=== PATIENT | female | born 1965 | race Caucasian/White ===

== ENCOUNTER 2018-06-16 17:54 | Emergency (ER) | payer OTHER, MEDICARE, SELFPAY ==
--- NOTE | 2018-06-16 18:04 | ED.FALL ---
HPI - Fall <Kenyetta Small PA-C - Last Filed: 06/16/18 22:02> General Chief Complaint: Shortness of Breath/Dyspnea Stated Complaint: Fall, SOB Time Seen by Provider: 06/16/18 18:03 Source: patient Mode of arrival: ambulatory History of Present Illness HPI Narrative: This 53-year-old female comes to ED due to chest/rib pain that started 2 days ago and has been worsening. She states that she tripped trying to avoid falling over her dog and hit her left anterior rib area on the wooden corner of the sofa. She states it has been sore but pain has been worsening, very painful with deep breath, cough, or any movement. She states that her shoulder is not injured but she can't move it due to the pain. She also feels like her chest is getting more congested. She states that she had a cold recently with congestion and cough, however that had been getting better. She had not had any fevers. She denies any head contusion, LOC, back or spine pain or other injury. She states that she is supposed to be on blood pressure medicine but has not been. Related Data Home Medications Medication Instructions Recorded Confirmed chlorthalidone 25 mg PO DAILY 06/16/18 06/16/18 Previous Rx's Medication Instructions Recorded albuterol sulfate [ProAir HFA] 2 puff INHALATION Q4-6H PRN #8.5 06/16/18 gram chlorthalidone 25 mg PO DAILY #10 tab 06/16/18 lidocaine [Lidoderm] 1 patch TOP DAILY #30 each 06/16/18 oxycodone-acetaminophen 1 tab PO Q4H PRN #14 tab 06/16/18 Allergies Allergy/AdvReac Type Severity Reaction Status Date / Time morphine [MORPHINE] Allergy Unknown Verified 06/16/18 18:39 Review of Systems <Kenyetta Small PA-C - Last Filed: 06/16/18 22:02> Review of Systems ROS Unobtainable: All systems reviewed & are unremarkable except as noted in HPI and below Exam <Kenyetta Small PA-C - Last Filed: 06/16/18 22:02> Narrative Exam Narrative: GENERAL APPEARANCE: Patient lying uncomfortably, in NAD NECK/THYROID: Neck supple, no JVD. LUNGS: coarse BS with expiratory rhonchi, no crackles, no cough on exam HEART: Regular rate and rhythm without murmur, normal S1, S2, no S3 or S4. ABDOMEN: Soft, NT, ND, + BS x 4 quadrants EXTREMITIES: No cyanosis. No calf tenderness NEUROLOGIC: Alert and oriented, normal speech, and coordination. Initial Vital Signs Initial Vital Signs: Vital Signs Temperature 98.0 F 06/16/18 18:08 Pulse Rate 93 H 06/16/18 18:08 Respiratory Rate 26 H 06/16/18 18:08 Blood Pressure 200/116 H 06/16/18 18:08 Pulse Oximetry 97 06/16/18 18:08 <Johny Shankar MD - Last Filed: 06/17/18 02:28> Initial Vital Signs Initial Vital Signs: Vital Signs Temperature 98.0 F 06/16/18 18:08 Pulse Rate 93 H 06/16/18 18:08 Respiratory Rate 26 H 06/16/18 18:08 Blood Pressure 200/116 H 06/16/18 18:08 Pulse Oximetry 97 06/16/18 18:08 PFSH <Kenyetta Small PA-C - Last Filed: 06/16/18 22:02> Medical History HTN (hypertension) (Chronic) Surgical History Status post cervical spinal fusion (Resolved) Status post gastric bypass for obesity (Resolved) Status post lumbar surgery (Resolved) Family History Other No pertinent family history Social History Smoking Status: Current every day smoker Family History Other No pertinent family history Social History Smoking Status: Current every day smoker Comment: uses THC. Previous cocaine use Course <Kenyetta Small PA-C - Last Filed: 06/16/18 22:02> Additional Information: Patient is feeling much more comfortable and significantly improved after medications. She is not able to take NSAIDs due to history of gastric bypass. She is able to take deep breaths and worked with respiratory therapist on pulmonary toilet. She thinks albuterol may have helped a little bit. She was given pain medication for this evening and will cone picker a prescription tomorrow. She agreed to return if any acutely worsening symptoms, otherwise will follow up with her PCP 1st of next week. She has also been off of her usual blood pressure medication likely accounting for her elevated blood pressure. She was given a prescription for that as well until she can follow up with her PCP. Orders Ordered: ED Orders 06/16/18 18:12 XR ribs RT min 3V w CXR1V Stat Discontinued Medications Albuterol (Ventolin) 2.5 mg INH NOW ONE Stop: 06/16/18 18:46 Last Admin: 06/16/18 18:49 Dose: 2.5 mg Lidocaine (Lidoderm) 1 each TOP NOW ONE Stop: 06/16/18 18:24 Last Admin: 06/16/18 18:41 Dose: 1 each Oxycodone/Acetaminophen (Percocet 5/325) 2 tab PO NOW ONE Stop: 06/16/18 18:13 Last Admin: 06/16/18 18:43 Dose: 2 tab Vital Signs - 8 hr 06/16/18 18:49 06/16/18 20:01 Pulse Rate 88 88 Respiratory Rate 16 Blood Pressure 148/91 H Pulse Oximetry 98 93 <Johny Shankar MD - Last Filed: 06/17/18 02:28> Orders Ordered: ED Orders 06/16/18 18:12 XR ribs RT min 3V w CXR1V Stat Discontinued Medications Albuterol (Ventolin) 2.5 mg INH NOW ONE Stop: 06/16/18 18:46 Last Admin: 06/16/18 18:49 Dose: 2.5 mg Lidocaine (Lidoderm) 1 each TOP NOW ONE Stop: 06/16/18 18:24 Last Admin: 06/16/18 18:41 Dose: 1 each Oxycodone/Acetaminophen (Percocet 5/325) 2 tab PO NOW ONE Stop: 06/16/18 18:13 Last Admin: 06/16/18 18:43 Dose: 2 tab Vital Signs - 8 hr 06/16/18 18:49 06/16/18 20:01 Pulse Rate 88 88 Respiratory Rate 16 Blood Pressure 148/91 H Pulse Oximetry 98 93 MDM - Fall <Kenyetta Small PA-C - Last Filed: 06/16/18 22:02> Imaging Data Chest x-ray: Radiologist's impression: 24 Kenyetta Small PA-C Find Patient Imaging Stephanie Duran 53 F 1965 ACTIVITY DATE EXAM STATUS AUTHOR 06/16/18 18:[address] [address] XRay Report Signed Patient: Stephanie Duran CMR#: [id number] : 1965Acct:[id number] Age/Sex: 53 / FDate of Service: 06/16/18 Loc: ED Accession Number: [id number] Procedure: XR ribs RT min 3V w CXR1V Ordering Provider: Kenyetta Small P.A-C PROCEDURE: XR RIBS RT MIN 3V W CXR 1V INDICATIONS: contusion, L. anterior upper rib pain TECHNIQUE: 2 views of the left ribs were acquired, along with a single view chest. COMPARISON: [facility], , CHEST 1 VIEW, 03/10/2008, 16:41. FINDINGS: Surgical changes and devices: None. Bones and chest wall: No displaced rib fracture identified. No suspicious bony lesions. Overlying soft tissues appear unremarkable. Lungs and pleura: No pleural effusions or pneumothorax. There are low lung volumes. Linear opacities in the right lung base likely represent atelectasis. Mediastinum: Mediastinal contours appear normal. Heart size is normal. IMPRESSION: 1. No displaced rib fractures identified. Dictated by: Tung Prado M.D. on 06/16/2018 at 19:21 Approved by: Tung Prado M.D. on 06/16/2018 at 19:22 ECG Data Attestation: I personally reviewed and interpreted this ECG as follows: (Normal sinus rhythm with rate 91, left axis deviation, no acute changes) Discharge Plan Departure Patient Disposition: Home Clinical Impression: Acute costochondritis Discharge Date/Time: 06/16/18 20:01 Interventions: ED Discharge Assessment Last Done: 06/16/18 20:01 Instructions: DI for Costochondritis Activity Restrictions/Additional Instructions: Since you are feeling better, you can monitor at home. Your x-ray did not show any broken ribs. I think that you pulled the cartilage between the ribs and breast bone, and the muscles in between your ribs, which is quite painful. Please continue the lidocaine patch during the day and continue the pain pills as needed (do not drive as they could make you sleepy). Use the device that the respiratory therapist gave you regularly. Hug a pillow to your chest and take deep breaths every few hours to help keep your lungs expanded. Please call your PCP on Tuesday and follow up preferably on Tuesday least by Tuesday for recheck. You may need more pain medicine by then. Return as we talked about if you have any acutely worsening symptoms in the interim. I have sent in a little bit of your blood pressure medicine as well for you to restart until you are seen next week. Prescriptions: New chlorthalidone 25 mg tablet 25 mg PO DAILY Qty: 10 RF: 0 oxycodone-acetaminophen 5-325 mg tablet 1 tab PO Q4H PRN (Reason: acute rib pain) Qty: 14 RF: 0 lidocaine [Lidoderm] 5 % adhesive patch,medicated 1 patch TOP DAILY Qty: 30 RF: 0 ProAir HFA 90 mcg/actuation HFA aerosol inhaler 2 puff INHALATION Q4-6H PRN (Reason: chest tightness/shortness of breath) Qty: 8.5 RF: 0 No Action chlorthalidone 25 mg Tablet 25 mg PO DAILY RF: 0 Referrals: Cedrick Adorno DO [Non-Staff] - <Johny Shankar MD - Last Filed: 06/17/18 02:28> Cosign ED Attending Coshéctorature Attestation: I was in the ER at the time this patient's care. I was available for consultation or to see the patient directly if needed. I agree with the assessment and treatment plan.
[2018-06-16 18:08] VITALS: BP 200/116; PULSE 93; RESP 26; TEMP 36.7; O2SAT 97; BMI 33.3
--- NOTE | 2018-06-16 18:12 | DI.RAD.S_ITS ---
PROCEDURE: XR RIBS RT MIN 3V W CXR 1V INDICATIONS: contusion, L. anterior upper rib pain TECHNIQUE: 2 views of the left ribs were acquired, along with a single view chest. COMPARISON: [facility], , CHEST 1 VIEW, 03/10/2008, 16:41. FINDINGS: Surgical changes and devices: None. Bones and chest wall: No displaced rib fracture identified. No suspicious bony lesions. Overlying soft tissues appear unremarkable. Lungs and pleura: No pleural effusions or pneumothorax. There are low lung volumes. Linear opacities in the right lung base likely represent atelectasis. Mediastinum: Mediastinal contours appear normal. Heart size is normal. IMPRESSION: 1. No displaced rib fractures identified. Dictated by: Tung Prado M.D. on 06/16/2018 at 19:21 Approved by: Tung Prado M.D. on 06/16/2018 at 19:22
--- NOTE | 2018-06-16 18:21 | ED_ITS ---
HPI - Fall <Kenyetta Small PA-C - Last Filed: 06/16/18 22:02> General Chief Complaint: Shortness of Breath/Dyspnea Stated Complaint: Fall, SOB Time Seen by Provider: 06/16/18 18:03 Source: patient Mode of arrival: ambulatory History of Present Illness HPI Narrative: This 53-year-old female comes to ED due to chest/rib pain that started 2 days ago and has been worsening. She states that she tripped trying to avoid falling over her dog and hit her left anterior rib area on the wooden corner of the sofa. She states it has been sore but pain has been worsening, very painful with deep breath, cough, or any movement. She states that her shoulder is not injured but she can't move it due to the pain. She also feels like her chest is getting more congested. She states that she had a cold recently with congestion and cough, however that had been getting better. She had not had any fevers. She denies any head contusion, LOC, back or spine pain or other injury. She states that she is supposed to be on blood pressure medicine but has not been. Related Data Home Medications Medication Instructions Recorded Confirmed chlorthalidone 25 mg PO DAILY 06/16/18 06/16/18 Previous Rx's Medication Instructions Recorded albuterol sulfate [ProAir HFA] 2 puff INHALATION Q4-6H PRN #8.5 06/16/18 gram chlorthalidone 25 mg PO DAILY #10 tab 06/16/18 lidocaine [Lidoderm] 1 patch TOP DAILY #30 each 06/16/18 oxycodone-acetaminophen 1 tab PO Q4H PRN #14 tab 06/16/18 Allergies Allergy/AdvReac Type Severity Reaction Status Date / Time morphine [MORPHINE] Allergy Unknown Verified 06/16/18 18:39 Review of Systems <Kenyetta Small PA-C - Last Filed: 06/16/18 22:02> Review of Systems ROS Unobtainable: All systems reviewed & are unremarkable except as noted in HPI and below Exam <Kenyetta Small PA-C - Last Filed: 06/16/18 22:02> Narrative Exam Narrative: GENERAL APPEARANCE: Patient lying uncomfortably, in NAD NECK/THYROID: Neck supple, no JVD. LUNGS: coarse BS with expiratory rhonchi, no crackles, no cough on exam HEART: Regular rate and rhythm without murmur, normal S1, S2, no S3 or S4. ABDOMEN: Soft, NT, ND, + BS x 4 quadrants EXTREMITIES: No cyanosis. No calf tenderness NEUROLOGIC: Alert and oriented, normal speech, and coordination. Initial Vital Signs Initial Vital Signs: Vital Signs Temperature 98.0 F 06/16/18 18:08 Pulse Rate 93 H 06/16/18 18:08 Respiratory Rate 26 H 06/16/18 18:08 Blood Pressure 200/116 H 06/16/18 18:08 Pulse Oximetry 97 06/16/18 18:08 <Johny Shankar MD - Last Filed: 06/17/18 02:28> Initial Vital Signs Initial Vital Signs: Vital Signs Temperature 98.0 F 06/16/18 18:08 Pulse Rate 93 H 06/16/18 18:08 Respiratory Rate 26 H 06/16/18 18:08 Blood Pressure 200/116 H 06/16/18 18:08 Pulse Oximetry 97 06/16/18 18:08 PFSH <Kenyetta Small PA-C - Last Filed: 06/16/18 22:02> Medical History HTN (hypertension) (Chronic) Surgical History Status post cervical spinal fusion (Resolved) Status post gastric bypass for obesity (Resolved) Status post lumbar surgery (Resolved) Family History Other No pertinent family history Social History Smoking Status: Current every day smoker Family History Other No pertinent family history Social History Smoking Status: Current every day smoker Comment: uses THC. Previous cocaine use Course <Kenyetta Small PA-C - Last Filed: 06/16/18 22:02> Additional Information: Patient is feeling much more comfortable and significantly improved after medications. She is not able to take NSAIDs due to history of gastric bypass. She is able to take deep breaths and worked with respiratory therapist on pulmonary toilet. She thinks albuterol may have helped a little bit. She was given pain medication for this evening and will mushroom picker a prescription tomorrow. She agreed to return if any acutely worsening symptoms, otherwise will follow up with her PCP 1st of next week. She has also been off of her usual blood pressure medication likely accounting for her elevated blood pressure. She was given a prescription for that as well until she can follow up with her PCP. Orders Ordered: ED Orders 06/16/18 18:12 XR ribs RT min 3V w CXR1V Stat Discontinued Medications Albuterol (Ventolin) 2.5 mg INH NOW ONE Stop: 06/16/18 18:46 Last Admin: 06/16/18 18:49 Dose: 2.5 mg Lidocaine (Lidoderm) 1 each TOP NOW ONE Stop: 06/16/18 18:24 Last Admin: 06/16/18 18:41 Dose: 1 each Oxycodone/Acetaminophen (Percocet 5/325) 2 tab PO NOW ONE Stop: 06/16/18 18:13 Last Admin: 06/16/18 18:43 Dose: 2 tab Vital Signs - 8 hr 06/16/18 18:49 06/16/18 20:01 Pulse Rate 88 88 Respiratory Rate 16 Blood Pressure 148/91 H Pulse Oximetry 98 93 <Johny Shankar MD - Last Filed: 06/17/18 02:28> Orders Ordered: ED Orders 06/16/18 18:12 XR ribs RT min 3V w CXR1V Stat Discontinued Medications Albuterol (Ventolin) 2.5 mg INH NOW ONE Stop: 06/16/18 18:46 Last Admin: 06/16/18 18:49 Dose: 2.5 mg Lidocaine (Lidoderm) 1 each TOP NOW ONE Stop: 06/16/18 18:24 Last Admin: 06/16/18 18:41 Dose: 1 each Oxycodone/Acetaminophen (Percocet 5/325) 2 tab PO NOW ONE Stop: 06/16/18 18:13 Last Admin: 06/16/18 18:43 Dose: 2 tab Vital Signs - 8 hr 06/16/18 18:49 06/16/18 20:01 Pulse Rate 88 88 Respiratory Rate 16 Blood Pressure 148/91 H Pulse Oximetry 98 93 MDM - Fall <Kenyetta Small PA-C - Last Filed: 06/16/18 22:02> Imaging Data Chest x-ray: Radiologist's impression: 24 Kenyetta Small PA-C Find Patient Imaging Stephanie Duran 53 F 1965 ACTIVITY DATE EXAM STATUS AUTHOR 06/16/18 18:[address] [address] XRay Report Signed Patient: Stephanie Duran CMR#: [id number] : 1965Acct:[id number] Age/Sex: 53 / FDate of Service: 06/16/18 Loc: ED Accession Number: [id number] Procedure: XR ribs RT min 3V w CXR1V Ordering Provider: Kenyetta Small P.A-C PROCEDURE: XR RIBS RT MIN 3V W CXR 1V INDICATIONS: contusion, L. anterior upper rib pain TECHNIQUE: 2 views of the left ribs were acquired, along with a single view chest. COMPARISON: [facility], CHEST 1 VIEW, 03/10/2008, 16:41. FINDINGS: Surgical changes and devices: None. Bones and chest wall: No displaced rib fracture identified. No suspicious bony lesions. Overlying soft tissues appear unremarkable. Lungs and pleura: No pleural effusions or pneumothorax. There are low lung volumes. Linear opacities in the right lung base likely represent atelectasis. Mediastinum: Mediastinal contours appear normal. Heart size is normal. IMPRESSION: 1. No displaced rib fractures identified. Dictated by: Tung Prado M.D. on 06/16/2018 at 19:21 Approved by: Tung Prado M.D. on 06/16/2018 at 19:22 ECG Data Attestation: I personally reviewed and interpreted this ECG as follows: (Normal sinus rhythm with rate 91, left axis deviation, no acute changes) Discharge Plan Departure Patient Disposition: Home Clinical Impression: Acute costochondritis Discharge Date/Time: 06/16/18 20:01 Interventions: ED Discharge Assessment Last Done: 06/16/18 20:01 Instructions: DI for Costochondritis Activity Restrictions/Additional Instructions: Since you are feeling better, you can monitor at home. Your x-ray did not show any broken ribs. I think that you pulled the cartilage between the ribs and breast bone, and the muscles in between your ribs, which is quite painful. Pl ease continue the lidocaine patch during the day and continue the pain pills as needed (do not drive as they could make you sleepy). Use the device that the respiratory therapist gave you regularly. Hug a pillow to your chest and take deep breaths every few hours to help keep your lungs expanded. Please call your PCP on Tuesday and follow up preferably on Tuesday least by [place] for recheck. You may need more pain medicine by then. Return as we talked about if you have any acutely worsening symptoms in the interim. I have sent in a little bit of your blood pressure medicine as well for you to restart until you are seen next week. Prescriptions: New chlorthalidone 25 mg tablet 25 mg PO DAILY Qty: 10 RF: 0 oxycodone-acetaminophen 5-325 mg tablet 1 tab PO Q4H PRN (Reason: acute rib pain) Qty: 14 RF: 0 lidocaine [Lidoderm] 5 % adhesive patch,medicated 1 patch TOP DAILY Qty: 30 RF: 0 ProAir HFA 90 mcg/actuation HFA aerosol inhaler 2 puff INHALATION Q4-6H PRN (Reason: chest tightness/shortness of breath) Qty: 8.5 RF: 0 No Action chlorthalidone 25 mg Tablet 25 mg PO DAILY RF: 0 Referrals: Cedrick Adorno DO [Non-Staff] - <Johny Shankar MD - Last Filed: 06/17/18 02:28> Cosign ED Attending Coshéctorature Attestation: I was in the ER at the time this patient's care. I was available for consultation or to see the patient directly if needed. I agree with the assessment and treatment plan.
[2018-06-16] MEDS: LIDOCAINE PATCH 1 EACH ADH..PATCH TOP (18:41)
[2018-06-16] MEDS: OXYCODONE/ACETAMINOPHEN 5/325 TABLET 2 TAB PO (18:43)
[2018-06-16 18:49] VITALS: PULSE 88; O2SAT 98
[2018-06-16] MEDS: ALBUTEROL 2.5 MG/3 ML NEB (ADULT) INH (18:49)
--- NOTE | 2018-06-16 18:50 | PC.NURSE ---
rtNorris instructed on incentive spironmetry use. pt demonstrated well.
[2018-06-16 20:01] VITALS: BP 148/91; PULSE 88; RESP 16; O2SAT 93
== END 2018-06-16 20:01 | disposition home or self-care (01) ==
PROVIDERS: Emergency Provider Internal Medicine; Family Provider Preventive Medicine Occupational Medicine; PCP Preventive Medicine Occupational Medicine
DX: M94.0 Chondrocostal junction syndrome [Tietze] (principal)
CPT/HCPCS: 71101; 93005; 94640; 99282; 99284; J7613

== ENCOUNTER 2019-01-01 01:38 | Emergency (ER) | payer OTHER, MEDICARE, SELFPAY ==
[2019-01-01 01:45] VITALS: BP 167/90; PULSE 88; RESP 15; TEMP 36.4; O2SAT 94; BMI 37.8
--- NOTE | 2019-01-01 01:51 | ED_ITS ---
HPI - Abdominal Pain General Chief Complaint: Abdominal Pain Stated Complaint: ABD pain LLQ Time Seen by Provider: 01/01/19 01:38 Source: patient and EMS Mode of arrival: EMS Limitations: no limitations History of Present Illness HPI narrative: Patient comes emergency department complaining of left upper quadrant abdominal pain that started tonight. Patient states that she has a history of gastric bypass 2 years ago, and about a year ago, began having episodes of pain like she has had tonight. Patient states she has seen her primary doctor for this previously, but they could not figure out what was wrong, so they sent her to a GI specialist. They did a colonoscopy and an endoscopy, but patient states they had to abort the endoscopy, secondary to the patient being in too much pain. Patient states she does not actually remember the procedure, because she was sedated. She states the GI specialist never found a reason for her pain. Patient denies anything different or new about this episode, other than that it lasted a bit longer than usual. She states she did have nausea and vomiting, but that she vomits every single day. Patient denies fevers. She states the pain and vomiting always start after eating. Patient states her pain is a little better now than it was earlier. She also reports that her nausea has resolved. Related Data Home Medications Medication Instructions Recorded Confirmed chlorthalidone 25 mg PO DAILY 06/16/18 06/16/18 Previous Rx's Medication Instructions Recorded albuterol sulfate [ProAir HFA] 2 puff INHALATION Q4-6H PRN #8.5 06/16/18 gram chlorthalidone 25 mg PO DAILY #10 tab 06/16/18 lidocaine [Lidoderm] 1 patch TOP DAILY #30 each 06/16/18 oxycodone-acetaminophen 1 tab PO Q4H PRN #14 tab 06/16/18 ondansetron 4 mg PO Q6H PRN #20 tab 01/01/19 Allergies Allergy/AdvReac Type Severity Reaction Status Date / Time morphine [MORPHINE] Allergy Unknown Verified 06/16/18 18:39 acetaminophen [From Percocet] Allergy Verified 01/01/19 01:51 oxycodone [From Percocet] Allergy Verified 01/01/19 01:51 Review of Systems Constitutional Constitutional: Denies chills, Denies fatigue, Denies fever(s), Denies frequent falls, Denies lethargy and Denies weakness Eyes Eyes: Denies change in vision, Denies eye discharge, Denies irritation and Denies loss of vision ENT Ears, Nose, Mouth, and Throat: Denies change in voice, Denies dizziness, Denies neck pain, Denies sore throat and Denies throat swelling Cardiovascular Cardiovascular: Denies chest pain, Denies irregular heart rhythm, Denies lightheadedness, Denies palpitations, Denies dyspnea, Denies dyspnea on exertion and Denies orthopnea Respiratory Respiratory: Denies cough, Denies dyspnea, Denies dyspnea on exertion and Denies wheezing Gastrointestinal Gastrointestinal: Reports abdominal pain, Denies change in bowel habits, Denies diarrhea, Reports nausea and Reports vomiting Genitourinary Genitourinary: Denies hematuria, Denies flank pain, Denies urinary incontinence and Denies urinary urgency Musculoskeletal Musculoskeletal: Denies back pain, Denies muscle weakness, Denies neck pain, Denies numbness and Denies tingling Integumentary/Breasts Skin/Breast: Denies pruritus, Denies erythema, Denies rash and Denies wounds Neurologic Neurologic: Denies behavioral changes, Denies confusion, Denies dizziness, Denies frequent falls, Denies loss of vision, Denies numbness, Denies tingling and Denies weakness Psychiatric Psychiatric: Denies anxiety, Denies behavioral changes, Denies confusion, Denies depression, Denies homicidal ideation and Denies suicidal ideation Endocrine Endocrine: Denies fatigue, Denies flushing and Denies palpitations Hematologic/Lymphatic Hematologic/Lymphatic: Denies easy bruising Allergic/Immunologic Allergic/Immunologic: Denies urticaria, Denies throat swelling and Denies wheezing [facility] Medical History HTN (hypertension) (Chronic) Surgical History Status post cervical spinal fusion (Resolved) Status post gastric bypass for obesity (Resolved) Status post lumbar surgery (Resolved) Family History (Updated 06/16/18 @ 18:19 by Kenyetta Small PA-C) Other No pertinent family history Social History Smoking Status: Current every day smoker Family History Other No pertinent family history Social History Smoking Status: Current every day smoker Exam Initial Vital Signs Initial Vital Signs: Vital Signs Temperature 97.5 F L 01/01/19 01:45 Pulse Rate 88 01/01/19 01:45 Respiratory Rate 15 01/01/19 01:45 Blood Pressure 167/90 H 01/01/19 01:45 Pulse Oximetry 94 01/01/19 01:45 Const General: cooperative and well developed Nutritional Appearance: well nourished Orientation: alert, awake, oriented x3 and not confused [facility] Head: normocephalic and atraumatic Ears: external ears normal and TM's normal bilaterally Nose: external nose normal and No nasal discharge Face and sinus: sinuses nontender, face symmetric, no sinus tenderness and No dry mucous membranes Mouth: oral mucosae normal and moist mucous membranes Teeth and gingiva: dentition normal Throat: tonsils normal and uvula midline Eyes General: appearance normal, both eyes and all related structures Eyelids: eyelids normal Conjunctivae: conjunctivae normal Sclera: sclerae normal Pupils: PERRL EOM: EOM intact bilaterally Neck Neck: normal visual inspection, trachea midline, No lymphadenopathy, No midline deformity and No JVD Lymphatic: No lymphedema Chest Chest: normal inspection of the chest Resp Effort & Inspection: normal respiratory effort, able to speak in complete sentences, no respiratory distress and no use of accessory muscles Auscultation: clear to auscultation bilaterally, no rales, no rhonchi and no wheezes Cardio Rate: regular rate Rhythm: regular rhythm Heart Sounds: no click, no gallops, no murmurs and no rubs Pulses: normal peripheral pulses GI Inspection: non-distended and obesity Palpation: soft, no hepatosplenomegaly, No guarding, No pulsatile mass and tender (Moderate, epigastric and left upper quadrant) Back/Spine/Pelvis Back: No CVA tenderness Cervical Spine: cervical ROM normal and No pain with cervical ROM Thoracic/Lumbar Spine: thoracic and lumbar spine normal to inspection Skin General: no rashes or lesions noted, No jaundice and No petechiae Neuro General: alert, oriented x3, gait normal and no focal motor deficits Speech: speech normal Extrem General: full ROM, no clubbing, cyanosis or edema, no pedal edema and no calf tenderness Psych Appearance: well kempt Mental Status: mental status grossly normal Attitude: cooperative Thought Content: normal and suicidality Judgment: judgment good Course Course Course Narrative: Patient was treated symptomatically in the emergency department with Dilaudid and worked up with laboratory studies, which were unremarkable the emergency department. I did not find evidence of an emergent condition, and given the patient's fairly benign abdominal exam, I did not feel that imaging was indicated at this time. We have discussed home management of symptoms, as well as the usual indications for return. Orders Ordered: Discontinued Medications Hydromorphone HCl (Dilaudid) 0.5 mg IV NOW ONE Stop: 01/01/19 01:51 Last Admin: 01/01/19 01:55 Dose: 0.5 mg Documented by: ELHAM Vital Signs Vital signs: Vital Signs - 8 hr 01/01/19 01:45 Temperature 97.5 F L Pulse Rate 88 Respiratory Rate 15 Blood Pressure 167/90 H Pulse Oximetry 94 MDM - Abdominal Pain Medical Records Attestation: I reviewed the patient's medical records. Lab Data Attestation: I reviewed the patient's lab results. Result diagrams: 01/01/19 01:35 01/01/19 01:35 Labs: Lab Results 01/01/19 01/01/19 Range/Units 01:35 01:35 WBC 8.5 (4.5-11.0) X10^3/uL RBC 4.35 (4.0-5.2) X10^6/uL Hgb 13.2 (12.0-16.0) g/dL Hct 39.3 (36-46) % MCV 90.4 (80-100) fL MCH 30.4 (26-34) PG MCHC 33.7 (30-36) % RDW 17.3 H (11.6-14.8) % Plt Count 316 (150-400) X10^3/uL Neut % (Auto) 72.7 (50-75) % Lymph % (Auto) 19.3 L (25-40) % Leon % (Auto) 6.2 (3-14) % Eos % (Auto) 1.1 L (2-4) % Baso % (Auto) 0.7 (0-2) % Neut # (Auto) 6100 (3965-0213) /uL Lymph # (Auto) 1600 (3581-6977) /uL Leon # (Auto) 500 (0-900) /uL Eos # (Auto) 100 (0-450) /uL Baso # (Auto) 100 (0-100) /uL Sodium 140 (137-145) mmol/L Potassium 3.1 L (3.4-5.1) mmol/L Chloride 107 (98-107) mmol/L Carbon Dioxide 23 (22-32) mmol/L BUN 9 (7-17) mg/dL Creatinine 0.80 (0.52-1.04) mg/dL Estimated GFR > 60.0 (>60) mL/min BUN/Creatinine Ratio 11.3 (6-22) Glucose 118 H (70-100) mg/dL Calcium 8.8 (8.4-10.2) mg/dL Total Bilirubin 0.3 (0.2-1.3) mg/dL AST 67 H (14-36) IU/L ALT 65 H (9-52) IU/L Alkaline Phosphatase 105 (38-126) U/L Total Protein 6.9 (6.3-8.2) g/dL Albumin 4.0 (3.5-5.0) g/dL Globulin 2.9 (1.7-4.1) g/dL Albumin/Globulin Ratio 1.4 (1.0-2.8) Lipase 116 (23-300) U/L Discharge Plan Departure Patient Disposition: Home Clinical Impression: Abdominal pain Qualifiers: Abdominal location: left upper quadrant Qualified Code(s): R10.12 - Left upper quadrant pain Nausea & vomiting Qualifiers: Vomiting type: unspecified Vomiting Intractability: non-intractable Qualified Code(s): R11.2 - Nausea with vomiting, unspecified Discharge Date/Time: 01/01/19 03:37 Instructions: DI for Abdominal Pain-Adult, DI for Vomiting -- Adult Activity Restrictions/Additional Instructions: Your labs overall look good, other than slight elevations in your liver enzymes. You're due for another visit with the GI doctor, and this would be a good follow-up, given that you have not seen them since the symptoms first began. Please make an appointment to follow up with the transport aircrewman, but also, please make an appointment to see primary care, as well. Some options for primary care physicians are listed below. Your prescription has been electronically transmitted to [facility]. Prescriptions: New ondansetron 4 mg tablet,disintegrating 4 mg PO Q6H PRN (Reason: nausea and vomiting) Qty: 20 RF: 0 No Action chlorthalidone 25 mg Tablet 25 mg PO DAILY RF: 0 chlorthalidone 25 mg tablet 25 mg PO DAILY Qty: 10 RF: 0 oxycodone-acetaminophen 5-325 mg tablet 1 tab PO Q4H PRN (Reason: acute rib pain) Qty: 14 RF: 0 lidocaine [Lidoderm] 5 % adhesive patch,medicated 1 patch TOP DAILY Qty: 30 RF: 0 ProAir HFA 90 mcg/actuation HFA aerosol inhaler 2 puff INHALATION Q4-6H PRN (Reason: chest tightness/shortness of breath) Qty: 8.5 RF: 0 Referrals: Romaine Castellanos MD [Physician] - Romaine Lazar MD [Physician] - Sowmya Hunter MD [Primary Care Provider] - Lesia Olson DO [Physician] -
[2019-01-01] MEDS: HYDROMORPHONE 0.5 MG INJ IV (01:55)
[2019-01-01 02:05] LABS: Add Manual Diff / Slide Review NO; Basophils Absolute Auto 100 /uL (0-100); Basophils Percent Auto 0.7 % (0-2); Eosinophils Absolute Auto 100 /uL (0-450); Eosinophils Percent Auto 1.1 % (2-4); Hematocrit 39.3 % (36-46); Hemoglobin 13.2 g/dL (12.0-16.0); Lymphocytes Absolute Auto 1600 /uL (1100-4500); Lymphocytes Percent Auto 19.3 % (25-40); Mean Corpuscular HGB Conc 33.7 % (30-36); Mean Corpuscular Hemoglobin 30.4 PG (26-34); Mean Corpuscular Volume 90.4 fL (80-100); Monocytes Absolute Auto 500 /uL (0-900); Monocytes Percent Auto 6.2 % (3-14); Neutrophils Absolute Auto 6100 /uL (1500-7000); Neutrophils Percent Auto 72.7 % (50-75); Platelet Count 316 X10^3/uL (150-400); Red Blood Cell Count 4.35 X10^6/uL (4.0-5.2); Red Cell Distribution Width 17.3 % (11.6-14.8); White Blood Cell Count 8.5 X10^3/uL (4.5-11.0)
[2019-01-01 02:16] LABS: Alanine Aminotransferase 65 IU/L (9-52); Albumin Globulin Ratio 1.4 (1.0-2.8); Alkaline Phosphatase 105 U/L (38-126); Aspartate Aminotransferase 67 IU/L (14-36); BUN Creatinine Ratio 11.3 (6-22); Bilirubin Total 0.3 mg/dL (0.2-1.3); Blood Urea Nitrogen 9 mg/dL (7-17); Calcium 8.8 mg/dL (8.4-10.2); Carbon Dioxide 23 mmol/L (22-32); Chloride 107 mmol/L (98-107); Estimated Glomerular Filt Rate > 60.0 mL/min (>60); Globulin 2.9 g/dL (1.7-4.1); Glucose 118 mg/dL (70-100); HEMOLYSIS < 15 (0-50); Lipase 116 U/L (23-300); Potassium 3.1 mmol/L (3.4-5.1); Sodium 140 mmol/L (137-145); Total Protein 6.9 g/dL (6.3-8.2)
[2019-01-01 02:30] VITALS: BP 161/92; PULSE 86; RESP 16; O2SAT 91
[2019-01-01 03:00] VITALS: BP 144/91; PULSE 90; RESP 17; O2SAT 95
== END 2019-01-01 03:37 | disposition home or self-care (01) ==
PROVIDERS: Emergency Provider Emergency Medicine; Family Provider Preventive Medicine Occupational Medicine; PCP Preventive Medicine Occupational Medicine
DX: R10.12 Left upper quadrant pain (principal); R11.2 Nausea with vomiting, unspecified
CPT/HCPCS: 36591; 80053; 83690; 85025; 96374; 99282; 99284; J1170

== ENCOUNTER 2020-11-08 15:52 | Emergency (ER) | payer OTHER, MEDICARE, SELFPAY ==
[2020-11-08] VITALS (21 sets, daily range): BP systolic 122–204; BP diastolic 72–125; PULSE 23–103; RESP 16–25; TEMP 36.6; O2SAT 91–98
--- NOTE | 2020-11-08 16:03 | DI.CT.S_ITS ---
PROCEDURE: CT ANGIO HEAD AND NECK INDICATIONS: left leg weakness TECHNIQUE: Noncontrast images were performed earlier in the day and not repeated. After the administration of intravenous contrast, 1 mm thick sections acquired from the aortic arch through the Anderson of Damian. Post-contrast 4.5 mm thick sections then re-acquired from the foramen magnum to the vertex. 3-dimensional dybguhi-hrdtinixv-hgzvzhxlse (MIP) and/or volume rendering reformats were acquired of the central intracranial vasculature and neck separately. COMPARISON: [facility], CT, CT STROKE, 11/08/2020, 16:08. FINDINGS: Image quality: Excellent. BRAIN: CSF spaces: Ventricles are normal in size and shape. Basal cisterns are patent. No extra-axial fluid collections. Brain: No midline shift. No intracranial bleeds or masses. Barrera-white matter interface appears intact. Skull and face: Calvarium and facial bones appear intact, without suspicious lesions. Orbits appear normal. Sinuses: Sinuses and mastoids are clear. HEAD CT ANGIOGRAPHY: Anterior circulation: Intracranial internal carotid arteries are normal in size and flow. The flow within the paired anterior cerebral arteries is normal and symmetric. The flow within the middle cerebral arteries is normal and symmetric. The anterior communicating artery is seen. No aneurysms are seen. Posterior circulation: Visualized portions of the vertebral arteries demonstrate normal caliber, and join to form a normal appearing basilar artery. The distal right vertebral artery largely terminates in the right posterior inferior cerebellar artery. There is a prominent right posterior communicating artery seen, with an accompanying diminutive right P1 segment. This is attributed to a type origin of the right posterior cerebral artery, which is considered to be a normal developmental variant of typically no clinical consequence. Flow within the posterior cerebral arteries is normal and symmetric. No aneurysms are seen. NECK CT ANGIOGRAPHY: Carotid system: The great vessels demonstrate a conventional anatomy as they arise from the aortic arch. The origins of the common carotid arteries appear patent. The common carotid arteries demonstrate normal caliber and courses. The bifurcation regions are both widely patent. The internal carotid arteries demonstrate normal calibers and courses. Posterior circulation: The origins of the vertebral arteries both appear widely patent. The more superior extracranial portions of both vertebral arteries also demonstrate normal courses and calibers. The left vertebral artery is dominant to the right Soft tissues: Visualized neck soft tissues demonstrate no suspicious abnormalities. Bones: No suspicious bony lesions. Visualized cervical spine appears normally aligned. Cervical spine fixation hardware can be seen. IMPRESSION: No hemodynamically significant stenosis can be seen. [id number] developmental anomalies are incidentally noted. No abnormal enhancement is seen. Any quantitative measurements of stenosis were performed using NASCET criteria. Dictated by: Mingo Nelson M.D. on 11/08/2020 at 15:38 Approved by: Mingo Nelson M.D. on 11/08/2020 at 15:40
--- NOTE | 2020-11-08 16:03 | DI.CT.S_ITS ---
PROCEDURE: CT STROKE INDICATIONS: left leg weakness TECHNIQUE: Noncontrast 4.5 mm thick angled axial sections acquired from the foramen magnum to the vertex, with coronal reformats. For radiation dose reduction, the following was used: automated exposure control, adjustment of mA and/or kV according to patient size. COMPARISON: None. FINDINGS: Image quality: Excellent. CSF spaces: Basal cisterns are patent. No extra-axial fluid collections. Ventricles are normal in size and shape. Brain: No midline shift. No intracranial masses or hemorrhage. Barrera-white matter interface is normal. Skull and face: Calvarium and visualized facial bones are intact, without suspicious lesions. Sinuses: Visualized sinuses and mastoids are clear. IMPRESSION: No acute intracranial abnormality. Findings discussed with Dr. Darshana Richardson MD on 11/08/20 16:11 hours. This study fulfills neurological imaging criteria for inclusion or exclusion of acute stroke therapies based on available published neurological imaging guidelines. Dictated by: Yelitza Hernandez M.D. on 11/08/2020 at 16:10 Approved by: Yelitza Hernandez M.D. on 11/08/2020 at 16:11
--- NOTE | 2020-11-08 16:06 | ED.NEUROSD ---
HPI - Neuro Symptoms/Deficit General Chief Complaint: Neuro Symptoms/Deficit Stated Complaint: stroke sx Time Seen by Provider: 11/08/20 16:03 History of Present Illness HPI Narrative: Patient is a 55-year-old female who presents as a code stroke. Her last known well was at 315 when she told her her head was not right. She remembers looking at the clock was right around 3:00 a.m. they [place] and the [place] at 4 she was worried they would make it as she was not feeling right. 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 She feels like her legs are weak she felt like she was not able to speak clearly and was brought here immediately. She does drink alcohol daily but has not had anything to drink today. Has a history of an adrenal mass which seems to be growing but stable. She does not use any medications daily. Related Data Allergies Allergy/AdvReac Type Severity Reaction Status Date / Time morphine [MORPHINE] Allergy Unknown Verified 06/16/18 18:39 acetaminophen [From Percocet] Allergy Verified 01/01/19 01:51 oxycodone [From Percocet] Allergy Verified 01/01/19 01:51 Review of Systems Review of Systems Narrative: GENERAL: Denies chills, fatigue, malaise, fever, sweats, travel HEENT: Denies sinus pain, ear pain, sore throat, difficulty swallowing, neck pain RESPIRATORY: Denies dyspnea, cough, wheezing, hemoptysis, sputum. CARDIOVASCULAR: Denies chest pain, palpitations, orthopnea, edema GASTROINTESTINAL: Denies nausea, vomiting, abdominal pain, diarrhea, constipation, melena. : Denies dysuria, frequency, incontinence, hematuria, urinary retention, flank pain. MUSCULOSKELETAL: Denies weakness, joint pain, or bony pain SKIN: No rash, no erythema, no pruritus NEUROLOGIC: See HPI PSYCHIATRIC: No concerning psychosocial issues. 12 point review of systems is negative except for those stated above and HPI Patient History Medical History (Updated 01/16/19 @ 00:00 by ) HTN (hypertension) Surgical History Status post cervical spinal fusion Status post gastric bypass for obesity Status post lumbar surgery Family History Other No pertinent family history Social History Smoking Status: Current every day smoker Smoking Status: Current every day smoker alcohol intake frequency: 3 or more drinks per day Substance Use Type: marijuana Exam Initial Vital Signs Initial Vital Signs: Vital Signs Pulse Rate 103 H 11/08/20 16:07 Respiratory Rate 16 11/08/20 16:07 Blood Pressure 204/125 H 11/08/20 16:07 Pulse Oximetry 95 11/08/20 16:07 GENERAL: Alert 55-year-old female and in [no acute] distress. HEENT: Head atraumatic,EOMI, pupils reactive, mild facial droop CARDIOVASCULAR: Regular rate and rhythm without murmurs, rubs or gallops. RESPIRATORY: Breath sounds equal bilaterally, no wheezes rales or rhonchi. ABDOMEN: Soft, nontender. Normoactive bowel sounds all 4 quadrants. No guarding or rebound. EXTREMITIES: Normal range of motion, no clubbing or edema. NEUROLOGICAL: Alert and oriented x4. Mild left-sided facial droop, unable to lift left leg, left arm drifts SKIN: Warm, dry, no laceration, no petechiae, no rashes or lesions. Scores NIH Stroke Scale Level of Conciousness: Alert, keenly responsive Ask month/age: Answers both questions correctly. Open/close eyes, close hand: Performs both tasks correctly Best gaze horizontal: Normal Visual werner: No visual loss Facial palsy: Minor paralysis, flattened nasolabial fold, asymmetry on smiling Left arm drift: Drifts down, not to bed Right arm drift: No drift for full 10 sec Left leg drift: Some effort against gravity, cannot maintain, drifts down to bed Right leg drift: No drift for full 5 sec Limb ataxia: Absent Sensory on face/arms/legs: Normal, no sensory loss Best language: No aphasia, normal Dysarthria: Normal Extinction or inattention: No abnormality Total NIH Stroke scale score: 4 Course Orders Ordered: ED Orders 11/08/20 16:[address] angio head and neck Stat 11/08/20 16:05 Urine Drug Screen, Rapid Stat EKG-12 Lead Stat 11/08/20 16:07 Complete Blood Count AUTO DIFF Stat Comprehensive Metabolic Panel Stat Ethanol (ETOH) Stat Magnesium Stat Partial Thromboplastin Time Stat Phosphorous Stat Prothrombin Time INR Stat Troponin & CK Cardiac Panel Stat 11/08/20 16:41 COVID19 -Nasal swab/Pre-Proc Stat Sodium Chloride (Normal Saline 0.9%) 1,000 mls @ 150 mls/hr IV CONT MARIA ELENA Last Admin: 11/08/20 17:29 Dose: 150 mls/hr Documented by: HERNANDEZ Nicardipine HCl 25 mg/ Sodium (Chloride) 250 mls @ 50 mls/hr IV TITRATE MARIA ELENA; Protocol Last Admin: 11/08/20 17:51 Dose: 5 mg/hr, 50 mls/hr Documented by: HERNANDEZ Discontinued Medications Alteplase, Recombinant (Alteplase 100 Mg Vial) 88.1 mg IV NOW ONE Stop: 11/08/20 16:46 Last Admin: 11/08/20 16:52 Dose: 88.1 mg Documented by: HERNANDEZ Labetalol HCl (Labetalol 20 Mg/4 Ml Syringe) 10 mg IV NOW ONE Stop: 11/08/20 16:22 Last Admin: 11/08/20 16:27 Dose: 10 mg Documented by: JOSÉ ANTONIO Ondansetron HCl (Ondansetron 4 Mg/2 Ml Inj) 4 mg IV NOW ONE Stop: 11/08/20 17:38 Last Admin: 11/08/20 17:38 Dose: 4 mg Documented by: HERNANDEZ Potassium Chloride (Potassium Chloride 20 Meq Tab) 40 meq PO NOW ONE Stop: 11/08/20 17:14 Last Admin: 11/08/20 17:28 Dose: 40 meq Documented by: HERNANDEZ Vital Signs Vital signs: Vital Signs - 8 hr 11/08/20 16:07 11/08/20 16:15 11/08/20 16:27 Temperature Pulse Rate 103 H 97 H Respiratory Rate 16 18 Blood Pressure 204/125 H 201/107 H 201/107 H Pulse Oximetry 95 98 11/08/20 16:30 11/08/20 16:45 11/08/20 17:00 Temperature 98 F 98 F Pulse Rate 23 L 80 74 Respiratory Rate 18 22 18 Blood Pressure 145/84 H 160/99 H 160/87 H Pulse Oximetry 98 98 95 11/08/20 17:07 11/08/20 17:16 11/08/20 17:30 Temperature Pulse Rate 80 80 80 Respiratory Rate 22 22 18 Blood Pressure 127/72 122/73 Pulse Oximetry 95 94 95 11/08/20 17:45 11/08/20 17:46 11/08/20 17:49 Temperature Pulse Rate 81 81 81 Respiratory Rate 21 21 25 H Blood Pressure 181/102 H 184/101 H Pulse Oximetry 94 94 93 11/08/20 18:00 11/08/20 18:04 11/08/20 18:05 Temperature Pulse Rate 81 81 81 Respiratory Rate 18 19 18 Blood Pressure 165/86 H 165/86 H Pulse Oximetry 92 93 98 11/08/20 18:15 11/08/20 18:30 11/08/20 18:45 Temperature Pulse Rate 79 79 78 Respiratory Rate 23 22 22 Blood Pressure 163/93 H 149/90 H 164/94 H Pulse Oximetry 93 93 93 11/08/20 19:00 11/08/20 19:29 Temperature Pulse Rate 77 82 Respiratory Rate 21 25 H Blood Pressure 154/90 H 171/93 H Pulse Oximetry 91 91 MDM - Neuro Symptoms/Deficit Lab Data Result diagrams: 11/08/20 16:07 11/08/20 16:07 Labs: Lab Results 11/08/20 11/08/20 11/08/20 Range/Units 16:07 16:07 16:07 WBC 9.4 (4.5-11.0) X10^3/uL RBC 4.38 (4.0-5.2) X10^6/uL Hgb 13.9 (12.0-16.0) g/dL Hct 41.8 (36-46) % MCV 95.5 (80-100) fL MCH 31.7 (26-34) PG MCHC 33.2 (30-36) % RDW 19.0 H (11.6-14.8) % Plt Count 376 (150-400) X10^3/uL Neut % (Auto) 68.6 (50-75) % Lymph % (Auto) 19.9 L (25-40) % Maverick % (Auto) 10.0 (3-14) % Eos % (Auto) 0.8 L (2-4) % Baso % (Auto) 0.7 (0-2) % Neut # (Auto) 6400 (1433-5025) /uL Lymph # (Auto) 1900 (6018-3309) /uL Maverick # (Auto) 900 (0-900) /uL Eos # (Auto) 100 (0-450) /uL Baso # (Auto) 100 (0-100) /uL PT 10.8 (10.1-12.7) SECONDS INR 1.0 (0.9-1.3) APTT 29 (26.4-36.2) SECONDS Sodium (137-145) mmol/L Potassium (3.4-5.1) mmol/L Chloride (98-107) mmol/L Carbon Dioxide (22-32) mmol/L BUN (7-17) mg/dL Creatinine (0.52-1.04) mg/dL Estimated GFR (>60) mL/min BUN/Creatinine Ratio (6-22) Glucose (70-100) mg/dL Calcium (8.4-10.2) mg/dL Phosphorus (2.5-4.5) mg/dL Magnesium (1.6-2.3) mg/dL Total Bilirubin (0.2-1.3) mg/dL AST (14-36) IU/L ALT (<35) IU/L Alkaline Phosphatase (38-126) U/L Total Creatine Kinase (30-135) U/L CK-MB (CK-2) CK-MB (CK-2) Rel Index Troponin I (0.01-0.034) ng/mL Total Protein (6.3-8.2) g/dL Albumin (3.5-5.0) g/dL Globulin (1.7-4.1) g/dL Albumin/Globulin Ratio (1.0-2.8) Ethyl Alcohol < 10 ( - 10) mg/dL SARS-CoV-2 (PCR) (Negative) 11/08/20 11/08/20 11/08/20 Range/Units 16:07 16:07 16:41 WBC (4.5-11.0) X10^3/uL RBC (4.0-5.2) X10^6/uL Hgb (12.0-16.0) g/dL Hct (36-46) % MCV (80-100) fL MCH (26-34) PG MCHC (30-36) % RDW (11.6-14.8) % Plt Count (150-400) X10^3/uL Neut % (Auto) (50-75) % Lymph % (Auto) (25-40) % Maverick % (Auto) (3-14) % Eos % (Auto) (2-4) % Baso % (Auto) (0-2) % Neut # (Auto) (4226-7090) /uL Lymph # (Auto) (4190-7735) /uL Maverick # (Auto) (0-900) /uL Eos # (Auto) (0-450) /uL Baso # (Auto) (0-100) /uL PT (10.1-12.7) SECONDS INR (0.9-1.3) APTT (26.4-36.2) SECONDS Sodium 139 (137-145) mmol/L Potassium 2.7 L* (3.4-5.1) mmol/L Chloride 101 (98-107) mmol/L Carbon Dioxide 29 (22-32) mmol/L BUN 12 (7-17) mg/dL Creatinine 1.00 (0.52-1.04) mg/dL Estimated GFR 57.6 L (>60) mL/min BUN/Creatinine Ratio 12.0 (6-22) Glucose 109 H (70-100) mg/dL Calcium 9.2 (8.4-10.2) mg/dL Phosphorus 3.0 (2.5-4.5) mg/dL Magnesium 1.6 (1.6-2.3) mg/dL Total Bilirubin 1.1 (0.2-1.3) mg/dL AST 175 H (14-36) IU/L ALT 104 H (<35) IU/L Alkaline Phosphatase 150 H (38-126) U/L Total Creatine Kinase 60 (30-135) U/L CK-MB (CK-2) TNP CK-MB (CK-2) Rel Index TNP Troponin I < 0.012 (0.01-0.034) ng/mL Total Protein 7.2 (6.3-8.2) g/dL Albumin 4.2 (3.5-5.0) g/dL Globulin 3.0 (1.7-4.1) g/dL Albumin/Globulin Ratio 1.4 (1.0-2.8) Ethyl Alcohol ( - 10) mg/dL SARS-CoV-2 (PCR) Negative (Negative) Point of Care Testing Glucose POC [address] scan - head: Radiologist's Impression: PROCEDURE: CT STROKE INDICATIONS: left leg weakness TECHNIQUE: Noncontrast 4.5 mm thick angled axial sections acquired from the foramen magnum to the vertex, with coronal reformats. For radiation dose reduction, the following was used: automated exposure control, adjustment of mA and/or kV according to patient size. COMPARISON: None. FINDINGS: Image quality: Excellent. CSF spaces: Basal cisterns are patent. No extra-axial fluid collections. Ventricles are normal in size and shape. Brain: No midline shift. No intracranial masses or hemorrhage. Barrera-white matter interface is normal. Skull and face: Calvarium and visualized facial bones are intact, without suspicious lesions. Sinuses: Visualized sinuses and mastoids are clear. IMPRESSION: No acute intracranial abnormality. Findings discussed with Dr. Darshana Richardson MD on 11/08/20 16:11 hours. This study fulfills neurological imaging criteria for inclusion or exclusion of acute stroke therapies based on available published neurological imaging guidelines. Dictated by: Yelitza Hernandez M.D. on 11/08/2020 at 16:10 Approved by: Yelitza Hernandez M.D. on 11/08/2020 at 16:11 CTA - brain/neck: Radiologist's Impression: PROCEDURE: CT ANGIO HEAD AND NECK INDICATIONS: left leg weakness TECHNIQUE: Noncontrast images were performed earlier in the day and not repeated. After the administration of intravenous contrast, 1 mm thick sections acquired from the aortic arch through the [place] of Damian. Post-contrast 4.5 mm thick sections then re-acquired from the foramen magnum to the vertex. 3-dimensional azxyfdu-bbhdwyrvf-phggmzglyd (MIP) and/or volume rendering reformats were acquired of the central intracranial vasculature and neck separately. COMPARISON: [facility], CT, CT STROKE, 11/08/2020, 16:08. FINDINGS: Image quality: Excellent. BRAIN: CSF spaces: Ventricles are normal in size and shape. Basal cisterns are patent. No extra-axial fluid collections. Brain: No midline shift. No intracranial bleeds or masses. Barrera-white matter interface appears intact. Skull and face: Calvarium and facial bones appear intact, without suspicious lesions. Orbits appear normal. Sinuses: Sinuses and mastoids are clear. HEAD CT ANGIOGRAPHY: Anterior circulation: Intracranial internal carotid arteries are normal in size and flow. The flow within the paired anterior cerebral arteries is normal and symmetric. The flow within the middle cerebral arteries is normal and symmetric. The anterior communicating artery is seen. No aneurysms are seen. Posterior circulation: Visualized portions of the vertebral arteries demonstrate normal caliber, and join to form a normal appearing basilar artery. The distal right vertebral artery largely terminates in the right posterior inferior cerebellar artery. There is a prominent right posterior communicating artery seen, with an accompanying diminutive right P1 segment. This is attributed to a type origin of the right posterior cerebral artery, which is considered to be a normal developmental variant of typically no clinical consequence. Flow within the posterior cerebral arteries is normal and symmetric. No aneurysms are seen. NECK CT ANGIOGRAPHY: Carotid system: The great vessels demonstrate a conventional anatomy as they arise from the aortic arch. The origins of the common carotid arteries appear patent. The common carotid arteries demonstrate normal caliber and courses. The bifurcation regions are both widely patent. The internal carotid arteries demonstrate normal calibers and courses. Posterior circulation: The origins of the vertebral arteries both appear widely patent. The more superior extracranial portions of both vertebral arteries also demonstrate normal courses and calibers. The left vertebral artery is dominant to the right Soft tissues: Visualized neck soft tissues demonstrate no suspicious abnormalities. Bones: No suspicious bony lesions. Visualized cervical spine appears normally aligned. Cervical spine fixation hardware can be seen. IMPRESSION: No hemodynamically significant stenosis can be seen. [id number] developmental anomalies are incidentally noted. No abnormal enhancement is seen. Any quantitative measurements of stenosis were performed using NASCET criteria. Dictated by: Mingo Nelson M.D. on 11/08/2020 at 15:38 ECG Data Interpretation: Normal sinus rhythm rate 96 CA interval 146 QRS [address] changes or T-wave inversions MDM Narrative Medical decision making narrative: The patient is a candidate for tPA. Last known well at 3:00 p.m. with no contraindications to tPA. I personally discussed complications with them. 1625 Dr. Weeks-stroke and updated patient's symptoms test results he has examined patient over tele stroke and agrees with tPA. CT angio does not show any large vessel occlusion. Patient initially was quite hypertensive she is given 1 dose of labetalol which improved her blood pressure. After tPA her symptoms started to improve she is now able to move her left leg. Facial droop is better as well. Blood pressure started increasing again and nicardipine drip was started in order to maintain and more stable blood pressure. Patient is an alcoholic she admits to drinking. Elevated liver enzymes but no abdominal pain. dr. Gerardo-[employer] [facility] AT [facility] UPDATED PATIENT'S SYMPTOMS TEST RESULTS AND HAPPILY ACCEPTED PATIENT FOR TRANSFER Critical Care Time Critical Care Time Critical Care Time: Yes Total Critical Care Time: 45 Attestation: The high probability of a clinically significant, sudden or life threatening deterioration of the neurovascular system(s) required my full and direct attention, intervention and personal management. The aggregate critical care time was [45] minutes. This time is in addition to time spent performing reported procedures but includes the following: [x] Data Review and interpretation [x] Patient assessment and monitoring of vital signs [x] Documentation [x] Medication orders and management Discharge Plan Departure Patient Disposition: Xfer Acute [facility] Referrals: Sowmya Hunter MD [Primary Care Provider] -
[2020-11-08 16:20] LABS: Add Manual Diff / Slide Review NO; Basophils Absolute Auto 100 /uL (0-100); Basophils Percent Auto 0.7 % (0-2); Eosinophils Absolute Auto 100 /uL (0-450); Eosinophils Percent Auto 0.8 % (2-4); Hematocrit 41.8 % (36-46); Hemoglobin 13.9 g/dL (12.0-16.0); Lymphocytes Absolute Auto 1900 /uL (1100-4500); Lymphocytes Percent Auto 19.9 % (25-40); Mean Corpuscular HGB Conc 33.2 % (30-36); Mean Corpuscular Hemoglobin 31.7 PG (26-34); Mean Corpuscular Volume 95.5 fL (80-100); Monocytes Absolute Auto 900 /uL (0-900); Neutrophils Absolute Auto 6400 /uL (1500-7000); Neutrophils Percent Auto 68.6 % (50-75); Platelet Count 376 X10^3/uL (150-400); Red Blood Cell Count 4.38 X10^6/uL (4.0-5.2); White Blood Cell Count 9.4 X10^3/uL (4.5-11.0)
[2020-11-08] MEDS: LABETALOL 20 MG/4 ML SYRINGE 10 MG IV (16:27)
[2020-11-08 16:30] LABS: Prothrombin Time 10.8 SECONDS (10.1-12.7)
[2020-11-08 16:33] LABS: PTT Partial Thromboplastin Tim 29 SECONDS (26.4-36.2)
--- NOTE | 2020-11-08 16:38 | RT ---
Responded to Code Stroke, pt alert and no distress noted. Pt on room air and ekg done, airway patent and MD at bedside. Bag mask unit with suction at [facility] functional.
[2020-11-08] MEDS: ALTEPLASE 100 MG VIAL 88.1 MG IV (16:52)
[2020-11-08 17:01] LABS: Ethanol (ETOH) < 10 mg/dL
[2020-11-08 17:03] LABS: Alanine Aminotransferase 104 IU/L (<35); Albumin 4.2 g/dL (3.5-5.0); Albumin Globulin Ratio 1.4 (1.0-2.8); Alkaline Phosphatase 150 U/L (38-126); Aspartate Aminotransferase 175 IU/L (14-36); Bilirubin Total 1.1 mg/dL (0.2-1.3); Blood Urea Nitrogen 12 mg/dL (7-17); Calcium 9.2 mg/dL (8.4-10.2); Carbon Dioxide 29 mmol/L (22-32); Chloride 101 mmol/L (98-107); Creatine Kinase 60 U/L (30-135); Estimated Glomerular Filt Rate 57.6 mL/min (>60); Glucose 109 mg/dL (70-100); HEMOLYSIS < 15 (0-50); Sodium 139 mmol/L (137-145); Total Protein 7.2 g/dL (6.3-8.2)
[2020-11-08 17:07] LABS: Potassium 2.7 mmol/L (3.4-5.1)
[2020-11-08 17:11] LABS: COVID19 -Nasal RAPID Negative (Negative)
[2020-11-08 17:14] LABS: Troponin I < 0.012 ng/mL (0.01-0.034)
--- NOTE | 2020-11-08 17:22 | PC.NURSE ---
Gael (primary emergency contact) ph# [phone] (cell phone)
[2020-11-08] MEDS: POTASSIUM CHLORIDE 20 MEQ TAB 40 MEQ PO (17:28)
[2020-11-08] MEDS: SODIUM CHLORIDE 0.9% 1,000 ML 150 ML IV (17:29)
[2020-11-08] MEDS: ONDANSETRON 4 MG/2 ML INJ IV (17:38)
[2020-11-08 17:46] LABS: Magnesium 1.6 mg/dL (1.6-2.3)
--- NOTE | 2020-11-08 17:46 | PC.NURSE ---
Addendum entered by Dee Vivas R.N. 11/08/20 18:11: TPA infusion completed at 1753 Original Note: pt weight 97.9 kg. TPA total dose 88.1 mg. bolus dose 8.8 mg given IV LAC over 1 min @ 1652 TPA infusion dose 79.3 mg given over 60 mion IV LAC @ 1653
[2020-11-08] MEDS: NICARDIPINE 25 MG in SODIUM CHLORIDE 0.9% 240 ML 50 ML IV (17:51)
--- NOTE | 2020-11-08 19:17 | PC.NURSE ---
report phoned to [facility] agricultural adviser rom [phone]
== END 2020-11-08 20:31 | disposition short-term general hospital (02) ==
PROVIDERS: Emergency Provider Emergency Medicine; Family Provider Preventive Medicine Occupational Medicine; PCP Preventive Medicine Occupational Medicine
DX: I63.9 Cerebral infarction, unspecified (principal); I10 Essential (primary) hypertension; Z20.822 Contact with and (suspected) exposure to COVID-19
CPT/HCPCS: 36415; 70450; 70496; 70498; 80053; 80320; 82550; 82962; 83735; 84100; 84484; 85025; 85610; 85730; 87635; 93005; 93010; 96365; 96366; 96375; 99285; 99291; C9803; J2405; J2997

== ENCOUNTER 2020-11-11 00:04 | Emergency (ER) | payer OTHER, MEDICARE, SELFPAY ==
--- NOTE | 2020-11-11 00:09 | ED.AMS ---
HPI - Altered Mental Status <Clifford Romo DO - Last Filed: 11/12/20 02:50> General Chief Complaint: Neuro Symptoms/Deficit Stated Complaint: Stroke Tuesday Time Seen by Provider: 11/11/20 00:08 History of Present Illness HPI narrative: 55-year-old female daily smoker with history of right-sided stroke status post TPA (last Tuesday), hypertension, hypokalemia presents by EMS. She had been seen and evaluated here a few days ago and was transferred to [facility] in [place] after receiving tPA for significant facial droop and left-sided weakness. She signed out of the outside facility Against Medical Advice and was encouraged to do so by her of many years. She states that soon after arriving home she started drinking alcohol and was unclear why this was happening. She then called EMS to inform them of what happened and was brought here for re-evaluation. She has no neurologic symptoms such as blurred vision or trouble with speech. She denies any unilateral findings such as numbness, tingling, weakness. MRI performed at telling him showed no evidence of acute intracranial abnormality. Echocardiogram shows an EF of 55% with no intracardiac shunts. Recommended aggressive stroke risk factor modification including tobacco sensation, aspirin 81 mg daily, Plavix 75 mg daily for 3 weeks followed by aspirin alone. Additional recommendations include Lipitor 40 mg daily and possible addition of a PPI for possible GI sx of anti-platelet therapy Related Data Previous Rx's Medication Instructions Recorded atorvastatin 40 mg tablet (Lipitor) 40 mg PO QPM #30 tab 11/11/20 clopidogrel 75 mg tablet (Plavix) 75 mg PO DAILY #21 tab 11/11/20 metoprolol succinate 25 mg 12.5 mg PO DAILY #30 tab 11/11/20 tablet,extended release 24 hr Allergies Allergy/AdvReac Type Severity Reaction Status Date / Time morphine [MORPHINE] Allergy Unknown Verified 11/11/20 00:22 acetaminophen [From Percocet] Allergy Verified 11/11/20 00:22 oxycodone [From Percocet] Allergy Verified 11/11/20 00:22 Review of Systems <Clifford Romo DO - Last Filed: 11/12/20 02:50> Review of Systems Narrative: GENERAL: Denies chills, fatigue, malaise, fever, sweats. HEENT: Denies sinus pain, ear pain, sore throat, difficulty swallowing, dizziness. RESPIRATORY: Denies dyspnea, cough, wheezing, hemoptysis, sputum. CARDIOVASCULAR: Denies chest pain, palpitations, orthopnea, edema, GASTROINTESTINAL: Denies nausea, vomiting, abdominal pain, diarrhea, constipation, melena. : Denies dysuria, frequency, incontinence, hematuria, urinary retention. MUSCULOSKELETAL: denies weakness, joint pain, or bony pain SKIN: Denies rash, skin lesions, or other NEUROLOGIC: Denies weakness, headache, numbness, change in speech, confusion, seizures, incoordination. PSYCHIATRIC: No concerning psychosocial issues. 12 point review of systems is negative except for those stated above Patient History <Clifford Romo DO - Last Filed: 11/12/20 02:50> Medical History (Updated 11/11/20 @ 10:39 by Paty Valles DO) HTN (hypertension) Surgical History Status post cervical spinal fusion Status post gastric bypass for obesity Status post lumbar surgery Family History Other No pertinent family history Social History Smoking Status: Current every day smoker Smoking Status: Current every day smoker alcohol intake frequency: 3 or more drinks per day Substance Use Type: marijuana Exam <Clifford Romo DO - Last Filed: 11/12/20 02:50> Narrative Exam Narrative: GENERAL: [55] year old patient appears stated age. Well-developed patient, in mild distress. Anxious, tearful, GCS 15 HEAD: Atraumatic. Normocephalic. EYES: Pupils equal round and reactive. Extraocular motions intact. No scleral icterus. No injection or drainage. ENT: Nose without bleeding, purulent drainage. Throat without erythema, tonsillar hypertrophy or exudate. Airway patent. NECK: Trachea midline. Non tender CARDIOVASCULAR: Regular rate and rhythm without murmurs, gallops, or rubs. RESPIRATORY: Clear to auscultation. Breath sounds equal bilaterally. No wheezes, rales, or rhonchi. GASTROINTESTINAL: Abdomen soft, non-tender, nondistended. EXTREMITIES: No edema or joint tenderness. BACK: Nontender without deformity or crepitance. No flank tenderness. NEURO: AOx3. SKIN: No rash or erythema of visible areas Initial Vital Signs Initial Vital Signs: Vital Signs Pulse Rate 98 H 11/11/20 00:14 Blood Pressure 149/90 H 11/11/20 00:14 Pulse Oximetry 94 11/11/20 00:14 <Paty Valles DO - Last Filed: 11/11/20 20:28> Initial Vital Signs Initial Vital Signs: Vital Signs Pulse Rate 98 H 11/11/20 00:14 Blood Pressure 149/90 H 11/11/20 00:14 Pulse Oximetry 94 11/11/20 00:14 Scores <Clifford Romo DO - Last Filed: 11/12/20 02:50> NIH Stroke Scale Level of Conciousness: Alert, keenly responsive Ask month/age: Answers both questions correctly. Open/close eyes, close hand: Performs both tasks correctly Best gaze horizontal: Normal Visual werner: No visual loss Facial palsy: Normal symetrical movement Left arm drift: No drift for full 10 sec Right arm drift: No drift for full 10 sec Left leg drift: No drift for full 5 sec Right leg drift: No drift for full 5 sec Limb ataxia: Absent Sensory on face/arms/legs: Normal, no sensory loss Best language: No aphasia, normal Dysarthria: Normal Extinction or inattention: No abnormality Total NIH Stroke scale score: 0 <Paty Valles DO - Last Filed: 11/11/20 20:28> NIH Stroke Scale Total NIH Stroke scale score: 0 Course <Clifford Romo DO - Last Filed: 11/12/20 02:50> Orders Ordered: Discontinued Medications Sodium Chloride (Normal Saline 0.9%) 1,000 mls @ 125 mls/hr IV CONT MARIA ELENA Last Infusion: 11/11/20 07:00 Dose: 0 mls/hr Documented by: Admin: 11/11/20 01:00 Dose: 125 mls/hr Documented by: FEROZ Vital Signs Vital signs: Vital Signs - 8 hr 11/11/20 00:14 11/11/20 00:22 11/11/20 00:56 Temperature 97.9 F Pulse Rate 98 H 98 H 92 H Respiratory Rate 22 Blood Pressure 149/90 H 149/90 H 137/83 Pulse Oximetry 94 94 94 11/11/20 01:00 Temperature Pulse Rate 90 Respiratory Rate Blood Pressure 167/100 H Pulse Oximetry 93 <Paty Valles, - Last Filed: 11/11/20 20:28> Orders Ordered: Discontinued Medications Sodium Chloride (Normal Saline 0.9%) 1,000 mls @ 125 mls/hr IV CONT MARIA ELENA Last Infusion: 11/11/20 07:00 Dose: 0 mls/hr Documented by: Admin: 11/11/20 01:00 Dose: 125 mls/hr Documented by: FEROZ Reevaluation(s) Reevaluation #1: Patient was signed out to myself by Dr. Romo. Patient was seen for stroke on Tuesday, she was given tPA after discussion with Neurology and transferred to [facility] in [place]. Patient was seen there, MRI was negative, she had 2D echo with an EF of 55% no shins. Um aggressive wrist fracture modification including tobacco cessation was recommended, aspirin 81 mg Plavix 75 mg x 3 weeks followed by aspirin 81 mg daily alone was recommended. As well as Lipitor 40 mg daily. Patient had left Against Medical Advice prior to discharge. She was hypertensive there. Patient was seen was awaiting social Work evaluation for alcohol use and patient states she feels safe but had wanted to speak with them. At this time she feels safe to return home she does not wish to stay here any longer. Our social work specialist is not available until afternoon today. Patient is alert, oriented and competent to make this decision. She is agreeable to have me [facility] [place]. We discussed that she did not fully complete her evaluation she does need to be set up with a primary care physician and is willing to have our social work specialist reach out to her by phone to try to facilitate resource management and any psychosocial assistance that may be beneficial. Vital Signs Vital signs: Vital Signs - 8 hr 11/11/20 00:14 11/11/20 00:22 11/11/20 00:56 Temperature 97.9 F Pulse Rate 98 H 98 H 92 H Respiratory Rate 22 Blood Pressure 149/90 H 149/90 H 137/83 Pulse Oximetry 94 94 94 11/11/20 01:00 Temperature Pulse Rate 90 Respiratory Rate Blood Pressure 167/100 H Pulse Oximetry 93 MDM - Altered Mental Status <Clifford Romo, - Last Filed: 11/12/20 02:50> Lab Data Result diagrams: 11/11/20 00:32 11/11/20 00:32 Labs: Lab Results 11/11/20 11/11/20 11/11/20 Range/Units 00:15 00:15 00:15 WBC (4.5-11.0) X10^3/uL RBC (4.0-5.2) X10^6/uL Hgb (12.0-16.0) g/dL Hct (36-46) % MCV (80-100) fL MCH (26-34) PG MCHC (30-36) % RDW (11.6-14.8) % Plt Count (150-400) X10^3/uL Neut % (Auto) (50-75) % Lymph % (Auto) (25-40) % Gilliam % (Auto) (3-14) % Eos % (Auto) (2-4) % Baso % (Auto) (0-2) % Neut # (Auto) (0055-8305) /uL Lymph # (Auto) (7177-4549) /uL Gilliam # (Auto) (0-900) /uL Eos # (Auto) (0-450) /uL Baso # (Auto) (0-100) /uL Sodium (137-145) mmol/L Potassium (3.4-5.1) mmol/L Chloride (98-107) mmol/L Carbon Dioxide (22-32) mmol/L BUN (7-17) mg/dL Creatinine (0.52-1.04) mg/dL Estimated GFR (>60) mL/min BUN/Creatinine Ratio (6-22) Glucose (70-100) mg/dL Calcium (8.4-10.2) mg/dL Magnesium (1.6-2.3) mg/dL Total Bilirubin (0.2-1.3) mg/dL AST (14-36) IU/L ALT (<35) IU/L Alkaline Phosphatase (38-126) U/L Total Creatine Kinase (30-135) U/L CK-MB (CK-2) CK-MB (CK-2) Rel Index Troponin I (0.01-0.034) ng/mL NT-Pro-B Natriuret Pep (<125) pg/mL Total Protein (6.3-8.2) g/dL Albumin (3.5-5.0) g/dL Globulin (1.7-4.1) g/dL Albumin/Globulin Ratio (1.0-2.8) Urine Color Yellow Urine Appearance Clear Urine pH 6.5 (4.5-8.0) Ur Specific [place] <=1.005 (1.000-1.035) Urine Protein Negative (Negative) Urine Glucose (UA) Negative (Negative) g/dL Urine Ketones Negative (NEGATIVE) Urine Occult Blood Negative (Negative) Urine Nitrate Negative (Negative) Urine Bilirubin Negative (NEGATIVE) Urine Urobilinogen 0.2 (0.2) E.U./dL Ur Leukocyte Esterase Trace H (NEGATIVE) Urine RBC None seen (0-5/HPF) Urine WBC 0-1/hpf (0-5/HPF) Ur Squamous Epith Cells 1-5 /hpf (0-5/HPF) Urine Bacteria Few (2-10) H (None) Ur Culture Indicated? Specimen cultured U Opiates 300ng/mL cut Negative (Negative) Ur Oxycodone Screen Negative (Negative) Urine Methadone Screen Negative (Negative) Ur Barbiturates Screen Negative (Negative) U Tricyclic Antidepress Negative (Negative) Ur Phencyclidine Scrn Negative (Negative) Ur Amphetamines Screen Positive H (Negative) U Methamphetamines Scrn Positive H (Negative) Ur MDMA Scrn (Ecstasy) Negative (Negative) U Benzodiazepines Scrn Positive H (Negative) Urine Cocaine Screen Negative (Negative) U Marijuana (THC) Screen Negative (Negative) Ethyl Alcohol ( - 10) mg/dL SARS-CoV-2 (PCR) Negative (Negative) 11/11/20 11/11/20 11/11/20 Range/Units 00:32 00:32 00:32 WBC 8.1 (4.5-11.0) X10^3/uL RBC 3.86 L (4.0-5.2) X10^6/uL Hgb 12.1 (12.0-16.0) g/dL Hct 37.3 (36-46) % MCV 96.6 (80-100) fL MCH 31.3 (26-34) PG MCHC 32.4 (30-36) % RDW 18.7 H (11.6-14.8) % Plt Count 337 (150-400) X10^3/uL Neut % (Auto) 64.7 (50-75) % Lymph % (Auto) 24.0 L (25-40) % Gilliam % (Auto) 8.7 (3-14) % Eos % (Auto) 1.6 L (2-4) % Baso % (Auto) 1.0 (0-2) % Neut # (Auto) 5200 (1672-3074) /uL Lymph # (Auto) 1900 (7700-9775) /uL Gilliam # (Auto) 700 (0-900) /uL Eos # (Auto) 100 (0-450) /uL Baso # (Auto) 100 (0-100) /uL Sodium 143 (137-145) mmol/L Potassium 3.8 (3.4-5.1) mmol/L Chloride 111 H (98-107) mmol/L Carbon Dioxide 26 (22-32) mmol/L BUN 15 (7-17) mg/dL Creatinine 0.77 (0.52-1.04) mg/dL Estimated GFR > 60.0 (>60) mL/min BUN/Creatinine Ratio 19.5 (6-22) Glucose 93 (70-100) mg/dL Calcium 8.6 (8.4-10.2) mg/dL Magnesium 2.0 (1.6-2.3) mg/dL Total Bilirubin 0.4 (0.2-1.3) mg/dL AST 60 H (14-36) IU/L ALT 58 H (<35) IU/L Alkaline Phosphatase 103 (38-126) U/L Total Creatine Kinase 65 (30-135) U/L CK-MB (CK-2) TNP CK-MB (CK-2) Rel Index TNP Troponin I < 0.012 (0.01-0.034) ng/mL NT-Pro-B Natriuret Pep 390 H (<125) pg/mL Total Protein 6.1 L (6.3-8.2) g/dL Albumin 3.5 (3.5-5.0) g/dL Globulin 2.6 (1.7-4.1) g/dL Albumin/Globulin Ratio 1.3 (1.0-2.8) Urine Color Urine Appearance Urine pH (4.5-8.0) Ur Specific [place] (1.000-1.035) Urine Protein (Negative) Urine Glucose (UA) (Negative) g/dL Urine Ketones (NEGATIVE) Urine Occult Blood (Negative) Urine Nitrate (Negative) Urine Bilirubin (NEGATIVE) Urine Urobilinogen (0.2) E.U./dL Ur Leukocyte Esterase (NEGATIVE) Urine RBC (0-5/HPF) Urine WBC (0-5/HPF) Ur Squamous Epith Cells (0-5/HPF) Urine Bacteria (None) Ur Culture Indicated? U Opiates 300ng/mL cut (Negative) Ur Oxycodone Screen (Negative) Urine Methadone Screen (Negative) Ur Barbiturates Screen (Negative) U Tricyclic Antidepress (Negative) Ur Phencyclidine Scrn (Negative) Ur Amphetamines Screen (Negative) U Methamphetamines Scrn (Negative) Ur MDMA Scrn (Ecstasy) (Negative) U Benzodiazepines Scrn (Negative) Urine Cocaine Screen (Negative) U Marijuana (THC) Screen (Negative) Ethyl Alcohol 121 H ( - 10) mg/dL SARS-CoV-2 (PCR) (Negative) <Paty Valles, DO - Last Filed: 11/11/20 20:28> Lab Data Labs: Lab Results 11/11/20 11/11/20 11/11/20 Range/Units 00:15 00:15 00:15 WBC (4.5-11.0) X10^3/uL RBC (4.0-5.2) X10^6/uL Hgb (12.0-16.0) g/dL Hct (36-46) % MCV (80-100) fL MCH (26-34) PG MCHC (30-36) % RDW (11.6-14.8) % Plt Count (150-400) X10^3/uL Neut % (Auto) (50-75) % Lymph % (Auto) (25-40) % Gilliam % (Auto) (3-14) % Eos % (Auto) (2-4) % Baso % (Auto) (0-2) % Neut # (Auto) (8301-1418) /uL Lymph # (Auto) (8975-8171) /uL Gilliam # (Auto) (0-900) /uL Eos # (Auto) (0-450) /uL Baso # (Auto) (0-100) /uL Sodium (137-145) mmol/L Potassium (3.4-5.1) mmol/L Chloride (98-107) mmol/L Carbon Dioxide (22-32) mmol/L BUN (7-17) mg/dL Creatinine (0.52-1.04) mg/dL Estimated GFR (>60) mL/min BUN/Creatinine Ratio (6-22) Glucose (70-100) mg/dL Calcium (8.4-10.2) mg/dL Magnesium (1.6-2.3) mg/dL Total Bilirubin (0.2-1.3) mg/dL AST (14-36) IU/L ALT (<35) IU/L Alkaline Phosphatase (38-126) U/L Total Creatine Kinase (30-135) U/L CK-MB (CK-2) CK-MB (CK-2) Rel Index Troponin I (0.01-0.034) ng/mL NT-Pro-B Natriuret Pep (<125) pg/mL Total Protein (6.3-8.2) g/dL Albumin (3.5-5.0) g/dL Globulin (1.7-4.1) g/dL Albumin/Globulin Ratio (1.0-2.8) Urine Color Yellow Urine Appearance Clear Urine pH 6.5 (4.5-8.0) Ur Specific [place] <=1.005 (1.000-1.035) Urine Protein Negative (Negative) Urine Glucose (UA) Negative (Negative) g/dL Urine Ketones Negative (NEGATIVE) Urine Occult Blood Negative (Negative) Urine Nitrate Negative (Negative) Urine Bilirubin Negative (NEGATIVE) Urine Urobilinogen 0.2 (0.2) E.U./dL Ur Leukocyte Esterase Trace H (NEGATIVE) Urine RBC None seen (0-5/HPF) Urine WBC 0-1/hpf (0-5/HPF) Ur Squamous Epith Cells 1-5 /hpf (0-5/HPF) Urine Bacteria Few (2-10) H (None) Ur Culture Indicated? Specimen cultured U Opiates 300ng/mL cut Negative (Negative) Ur Oxycodone Screen Negative (Negative) Urine Methadone Screen Negative (Negative) Ur Barbiturates Screen Negative (Negative) U Tricyclic Antidepress Negative (Negative) Ur Phencyclidine Scrn Negative (Negative) Ur Amphetamines Screen Positive H (Negative) U Methamphetamines Scrn Positive H (Negative) Ur MDMA Scrn (Ecstasy) Negative (Negative) U Benzodiazepines Scrn Positive H (Negative) Urine Cocaine Screen Negative (Negative) U Marijuana (THC) Screen Negative (Negative) Ethyl Alcohol ( - 10) mg/dL SARS-CoV-2 (PCR) Negative (Negative) 11/11/20 11/11/20 11/11/20 Range/Units 00:32 00:32 00:32 WBC 8.1 (4.5-11.0) X10^3/uL RBC 3.86 L (4.0-5.2) X10^6/uL Hgb 12.1 (12.0-16.0) g/dL Hct 37.3 (36-46) % MCV 96.6 (80-100) fL MCH 31.3 (26-34) PG MCHC 32.4 (30-36) % RDW 18.7 H (11.6-14.8) % Plt Count 337 (150-400) X10^3/uL Neut % (Auto) 64.7 (50-75) % Lymph % (Auto) 24.0 L (25-40) % Gilliam % (Auto) 8.7 (3-14) % Eos % (Auto) 1.6 L (2-4) % Baso % (Auto) 1.0 (0-2) % Neut # (Auto) 5200 (2774-0847) /uL Lymph # (Auto) 1900 (1487-3274) /uL Gilliam # (Auto) 700 (0-900) /uL Eos # (Auto) 100 (0-450) /uL Baso # (Auto) 100 (0-100) /uL Sodium 143 (137-145) mmol/L Potassium 3.8 (3.4-5.1) mmol/L Chloride 111 H (98-107) mmol/L Carbon Dioxide 26 (22-32) mmol/L BUN 15 (7-17) mg/dL Creatinine 0.77 (0.52-1.04) mg/dL Estimated GFR > 60.0 (>60) mL/min BUN/Creatinine Ratio 19.5 (6-22) Glucose 93 (70-100) mg/dL Calcium 8.6 (8.4-10.2) mg/dL Magnesium 2.0 (1.6-2.3) mg/dL Total Bilirubin 0.4 (0.2-1.3) mg/dL AST 60 H (14-36) IU/L ALT 58 H (<35) IU/L Alkaline Phosphatase 103 (38-126) U/L Total Creatine Kinase 65 (30-135) U/L CK-MB (CK-2) TNP CK-MB (CK-2) Rel Index TNP Troponin I < 0.012 (0.01-0.034) ng/mL NT-Pro-B Natriuret Pep 390 H (<125) pg/mL Total Protein 6.1 L (6.3-8.2) g/dL Albumin 3.5 (3.5-5.0) g/dL Globulin 2.6 (1.7-4.1) g/dL Albumin/Globulin Ratio 1.3 (1.0-2.8) Urine Color Urine Appearance Urine pH (4.5-8.0) Ur Specific [place] (1.000-1.035) Urine Protein (Negative) Urine Glucose (UA) (Negative) g/dL Urine Ketones (NEGATIVE) Urine Occult Blood (Negative) Urine Nitrate (Negative) Urine Bilirubin (NEGATIVE) Urine Urobilinogen (0.2) E.U./dL Ur Leukocyte Esterase (NEGATIVE) Urine RBC (0-5/HPF) Urine WBC (0-5/HPF) Ur Squamous Epith Cells (0-5/HPF) Urine Bacteria (None) Ur Culture Indicated? U Opiates 300ng/mL cut (Negative) Ur Oxycodone Screen (Negative) Urine Methadone Screen (Negative) Ur Barbiturates Screen (Negative) U Tricyclic Antidepress (Negative) Ur Phencyclidine Scrn (Negative) Ur Amphetamines Screen (Negative) U Methamphetamines Scrn (Negative) Ur MDMA Scrn (Ecstasy) (Negative) U Benzodiazepines Scrn (Negative) Urine Cocaine Screen (Negative) U Marijuana (THC) Screen (Negative) Ethyl Alcohol 121 H ( - 10) mg/dL SARS-CoV-2 (PCR) (Negative) [facility] Narrative Medical decision making narrative: This is a 55-year-old female who was seen last Jan for stroke, tPA aid and suspected right hemispheric small vessel TIA verses completely resolved small vessel ischemic stroke aborted with tPA. She was transferred to outside facility. She came in this evening without any neurologic symptoms and is continued to be asymptomatic. Imaging was reperformed here in the department. Patient was kept overnight in order to have social Work consultation. Patient ultimately decided not to stay. She was amenable to phone consultation with our social work specialist. Discussed patient does need follow-up with a primary care physician she does not have 1 social work and help with this but I also gave her contact for follow-up as well. Also gave prescriptions for medications as recommended by Neurology at [facility]. She continues to be hypertensive so metoprolol was also included. Patient is aware of the importance of follow-up and need to prevent further episodes. All questions were answered. Discharge Plan Departure Patient Disposition: Home Clinical Impression: TIA (transient ischemic attack) Instructions: DI for Transient Ischemic Attack Activity Restrictions/Additional Instructions: It is recommended that you establish with a primary care physician to help manage your hypertension and stroke risk factors. The social work specialist can reach out to assist with this but ultimately you do need to try to contact and set up follow-up. An option is included below. You can so contact your insurance company and they can give recommendations for available providers. It is also recommended that you take an aspirin 81 mg daily as well as Plavix 75 mg daily x3 weeks. After this to continue aspirin 81 mg daily permanently. The Aspirin is available over the counter. It also recommended that you take a cholesterol medication called Lipitor 40 mg daily for stroke prevention. This is recommended to be taken in the evening as it is more effective at that time. Your blood pressure is elevated here today. It would be appropriate to take a regular daily blood pressure medication and one was included. Prescription sent to [facility]. Please return for new or worsening symptoms, severe headaches, new numbness, tingling or weakness or loss of sensation, facial droop, difficulty with speech, persistent vomiting or other new or concerning symptoms. Prescriptions: New clopidogrel [Plavix] 75 mg tablet 75 mg PO DAILY Qty: 21 RF: 0 metoprolol succinate 25 mg tablet extended release 24 hr 12.5 mg PO DAILY Qty: 30 RF: 0 atorvastatin [Lipitor] 40 mg tablet 40 mg PO QPM Qty: 30 RF: 0 Referrals: Sowmya Hunter MD [Primary Care Provider] - Jerry Mclain DO [Physician] -
--- NOTE | 2020-11-11 00:11 | DI.CT.S_ITS ---
PROCEDURE: CT HEAD/BRAIN WO CON INDICATIONS: recent stroke, received alteplase TECHNIQUE: Noncontrast 4.5 mm thick angled axial sections acquired from the foramen magnum to the vertex, with coronal and sagittal reformats. For radiation dose reduction, the following was used: automated exposure control, adjustment of mA and/or kV according to patient size. COMPARISON: [facility], CT, CT ANGIO HEAD AND NECK, 11/08/2020, 16:11. [facility], CT, CT STROKE, 11/08/2020, 16:08. FINDINGS: Image quality: Excellent. CSF spaces: Basal cisterns are patent. No extra-axial fluid collections. Ventricles are normal in size and shape. Brain: No midline shift. No intracranial masses or hemorrhage. Barrera-white matter interface is normal. Skull and face: Calvarium and visualized facial bones are intact, without suspicious lesions. Sinuses: Visualized sinuses and mastoids are clear. IMPRESSION: No acute intracranial disease process. Dictated by: Simin Carlos MD, PhD on 11/11/2020 at 7:07 Approved by: Simin Carlos MD, PhD on 11/11/2020 at 7:09
[2020-11-11 00:14] VITALS: BP 149/90; PULSE 98; O2SAT 94
[2020-11-11 00:21] LABS: RBC Urine None Seen (0-5/HPF)
[2020-11-11 00:22] VITALS: BP 149/90; PULSE 98; RESP 22; TEMP 36.6; O2SAT 94; BMI 38.2
[2020-11-11 00:28] LABS: UR Morphine/Opiate cutoff 300 Negative (Negative); Ur Creatinine Normal (Normal); Ur Specific Gravity Normal (Normal); Urine Amphetamines Positive (Negative); Urine Barbiturates Negative (Negative); Urine Benzodiazepines Positive (Negative); Urine Cocaine Negative (Negative); Urine MDMA Negative (Negative); Urine Methamphetamines Positive (Negative); Urine Phencyclidine Negative (Negative); Urine Tetrahydrocannabinol Negative (Negative); Urine pH Normal (Normal)
[2020-11-11 00:29] LABS: Urine Methadone Negative (Negative); Urine Oxycodone Negative (Negative); Urine Tricyclic Antidepressant Negative (Negative)
[2020-11-11 00:31] LABS: Appearance Urine UA CLEAR; Bilirubin Urine UA NEGATIVE (NEGATIVE); Color Urine UA YELLOW; Glucose Urine UA NEGATIVE (Negative); Ketones Urine UA NEGATIVE (NEGATIVE); Leukocyte Esterase Urine UA TRACE (NEGATIVE); Nitrite Urine UA NEGATIVE (Negative); Occult Blood Urine UA NEGATIVE (Negative); Protein Urine UA NEGATIVE (Negative); Specific Gravity Urine UA <=1.005 (1.000-1.035); Urobilinogen Urine UA 0.2 E.U./dL (0.2); pH Urine UA 6.5 (4.5-8.0)
[2020-11-11 00:32] LABS: Bacteria Urine Few (2-10); Squamous Epithelial Cell Urine 1-5 /HPF (0-5/HPF); WBC Urine 0-1/HPF (0-5/HPF)
[2020-11-11 00:33] LABS: Culture Indicated Urine Specimen Cultured
[2020-11-11 00:52] LABS: Add Manual Diff / Slide Review NO; Basophils Absolute Auto 100 /uL (0-100); Eosinophils Absolute Auto 100 /uL (0-450); Eosinophils Percent Auto 1.6 % (2-4); Hematocrit 37.3 % (36-46); Hemoglobin 12.1 g/dL (12.0-16.0); Lymphocytes Absolute Auto 1900 /uL (1100-4500); Mean Corpuscular HGB Conc 32.4 % (30-36); Mean Corpuscular Hemoglobin 31.3 PG (26-34); Mean Corpuscular Volume 96.6 fL (80-100); Monocytes Absolute Auto 700 /uL (0-900); Monocytes Percent Auto 8.7 % (3-14); Neutrophils Absolute Auto 5200 /uL (1500-7000); Neutrophils Percent Auto 64.7 % (50-75); Platelet Count 337 X10^3/uL (150-400); Red Blood Cell Count 3.86 X10^6/uL (4.0-5.2); Red Cell Distribution Width 18.7 % (11.6-14.8); White Blood Cell Count 8.1 X10^3/uL (4.5-11.0)
[2020-11-11 00:56] VITALS: BP 137/83; PULSE 92; O2SAT 94
[2020-11-11 01:00] VITALS: BP 167/100; PULSE 90; O2SAT 93
[2020-11-11] MEDS: SODIUM CHLORIDE 0.9% 1,000 ML 125 ML IV (01:00)
[2020-11-11 01:05] LABS: Alanine Aminotransferase 58 IU/L (<35); Albumin 3.5 g/dL (3.5-5.0); Albumin Globulin Ratio 1.3 (1.0-2.8); Alkaline Phosphatase 103 U/L (38-126); Aspartate Aminotransferase 60 IU/L (14-36); BUN Creatinine Ratio 19.5 (6-22); Bilirubin Total 0.4 mg/dL (0.2-1.3); Blood Urea Nitrogen 15 mg/dL (7-17); Calcium 8.6 mg/dL (8.4-10.2); Carbon Dioxide 26 mmol/L (22-32); Chloride 111 mmol/L (98-107); Creatine Kinase 65 U/L (30-135); Estimated Glomerular Filt Rate > 60.0 mL/min (>60); Ethanol (ETOH) 121 mg/dL; Globulin 2.6 g/dL (1.7-4.1); Glucose 93 mg/dL (70-100); HEMOLYSIS < 15 (0-50); Potassium 3.8 mmol/L (3.4-5.1); Sodium 143 mmol/L (137-145); Total Protein 6.1 g/dL (6.3-8.2)
[2020-11-11 01:18] LABS: COVID19 - ADMIT (NP swab/PCR) Negative (Negative)
[2020-11-11 01:18] LABS: NT-proBNP (BNP-Adult 18+) 390 pg/mL (<125); Troponin I < 0.012 ng/mL (0.01-0.034)
--- NOTE | 2020-11-11 10:21 | PC.NURSE ---
300ml NS infused.
[2020-11-11 11:10] VITALS: BP 178/95; PULSE 89; RESP 16; O2SAT 97
--- NOTE | 2020-11-11 14:20 | PC.NURSE ---
Late entry- pt was supposed to meet with MUSCULOSKELETAL PHYSIOTHERAPIST before leaving today (around noon). pt wasn't wanting spouse to come in and visit. when he called around 0900 i said she wasn't here and let her know that i had told him that. about an 1.5 hrs later called back and said I know she's there and i said she was not on my board (pt was under confidential). pt reports she called her mom and her mom called him and told him she was here. pt left with her dad. and chose not to wait and speak with MUSCULOSKELETAL PHYSIOTHERAPIST.
== END 2020-11-11 11:15 | disposition home or self-care (01) ==
PROVIDERS: Emergency Medicine; Emergency Provider Emergency Medicine; Family Provider Preventive Medicine Occupational Medicine; PCP Preventive Medicine Occupational Medicine
DX: G45.9 Transient cerebral ischemic attack, unspecified (principal); Z20.822 Contact with and (suspected) exposure to COVID-19
CPT/HCPCS: 70450; 80053; 80305; 80320; 81001; 82550; 83735; 83880; 84484; 85025; 87086; 87635; 96360; 96361; 99284; C9803

== ENCOUNTER → 2020-12-16 13:36 | Outpatient (CLI) | payer OTHER, MEDICARE, SELFPAY ==
[2020-12-16 14:07] LABS: Ur Creatinine Normal (Normal); Ur Specific Gravity Normal (Normal); Urine pH Normal (Normal)
[2020-12-16 14:08] LABS: UR Morphine/Opiate cutoff 300 Negative (Negative); Urine Amphetamines Positive (Negative); Urine Barbiturates Negative (Negative); Urine Benzodiazepines Negative (Negative); Urine Cocaine Negative (Negative); Urine MDMA Negative (Negative); Urine Methadone Negative (Negative); Urine Methamphetamines Positive (Negative); Urine Oxycodone Negative (Negative); Urine Phencyclidine Negative (Negative); Urine Tetrahydrocannabinol Negative (Negative); Urine Tricyclic Antidepressant Negative (Negative)
[2020-12-16 14:27] LABS: Alanine Aminotransferase 77 IU/L (<35); Albumin Globulin Ratio 1.3 (1.0-2.8); Alkaline Phosphatase 162 U/L (38-126); Aspartate Aminotransferase 107 IU/L (14-36); BUN Creatinine Ratio 13.3 (6-22); Bilirubin Total 0.6 mg/dL (0.2-1.3); Blood Urea Nitrogen 10 mg/dL (7-17); Calcium 9.1 mg/dL (8.4-10.2); Carbon Dioxide 29 mmol/L (22-32); Chloride 105 mmol/L (98-107); Estimated Glomerular Filt Rate > 60.0 mL/min (>60); Glucose 117 mg/dL (70-100); HEMOLYSIS < 15 (0-50); Potassium 3.6 mmol/L (3.4-5.1); Sodium 141 mmol/L (137-145)
[2020-12-16 14:57] LABS: TSH w/ Reflex to FT4 1.34 uIU/mL (0.47-4.68)
[2020-12-16 14:58] LABS: Creatinine Urine Random 332.6 mg/dL
[2020-12-16 15:04] LABS: Microalbumi Creatinin Ratio Ur 22.2 ug/mg CR (<30); Microalbumin Urine Random 7.4 mg/dL (0-1.6)
[2020-12-20 21:09] LABS: Metanephrine,Plasma 42.2 pg/mL (0.0-88.0)
[2020-12-24 08:49] LABS: Aldosterone/Renin Activity Rat 2.5 (0.0-30.0); Plama Renin, LC/MS/MS 4.321 ng/mL/hr (0.167-5.380)
== END ==
PROVIDERS: Family Provider Preventive Medicine Occupational Medicine; PCP Student in an Organized Health Care Education/Training Program; Referring Provider Student in an Organized Health Care Education/Training Program; Visit Provider Student in an Organized Health Care Education/Training Program
DX: I16.1 Hypertensive emergency (principal); R23.2 Flushing
CPT/HCPCS: 36415; 80053; 80305; 82043; 82088; 82570; 83835; 84244; 84443

== ENCOUNTER → 2021-02-17 15:33 | Outpatient (CLI) | payer OTHER, MEDICARE, SELFPAY ==
[2021-02-17 16:37] LABS: Influenza A - CEPHEID Flu A NEGATIVE (NEGATIVE); Influenza B - CEPHEID Flu B NEGATIVE (NEGATIVE)
[2021-02-17 16:47] LABS: COVID19 -Nasal RAPID Negative (Negative)
== END ==
PROVIDERS: Family Provider Preventive Medicine Occupational Medicine; PCP Student in an Organized Health Care Education/Training Program; Referring Provider Student in an Organized Health Care Education/Training Program; Visit Provider Student in an Organized Health Care Education/Training Program
DX: Z20.822 Contact with and (suspected) exposure to COVID-19 (principal); R05.9 Cough, unspecified; R68.89 Other general symptoms and signs
CPT/HCPCS: 87502; 87635

== ENCOUNTER 2021-03-02 20:28 | Inpatient (IN) | payer OTHER, MEDICARE, SELFPAY ==
[2021-03-02] VITALS (11 sets, daily range): BP systolic 91–108; BP diastolic 50–60; PULSE 8–72; RESP 21–30; TEMP 36.3–36.8; O2SAT 87–99; BMI 112.0
--- NOTE | 2021-03-02 20:41 | DI.RAD.S_ITS ---
PROCEDURE: XR CHEST 1V INDICATIONS: shortness of breath TECHNIQUE: One view of the chest was acquired. COMPARISON: [facility], , CHEST 1 VIEW, 03/10/2008, 16:41. FINDINGS: Surgical changes and devices: Postsurgical changes are again seen in visualized mid to lower cervical spine. Lungs and pleura: Lungs are clear. No pleural effusions or pneumothorax. Mediastinum: Mediastinal contours appear normal. Heart size is normal. Bones and chest wall: No suspicious bony lesions. Overlying soft tissues appear unremarkable. IMPRESSION: No acute cardiopulmonary pathology. Dictated by: Saw Joshi M.D. on 03/02/2021 at 21:16 Approved by: Saw Joshi M.D. on 03/02/2021 at 21:16
[2021-03-02 20:59] LABS: COVID19 -Nasal RAPID POSITIVE (Negative)
[2021-03-02 21:01] LABS: Add Manual Diff / Slide Review NO; Basophils Absolute Auto 0 /uL (0-100); Basophils Percent Auto 0.6 % (0-2); Eosinophils Absolute Auto 0 /uL (0-450); Hematocrit 39.5 % (36-46); Lymphocytes Absolute Auto 800 /uL (1100-4500); Lymphocytes Percent Auto 14.5 % (25-40); Mean Corpuscular HGB Conc 32.8 % (30-36); Mean Corpuscular Hemoglobin 30.3 PG (26-34); Mean Corpuscular Volume 92.2 fL (80-100); Monocytes Absolute Auto 400 /uL (0-900); Monocytes Percent Auto 7.7 % (3-14); Neutrophils Absolute Auto 4100 /uL (1500-7000); Neutrophils Percent Auto 77.2 % (50-75); Platelet Count 220 X10^3/uL (150-400); Red Blood Cell Count 4.29 X10^6/uL (4.0-5.2); Red Cell Distribution Width 17.8 % (11.6-14.8); White Blood Cell Count 5.4 X10^3/uL (4.5-11.0)
[2021-03-02 21:16] LABS: Alanine Aminotransferase 123 IU/L (<35); Albumin 3.5 g/dL (3.5-5.0); Albumin Globulin Ratio 1.2 (1.0-2.8); Alkaline Phosphatase 113 U/L (38-126); Aspartate Aminotransferase 293 IU/L (14-36); BUN Creatinine Ratio 17.1 (6-22); Bilirubin Total 0.5 mg/dL (0.2-1.3); Blood Urea Nitrogen 20 mg/dL (7-17); Calcium 8.3 mg/dL (8.4-10.2); Carbon Dioxide 29 mmol/L (22-32); Chloride 95 mmol/L (98-107); Glucose 105 mg/dL (70-100); HEMOLYSIS < 15 (0-50); Potassium 3.4 mmol/L (3.4-5.1); Sodium 131 mmol/L (137-145); Total Protein 6.5 g/dL (6.3-8.2)
--- NOTE | 2021-03-02 21:57 | ED.GENADULT ---
HPI - General Adult General Chief complaint: Shortness of Breath/Dyspnea Stated complaint: SOB Time Seen by Provider: 03/02/21 21:57 Source: patient Mode of arrival: Ambulatory History of Present Illness HPI narrative: 55-year-old woman with a history of methamphetamine use disorder, hypertension hyperlipidemia who has been feeling generally unwell over the last month with increasing cough, fatigue malaise and recently body aches and decreased appetite. She notes that she has been trying to stop methamphetamine over the last month which may explain part of the fatigue. She was seen in her primary care physician's office on February 17 with similar complaints COVID test at that time was negative. Since then cough has gotten significantly worse and over the last couple days she has become increasingly dyspneic. She does not complain of palpitations no lower extremity edema she is a bit nauseated but not actually vomiting no diarrhea. She has not been vaccinated for COVID Related Data Home Medications Medication Instructions Recorded Confirmed aspirin 81 mg tablet,delayed 81 mg PO DAILY 12/16/20 02/17/21 release Previous Rx's Medication Instructions Recorded atorvastatin 40 mg tablet (Lipitor) 40 mg PO QPM #90 tab 12/16/20 carvedilol 25 mg tablet 25 mg PO BID #180 tab 02/17/21 Allergies Allergy/AdvReac Type Severity Reaction Status Date / Time morphine [MORPHINE] Allergy Unknown Verified 02/17/21 16:19 acetaminophen [From Percocet] Allergy Verified 02/17/21 16:19 oxycodone [From Percocet] Allergy Verified 02/17/21 16:19 Review of Systems Review of Systems Narrative: Remainder of complete review of systems is otherwise unremarkable except for that included in the HPI. Patient History Medical History (Updated 03/02/21 @ 22:16 by Raegan Bustamante MD) Alcoholism COVID-19 Methamphetamine abuse Tobacco abuse Surgical History Status post cervical spinal fusion Status post gastric bypass for obesity Status post lumbar surgery Family History Other No pertinent family history Social History Smoking Status: Former smoker Smoking Status: Former smoker alcohol intake frequency: 3 or more drinks per day Substance Use Type: marijuana Exam Narrative Exam Narrative: General: Chronically ill-appearing woman who appears very fatigued. Able to give a complete and coherent history. HEENT: Moist mucous membranes, normal sclera with reactive pupils, deep circles under her eyes Neck: No JVD, supple Respiratory: Lungs scattered wheeze in all lung werner but no rhonchi or consolidated findings. Full and symmetrical air movement Cardiac: Regular rate and rhythm no murmurs no bruits Abdomen: Soft, nontender, good bowel tones, no flank pain Skin: Warm and dry, no rashes Neurologic: Globally weak but Grossly neurologically intact with no obvious asymmetries or abnormalities Extremities: No trauma, well perfused Psych: Cooperative, appropriate insight and affect Initial Vital Signs Initial Vital Signs: Vital Signs Pulse Rate 72 03/02/21 20:35 Course Orders Ordered: ED Orders 03/02/21 20:35 COVID19 -Nasal swab/Pre-Proc Stat 03/02/21 20:41 XR chest 1V Stat EKG-12 Lead Stat Measure peak expiratory flow ONCE RT Consult Eval and Treat Now 03/02/21 20:50 Complete Blood Count AUTO DIFF Stat Comprehensive Metabolic Panel Stat Lactate (Lactic Acid) Stat 03/02/21 22:27 Ethanol (ETOH) Stat Urine Drug Screen, Rapid Stat Sodium Chloride (Normal Saline 0.9%) 1,000 mls @ 1,000 mls/hr IV BOLUS ONE Stop: 03/02/21 23:04 Discontinued Medications Albuterol (Albuterol Hfa Mdi 60 Puff/8 Gm Inhaler) 4 puff INH NOW ONE Stop: 03/02/21 22:06 Dexamethasone (Dexamethasone 10 Mg/Ml Vial) 6 mg IV NOW ONE Stop: 03/02/21 22:08 Vital Signs Vital signs: Vital Signs - 8 hr 03/02/21 20:35 03/02/21 20:36 03/02/21 20:40 Temperature 97.4 F L Pulse Rate 72 71 Respiratory Rate 28 H Blood Pressure 108/60 Pulse Oximetry 87 L 96 03/02/21 21:00 Temperature Pulse Rate 66 Respiratory Rate 30 H Blood Pressure Pulse Oximetry 98 Medical Decision Making Lab Data Result diagrams: 03/02/21 20:50 03/02/21 20:50 Labs: Lab Results 03/02/21 03/02/21 03/02/21 Range/Units 20:35 20:50 20:50 WBC 5.4 (4.5-11.0) X10^3/uL RBC 4.29 (4.0-5.2) X10^6/uL Hgb 13.0 (12.0-16.0) g/dL Hct 39.5 (36-46) % MCV 92.2 (80-100) fL MCH 30.3 (26-34) PG MCHC 32.8 (30-36) % RDW 17.8 H (11.6-14.8) % Plt Count 220 (150-400) X10^3/uL Neut % (Auto) 77.2 H (50-75) % Lymph % (Auto) 14.5 L (25-40) % [place] % (Auto) 7.7 (3-14) % Eos % (Auto) 0.0 L (2-4) % Baso % (Auto) 0.6 (0-2) % Neut # (Auto) 4100 (9868-2242) /uL Lymph # (Auto) 800 L (6705-1794) /uL [place]on # (Auto) 400 (0-900) /uL Eos # (Auto) 0 (0-450) /uL Baso # (Auto) 0 (0-100) /uL Sodium 131 L (137-145) mmol/L Potassium 3.4 (3.4-5.1) mmol/L Chloride 95 L (98-107) mmol/L Carbon Dioxide 29 (22-32) mmol/L BUN 20 H (7-17) mg/dL Creatinine 1.17 H (0.52-1.04) mg/dL Estimated GFR 48.0 L (>60) mL/min BUN/Creatinine Ratio 17.1 (6-22) Glucose 105 H (70-100) mg/dL Lactate (0.7-2.1) mmol/L Calcium 8.3 L (8.4-10.2) mg/dL Total Bilirubin 0.5 (0.2-1.3) mg/dL AST 293 H (14-36) IU/L ALT 123 H (<35) IU/L Alkaline Phosphatase 113 (38-126) U/L Total Protein 6.5 (6.3-8.2) g/dL Albumin 3.5 (3.5-5.0) g/dL Globulin 3.0 (1.7-4.1) g/dL Albumin/Globulin Ratio 1.2 (1.0-2.8) SARS-CoV-2 (PCR) Positive H (Negative) 03/02/21 Range/Units 20:50 WBC (4.5-11.0) X10^3/uL RBC (4.0-5.2) X10^6/uL Hgb (12.0-16.0) g/dL Hct (36-46) % MCV (80-100) fL MCH (26-34) PG MCHC (30-36) % RDW (11.6-14.8) % Plt Count (150-400) X10^3/uL Neut % (Auto) (50-75) % Lymph % (Auto) (25-40) % [place] % (Auto) (3-14) % Eos % (Auto) (2-4) % Baso % (Auto) (0-2) % Neut # (Auto) (9305-7731) /uL Lymph # (Auto) (7626-3970) /uL [place] # (Auto) (0-900) /uL Eos # (Auto) (0-450) /uL Baso # (Auto) (0-100) /uL Sodium (137-145) mmol/L Potassium (3.4-5.1) mmol/L Chloride (98-107) mmol/L Carbon Dioxide (22-32) mmol/L BUN (7-17) mg/dL Creatinine (0.52-1.04) mg/dL Estimated GFR (>60) mL/min BUN/Creatinine Ratio (6-22) Glucose (70-100) mg/dL Lactate 1.0 (0.7-2.1) mmol/L Calcium (8.4-10.2) mg/dL Total Bilirubin (0.2-1.3) mg/dL AST (14-36) IU/L ALT (<35) IU/L Alkaline Phosphatase (38-126) U/L Total Protein (6.3-8.2) g/dL Albumin (3.5-5.0) g/dL Globulin (1.7-4.1) g/dL Albumin/Globulin Ratio (1.0-2.8) SARS-CoV-2 (PCR) (Negative) Imaging Data Chest x-ray: Radiologist's Impression: FINDINGS:? ? Surgical changes and devices:? Postsurgical changes are again seen in visualized mid to lower cervical spine. ? Lungs and pleura:? Lungs are clear.? No pleural effusions or pneumothorax.? ? Mediastinum:? Mediastinal contours appear normal.? Heart size is normal.? ? Bones and chest wall:? No suspicious bony lesions.? Overlying soft tissues appear unremarkable.? ? IMPRESSION:? No acute cardiopulmonary pathology. ? ? Dictated by: Saw Joshi M.D. on 03/02/2021 at 21:16? ECG Data Interpretation: EKG shows sinus rhythm at a rate of 66 Normal intervals, normal axis No acute ischemic changes MDM Narrative Medical decision making narrative: 55-year-old woman with methamphetamine use disorder now with COVID-19 and increasing dyspnea. On presentation her oxygen saturations were at 87%. She does have quite a bit of wheezing and had been complaining of exertional dyspnea prior to her COVID diagnosis but does not carry a specific diagnosis of COPD. Labs are all consistent with COVID. She is slightly dehydrated both clinically as well as showing a mild acute kidney injury with bump in creatinine to 1.17. She also has a slight bump in AST and ALT. She also has a history of alcohol use disorder. She states she has not been drinking or use and methamphetamine for the last month mainly because she has felt too unwell. There is no evidence of bacterial pneumonia on her chest x-ray independent review does look like she is developing bilateral infiltrates consistent with COVID pneumonia. No evidence for acute coronary syndrome. She will be admitted to the hospital for further care. On 4 L by nasal cannula and saturations are in the 94% range she is feeling much more comfortable. Will give her a L of fluid as well as albuterol MDI given the degree of wheezing that she does have. Will start Decadron will hold on remdesivir given the slight acute kidney injury and bump in AST and ALT Care is reveiwed with the hospitalist and she will be admitted Discharge Plan Departure Patient Disposition: Admitted As Inpatient Clinical Impression: Pneumonia due to 2019 novel coronavirus, Acute kidney injury, Alcohol use disorder, Methamphetamine use disorder, severe Respiratory failure with hypoxia Qualifiers: Chronicity: acute Qualified Code(s): J96.01 - Acute respiratory failure with hypoxia
[2021-03-02] MEDS: SODIUM CHLORIDE 0.9% 1,000 ML 1000 ML IV (22:41)
[2021-03-02] MEDS: DEXAMETHASONE 10 MG/ML VIAL 6 MG IV (22:41)
[2021-03-02 22:44] LABS: Ethanol (ETOH) < 10 mg/dL
[2021-03-02 23:01] LABS: Appearance Urine UA CLEAR; Bilirubin Urine UA NEGATIVE (NEGATIVE); Color Urine UA YELLOW; Glucose Urine UA NEGATIVE (Negative); Ketones Urine UA TRACE (NEGATIVE); Leukocyte Esterase Urine UA TRACE (NEGATIVE); Nitrite Urine UA NEGATIVE (Negative); Occult Blood Urine UA NEGATIVE (Negative); Protein Urine UA 1+ (Negative); Specific Gravity Urine UA 1.015 (1.000-1.035)
[2021-03-02 23:04] LABS: UR Morphine/Opiate cutoff 300 Negative (Negative); Ur Creatinine Normal (Normal); Ur Specific Gravity Normal (Normal); Urine Amphetamines Positive (Negative); Urine Barbiturates Negative (Negative); Urine Benzodiazepines Negative (Negative); Urine Cocaine Negative (Negative); Urine MDMA Negative (Negative); Urine Methadone Negative (Negative); Urine Methamphetamines Positive (Negative); Urine Oxycodone Negative (Negative); Urine Phencyclidine Negative (Negative); Urine Tetrahydrocannabinol Negative (Negative); Urine Tricyclic Antidepressant Negative (Negative); Urine pH Normal (Normal)
[2021-03-02 23:12] LABS: pH Urine UA 6.5 (4.5-8.0)
[2021-03-02 23:13] LABS: Bacteria Urine Moderate (10-30); Culture Indicated Urine Specimen Cultured; RBC Urine None Seen (0-5/HPF); Squamous Epithelial Cell Urine 1-5 /HPF (0-5/HPF); WBC Urine 1-5/HPF (0-5/HPF)
[2021-03-03] VITALS (8 sets, daily range): BP systolic 97–132; BP diastolic 51–77; PULSE 49–65; RESP 16–20; TEMP 36.3–37.6; O2SAT 90–97
--- NOTE | 2021-03-03 00:24 | PM.HP.1 ---
History of Present Illness History of Present Illness Date Patient Seen: 03/03/21 Time Patient Seen: 00:05 Chief complaint: SOB Narrative: Stephanie Duran presents today to the emergency department with what appears to be at least a 2 week history of fatigue, and shortness of breath. She was seen by her PCP on February 17 with similar complaints, was tested for COVID-19 and at that time was negative. She reports having a temperature of a 102.2? days ago, she had diarrhea 4 days ago, she endorses having increased shortness of breath, endorse having nausea but no vomiting and has not been eating for the past 2 days and is now hungry. Patient has a history of alcohol, methamphetamine and marijuana use. Tonight she tested positive for methamphetamine use. She states her last cigarette was today and her last methamphetamine use was yesterday. Per review of her past records at [facility], she uses marijuana for chronic pain with a history of cervical and lumbar disc surgery. She states she is interested in now having the vaccine and is interested in inpatient rehab. In the emergency department they indicated that her chest x-ray was unremarkable, was informed that she had an acute kidney injury and that remdesivir was not started on her. Patient is afebrile, blood pressure 91/50, heart rate 66, respiratory rate 21, oxygen saturation of 94% on 4 L, she weighs 90.7 kg. CBC is unremarkable except for lymphopenia of 800, sodium was 131, potassium 3.4, chloride 95, bicarb 29, BUN 20, creatinine 1.17 which is elevated for her, she has a estimated GFR of 48, glucose 145, lactate is within normal limits, calcium 8.3, magnesium is 2.1, AST 293, ALT 123, procalcitonin is borderline normal, urine appears to be positive for a UTI and she is positive for methamphetamine and amphetamines in her urine, COVID-19 PCR is positive. In October of this past year she was transferred to [facility] in [place] for a CVA after having undergone tPA treatment in the emergency department. Echocardiogram g done at that time indicated ejection fraction of 55% with mild concentric left ventricular hypertrophy with grade 1 diastolic dysfunction. She was there from November 08 through November 10 and apparently left Against Medical Advice. She was administered multivitamins, thiamine and folic acid. Patient History Medical History (Updated 03/02/21 @ 22:16 by Raegan Bustamante MD) Alcoholism COVID-19 Methamphetamine abuse Tobacco abuse Surgical History Status post cervical spinal fusion Status post gastric bypass for obesity Status post lumbar surgery Family & Social History Family History (Updated 03/03/21 @ 00:25 by MAINE Davis) Mother Hypertension Father Family estrangement Tobacco & Substance use: Smoking Status Current smoker alcohol intake frequency 3 or more drinks per day Substance Use Type marijuana, methamphetamine Meds Home Medications and Allergies Home Medications Medication Instructions Recorded Confirmed Type aspirin 81 mg tablet,delayed 81 mg PO DAILY 12/16/20 02/17/21 History release atorvastatin 40 mg tablet (Lipitor) 40 mg PO QPM #90 tab 12/16/20 02/17/21 Rx carvedilol 25 mg tablet 25 mg PO BID #180 tab 02/17/21 Rx Allergies Allergy/AdvReac Type Severity Reaction Status Date / Time morphine [MORPHINE] Allergy Unknown Verified 02/17/21 16:19 acetaminophen [From Percocet] Allergy Verified 02/17/21 16:19 oxycodone [From Percocet] Allergy Verified 02/17/21 16:19 Review of Systems Review of Systems ROS: Yes All systems reviewed with the patient and are negative except as otherwise documented Exam Vital Signs (past 8 hours): - 03/02/21 20:35 03/02/21 20:36 03/02/21 20:40 Temperature 97.4 F L Pulse Rate 72 71 Respiratory Rate 28 H Blood Pressure 108/60 Pulse Oximetry 87 L 96 03/02/21 21:00 03/02/21 21:30 03/02/21 22:00 Temperature Pulse Rate 66 63 67 Respiratory Rate 30 H Blood Pressure Pulse Oximetry 98 99 03/02/21 22:30 03/02/21 22:48 03/02/21 22:50 Temperature Pulse Rate 65 67 63 Respiratory Rate Blood Pressure 95/52 L Pulse Oximetry 91 96 95 03/02/21 23:20 03/02/21 23:42 Temperature 98.3 F Pulse Rate 66 8 L Respiratory Rate 28 H 21 Blood Pressure 91/50 L Pulse Oximetry 96 94 Oxygen Delivery Method Nasal Cannula Oxygen Flow Rate 4 Narrative Exam Narrative: Gen: Alert, oriented,oibese 55 y.o. female, ill appearing HEENT: normocephalic, atraumatic, conjunctiva clear, sclera non-icteric, oral mucosa pink and moist Neck: supple, full ROM, no JVD, trachea is midline Resp: Lungs w/bilateral rales and wheezes, non-labored breathing CV: RRR, no murmur or rubs Abd: soft, non-tender, normoactive BTs Skin: no lesions or rashes, dry and intact Neuro: Alert and oriented X 4 w/no focal deficits. Speech clear and coherent. Extremities: moves all 4 extremities, is ambulatory, negative Pao?s sign Psyche: depressed mood and affect. Objective Labs Result Diagrams: 03/02/21 20:50 03/02/21 20:50 Labs: Laboratory Results - last 24 hr 03/02/21 03/02/21 03/02/21 20:35 20:50 20:50 WBC 5.4 RBC 4.29 Hgb 13.0 Hct 39.5 MCV 92.2 MCH 30.3 MCHC 32.8 RDW 17.8 H Plt Count 220 Neut % (Auto) 77.2 H Lymph % (Auto) 14.5 L [place] % (Auto) 7.7 Eos % (Auto) 0.0 L Baso % (Auto) 0.6 Neut # (Auto) 4100 Lymph # (Auto) 800 L [place] # (Auto) 400 Eos # (Auto) 0 Baso # (Auto) 0 Sodium 131 L Potassium 3.4 Chloride 95 L Carbon Dioxide 29 BUN 20 H Creatinine 1.17 H Estimated GFR 48.0 L BUN/Creatinine Ratio 17.1 Glucose 105 H Lactate Calcium 8.3 L Total Bilirubin 0.5 AST 293 H ALT 123 H Alkaline Phosphatase 113 Total Protein 6.5 Albumin 3.5 Globulin 3.0 Albumin/Globulin Ratio 1.2 Urine Color Urine Appearance Urine pH Ur Specific [place] Urine Protein Urine Glucose (UA) Urine Ketones Urine Occult Blood Urine Nitrate Urine Bilirubin Urine Urobilinogen Ur Leukocyte Esterase Urine RBC Urine WBC Ur Squamous Epith Cells Urine Bacteria Ur Culture Indicated? U Opiates 300ng/mL cut Ur Oxycodone Screen Urine Methadone Screen Ur Barbiturates Screen U Tricyclic Antidepress Ur Phencyclidine Scrn Ur Amphetamines Screen U Methamphetamines Scrn Ur MDMA Scrn (Ecstasy) U Benzodiazepines Scrn Urine Cocaine Screen U Marijuana (THC) Screen Ethyl Alcohol SARS-CoV-2 (PCR) Positive H 03/02/21 03/02/21 03/02/21 20:50 20:50 22:50 WBC RBC Hgb Hct MCV MCH MCHC RDW Plt Count Neut % (Auto) Lymph % (Auto) [place] % (Auto) Eos % (Auto) Baso % (Auto) Neut # (Auto) Lymph # (Auto) [place] # (Auto) Eos # (Auto) Baso # (Auto) Sodium Potassium Chloride Carbon Dioxide BUN Creatinine Estimated GFR BUN/Creatinine Ratio Glucose Lactate 1.0 Calcium Total Bilirubin AST ALT Alkaline Phosphatase Total Protein Albumin Globulin Albumin/Globulin Ratio Urine Color Urine Appearance Urine pH Ur Specific [place] Urine Protein Urine Glucose (UA) Urine Ketones Urine Occult Blood Urine Nitrate Urine Bilirubin Urine Urobilinogen Ur Leukocyte Esterase Urine RBC Urine WBC Ur Squamous Epith Cells Urine Bacteria Ur Culture Indicated? U Opiates 300ng/mL cut Negative Ur Oxycodone Screen Negative Urine Methadone Screen Negative Ur Barbiturates Screen Negative U Tricyclic Antidepress Negative Ur Phencyclidine Scrn Negative Ur Amphetamines Screen Positive H U Methamphetamines Scrn Positive H Ur MDMA Scrn (Ecstasy) Negative U Benzodiazepines Scrn Negative Urine Cocaine Screen Negative U Marijuana (THC) Screen Negative Ethyl Alcohol < 10 SARS-CoV-2 (PCR) 03/02/21 22:50 WBC RBC Hgb Hct MCV MCH MCHC RDW Plt Count Neut % (Auto) Lymph % (Auto) [place] % (Auto) Eos % (Auto) Baso % (Auto) Neut # (Auto) Lymph # (Auto) [place] # (Auto) Eos # (Auto) Baso # (Auto) Sodium Potassium Chloride Carbon Dioxide BUN Creatinine Estimated GFR BUN/Creatinine Ratio Glucose Lactate Calcium Total Bilirubin AST ALT Alkaline Phosphatase Total Protein Albumin Globulin Albumin/Globulin Ratio Urine Color Yellow Urine Appearance Clear Urine pH 6.5 Ur Specific [place] 1.015 Urine Protein 1+ H Urine Glucose (UA) Negative Urine Ketones Trace H Urine Occult Blood Negative Urine Nitrate Negative Urine Bilirubin Negative Urine Urobilinogen 1.0 Ur Leukocyte Esterase Trace H Urine RBC None seen Urine WBC 1-5/hpf Ur Squamous Epith Cells 1-5 /hpf Urine Bacteria Moderate (10-30) H Ur Culture Indicated? Specimen cultured U Opiates 300ng/mL cut Ur Oxycodone Screen Urine Methadone Screen Ur Barbiturates Screen U Tricyclic Antidepress Ur Phencyclidine Scrn Ur Amphetamines Screen U Methamphetamines Scrn Ur MDMA Scrn (Ecstasy) U Benzodiazepines Scrn Urine Cocaine Screen U Marijuana (THC) Screen Ethyl Alcohol SARS-CoV-2 (PCR) Assessment & Plan Assessment & Plan narrative: Stephanie Duran is admitted for COVID-19 and a urinary tract infection. 1. Mild hypoxia secondary to COVID-19, acute, present on admission She is initiated on IV remdesivir, dexamethasone an oral Baricitinib RT to titrate O2 to a level between 87 and 93% as the patient is a smoker Patient is interested in a vaccine once she test negative for COVID 19 2. Urinary tract infection, acute, present on admission She will be initiated on IV ceftriaxone 1 g daily 3. Acute kidney injury, present on admission Creatinine is higher than her baseline Sodium is 131 so likely due to dehydration Renally dose remdesivir and heparin instead of enoxaparin for anticoagulation 4. Polysubstance abuse, present on her urine and patient admits to using recently Methamphetamine was found in her urine which is corroborated by the patient with recent use as of the last 48 hours and alcohol use within the last 24 hours Patient states that she is interested and drug and alcohol rehab CIWA protocol with IV Ativan q.4 hours as needed for agitation and withdrawal Consider Precedex if CIWA protocol interventions are not effective She is administered oral thiamine, folic acid and a multivitamin per CIWA protocol 5. Grade 1 diastolic failure diagnosed in October of this year Patient had a CVA on November 08 and was administered tPA and transferred to [facility] Her echocardiogram done at that time indicated a 55% ejection fraction with diastolic heart failure identified at that time. Continue home dose of carvedilol if her blood pressure supports that 6. Status post CVA 11/19 Continue home dose of atorvastatin 40 mg p.o. daily 7. 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 FEN: IV fluids: Saline lock, diet: General diet, labs: CBC, C/BMP, liver enzymes, Mag, PT/INR Consultants Social work possibly Psychiatry care and involvement in the patient?s care is appreciated. Dispo: Unknown at this time Code status: Full code as discussed with the patient who identifies her as her surrogate and POA. [X] I have utilized all available immediate resources to obtain, update, or review of the patient's current medications COVID-19 COVID-19 status: Positive Result date/Date tested (Pos, Neg/Pending): 03/02/21 Scores Wells' Criteria for PE Clinical signs and symptoms of DVT: Yes PE is #1 Dx or equally likely: No Heart rate > 100: No Immobilization at least 3 days or surg in previous 4 weeks: No History of PE or DVT: No Hemoptysis: No Malignancy w/Treatment within 6 months or palliative: No Wells' PE Score total: 3 Quality MIPS - Admit I confirm the patient?s Advance Care Plan is present, Code status is documented, Surrogate decision maker is in patient?s record [If Yes, STOP here]: Yes MIPS - DC The patient has current or prior documentation of left ventricular ejection fraction (LVEF) less than 40%, or moderate or severely depressed left ventricular systolic function.: No
[2021-03-03 00:30] LABS: Magnesium 2.1 mg/dL (1.6-2.3)
[2021-03-03 00:42] LABS: Procalcitonin 0.42 ng/mL (<0.5)
[2021-03-03] MEDS: HEPARIN 5,000 UNIT/ML VIAL 5000 UNIT SUBCUT ×3 (00:58→20:46)
[2021-03-03] MEDS: REMDESIVIR 200 MG in SODIUM CHLORIDE 0.9% 210 ML 250 ML IV (01:25)
[2021-03-03] MEDS: cefTRIAXone 1,000 MG in SODIUM CHLORIDE 0.9% 100 ML 200 ML IV (02:37)
[2021-03-03 06:37] LABS: Add Manual Diff / Slide Review NO; Basophils Absolute Auto 0 /uL (0-100); Basophils Percent Auto 0.5 % (0-2); Eosinophils Absolute Auto 0 /uL (0-450); Hematocrit 38.2 % (36-46); Hemoglobin 12.6 g/dL (12.0-16.0); Lymphocytes Absolute Auto 500 /uL (1100-4500); Mean Corpuscular HGB Conc 32.9 % (30-36); Mean Corpuscular Hemoglobin 30.5 PG (26-34); Mean Corpuscular Volume 92.6 fL (80-100); Monocytes Absolute Auto 300 /uL (0-900); Monocytes Percent Auto 6.6 % (3-14); Neutrophils Absolute Auto 3900 /uL (1500-7000); Neutrophils Percent Auto 82.9 % (50-75); Platelet Count 217 X10^3/uL (150-400); Red Blood Cell Count 4.13 X10^6/uL (4.0-5.2); Red Cell Distribution Width 17.7 % (11.6-14.8); White Blood Cell Count 4.7 X10^3/uL (4.5-11.0)
[2021-03-03 06:47] LABS: BUN Creatinine Ratio 21.3 (6-22); Blood Urea Nitrogen 20 mg/dL (7-17); Calcium 8.3 mg/dL (8.4-10.2); Carbon Dioxide 30 mmol/L (22-32); Chloride 99 mmol/L (98-107); Estimated Glomerular Filt Rate > 60.0 mL/min (>60); Glucose 136 mg/dL (70-100); HEMOLYSIS < 15 (0-50); Potassium 3.7 mmol/L (3.4-5.1); Sodium 135 mmol/L (137-145)
[2021-03-03 06:48] LABS: Alanine Aminotransferase 108 IU/L (<35); Albumin 3.3 g/dL (3.5-5.0); Albumin Globulin Ratio 1.2 (1.0-2.8); Alkaline Phosphatase 101 U/L (38-126); Aspartate Aminotransferase 215 IU/L (14-36); Bilirubin Total 0.4 mg/dL (0.2-1.3); Globulin 2.8 g/dL (1.7-4.1); HEMOLYSIS < 15 (0-50); Total Protein 6.1 g/dL (6.3-8.2)
[2021-03-03] MEDS: MULTIVITAMIN 1 TABLET 1 TAB PO (09:20)
[2021-03-03] MEDS: FOLIC ACID 1 MG TABLET PO (09:20)
[2021-03-03] MEDS: THIAMINE 100 MG TABLET PO (09:20)
[2021-03-03] MEDS: carvediloL 12.5 MG TABLET 25 MG PO ×2 (09:20→20:45)
[2021-03-03] MEDS: ASPIRIN EC 81 MG TABLET PO (09:21)
[2021-03-03] MEDS: NICOTINE 14 PATCH 14 MG TOP (09:23)
[2021-03-03] MEDS: ACETAMINOPHEN 325 MG TABLET 650 MG PO (09:27)
[2021-03-03] MEDS: ONDANSETRON 4 MG/2 ML INJ IV ×2 (09:27→22:49)
--- NOTE | 2021-03-03 17:27 | CM.DANOTE ---
DCP/Assessment: Reviewed chart. Patient is a 55yr old female admitted to [facility] with SOB related to COVID + PCP listed is Dr. Castellanos. [facility]Medicare. Per notes patient with h/o substance abuse. Patient tox screen positive for methamphetamines which patient admitted to using upon admit. Patient currently under COVID precautions with CIWA protocol in place for alcohol w/d. INSPECTOR AND CLIPPER to attempt phone call into room once patient medically appropriate. Notes indicate patient requesting help for substance abuse? Patient would be difficult to place with COVID diagnosis. Patient most likely will need to complete COVID treatment and state guidelines prior to returning to outpatient activities including treatment. P: Attempt telephone placement when patient medically appropriate prior to d/c. KJS Discharge Planning/Care Management CM Discharge Assessment Start: 03/03/21 17:00 Freq: Status: Active Protocol: Document 03/03/21 17:01 KJS (Rec: 03/03/21 17:27 KJ [id number]) Discharge Planning Assessment Assigned Manager Payer FAUZIA Gunter Contact Information None listed Advance Directives? No History Provided By Medical Record Prior Living Arrangements House Household Members spouse Independent with ADL's Yes: Per EMR Is patient alert and oriented? Yes: Per EMR Caregiver for Another No Comment Pending plan of care. Patient currently COVID + with active substance abuse history. Currently on CIWA protocol. Discharge Plan Home Referrals Initiated Other Additional Comment Will need assessment when medically appropriate to do so . Review Status In Process Next Review Type Continued Stay Review
[2021-03-03] MEDS: DEXAMETHASONE 10 MG/ML VIAL 6 MG IV (20:45)
[2021-03-03] MEDS: ATORVASTATIN 20 MG TABLET 40 MG PO (20:45)
[2021-03-03] MEDS: SODIUM CHLORIDE 0.9% FLUSH 10 ML IV ×2 (20:46→22:50)
--- NOTE | 2021-03-03 23:03 | PC.NURSE ---
Patient is alert and oriented and slightly anxious. Complains of having difficulty breathing and when checked was 89-90% on RA so placed on oxygen at 1L/min per NC with sat increasing to 97%. Did become more SOB when up to bathroom with sat dropping to 86% upon return to bed. Has expiratory rhonchi throughout and an intermittent loose, congested sounding, non-productive cough. Patient at this time is again complaining of not feeling well and having difficulty breathing and sat at 89-90% so increased oxygen to 4L/min to get sat improved to 91%. HRR. Did complain of intermittent nausea without emesis and now is stating she can't even drink water because of nausea so medicated with Zofran. BT present and abdomen is soft. Voided 250cc dark curly urine. Is able to turn herself in bed. Assisted to bathroom with 1 assist and patient holding onto wall. Seizure pads are in place. CIWA score was 5. Denied pain. Fall risk score is high and bed alarm is activated. Refused to have SCD's so reminded to ankle wave.
[2021-03-04] VITALS: BP 108/69; PULSE 44; RESP 19; TEMP 36; O2SAT 92
[2021-03-04] MEDS: cefTRIAXone 1,000 MG in SODIUM CHLORIDE 0.9% 100 ML 200 ML IV (00:03)
[2021-03-04] MEDS: SODIUM CHLORIDE 0.9% 250 ML 21 ML IV (00:03)
[2021-03-04] MEDS: SODIUM CHLORIDE 0.9% FLUSH 10 ML IV ×2 (00:06→09:45)
[2021-03-04] MEDS: REMDESIVIR 100 MG in SODIUM CHLORIDE 0.9% 230 ML 250 ML IV (00:57)
[2021-03-04 06:22] LABS: Add Manual Diff / Slide Review NO; Basophils Absolute Auto 0 /uL (0-100); Basophils Percent Auto 0.8 % (0-2); Eosinophils Absolute Auto 0 /uL (0-450); Hematocrit 37.6 % (36-46); Hemoglobin 12.3 g/dL (12.0-16.0); Lymphocytes Absolute Auto 500 /uL (1100-4500); Lymphocytes Percent Auto 11.2 % (25-40); Mean Corpuscular HGB Conc 32.9 % (30-36); Mean Corpuscular Hemoglobin 30.4 PG (26-34); Mean Corpuscular Volume 92.6 fL (80-100); Monocytes Absolute Auto 500 /uL (0-900); Monocytes Percent Auto 10.2 % (3-14); Neutrophils Absolute Auto 3700 /uL (1500-7000); Neutrophils Percent Auto 77.8 % (50-75); Platelet Count 259 X10^3/uL (150-400); Red Blood Cell Count 4.06 X10^6/uL (4.0-5.2); Red Cell Distribution Width 17.9 % (11.6-14.8); White Blood Cell Count 4.7 X10^3/uL (4.5-11.0)
[2021-03-04 06:25] VITALS: BP 107/62; PULSE 56; RESP 17; TEMP 36.3; O2SAT 96
[2021-03-04 06:35] LABS: BUN Creatinine Ratio 17.6 (6-22); Blood Urea Nitrogen 18 mg/dL (7-17); Calcium 8.4 mg/dL (8.4-10.2); Carbon Dioxide 32 mmol/L (22-32); Chloride 101 mmol/L (98-107); Estimated Glomerular Filt Rate 56.3 mL/min (>60); Glucose 143 mg/dL (70-100); HEMOLYSIS < 15 (0-50); Potassium 3.9 mmol/L (3.4-5.1); Sodium 137 mmol/L (137-145)
[2021-03-04 06:36] LABS: Alanine Aminotransferase 84 IU/L (<35); Albumin 3.2 g/dL (3.5-5.0); Albumin Globulin Ratio 1.2 (1.0-2.8); Alkaline Phosphatase 99 U/L (38-126); Aspartate Aminotransferase 107 IU/L (14-36); Bilirubin Total 0.4 mg/dL (0.2-1.3); Bilirubin Unconjugated 0.1 mg/dL (0.0-1.1); Globulin 2.6 g/dL (1.7-4.1); HEMOLYSIS < 15 (0-50); Total Protein 5.8 g/dL (6.3-8.2)
[2021-03-04 08:50] VITALS: O2SAT 95
[2021-03-04 09:00] VITALS: BP 107/75; PULSE 50; RESP 16; TEMP 36.4; O2SAT 95
[2021-03-04] MEDS: ASPIRIN EC 81 MG TABLET PO (09:43)
[2021-03-04] MEDS: MULTIVITAMIN 1 TABLET 1 TAB PO (09:43)
[2021-03-04] MEDS: HEPARIN 5,000 UNIT/ML VIAL 5000 UNIT SUBCUT (09:43)
[2021-03-04] MEDS: NICOTINE 14 PATCH 14 MG TOP (09:44)
[2021-03-04] MEDS: ACETAMINOPHEN 325 MG TABLET 650 MG PO (09:44)
[2021-03-04] MEDS: FOLIC ACID 1 MG TABLET PO (09:44)
[2021-03-04] MEDS: THIAMINE 100 MG TABLET PO (09:44)
[2021-03-04 12:15] VITALS: BP 122/77; PULSE 54; RESP 16; TEMP 35.8; O2SAT 96
[2021-03-04] MEDS: LORazepam 1 MG TABLET PO (13:44)
--- NOTE | 2021-03-04 14:07 | P.DS_ITS ---
History of Present Illness History of Present Illness Date Patient Seen: 03/04/21 Time Patient Seen: 14:07 Chief complaint: SOB COVID+ Narrative: Per MAINE Davis: Stephanie Duran presents today to the emergency department with what appears to be at least a 2 week history of fatigue, and shortness of breath.? She was seen by her PCP on February 17 with similar complaints, was tested for COVID-19 and at that time was negative.? She reports having a temperature of a 102.2? days ago, she had diarrhea 4 days ago, she endorses having increased shortness of breath, endorse having nausea but no vomiting and has not been eating for the past 2 days and is now hungry.? Patient has a history of alcohol, methamphetamine and marijuana use.? Tonight she tested positive for methamphetamine use.? She states her last cigarette was today and her last methamphetamine use was yesterday.? Per review of her past records at [facility], she uses marijuana for chronic pain with a history of cervical and lumbar disc surgery.? She states she is interested in now having the vaccine and is interested in inpatient rehab. In the emergency department they indicated that her chest x-ray was unremarkable, was informed that she had an acute kidney injury and that remdesivir was not started on her.? Patient is afebrile, blood pressure 91/50, heart rate 66, respiratory rate 21, oxygen saturation of 94% on 4 L, she weighs 90.7 kg.? CBC is unremarkable except for lymphopenia of 800, sodium was 131, potassium 3.4, chloride 95, bicarb 29, BUN 20, creatinine 1.17 which is elevated for her, she has a estimated GFR of 48, glucose 145, lactate is within normal limits, calcium 8.3, magnesium is 2.1, AST 293, ALT 123, procalcitonin is borderline normal, urine appears to be positive for a UTI and she is positive for methamphetamine and amphetamines in her urine, COVID-19 PCR is positive. In October of this past year she was transferred to [facility] in [place] for a CVA after having undergone tPA treatment in the emergency dep artment.? Echocardiogram g done at that time indicated ejection fraction of 55% with mild concentric left ventricular hypertrophy with grade 1 diastolic dysfunction.? She was there from November 08 through November 10 and apparently left Against Medical Advice.? She was administered multivitamins, thiamine and folic acid. Discharge Providers Provider Date of admission: 03/02/21 22:37 Discharge Date: 03/04/21 Primary care physician: Romaine Castellanos MD Consults: 03/03/21 00:22 Consult to [facility] - Education Coordinator Routine Comment: Polysubstance abuse, wants inpt. rehab Discharge provider: Edwin Green DO Summary Hospital Course Discharge Diagnosis: 1. Acute respiratory failure with hypoxia secondary to COVID-19 pneumonia resolved, present on admission 2. Acute cystitis, present on admission 3. Acute kidney injury, present on admission, resolved 4. Polysubstance abuse 5. Chronic diastolic heart failure 6. Status post CVA 11/19 7. Elevated transaminases, improved Hospital Course: This is a 55-year-old female with a past medical history chronic diastolic heart failure, recent CVA, recent elevated transaminase levels who was admitted with acute respiratory failure and mild hypoxia secondary to COVID-19 pneumonia. The patient was started remdesivir, Decadron, and baricitinib with improvement that was quicker than expected. The following day the patient was in the mid to upper 90s on room air both at rest and with ambulation in her room. She was also noted to have acute cystitis with a positive urinalysis. She was given IV ceftriaxone here but will finish the remainder of her course with Macrobid as an outpatient. She also had a mild JAYRO with a creatinine of 1.17 (baseline around 0.7) which improved with fluids. Her transaminase levels also improved the following day. I recommend the patient follow-up with her primary care provider. No medication changes other than the antibiotic as noted above are recommended at the time of discharge. She was mildly bradycardic likely secondary to COVID-19, as well as remdesivir therapy. Her home carvedilol was held, and I recommended that she continue to hold this at home. Should her blood pressure rise at home she should resume this in the near future. Time Spent with Patient Time spent: Greater than 30 minutes Exam Vital Signs (past 8 hours): - 03/04/21 06:25 03/04/21 08:50 03/04/21 09:00 Temperature 97.4 F L 97.5 F L Pulse Rate 56 L 50 L Respiratory Rate 17 16 Blood Pressure 107/62 107/75 Pulse Oximetry 96 95 95 03/04/21 12:15 Temperature 96.4 F L Pulse Rate 54 L Respiratory Rate 16 Blood Pressure 122/77 Pulse Oximetry 96 Oxygen Delivery Method Nasal Cannula Oxygen Flow Rate 1 Narrative Exam Narrative: Gen: Alert, oriented,oibese 55 y.o. ? female, ill appearing HEENT: normocephalic, atraumatic, conjunctiva clear, sclera non-icteric, oral mucosa pink and moist Neck: supple, full ROM, no JVD, trachea is midline Resp: Lungs w/bilateral rales and mild expiratory wheezes, non-labored breathing CV: RRR, no murmur or rubs Abd: soft, non-tender, normoactive BTs Skin: no lesions or rashes, dry and intact Neuro: Alert and oriented X 4 w/no focal deficits. Speech clear and coherent. Extremities: No edema or joint effusions Psyche: Pleasant mood, normal affect. Objective Labs Result Diagrams: 03/04/21 06:08 03/04/21 06:08 Labs: Laboratory Results - last 24 hr 03/04/21 03/04/21 03/04/21 06:08 06:08 06:08 WBC 4.7 RBC 4.06 Hgb 12.3 Hct 37.6 MCV 92.6 MCH 30.4 MCHC 32.9 RDW 17.9 H Plt Count 259 Neut % (Auto) 77.8 H Lymph % (Auto) 11.2 L [place] % (Auto) 10.2 Eos % (Auto) 0.0 L Baso % (Auto) 0.8 Neut # (Auto) 3700 Lymph # (Auto) 500 L [place] # (Auto) 500 Eos # (Auto) 0 Baso # (Auto) 0 Sodium 137 Potassium 3.9 Chloride 101 Carbon Dioxide 32 BUN 18 H Creatinine 1.02 Estimated GFR 56.3 L BUN/Creatinine Ratio 17.6 Glucose 143 H Calcium 8.4 Total Bilirubin 0.4 Conjugated Bilirubin 0.0 Unconjugated Bilirubin 0.1 AST 107 H ALT 84 H Alkaline Phosphatase 99 Total Protein 5.8 L Albumin 3.2 L Globulin 2.6 Albumin/Globulin Ratio 1.2 PFSH Medical History (Updated 03/02/21 @ 22:16 by Raegan Bustamante MD) Alcoholism COVID-19 Methamphetamine abuse Tobacco abuse Surgical History Status post cervical spinal fusion Status post gastric bypass for obesity Status post lumbar surgery Family History (Updated 03/03/21 @ 00:26 by MAINE Davis) Mother Hypertension Father Family estrangement Social History household members: spouse Smoking Status: Former smoker Discharge Plan Discharge Plan Patient Disposition: Home Provider Discharge Comment: You were admitted to the hospital with COVID pneumonia. You improved. Please check oxygen at home, return if O2 saturations at home are less than 89%. Currently you do not need any oxygen. Macrobid was prescribed for a urinary tract infection that was found. Hold your home coreg, if BP increases or HR increases you can resume this medication. Discharge orders & Medications Prescriptions: New nitrofurantoin monohyd/m-cryst [Macrobid] 100 mg capsule 100 mg PO BID 5 Days Qty: 10 RF: 0 Continued aspirin 81 mg tablet,delayed release (DR/EC) 81 mg PO DAILY RF: 0 atorvastatin [Lipitor] 40 mg tablet 40 mg PO QPM Qty: 90 RF: 3 Discontinued carvedilol 25 mg tablet 25 mg PO BID Qty: 180 RF: 3 Follow up/Referrals: Romaine Castellanos MD [Primary Care Provider] - Diet/Activity/Treatments Diet: Diet as Tolerated Activity: As tolerated Visit Report/Discharge Packet Instructions: Nitrofurantoin, DI for COVID-19 (Suspected or Confirmed ) Discharge Data Primary Care Provider: Romaine Castellanos Quality VTE Deep Vein Thrombosis/Pulmonary Embolism Present on Admission: Yes
[2021-03-04 14:45] VITALS: BP 118/69; PULSE 54; RESP 16; TEMP 36.1; O2SAT 91
--- NOTE | 2021-03-04 15:48 | PC.NURSE ---
Day shift: Pt off unit at approx 1530. Taken to car that her spouse is driving by RN student Sarai. Pt has all personal belongings. Pt encouraged to take all antibiotics until gone. Paperwork signed and all questions answered. Pt stated I'm happy to be going home now.
== END 2021-03-04 15:50 | disposition home or self-care (01) | DRG 177 ==
LOC: ED 22:16 → AC 22:37
PROVIDERS: Admitting Provider Nurse Practitioner Family; Emergency Provider Emergency Medicine; Family Provider Preventive Medicine Occupational Medicine; PCP Student in an Organized Health Care Education/Training Program; Referring Provider Emergency Medicine; Visit Provider Nurse Practitioner Family
DX: U07.1 COVID-19 (principal); J12.82 Pneumonia due to coronavirus disease 2019; J96.01 Acute respiratory failure with hypoxia; N17.9 Acute kidney failure, unspecified; I50.30 Unspecified diastolic (congestive) heart failure; N30.00 Acute cystitis without hematuria; F15.10 Other stimulant abuse, uncomplicated; F17.200 Nicotine dependence, unspecified, uncomplicated; R74.01 Elevation of levels of liver transaminase levels; Z86.73 Personal history of transient ischemic attack (TIA), and cerebral infarction without residual deficits
CPT/HCPCS: 36415; 71045; 80048; 80053; 80076; 80305; 80320; 81001; 83605; 83735; 84145; 85025; 87086; 87635; 93005; 94762; 96374; 99284; C9803; A9270; J0696; J1100; J1644; J2405

== ENCOUNTER 2022-10-24 01:27 | Emergency (ER) | payer OTHER, MEDICARE, SELFPAY ==
[2021-03-02 22:57] VITALS: BMI 112.0
[2022-10-24 01:35] VITALS: BP 187/109; PULSE 98; RESP 15; TEMP 36.4; O2SAT 95; BMI 34.4
--- NOTE | 2022-10-24 05:25 | ED.WOUNDLAC ---
HPI - Wound/Laceration General Chief Complaint: Wound/Laceration Stated Complaint: right hand cut/injury at home Time Seen by Provider: 10/24/22 05:10 Source: patient Mode of arrival: Ambulatory History of Present Illness HPI narrative: Patient is a 57-year-old female who presents with left thumb laceration. She reports that she was washing a glass when it spontaneously broke and cut her thumb. She is unable to flex the thumb. She has some numbness She reports that she has suicidal thoughts intermittently but not active now. This was not a suicide attempt or self-harm. This was an accident. Related Data Home Medications Medication Instructions Recorded Confirmed aspirin 81 mg tablet,delayed 81 mg PO DAILY 12/16/20 02/17/21 release Previous Rx's Medication Instructions Recorded atorvastatin 40 mg tablet (Lipitor) 40 mg PO QPM #90 tabs 12/16/20 Allergies Allergy/AdvReac Type Severity Reaction Status Date / Time morphine [MORPHINE] Allergy Unknown Verified 02/17/21 16:19 acetaminophen [From Percocet] Allergy Verified 02/17/21 16:19 oxycodone [From Percocet] Allergy Verified 02/17/21 16:19 Review of Systems Review of Systems ROS Unobtainable: All systems reviewed & are unremarkable except as noted in HPI and below Patient History Medical History Alcoholism COVID-19 Methamphetamine abuse Tobacco abuse Surgical History Status post cervical spinal fusion Status post gastric bypass for obesity Status post lumbar surgery Family History Mother Hypertension Father Family estrangement Social History household members: spouse Smoking Status: Current every day smoker Smoking Status: Current every day smoker alcohol intake frequency: 3 or more drinks per day Substance Use Type: marijuana and amphetamines Exam Initial Vital Signs Initial Vital Signs: Vital Signs Temperature 97.6 F 10/24/22 01:35 Pulse Rate 98 H 10/24/22 01:35 Respiratory Rate 15 10/24/22 01:35 Blood Pressure 187/109 H 10/24/22 01:35 Pulse Oximetry 95 10/24/22 01:35 Oxygen Delivery Method Room Air 10/24/22 01:35 GENERAL: Well-appearing, well-nourished and in no acute distress. CARDIOVASCULAR: peripheral pulses in tact, cap refill <2 sec RESPIRATORY: No respiratory distress, speaks in full sentences without difficulty EXTREMITIES: Normal range of motion, no clubbing or edema. Neurovascularly intact Left thumb tendon is seen able to flex at the metacarpal joint however not able to flex at distal IP joint. Able to partially flex the MCP joint NEUROLOGICAL: Cranial nerves II through XII grossly intact. Normal gait and speech. SKIN: 3 cm laceration over MCP joint tendon is seen. Procedures Laceration Repair Laceration 1: Side (If applicable): left Size (cm): 3 Description: linear Depth: involves tendon Local Anesthetic: lidocaine 1% Amount of anesthesia used (mL): 3 Pre-repair: wound explored and irrigated extensively Skin layer closed with: nylon Skin layer suture size: 4-0 Number of sutures: 3 Course Vital Signs Vital signs: Vital Signs - 8 hr 10/24/22 01:35 10/24/22 06:17 Temperature 97.6 F 97.5 F L Pulse Rate 98 H 72 Respiratory Rate 15 18 Blood Pressure 187/109 H 144/86 H Pulse Oximetry 95 97 Oxygen Delivery Method Room Air Room Air MDM - Wound/Laceration MDM Narrative Medical decision making narrative: 57-year-old female who presents with laceration over left thumb. She has flexor tendon involvement with inability to flex distal thumb. Skin is closed easily with 3 sutures. I have discussed case with on-call orthopedics who agrees with outpatient follow-up and to have her call on Tuesday. Discharge Plan Departure Patient Disposition: Home Clinical Impression: Laceration of left thumb with tendon involvement Qualifiers: Encounter type: initial encounter Qualified Code(s): S61.012A - Laceration without foreign body of left thumb without damage to nail, initial encounter Instructions: DI for Laceration Repair, DI for Tendon Repair Activity Restrictions/Additional Instructions: *You have been diagnosed with left thumb laceration with tendon laceration *What to do: This will need to be fixed by Orthopedic surgery. Please worse splint as needed. Keep hand clean and dry with soap and water. *Continue to take medications as directed Tylenol Motrin as needed for pain *Follow up with your primary care provider in 2-3 days or call [phone] Call Orthopedics, Dr. Joshi 1st thing Tuesday morning to schedule follow-up appointment *Return to ER if you should have increasing pain swelling redness feel or any new, worsening or concerning symptoms Prescriptions: No Action aspirin 81 mg tablet,delayed release (DR/EC) 81 mg PO DAILY atorvastatin [Lipitor] 40 mg tablet 40 mg PO QPM Qty: 90 3RF Referrals: [facility] [Provider Group] Romaine Castellanos MD [Primary Care Provider] - Aquiles Oswald MD [Physician] - Stand Alone Forms: Patient Portal/API
[2022-10-24 06:17] VITALS: BP 144/86; PULSE 72; RESP 18; TEMP 36.4; O2SAT 97
== END 2022-10-24 06:18 | disposition home or self-care (01) ==
PROVIDERS: Emergency Provider Emergency Medicine; Family Provider Preventive Medicine Occupational Medicine; PCP Student in an Organized Health Care Education/Training Program
DX: S56.022A Laceration of flexor muscle, fascia and tendon of left thumb at forearm level, initial encounter (principal); W25.XXXA Contact with sharp glass, initial encounter
CPT/HCPCS: 13132; 99283; 99284

== ENCOUNTER 2023-01-15 14:31 | Emergency (ER) | payer OTHER, MEDICARE, SELFPAY ==
[2021-03-02 22:57] VITALS: BMI 112.0
[2023-01-15] VITALS (11 sets, daily range): BP systolic 134–168; BP diastolic 78–96; PULSE 68–79; RESP 17; TEMP 36.6; O2SAT 91–98; BMI 34.9
[2023-01-15] MEDS: ONDANSETRON 4 MG/2 ML INJ IV (14:55)
[2023-01-15 15:00] LABS: Add Manual Diff / Slide Review NO; Basophils Absolute Auto 0 /uL (0-100); Basophils Percent Auto 0.5 % (0-2); Eosinophils Absolute Auto 100 /uL (0-450); Eosinophils Percent Auto 1.2 % (2-4); Hematocrit 33.7 % (36-46); Hemoglobin 10.6 g/dL (12.0-16.0); Lymphocytes Absolute Auto 1400 /uL (1100-4500); Lymphocytes Percent Auto 15.9 % (25-40); Mean Corpuscular HGB Conc 31.6 % (30-36); Mean Corpuscular Hemoglobin 25.5 PG (26-34); Mean Corpuscular Volume 80.6 fL (80-100); Monocytes Absolute Auto 600 /uL (0-900); Monocytes Percent Auto 6.6 % (3-14); Neutrophils Absolute Auto 6900 /uL (1500-7000); Neutrophils Percent Auto 75.8 % (50-75); Platelet Count 395 X10^3/uL (150-400); Red Blood Cell Count 4.18 X10^6/uL (4.0-5.2); Red Cell Distribution Width 19.5 % (11.6-14.8); White Blood Cell Count 9.1 X10^3/uL (4.5-11.0)
[2023-01-15 15:09] LABS: INR 1.1 (0.9-1.3); Prothrombin Time 12.7 SECONDS (10.1-12.7)
[2023-01-15 15:12] LABS: Alanine Aminotransferase 68 IU/L (<35); Albumin 3.6 g/dL (3.5-5.0); Alkaline Phosphatase 213 U/L (38-126); Aspartate Aminotransferase 152 IU/L (14-36); BUN Creatinine Ratio 9.9 (6-22); Bilirubin Total 1.2 mg/dL (0.2-1.3); Blood Urea Nitrogen 8 mg/dL (7-17); Calcium 9.3 mg/dL (8.4-10.2); Carbon Dioxide 33 mmol/L (22-32); Chloride 98 mmol/L (98-107); Estimated Glomerular Filt Rate > 60 mL/min (>60); Globulin 3.5 g/dL (1.7-4.1); Glucose 138 mg/dL (70-100); HEMOLYSIS < 15 (0-50); Lipase 82 U/L (23-300); Potassium 3.3 mmol/L (3.4-5.1); Sodium 137 mmol/L (137-145); Total Protein 7.1 g/dL (6.3-8.2)
--- NOTE | 2023-01-15 15:29 | DI.US.S_ITS ---
PROCEDURE: US ABDOMEN COMPLETE INDICATIONS: RIGHT UPPER QUADRANT PAIN. ELEVATED LFTS. GENERAL DISTENTION TECHNIQUE: Real-time scanning was performed of the abdominal and retroperitoneal organs, with image documentation. COMPARISON: None. FINDINGS: Liver: Liver is normal in size and demonstrates diffuse increased echotexture. Gallbladder: Not visualized. The patient has history of cholecystectomy. Biliary ducts: Intrahepatic bile ducts are non-dilated. Extrahepatic bile duct is not visualized. Pancreas: Not visualized. Spleen: Spleen is normal in size and homogeneous in echotexture. Kidneys: Right kidney measures 8.9 cm long; left kidney measures 11.2 cm long. Mild right renal atrophy. No hydronephrosis or nephrolithiasis. No solid masses. Aorta: Not visualized. Iliacs: Proximal common iliac arteries are not visualized. IVC: Visualized. Miscellaneous: No free abdominal fluid. IMPRESSION: 1. Limited examination due to patient's body habitus. 2. Diffusely increased hepatic echotexture. This finding is most likely secondary to hepatic fatty infiltration although other hepatocellular disease may have a similar appearance. Recommend clinical correlation. 3. Mild right renal atrophy. 4. Common bile duct, pancreas aorta, iliac arteries and IVC are not visualized. Dictated by: Jackelyn Emerson M.D. on 01/15/2023 at 17:34 Approved by: Jackelyn Emerson M.D. on 01/15/2023 at 17:37
--- NOTE | 2023-01-15 15:54 | ED.ABDPAIN ---
HPI - Abdominal Pain <Cecelia Gannon PA-C - Last Filed: 01/15/23 18:56> General Chief Complaint: Abdominal Pain Stated Complaint: nose bleed, abd pain Time Seen by Provider: 01/15/23 14:47 Source: patient and family Mode of arrival: Ambulatory History of Present Illness HPI narrative: Patient is a 57-year-old female with a history of methamphetamine use and a past history of gastric bypass surgery in 2006 who presents with multiple concerns today. She reports having multiple nosebleeds over the past 24 hours. This has happened to her in the past many years ago and she has already tried using Afrin and a clamp on her nose to stop the bleeding. She reports a history of some allergies and blows her nose often and thinks maybe this has contributed to the bleeding. She does not take any blood thinners except an occasional aspirin. She reports having a stroke several years ago for which she takes a statin, a blood pressure medication, and an occasional aspirin. She has many abdominal symptoms over the past several years. She does not have a primary care provider and states some frustration that no one is investigating her stomach problems. She reports having frequent nausea and vomiting, both with and without food. She has intermittent constipation and diarrhea, reporting she has IBS. She reports a history of being told she had a very small adrenal tumor that was too small to do anything about, which was 4 or 5 years ago. She is not had any follow-up of this. She reports her abdomen is distended and has been growing larger over the years. She has gained weight. Her abdomen is taut and uncomfortable. She denies any fever, chest pain, urinary symptoms. She has a history of heavy cigarette use and has a chronic cough. This is not bothering her today. Related Data Home Medications Medication Instructions Recorded Confirmed aspirin 81 mg tablet,delayed 81 mg PO DAILY 12/16/20 01/15/23 release carvedilol 12.5 mg tablet 12.5 mg PO BID 01/15/23 01/15/23 Previous Rx's Medication Instructions Recorded atorvastatin 40 mg tablet (Lipitor) 40 mg PO QPM #90 tabs 12/16/20 Allergies Allergy/AdvReac Type Severity Reaction Status Date / Time morphine [MORPHINE] Allergy Unknown Verified 01/15/23 14:43 acetaminophen [From Percocet] Allergy Verified 01/15/23 14:43 oxycodone [From Percocet] Allergy Verified 01/15/23 14:43 Review of Systems <Cecelia Gannon PA-C - Last Filed: 01/15/23 18:56> Review of Systems ROS Unobtainable: All systems reviewed & are unremarkable except as noted in HPI and below Patient History <Cecelia Gannon PA-C - Last Filed: 01/15/23 18:56> Medical History Alcoholism COVID-19 Methamphetamine abuse Tobacco abuse Surgical History Status post cervical spinal fusion Status post gastric bypass for obesity Status post lumbar surgery Family History Mother Hypertension Father Family estrangement Social History household members: spouse Smoking Status: Current every day smoker Smoking Status: Current every day smoker alcohol intake frequency: 3 or more drinks per day Alcohol type: hard liquor Substance Use Type: marijuana Exam <Cecelia Gannon PA-C - Last Filed: 01/15/23 18:56> Narrative Exam Narrative: GENERAL: 57 year old patient appears stated age. Well-developed patient, in no distress. NEURO: AOx3. HEAD: Atraumatic. Normocephalic. EYES: Pupils equal round and reactive. Extraocular motions intact. No scleral icterus. No injection or drainage. ENT: Nose without bleeding or purulent drainage. Airway patent. NECK: Trachea midline. Non tender CARDIOVASCULAR: Regular rate and rhythm without murmurs, gallops, or rubs. RESPIRATORY: Clear to auscultation with intermittent wheeze. Breath sounds equal bilaterally. GASTROINTESTINAL: Abdomen taut, tender to palpation over right upper quadrant and right lower quadrant. Active bowel tones. No peritoneal signs. EXTREMITIES: No edema or joint tenderness. SKIN: No rash or erythema of visible areas Initial Vital Signs Initial Vital Signs: Vital Signs Temperature 97.9 F 01/15/23 14:39 Pulse Rate 78 01/15/23 14:39 Respiratory Rate 17 01/15/23 14:39 Blood Pressure 146/89 H 01/15/23 14:39 Pulse Oximetry 94 01/15/23 14:39 Oxygen Delivery Method Room Air 01/15/23 14:39 <Steven Augustine DO - Last Filed: 01/16/23 07:00> Initial Vital Signs Initial Vital Signs: Vital Signs Temperature 97.9 F 01/15/23 14:39 Pulse Rate 78 01/15/23 14:39 Respiratory Rate 17 01/15/23 14:39 Blood Pressure 146/89 H 01/15/23 14:39 Pulse Oximetry 94 01/15/23 14:39 Oxygen Delivery Method Room Air 01/15/23 14:39 Course <Cecelia Gannon PA-C - Last Filed: 01/15/23 18:56> Orders Ordered: Discontinued Medications Hydromorphone HCl (Hydromorphone 0.5 Mg Inj) 0.5 mg IV NOW ONE Stop: 01/15/23 16:07 Last Admin: 01/15/23 16:11 Dose: 0.5 mg Documented By: LORI Ondansetron HCl (Ondansetron 4 Mg Odt) 4 mg PO NOW PRN PRN Reason: Nausea And Vomiting Ondansetron HCl (Ondansetron 4 Mg/2 Ml Inj) 4 mg IV NOW PRN PRN Reason: Nausea And Vomiting Last Admin: 01/15/23 14:55 Dose: 4 mg Documented By: LORI Vital Signs Vital signs: Vital Signs - 8 hr 01/15/23 14:39 01/15/23 15:54 01/15/23 15:55 Temperature 97.9 F Pulse Rate 78 75 74 Respiratory Rate 17 Blood Pressure 146/89 H Pulse Oximetry 94 94 94 Oxygen Delivery Method Room Air Oxygen Flow Rate 01/15/23 15:55 01/15/23 16:00 01/15/23 16:30 Temperature Pulse Rate 72 74 Respiratory Rate Blood Pressure 134/79 Pulse Oximetry 92 92 Oxygen Delivery Method Oxygen Flow Rate 01/15/23 17:00 01/15/23 17:30 Temperature Pulse Rate 69 68 Respiratory Rate Blood Pressure Pulse Oximetry 98 97 Oxygen Delivery Method Nasal Cannula Nasal Cannula Oxygen Flow Rate 2 2 <Steven Augustine DO - Last Filed: 01/16/23 07:00> Orders Ordered: Discontinued Medications Hydromorphone HCl (Hydromorphone 0.5 Mg Inj) 0.5 mg IV NOW ONE Stop: 01/15/23 16:07 Last Admin: 01/15/23 16:11 Dose: 0.5 mg Documented By: LORI Ondansetron HCl (Ondansetron 4 Mg Odt) 4 mg PO NOW PRN PRN Reason: Nausea And Vomiting Ondansetron HCl (Ondansetron 4 Mg/2 Ml Inj) 4 mg IV NOW PRN PRN Reason: Nausea And Vomiting Last Admin: 01/15/23 14:55 Dose: 4 mg Documented By: LORI Vital Signs Vital signs: Vital Signs - 8 hr 01/15/23 14:39 01/15/23 15:54 01/15/23 15:55 Temperature 97.9 F Pulse Rate 78 75 74 Respiratory Rate 17 Blood Pressure 146/89 H Pulse Oximetry 94 94 94 Oxygen Delivery Method Room Air Oxygen Flow Rate 01/15/23 15:55 01/15/23 16:00 01/15/23 16:30 Temperature Pulse Rate 72 74 Respiratory Rate Blood Pressure 134/79 Pulse Oximetry 92 92 Oxygen Delivery Method Oxygen Flow Rate 01/15/23 17:00 01/15/23 17:30 Temperature Pulse Rate 69 68 Respiratory Rate Blood Pressure Pulse Oximetry 98 97 Oxygen Delivery Method Nasal Cannula Nasal Cannula Oxygen Flow Rate 2 2 MDM - Abdominal Pain <Cecelia Gannon PA-C - Last Filed: 01/15/23 18:56> Lab Data 01/15/23 14:49 01/15/23 14:49 Labs: Lab Results 01/15/23 01/15/23 01/15/23 Range/Units 14:49 14:49 14:49 WBC 9.1 (4.5-11.0) X10^3/uL RBC 4.18 (4.0-5.2) X10^6/uL Hgb 10.6 L (12.0-16.0) g/dL Hct 33.7 L (36-46) % MCV 80.6 (80-100) fL MCH 25.5 L (26-34) PG MCHC 31.6 (30-36) % RDW 19.5 H (11.6-14.8) % Plt Count 395 (150-400) X10^3/uL Neut % (Auto) 75.8 H (50-75) % Lymph % (Auto) 15.9 L (25-40) % Ellis % (Auto) 6.6 (3-14) % Eos % (Auto) 1.2 L (2-4) % Baso % (Auto) 0.5 (0-2) % Neut # (Auto) 6900 (6014-2108) /uL Lymph # (Auto) 1400 (5434-8697) /uL Ellis # (Auto) 600 (0-900) /uL Eos # (Auto) 100 (0-450) /uL Baso # (Auto) 0 (0-100) /uL PT 12.7 (10.1-12.7) SECONDS INR 1.1 (0.9-1.3) Sodium 137 (137-145) mmol/L Potassium 3.3 L (3.4-5.1) mmol/L Chloride 98 (98-107) mmol/L Carbon Dioxide 33 H (22-32) mmol/L BUN 8 (7-17) mg/dL Creatinine 0.81 (0.52-1.04) mg/dL Estimated GFR > 60 (>60) mL/min BUN/Creatinine Ratio 9.9 (6-22) Glucose 138 H (70-100) mg/dL Calcium 9.3 (8.4-10.2) mg/dL Total Bilirubin 1.2 (0.2-1.3) mg/dL AST 152 H (14-36) IU/L ALT 68 H (<35) IU/L Alkaline Phosphatase 213 H (38-126) U/L Total Protein 7.1 (6.3-8.2) g/dL Albumin 3.6 (3.5-5.0) g/dL Globulin 3.5 (1.7-4.1) g/dL Albumin/Globulin Ratio 1.0 (1.0-2.8) Lipase 82 (23-300) U/L Imaging Data US - abdomen: Radiologist's Impression: PROCEDURE:? US ABDOMEN COMPLETE ? INDICATIONS:? RIGHT UPPER QUADRANT PAIN. ELEVATED LFTS. GENERAL DISTENTION ? TECHNIQUE:? Real-time scanning was performed of the abdominal and retroperitoneal organs, with image documentation.? ? COMPARISON:? None. ? FINDINGS:? ? Liver:? Liver is normal in size and demonstrates diffuse increased echotexture.? ? Gallbladder:? Not visualized.? The patient has history of cholecystectomy.? ? Biliary ducts:? Intrahepatic bile ducts are non-dilated.? Extrahepatic bile duct is not visualized.? ? Pancreas:? Not visualized.? ? Spleen:? Spleen is normal in size and homogeneous in echotexture.? ? Kidneys:? Right kidney measures 8.9 cm long; left kidney measures 11.2 cm long.? Mild right renal atrophy.? No hydronephrosis or nephrolithiasis.? No solid masses.? ? Aorta:? Not visualized.? ? Iliacs:? Proximal common iliac arteries are not visualized.? ? IVC:? Visualized.? ? Miscellaneous:? No free abdominal fluid.? ? ? IMPRESSION:? ? 1. Limited examination due to patient's body habitus. 2.? Diffusely increased hepatic echotexture. This finding is most likely secondary to hepatic fatty infiltration although other hepatocellular disease may have a similar appearance. Recommend clinical correlation. 3. Mild right renal atrophy. 4. Common bile duct, pancreas aorta, iliac arteries and IVC are not visualized.? Dictated by: Jackelyn Emerson M.D. on 01/15/2023 at 17:34 ? ? Approved by: Jackelyn Emerson M.D. on 01/15/2023 at 17:37 ? CT scan - abdomen/pelvis: Radiologist's Impression: PROCEDURE:? CT ABDOMEN PELVIS W CON ? INDICATIONS:? abdominal pain, elevated LFTs ? TECHNIQUE:? After the administration of IV contrast, axial sections were acquired from the lung bases to the pubic symphysis.? Coronal and sagittal reformats were performed.? For radiation dose reduction, the following was used:? automated exposure control, adjustment of mA and/or kV according to patient size. ? COMPARISON:? [facility], , ABDOMEN COMPLETE, 01/15/2023, 17:01. ? FINDINGS:? Image quality:? Excellent.? ? Lung bases:? Discoid atelectasis at lung bases.? ? Heart:? No significant findings. ? ? ABDOMEN: Liver:? Liver is mildly enlarged.? There is severe hepatic fatty infiltration with relative fatty sparing in the segment 4.? ? Gallbladder:? Gallbladder is surgically absent.? ? Biliary ducts:? Unremarkable.? ? Pancreas:? Unremarkable.? ? Spleen:? There is a calcified granuloma in spleen.? ? Adrenal Glands:? There is a 4.2 x 3.6 cm left adrenal mass. ? Right adrenal is normal.? Kidneys and Ureters:? Unremarkable.? ? ? Stomach and Bowel:? Stomach, small bowel loops, and colon are normal in caliber.? Diverticulosis.? There is mild colonic wall thickening in the sigmoid colon. Peritoneum:? No abnormal intraperitoneal fluid.? No free air.? ? Ventral Wall: ? No hernia.? Abdominal Nodes:? No retroperitoneal or mesenteric adenopathy by size criteria.? Vessels:? Aorta and inferior vena cava are normal in size.? ? PELVIS: Pelvic Organs:? Unremarkable.? ? Bladder:? Unremarkable.? ? Pelvic Nodes: No enlarged lymph nodes.? Miscellaneous: No inguinal hernias are seen. ? ? ? Bones:? Moderate degenerative changes in lumbar spine.? IMPRESSION:? ? 1. Colonic diverticulosis.? No acute diverticulitis.? There is mild colonic wall thickening which may be sequelae of chronic diverticular disease.? No CT findings to suggest acute diverticulitis. ? 2. There is mild colonic wall thickening with increased submucosal fat content and mild pericolonic stranding involving cecum, ascending colon and hepatic flexure, suspicious for mild colitis.? ? 3. Severe hepatic steatosis. ? 4. A 4.2 x 3.6 cm left adrenal mass.? Recommend nonurgent adrenal protocol CT or MRI for further evaluation.? ? 5. Cholecystectomy.? ? Dictated by: Jackelyn Emerson M.D. on 01/15/2023 at 18:20 ? ? Approved by: Jackelyn Emerson M.D. on 01/15/2023 at 18:26 ? MDM Narrative Medical decision making narrative: Multiple etiologies for patient's symptoms considered including, but not limited to: Liver dysfunction, gallbladder disease, malignancy. Concern for liver dysfunction in the setting of frequent nosebleeds. Labs show elevated LFTs, but this has been documented previously 2 and 3 years ago. Her PT/INR are normal. Her chemistry does not have any clinically significant abnormality. She has a mild anemia. Ultrasound exam limited by body habitus; fatty liver disease noted. CT scan notes a large liver with steatosis, adrenal mass of 4 x 3.5 cm, and signs of colitis. Discussed with Dr. Naranjo who agrees to see the patient in clinic next week to establish care and appropriate follow-up for these many conditions; she is been given contact information for this clinic. Long discussion with the patient regarding multiple current issues and comorbidities, strongly encouraged to stop smoking, stop drinking. Patient expresses gratitude for the care we have given today and would like to feel better. Patient's symptoms improved over duration of stay with above-stated therapies. Findings and discharge diagnosis discussed with patient/family followed by verbalization of understanding Return precautions discussed with patient/family whom verbalize understanding of diagnosis and plan <Steven Augustine, DO - Last Filed: 01/16/23 07:00> Lab Data Labs: Lab Results 01/15/23 01/15/23 01/15/23 Range/Units 14:49 14:49 14:49 WBC 9.1 (4.5-11.0) X10^3/uL RBC 4.18 (4.0-5.2) X10^6/uL Hgb 10.6 L (12.0-16.0) g/dL Hct 33.7 L (36-46) % MCV 80.6 (80-100) fL MCH 25.5 L (26-34) PG MCHC 31.6 (30-36) % RDW 19.5 H (11.6-14.8) % Plt Count 395 (150-400) X10^3/uL Neut % (Auto) 75.8 H (50-75) % Lymph % (Auto) 15.9 L (25-40) % Ellis % (Auto) 6.6 (3-14) % Eos % (Auto) 1.2 L (2-4) % Baso % (Auto) 0.5 (0-2) % Neut # (Auto) 6900 (2083-2652) /uL Lymph # (Auto) 1400 (9042-8022) /uL Ellis # (Auto) 600 (0-900) /uL Eos # (Auto) 100 (0-450) /uL Baso # (Auto) 0 (0-100) /uL PT 12.7 (10.1-12.7) SECONDS INR 1.1 (0.9-1.3) Sodium 137 (137-145) mmol/L Potassium 3.3 L (3.4-5.1) mmol/L Chloride 98 (98-107) mmol/L Carbon Dioxide 33 H (22-32) mmol/L BUN 8 (7-17) mg/dL Creatinine 0.81 (0.52-1.04) mg/dL Estimated GFR > 60 (>60) mL/min BUN/Creatinine Ratio 9.9 (6-22) Glucose 138 H (70-100) mg/dL Calcium 9.3 (8.4-10.2) mg/dL Total Bilirubin 1.2 (0.2-1.3) mg/dL AST 152 H (14-36) IU/L ALT 68 H (<35) IU/L Alkaline Phosphatase 213 H (38-126) U/L Total Protein 7.1 (6.3-8.2) g/dL Albumin 3.6 (3.5-5.0) g/dL Globulin 3.5 (1.7-4.1) g/dL Albumin/Globulin Ratio 1.0 (1.0-2.8) Lipase 82 (23-300) U/L Discharge Plan Departure Patient Disposition: Home Clinical Impression: Colitis, Adrenal mass, Hepatic steatosis, Epistaxis Instructions: DI for Nosebleed, DI for Colitis Activity Restrictions/Additional Instructions: *You have been diagnosed with fatty liver, colitis, adrenal mass, bloody nose. As we discussed, we did not find anything today that needs to be treated emergently but I strongly recommend that you follow up and establish primary care so that you can have the appropriate referrals to improve her overall health and feel better. I talked to Dr. Naranjo of [facility] who would be happy to see you in clinic. Please call his office at [phone]. You can not them know that the ER provider talked to him over the weekend and he agreed to get you on his schedule, pending insurance. If this does not work out, please follow up with another primary care provider. As you know, if you continue to have bloody noses, you can use your Afrin, hold pressure for 20 minutes without releasing pressure, or use the clamp. Return to the emergency department if still bleeding despite these actions. *What to do: *Please continue to take your regular medications as directed. [ ] New medication prescriptions sent to your pharmacy: [ ] [ ] New medication written as a paper prescription [x] No new medications given *Please follow up with your primary care provider in 2-3 days, call for an appointment. Let them know you were seen in the Emergency Department and that we ask that you be seen in follow up. We will electronically transmit a record of today's note if your PCP is in our system *If you do not have a primary care provider please contact the [facility] Resource line at [phone]. They will ask some questions about your medical history and help get you set up with a doctor in the community. *Return to Emergency Department if you should have any new, worsening or concerning symptoms, such as [fever greater than 101 F, shaking chills, worsening pain, persistent vomiting or other concerning symptoms]. Prescriptions: No Action aspirin 81 mg tablet,delayed release (DR/EC) 81 mg PO DAILY atorvastatin [Lipitor] 40 mg tablet 40 mg PO QPM Qty: 90 3RF carvedilol 12.5 mg Tablet 12.5 mg PO BID Rx Instructions: must administer with a meal/food Referrals: Romaine Castellanos MD [Primary Care Provider] - Stand Alone Forms: Patient Portal/API <Steven Augustine, DO - Last Filed: 01/16/23 07:00> Cosign ED Attending Cosignature Attestation: Dr Augustine Co-Sign Statement: I was available for consultation during this patient's emergency department visit. This chart is signed by myself for administrative purposes only. I did not have direct contact with this patient during this visit. They were seen independently by the APC.
[2023-01-15] MEDS: HYDROMORPHONE 0.5 MG INJ IV (16:11)
--- NOTE | 2023-01-15 17:43 | DI.CT.S_ITS ---
PROCEDURE: CT ABDOMEN PELVIS W CON INDICATIONS: abdominal pain, elevated LFTs TECHNIQUE: After the administration of IV contrast, axial sections were acquired from the lung bases to the pubic symphysis. Coronal and sagittal reformats were performed. For radiation dose reduction, the following was used: automated exposure control, adjustment of mA and/or kV according to patient size. COMPARISON: [facility], , US ABDOMEN COMPLETE, 01/15/2023, 17:01. FINDINGS: Image quality: Excellent. Lung bases: Discoid atelectasis at lung bases. Heart: No significant findings. ABDOMEN: Liver: Liver is mildly enlarged. There is severe hepatic fatty infiltration with relative fatty sparing in the segment 4. Gallbladder: Gallbladder is surgically absent. Biliary ducts: Unremarkable. Pancreas: Unremarkable. Spleen: There is a calcified granuloma in spleen. Adrenal Glands: There is a 4.2 x 3.6 cm left adrenal mass. Right adrenal is normal. Kidneys and Ureters: Unremarkable. Stomach and Bowel: Stomach, small bowel loops, and colon are normal in caliber. Diverticulosis. There is mild colonic wall thickening in the sigmoid colon. Peritoneum: No abnormal intraperitoneal fluid. No free air. Ventral Wall: No hernia. Abdominal Nodes: No retroperitoneal or mesenteric adenopathy by size criteria. Vessels: Aorta and inferior vena cava are normal in size. PELVIS: Pelvic Organs: Unremarkable. Bladder: Unremarkable. Pelvic Nodes: No enlarged lymph nodes. Miscellaneous: No inguinal hernias are seen. Bones: Moderate degenerative changes in lumbar spine. IMPRESSION: 1. Colonic diverticulosis. No acute diverticulitis. There is mild colonic wall thickening which may be sequelae of chronic diverticular disease. No CT findings to suggest acute diverticulitis. 2. There is mild colonic wall thickening with increased submucosal fat content and mild pericolonic stranding involving cecum, ascending colon and hepatic flexure, suspicious for mild colitis. 3. Severe hepatic steatosis. 4. A 4.2 x 3.6 cm left adrenal mass. Recommend nonurgent adrenal protocol CT or MRI for further evaluation. 5. Cholecystectomy. Dictated by: Jackelyn Emerson M.D. on 01/15/2023 at 18:20 Approved by: Jackelyn Emerson M.D. on 01/15/2023 at 18:26
== END 2023-01-15 19:14 | disposition home or self-care (01) ==
PROVIDERS: Emergency Medicine; Emergency Provider Physician Assistant; Family Provider Preventive Medicine Occupational Medicine; PCP Student in an Organized Health Care Education/Training Program
DX: K52.9 Noninfective gastroenteritis and colitis, unspecified (principal); E27.8 Other specified disorders of adrenal gland; K76.0 Fatty (change of) liver, not elsewhere classified; R04.0 Epistaxis
CPT/HCPCS: 36415; 74177; 76700; 80053; 83690; 85025; 85610; 93005; 93010; 96374; 96375; 99284; J1170; J2405; Q9967

== ENCOUNTER → 2023-02-09 15:46 | Outpatient (CLI) | payer OTHER, MEDICARE, SELFPAY ==
[2021-03-02 22:57] VITALS: BMI 112.0
--- NOTE | 2023-02-09 16:15 | DI.CT.S_ITS ---
PROCEDURE: CT ABDOMEN ADRENAL PROTOCOL INDICATIONS: ADRENAL MASS TECHNIQUE: Noncontrast 3 mm thick sections acquired from the diaphragms to the iliac crests. After the administration of intravenous contrast, 3 mm thick venous-phase and 15-minute delayed images acquired from the diaphragms to the iliac crests. For radiation dose reduction, the following was used: automated exposure control, adjustment of mA and/or kV according to patient size. COMPARISON: [facility], CT, CT ABDOMEN PELVIS W CON, 01/15/2023, 17:44. FINDINGS: Image quality: Good Lower chest: Basal scarring and atelectasis. Gastric bypass changes. Lipomatous hypertrophy of the interatrial septum. Solid organs: Severe hepatic steatosis, with heterogeneous hepatic attenuation. Severe left lobe atrophy.. No pathologic dilation of the biliary system or pancreatic duct. No splenomegaly. Left adrenal nodule measures up to 4.1 cm. Attenuation characteristics compatible with adenoma, however there are internal areas of heterogeneity and small calcification. No hydronephrosis. Vessels and lymph nodes: The main portal vein is patent. No abdominal aortic aneurysm. Retroaortic left renal vein. Similar nonspecific fat stranding around the celiac axis. No drainable fluid collection. Possible recanalization of the paraumbilical vein. Bowel and peritoneum: Gastric bypass changes. No bowel obstruction or pathologic ascites. There is diffuse mild mesenteric edema. Colonic diverticula are seen. Body wall: Unremarkable Bones: No acute or suspicious osseous finding. IMPRESSION: Heterogeneous left adrenal nodule over 4 cm. Size alone warrant surgical and endocrine evaluation. Some parts of the lesion are fat rich, suggesting mostly components of adenoma, but there are indeterminate heterogeneous portions as well. Severe hepatic steatosis and heterogeneity, favored to represent chronic liver disease and regional fatty sparing. Given history of elevated LFTs, consider GI evaluation and possible liver MRI to evaluate for HCC if considered cirrhotic. Dictated by: Smooth Mckinnon M.D. on 02/09/2023 at 16:57 Approved by: Smooth Mckinnon M.D. on 02/09/2023 at 17:05
== END ==
PROVIDERS: Family Provider Preventive Medicine Occupational Medicine; PCP Family Medicine; Referring Provider Family Medicine; Visit Provider Family Medicine
DX: E27.8 Other specified disorders of adrenal gland (principal); K76.0 Fatty (change of) liver, not elsewhere classified
CPT/HCPCS: 74170

== ENCOUNTER → 2023-05-04 11:19 | Outpatient (CLI) | payer OTHER, MEDICARE, SELFPAY ==
[2021-03-02 22:57] VITALS: BMI 112.0
--- NOTE | 2023-05-04 11:24 | DI.RAD.S_ITS ---
PROCEDURE: XR RIBS RT MIN 3V W CXR 1V INDICATIONS: RIB PAIN TECHNIQUE: 2 views of the ribs were acquired, along with a single view chest. COMPARISON: [facility], CR, XR RIBS RT MIN 3V W CXR 1V, 06/16/2018, 18:16. FINDINGS: Surgical changes and devices: Postsurgical changes are noted in visualized cervical spine.. Bones and chest wall: No fractures or dislocations. No suspicious bony lesions. Overlying soft tissues appear unremarkable. Lungs and pleura: No pleural effusions or pneumothorax. Lungs appear clear. Mediastinum: Mediastinal contours appear normal. Heart size is normal. IMPRESSION: No obvious displaced rib fractures or pneumothorax. Dictated by: Saw Joshi M.D. on 05/04/2023 at 12:53 Approved by: Saw Joshi M.D. on 05/04/2023 at 13:13
== END ==
LOC: RAD 11:22
PROVIDERS: Family Provider Preventive Medicine Occupational Medicine; PCP Family Medicine; Referring Provider Family Medicine; Visit Provider Family Medicine
DX: R07.81 Pleurodynia (principal)
CPT/HCPCS: 71101

== ENCOUNTER 2023-08-15 19:42 | Emergency (ER) | payer OTHER, MEDICARE, SELFPAY ==
[2021-03-02 22:57] VITALS: BMI 112.0
[2023-08-15] VITALS (60 sets, daily range): BP systolic 94–166; BP diastolic 56–86; PULSE 82–128; RESP 16–36; TEMP 36.5–36.9; O2SAT 75–100; BMI 34.9
--- NOTE | 2023-08-15 19:49 | ED_ITS ---
HPI - GI Bleed General Chief complaint: Abdominal Pain Stated complaint: vomiting, urinating and defecating blood Time Seen by Provider: 08/15/23 19:47 History of Present Illness HPI Narrative: 58-year-old female with history of alcohol use disorder, hypertension presents by private vehicle from home for 1 day of dark tarry stools and an episode of bright red vomit. Patient states that symptoms began while she was at work and scared her, so she presented to the ER for evaluation. Patient states that she drinks ?at least? half a 5th of vodka daily. She denies ever having an endoscopy or colonoscopy. Last drink last night. On arrival patient was pale, ill-appearing, bright red blood on santo pad beneath wheelchair Related Data Home Medications Medication Instructions Recorded Confirmed aspirin 81 mg capsule 81 mg PO DAILY 08/15/23 08/15/23 carvedilol phosphate 10 mg 20 mg PO BID 08/15/23 08/15/23 capsule,[id number] multiphase Allergies Allergy/AdvReac Type Severity Reaction Status Date / Time morphine [MORPHINE] Allergy Unknown Hives Verified 08/15/23 23:39 acetaminophen [From Percocet] Allergy Verified 02/24/23 11:13 oxycodone [From Percocet] Allergy Verified 02/24/23 11:13 Review of Systems Review of Systems Narrative: See HPI Patient History Medical History COVID-19 Tobacco abuse Alcoholism Methamphetamine abuse Surgical History Status post lumbar surgery Status post cervical spinal fusion Status post gastric bypass for obesity Family History Mother Hypertension Father Family estrangement Social History household members: spouse Smoking Status: Current every day smoker Smoking Status: Current every day smoker alcohol intake frequency: 3 or more drinks per day Alcohol type: hard liquor Substance Use Type: marijuana Exam Initial Vital Signs Initial Vital Signs: Vital Signs Temperature 97.7 F 08/15/23 19:46 Pulse Rate 112 H 08/15/23 19:46 Respiratory Rate 16 08/15/23 19:46 Blood Pressure 137/86 08/15/23 19:46 Pulse Oximetry 100 08/15/23 19:46 Oxygen Delivery Method Room Air 08/15/23 19:46 Const: Awake, alert, ill-appearing, pale Cardiac: Tachycardia, regular rhythm RESP: unlabored, clear bilaterally GI: Soft, generalized tenderness to deep palpation without rebound or guarding 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, bloody black stools present Skin: Cool, dry, pale Neuro: AO x3, CN II-XII grossly intact, moves all extremities Procedures Central Line Placement Right IJ: Time Out Performed: Yes Patient Placed on Monitor/Pulse Ox: Yes MD Prep: mask, gown and gloves Central Line Prep: Chlorhexidine scrub Local Anesthetic: lidocaine 1% Amount of anesthesia used (mL): 3 Ultrasound Used for Placement: Yes Central Line Lumen Inserted: triple Post Procedure: sutured in place, good blood return, all ports aspirated, flushed, capped, sterile dressing applied and line stabilization device Post Procedure X-Ray: tip of catheter in good position and no pneumothorax seen Patient Tolerated Procedure: Well and No complications Complications: none Course Orders Ordered: ED Orders 08/15/23 19:47 CT angio abdomen pelvis Stat 08/15/23 19:48 Chest [XR chest 1V] Stat EKG-12 Lead Stat 08/15/23 19:52 CBC Auto Diff [Complete Blood Count AUTO DIFF] Stat CMP [Comprehensive Metabolic Panel] Stat Ethanol (ETOH) Stat Lactate (Lactic Acid) Stat Lipase Stat MAG [Magnesium] Stat PT [Prothrombin Time INR] Stat Packed Cells Stat Troponin & CK Cardiac Panel Stat Type and Screen Stat 08/15/23 21:15 COVID19 -Nasal RAPID Stat 08/15/23 21:50 Ammonia (NH3) Stat Urinalysis and Microscopic Stat Urine Drug Screen, Rapid Stat 08/15/23 22:16 Hemoglobin and Hematocrit Stat 08/16/23 00:00 ABG [Arterial Blood Gas] Stat 08/16/23 01:55 HH [Hemoglobin and Hematocrit] Stat Discontinued Medications Fentanyl (Fentanyl 100 Mcg/2 Ml Inj) 75 mcg IV NOW ONE Stop: 08/15/23 20:12 Last Admin: 08/15/23 20:19 Dose: 75 mcg Documented By: DAMARI Folic Acid (Folic Acid 1 Mg Tablet) 1 mg PO NOW ONE Stop: 08/15/23 19:48 Last Admin: 08/15/23 22:57 Dose: Not Given Documented By: JEREMI Sodium Chloride (Normal Saline 0.9%) 1,000 mls @ 1,000 mls/hr IV BOLUS ONE Stop: 08/15/23 20:46 Last Infusion: 08/15/23 20:41 Dose: Infused Documented By: Admin: 08/15/23 20:00 Dose: 1,000 mls/hr Documented By: DAMARI Thiamine HCl 200 mg/ Sodium (Chloride) 102 mls @ 408 mls/hr IV NOW ONE Stop: 08/15/23 19:48 Last Infusion: 08/15/23 22:02 Dose: Infused Documented By: Admin: 08/15/23 20:09 Dose: 408 mls/hr Documented By: DAMARI Ceftriaxone Sodium 2,000 mg/ (Sodium Chloride) 100 mls @ 200 mls/hr IV NOW ONE Stop: 08/15/23 19:48 Last Infusion: 08/15/23 20:35 Dose: Infused Documented By: Admin: 08/15/23 20:04 Dose: 200 mls/hr Documented By: DAMARI Octreotide Acetate 500 mcg/ (Sodium Chloride) 101 mls @ 10.1 mls/hr IV CONT MARIA ELENA; Protocol Last Infusion: 08/16/23 03:26 Dose: 50 mcg/hr, 10.1 mls/hr Documented By: Admin: 08/15/23 22:26 Dose: 50 mcg/hr, 10.1 mls/hr Documented By: JEREMI NOREPINEPHRINE BITARTRATE/D5W (Levophed) 4 mg in 250 mls @ 178.601 mls/hr IV TITRATE MARIA ELENA; Protocol Last Titration: 08/16/23 03:25 Dose: 0.05 mcg/kg/min, 17.86 mls/hr Documented By: Admin: 08/16/23 02:56 Dose: 0.05 mcg/kg/min, 17.86 mls/hr Documented By: BRETT Lorazepam (Lorazepam 2 Mg/Ml Inj) 2 mg IV NOW ONE Stop: 08/15/23 20:12 Last Admin: 08/15/23 20:16 Dose: 2 mg Documented By: DAMARI Metoclopramide HCl (Metoclopramide 10 Mg/2 Ml Inj) 10 mg IV NOW ONE Stop: 08/15/23 19:48 Last Admin: 08/15/23 20:01 Dose: 10 mg Documented By: DAMARI Octreotide Acetate (Octreotide 100 Mcg/Ml Vial) 50 mcg IV NOW ONE Stop: 08/15/23 19:48 Last Admin: 08/15/23 20:44 Dose: 50 mcg Documented By: PEGGY Pantoprazole Sodium (Pantoprazole 40 Mg Vial) 80 mg IV NOW ONE Stop: 08/15/23 19:48 Last Admin: 08/15/23 20:38 Dose: 80 mg Documented By: PEGGY Vital Signs Vital signs: Vital Signs - 8 hr 08/15/23 19:46 08/15/23 19:46 08/15/23 19:50 Temperature 97.7 F Pulse Rate 112 H 87 Respiratory Rate 16 30 H Blood Pressure 137/86 114/65 Pulse Oximetry 100 99 Oxygen Delivery Method Room Air 08/15/23 19:50 08/15/23 19:55 08/15/23 19:55 Temperature Pulse Rate 88 86 Respiratory Rate 28 H 28 H Blood Pressure 101/59 L Pulse Oximetry 99 98 Oxygen Delivery Method Room Air 08/15/23 20:00 08/15/23 20:00 08/15/23 20:02 Temperature Pulse Rate 84 83 Respiratory Rate 28 H 16 Blood Pressure 94/57 L 94/57 L Pulse Oximetry 99 98 Oxygen Delivery Method Room Air 08/15/23 20:05 08/15/23 20:05 08/15/23 20:10 Temperature Pulse Rate 82 84 Respiratory Rate 27 H 28 H Blood Pressure 94/56 L Pulse Oximetry 98 100 Oxygen Delivery Method 08/15/23 20:10 08/15/23 20:15 08/15/23 20:15 Temperature Pulse Rate 91 H Respiratory Rate 21 Blood Pressure 115/57 L 107/56 L Pulse Oximetry 98 Oxygen Delivery Method 08/15/23 20:20 08/15/23 20:20 08/15/23 20:25 Temperature Pulse Rate 96 H Respiratory Rate 31 H Blood Pressure 156/82 H 145/64 H Pulse Oximetry 99 Oxygen Delivery Method 08/15/23 20:25 08/15/23 20:30 08/15/23 20:30 Temperature Pulse Rate 92 H 91 H Respiratory Rate 30 H 30 H Blood Pressure 140/65 Pulse Oximetry 97 97 Oxygen Delivery Method 08/15/23 20:32 08/15/23 20:34 08/15/23 20:35 Temperature 97.8 F 97.7 F Pulse Rate 91 H 94 H 95 H Respiratory Rate 16 22 21 Blood Pressure 140/60 140/65 Pulse Oximetry 99 Oxygen Delivery Method 08/15/23 20:35 08/15/23 20:40 08/15/23 20:40 Temperature Pulse Rate 97 H Respiratory Rate 23 Blood Pressure 139/73 149/79 H Pulse Oximetry 98 Oxygen Delivery Method 08/15/23 20:45 08/15/23 20:45 08/15/23 20:48 Temperature 98.4 F Pulse Rate 98 H 99 H Respiratory Rate 23 20 Blood Pressure 162/82 H 153/70 H Pulse Oximetry 99 Oxygen Delivery Method 08/15/23 20:50 08/15/23 20:50 08/15/23 20:55 Temperature Pulse Rate 96 H Respiratory Rate 16 Blood Pressure 113/75 109/70 Pulse Oximetry 75 L Oxygen Delivery Method 08/15/23 20:55 08/15/23 21:00 08/15/23 21:01 Temperature Pulse Rate 93 H 96 H Respiratory Rate 21 21 Blood Pressure 126/70 Pulse Oximetry 100 98 Oxygen Delivery Method 08/15/23 21:01 08/15/23 21:05 08/15/23 21:05 Temperature Pulse Rate 97 H 97 H Respiratory Rate 23 20 Blood Pressure 126/66 Pulse Oximetry 98 99 Oxygen Delivery Method 08/15/23 21:10 08/15/23 21:11 08/15/23 21:11 Temperature Pulse Rate 97 H 97 H Respiratory Rate 24 22 Blood Pressure 153/70 H Pulse Oximetry 98 98 Oxygen Delivery Method 08/15/23 21:15 08/15/23 21:20 08/15/23 21:25 Temperature Pulse Rate 97 H 97 H 100 H Respiratory Rate 21 22 31 H Blood Pressure Pulse Oximetry 98 98 98 Oxygen Delivery Method 08/15/23 21:30 08/15/23 21:35 08/15/23 21:40 Temperature Pulse Rate 100 H 100 H 97 H Respiratory Rate 28 H 28 H 30 H Blood Pressure Pulse Oximetry 97 97 97 Oxygen Delivery Method 08/15/23 21:45 08/15/23 21:50 08/15/23 21:55 Temperature Pulse Rate 99 H 99 H 101 H Respiratory Rate 31 H 36 H 35 H Blood Pressure Pulse Oximetry 99 98 99 Oxygen Delivery Method 08/15/23 22:00 08/15/23 22:00 08/15/23 22:05 Temperature Pulse Rate 99 H Respiratory Rate 29 H Blood Pressure 157/62 H 166/73 H Pulse Oximetry 99 Oxygen Delivery Method 08/15/23 22:05 08/15/23 22:10 08/15/23 22:10 Temperature Pulse Rate 98 H 99 H Respiratory Rate 25 H 24 Blood Pressure 150/80 H Pulse Oximetry 98 99 Oxygen Delivery Method Room Air 08/15/23 22:15 08/15/23 22:15 08/15/23 22:20 Temperature Pulse Rate 101 H 100 H Respiratory Rate 28 H 27 H Blood Pressure 133/64 Pulse Oximetry 98 99 Oxygen Delivery Method 08/15/23 22:25 08/15/23 22:26 08/15/23 22:30 Temperature Pulse Rate 101 H 100 H Respiratory Rate 24 26 H Blood Pressure 156/71 H Pulse Oximetry 98 100 Oxygen Delivery Method Room Air 08/15/23 22:30 08/15/23 22:35 08/15/23 22:40 Temperature Pulse Rate 101 H 101 H 101 H Respiratory Rate 24 27 H 27 H Blood Pressure Pulse Oximetry 99 99 98 Oxygen Delivery Method Room Air 08/15/23 22:45 08/15/23 22:45 08/15/23 22:50 Temperature Pulse Rate 100 H 100 H Respiratory Rate 25 H 29 H Blood Pressure 125/61 Pulse Oximetry 98 99 Oxygen Delivery Method 08/15/23 22:55 08/15/23 23:00 08/15/23 23:01 Temperature Pulse Rate 99 H 98 H 99 H Respiratory Rate 28 H 36 H 29 H Blood Pressure Pulse Oximetry 98 99 100 Oxygen Delivery Method 08/15/23 23:01 08/15/23 23:05 08/15/23 23:06 Temperature Pulse Rate 100 H Respiratory Rate 27 H Blood Pressure 108/59 L 117/57 L Pulse Oximetry 99 Oxygen Delivery Method 08/15/23 23:06 08/15/23 23:10 08/15/23 23:15 Temperature Pulse Rate 101 H 101 H 100 H Respiratory Rate 26 H 26 H 25 H Blood Pressure Pulse Oximetry 99 97 99 Oxygen Delivery Method 08/15/23 23:20 08/15/23 23:25 08/15/23 23:30 Temperature Pulse Rate 99 H 100 H Respiratory Rate 27 H 21 Blood Pressure 113/62 Pulse Oximetry 99 98 Oxygen Delivery Method Room Air 08/15/23 23:30 08/15/23 23:35 08/15/23 23:40 Temperature Pulse Rate 99 H 98 H 97 H Respiratory Rate 26 H 26 H 27 H Blood Pressure Pulse Oximetry 99 98 98 Oxygen Delivery Method Room Air 08/15/23 23:45 08/15/23 23:45 08/15/23 23:50 Temperature Pulse Rate 96 H 128 H Respiratory Rate 27 H 25 H Blood Pressure 109/58 L Pulse Oximetry 100 100 Oxygen Delivery Method 08/15/23 23:55 08/16/23 00:00 08/16/23 00:00 Temperature Pulse Rate 95 H 95 H Respiratory Rate 31 H 28 H Blood Pressure 102/57 L Pulse Oximetry 99 98 Oxygen Delivery Method Room Air Room Air 08/16/23 00:05 08/16/23 00:10 08/16/23 00:15 Temperature Pulse Rate Respiratory Rate 29 H 27 H 28 H Blood Pressure Pulse Oximetry 98 98 99 Oxygen Delivery Method 08/16/23 00:15 08/16/23 00:20 08/16/23 00:25 Temperature Pulse Rate 93 H Respiratory Rate 29 H Blood Pressure 109/55 L Pulse Oximetry 98 98 Oxygen Delivery Method Room Air 08/16/23 00:27 08/16/23 00:27 08/16/23 00:30 Temperature Pulse Rate 93 H Respiratory Rate 29 H 27 H Blood Pressure 125/56 L Pulse Oximetry 99 99 Oxygen Delivery Method 08/16/23 00:30 08/16/23 00:35 08/16/23 00:40 Temperature Pulse Rate 92 H 92 H Respiratory Rate 30 H 28 H Blood Pressure 125/66 Pulse Oximetry 99 97 Oxygen Delivery Method 08/16/23 00:45 08/16/23 00:45 08/16/23 00:50 Temperature Pulse Rate 92 H Respiratory Rate 27 H 31 H Blood Pressure 128/68 Pulse Oximetry 97 97 Oxygen Delivery Method 08/16/23 00:55 08/16/23 01:00 08/16/23 01:00 Temperature Pulse Rate 95 H Respiratory Rate 30 H 25 H Blood Pressure 119/60 Pulse Oximetry 97 97 Oxygen Delivery Method Room Air Room Air 08/16/23 01:05 08/16/23 01:10 08/16/23 01:15 Temperature Pulse Rate 93 H 91 H Respiratory Rate 34 H 34 H Blood Pressure 142/66 H Pulse Oximetry 99 98 Oxygen Delivery Method Room Air 08/16/23 01:15 08/16/23 01:20 08/16/23 01:25 Temperature Pulse Rate 89 90 89 Respiratory Rate 30 H 24 30 H Blood Pressure Pulse Oximetry 98 99 98 Oxygen Delivery Method Room Air Room Air 08/16/23 01:30 08/16/23 01:30 08/16/23 01:35 Temperature Pulse Rate 90 92 H Respiratory Rate 32 H 31 H Blood Pressure 141/63 H Pulse Oximetry 98 97 Oxygen Delivery Method Room Air Room Air 08/16/23 01:40 08/16/23 01:45 08/16/23 01:45 Temperature Pulse Rate 92 H 186 H Respiratory Rate 27 H 31 H Blood Pressure 132/64 Pulse Oximetry 98 97 Oxygen Delivery Method Room Air 08/16/23 01:50 08/16/23 01:55 08/16/23 02:00 Temperature Pulse Rate 92 H 91 H 138 H Respiratory Rate 31 H 30 H 32 H Blood Pressure Pulse Oximetry 97 97 97 Oxygen Delivery Method 08/16/23 02:00 08/16/23 02:05 08/16/23 02:10 Temperature Pulse Rate 89 90 Respiratory Rate 24 31 H Blood Pressure 140/65 Pulse Oximetry 98 98 Oxygen Delivery Method Room Air Room Air 08/16/23 02:15 08/16/23 02:15 08/16/23 02:20 Temperature Pulse Rate 92 H 91 H Respiratory Rate 29 H 27 H Blood Pressure 130/64 Pulse Oximetry 98 99 Oxygen Delivery Method 08/16/23 02:25 08/16/23 02:30 08/16/23 02:31 Temperature Pulse Rate 89 92 H Respiratory Rate 29 H 28 H Blood Pressure 117/65 Pulse Oximetry 98 99 Oxygen Delivery Method Room Air 08/16/23 02:31 08/16/23 02:35 08/16/23 02:40 Temperature Pulse Rate 91 H 89 91 H Respiratory Rate 27 H 32 H 29 H Blood Pressure Pulse Oximetry 98 98 96 Oxygen Delivery Method Room Air Room Air 08/16/23 02:45 08/16/23 02:46 08/16/23 02:46 Temperature Pulse Rate 90 92 H Respiratory Rate 28 H 25 H Blood Pressure 89/51 L Pulse Oximetry 97 97 Oxygen Delivery Method 08/16/23 02:47 08/16/23 02:47 08/16/23 02:48 Temperature Pulse Rate 91 H Respiratory Rate 25 H Blood Pressure 87/49 L 86/54 L Pulse Oximetry 98 Oxygen Delivery Method Room Air 08/16/23 02:48 08/16/23 02:50 08/16/23 02:55 Temperature Pulse Rate 90 91 H 94 H Respiratory Rate 27 H 23 20 Blood Pressure Pulse Oximetry 98 98 98 Oxygen Delivery Method Room Air 08/16/23 02:56 08/16/23 02:56 08/16/23 02:58 Temperature Pulse Rate 93 H Respiratory Rate 23 Blood Pressure 97/53 L 100/52 L Pulse Oximetry 98 Oxygen Delivery Method 08/16/23 02:58 08/16/23 03:00 08/16/23 03:00 Temperature Pulse Rate 93 H 93 H Respiratory Rate 17 24 Blood Pressure 101/55 L Pulse Oximetry 98 98 Oxygen Delivery Method Room Air Room Air 08/16/23 03:02 08/16/23 03:02 08/16/23 03:04 Temperature Pulse Rate 93 H Respiratory Rate 29 H Blood Pressure 102/55 L 101/60 Pulse Oximetry 98 Oxygen Delivery Method Room Air 08/16/23 03:04 08/16/23 03:05 08/16/23 03:07 Temperature Pulse Rate 94 H 91 H 93 H Respiratory Rate 28 H 26 H 29 H Blood Pressure Pulse Oximetry 98 99 98 Oxygen Delivery Method Room Air Room Air 08/16/23 03:07 08/16/23 03:08 08/16/23 03:08 Temperature Pulse Rate 92 H Respiratory Rate 23 Blood Pressure 128/60 115/59 L Pulse Oximetry 98 Oxygen Delivery Method 08/16/23 03:10 08/16/23 03:10 08/16/23 03:11 Temperature Pulse Rate 90 95 H Respiratory Rate 30 H 33 H Blood Pressure 116/59 L Pulse Oximetry 98 99 Oxygen Delivery Method Room Air Room Air 08/16/23 03:12 Temperature Pulse Rate Respiratory Rate Blood Pressure 122/59 L Pulse Oximetry Oxygen Delivery Method MDM - GI Bleed Differential Diagnosis Differential diagnosis: Likely hemorrhoids, infectious diarrhea and esophageal varices Lab Data 08/16/23 01:55 08/15/23 19:52 Labs: Lab Results 08/15/23 08/15/23 08/15/23 Range/Units 19:52 21:15 21:50 WBC 10.5 (4.5-11.0) X10^3/uL RBC 2.66 L (4.0-5.2) X10^6/uL Hgb 6.3 L* (12.0-16.0) g/dL Hct 20.6 L* (36-46) % MCV 77.5 L (80-100) fL MCH 23.8 L (26-34) PG MCHC 30.8 (30-36) % RDW 19.6 H (11.6-14.8) % Plt Count 374 (150-400) X10^3/uL Neut % (Auto) 63.0 (50-75) % Lymph % (Auto) 26.2 (25-40) % [place] % (Auto) 8.7 (3-14) % Eos % (Auto) 1.3 L (2-4) % Baso % (Auto) 0.8 (0-2) % Neut # (Auto) 6600 (5943-7351) /uL Lymph # (Auto) 2800 (1476-7683) /uL [place] # (Auto) 900 (0-900) /uL Eos # (Auto) 100 (0-450) /uL Baso # (Auto) 100 (0-100) /uL PT 15.7 H (9.4-12.5) SECONDS INR 1.4 H (0.9-1.3) ABG Sample Site ABG pH (7.35-7.45) ABG pCO2 (35-45) mmHg ABG pO2 (80-100) mmHg ABG HCO3 (23-27) mmol/L ABG Total CO2 (23-27) mmol/L ABG O2 Saturation (95-100) % ABG Base Excess (-2-3) mmol/L FiO2 Sodium 138 (137-145) mmol/L Potassium 4.6 (3.4-5.1) mmol/L Chloride 109 H (98-107) mmol/L Carbon Dioxide 21 L (22-32) mmol/L BUN 19 H (7-17) mg/dL Creatinine 0.62 (0.52-1.04) mg/dL Estimated GFR > 60 (>60) mL/min BUN/Creatinine Ratio 30.6 H (6-22) Glucose 111 H (70-100) mg/dL Lactate 6.8 H* (0.7-2.1) mmol/L Calcium 8.2 L (8.4-10.2) mg/dL Magnesium 1.9 (1.6-2.3) mg/dL Total Bilirubin 1.3 (0.2-1.3) mg/dL AST 131 H (14-36) IU/L ALT 39 H (<35) IU/L Alkaline Phosphatase 148 H (38-126) U/L Ammonia 18 (9-30) umol/L Total Creatine Kinase 46 (30-135) U/L Troponin I < 0.012 (0.01-0.034) ng/mL Total Protein 5.5 L (6.3-8.2) g/dL Albumin 2.8 L (3.5-5.0) g/dL Globulin 2.7 (1.7-4.1) g/dL Albumin/Globulin Ratio 1.0 (1.0-2.8) Lipase 146 (23-300) U/L Urine Color Yellow Urine Appearance Clear Urine pH 5.5 (4.5-8.0) Ur Specific [place] 1.020 (1.000-1.035) Urine Protein Negative (Negative) Urine Glucose (UA) Negative (Negative) g/dL Urine Ketones Negative (NEGATIVE) Urine Occult Blood 1+ H (Negative) Urine Nitrate Negative (Negative) Urine Bilirubin Negative (NEGATIVE) Urine Urobilinogen 0.2 (0.2) E.U./dL Ur Leukocyte Esterase Negative (NEGATIVE) Urine RBC 1-5/hpf (0-5/HPF) Urine WBC None seen (0-5/HPF) Ur Squamous Epith Cells 1-5 /hpf (0-5/HPF) Ur Transition Epith Cell 0-1/hpf (0-5/HPF) Urine Bacteria None seen (None) Hyaline Casts 1-5/lpf (None) Ur Culture Indicated? Cult not indicated Vol Urine Centrifuged 10ml (spun) U Opiates 300ng/mL cut Negative (Negative) Ur Oxycodone Screen Negative (Negative) Urine Methadone Screen Negative (Negative) Ur Barbiturates Screen Negative (Negative) U Tricyclic Antidepress Negative (Negative) Ur Phencyclidine Scrn Negative (Negative) Ur Amphetamines Screen Positive H (Negative) U Methamphetamines Scrn Positive H (Negative) Ur MDMA Scrn (Ecstasy) Negative (Negative) U Benzodiazepines Scrn Positive H (Negative) Urine Cocaine Screen Negative (Negative) U Marijuana (THC) Screen Negative (Negative) Urine Specific [place] (Normal) Ethyl Alcohol < 10 ( - 10) mg/dL Ur Creatinine (Normal) SARS-CoV-2 (PCR) Negative (Negative) Blood Type O Negative Antibody Screen Negative Crossmatch See Detail 08/15/23 08/15/23 08/16/23 Range/Units 21:50 22:16 00:00 WBC (4.5-11.0) X10^3/uL RBC (4.0-5.2) X10^6/uL Hgb 8.2 L (12.0-16.0) g/dL Hct 25.8 L (36-46) % MCV (80-100) fL MCH (26-34) PG MCHC (30-36) % RDW (11.6-14.8) % Plt Count (150-400) X10^3/uL Neut % (Auto) (50-75) % Lymph % (Auto) (25-40) % [place] % (Auto) (3-14) % Eos % (Auto) (2-4) % Baso % (Auto) (0-2) % Neut # (Auto) (3345-5501) /uL Lymph # (Auto) (0470-3627) /uL [place] # (Auto) (0-900) /uL Eos # (Auto) (0-450) /uL Baso # (Auto) (0-100) /uL PT (9.4-12.5) SECONDS INR (0.9-1.3) ABG Sample Site Right radial ABG pH 7.40 (7.35-7.45) ABG pCO2 25.9 L (35-45) mmHg ABG pO2 75 L (80-100) mmHg ABG HCO3 16 L (23-27) mmol/L ABG Total CO2 17 L (23-27) mmol/L ABG O2 Saturation 95 (95-100) % ABG Base Excess -9.0 L (-2-3) mmol/L FiO2 21 Sodium (137-145) mmol/L Potassium (3.4-5.1) mmol/L Chloride (98-107) mmol/L Carbon Dioxide (22-32) mmol/L BUN (7-17) mg/dL Creatinine (0.52-1.04) mg/dL Estimated GFR (>60) mL/min BUN/Creatinine Ratio (6-22) Glucose (70-100) mg/dL Lactate 4.7 H* (0.7-2.1) mmol/L Calcium (8.4-10.2) mg/dL Magnesium (1.6-2.3) mg/dL Total Bilirubin (0.2-1.3) mg/dL AST (14-36) IU/L ALT (<35) IU/L Alkaline Phosphatase (38-126) U/L Ammonia (9-30) umol/L Total Creatine Kinase (30-135) U/L Troponin I (0.01-0.034) ng/mL Total Protein (6.3-8.2) g/dL Albumin (3.5-5.0) g/dL Globulin (1.7-4.1) g/dL Albumin/Globulin Ratio (1.0-2.8) Lipase (23-300) U/L Urine Color Urine Appearance Urine pH Normal (4.5-8.0) Ur Specific [place] (1.000-1.035) Urine Protein (Negative) Urine Glucose (UA) (Negative) g/dL Urine Ketones (NEGATIVE) Urine Occult Blood (Negative) Urine Nitrate (Negative) Urine Bilirubin (NEGATIVE) Urine Urobilinogen (0.2) E.U./dL Ur Leukocyte Esterase (NEGATIVE) Urine RBC (0-5/HPF) Urine WBC (0-5/HPF) Ur Squamous Epith Cells (0-5/HPF) Ur Transition Epith Cell (0-5/HPF) Urine Bacteria (None) Hyaline Casts (None) Ur Culture Indicated? Vol Urine Centrifuged U Opiates 300ng/mL cut (Negative) Ur Oxycodone Screen (Negative) Urine Methadone Screen (Negative) Ur Barbiturates Screen (Negative) U Tricyclic Antidepress (Negative) Ur Phencyclidine Scrn (Negative) Ur Amphetamines Screen (Negative) U Methamphetamines Scrn (Negative) Ur MDMA Scrn (Ecstasy) (Negative) U Benzodiazepines Scrn (Negative) Urine Cocaine Screen (Negative) U Marijuana (THC) Screen (Negative) Urine Specific [place] Normal (Normal) Ethyl Alcohol ( - 10) mg/dL Ur Creatinine Normal (Normal) SARS-CoV-2 (PCR) (Negative) Blood Type Antibody Screen Crossmatch 08/16/23 Range/Units 01:55 WBC (4.5-11.0) X10^3/uL RBC (4.0-5.2) X10^6/uL Hgb 7.9 L (12.0-16.0) g/dL Hct 25.1 L (36-46) % MCV (80-100) fL MCH (26-34) PG MCHC (30-36) % RDW (11.6-14.8) % Plt Count (150-400) X10^3/uL Neut % (Auto) (50-75) % Lymph % (Auto) (25-40) % [place] % (Auto) (3-14) % Eos % (Auto) (2-4) % Baso % (Auto) (0-2) % Neut # (Auto) (3999-2084) /uL Lymph # (Auto) (1098-8721) /uL [place] # (Auto) (0-900) /uL Eos # (Auto) (0-450) /uL Baso # (Auto) (0-100) /uL PT (9.4-12.5) SECONDS INR (0.9-1.3) ABG Sample Site ABG pH (7.35-7.45) ABG pCO2 (35-45) mmHg ABG pO2 (80-100) mmHg ABG HCO3 (23-27) mmol/L ABG Total CO2 (23-27) mmol/L ABG O2 Saturation (95-100) % ABG Base Excess (-2-3) mmol/L FiO2 Sodium (137-145) mmol/L Potassium (3.4-5.1) mmol/L Chloride (98-107) mmol/L Carbon Dioxide (22-32) mmol/L BUN (7-17) mg/dL Creatinine (0.52-1.04) mg/dL Estimated GFR (>60) mL/min BUN/Creatinine Ratio (6-22) Glucose (70-100) mg/dL Lactate (0.7-2.1) mmol/L Calcium (8.4-10.2) mg/dL Magnesium (1.6-2.3) mg/dL Total Bilirubin (0.2-1.3) mg/dL AST (14-36) IU/L ALT (<35) IU/L Alkaline Phosphatase (38-126) U/L Ammonia (9-30) umol/L Total Creatine Kinase (30-135) U/L Troponin I (0.01-0.034) ng/mL Total Protein (6.3-8.2) g/dL Albumin (3.5-5.0) g/dL Globulin (1.7-4.1) g/dL Albumin/Globulin Ratio (1.0-2.8) Lipase (23-300) U/L Urine Color Urine Appearance Urine pH (4.5-8.0) Ur Specific [place] (1.000-1.035) Urine Protein (Negative) Urine Glucose (UA) (Negative) g/dL Urine Ketones (NEGATIVE) Urine Occult Blood (Negative) Urine Nitrate (Negative) Urine Bilirubin (NEGATIVE) Urine Urobilinogen (0.2) E.U./dL Ur Leukocyte Esterase (NEGATIVE) Urine RBC (0-5/HPF) Urine WBC (0-5/HPF) Ur Squamous Epith Cells (0-5/HPF) Ur Transition Epith Cell (0-5/HPF) Urine Bacteria (None) Hyaline Casts (None) Ur Culture Indicated? Vol Urine Centrifuged U Opiates 300ng/mL cut (Negative) Ur Oxycodone Screen (Negative) Urine Methadone Screen (Negative) Ur Barbiturates Screen (Negative) U Tricyclic Antidepress (Negative) Ur Phencyclidine Scrn (Negative) Ur Amphetamines Screen (Negative) U Methamphetamines Scrn (Negative) Ur MDMA Scrn (Ecstasy) (Negative) U Benzodiazepines Scrn (Negative) Urine Cocaine Screen (Negative) U Marijuana (THC) Screen (Negative) Urine Specific [place] (Normal) Ethyl Alcohol ( - 10) mg/dL Ur Creatinine (Normal) SARS-CoV-2 (PCR) (Negative) Blood Type Antibody Screen Crossmatch Imaging Data CT scan - abdomen/pelvis: Radiologist's Impression: PROCEDURE: CT ANGIO ABDOMEN PELVIS INDICATIONS: hematemesis, bloody stools TECHNIQUE: After the administration of intravenous contrast, 2.5 mm sections acquired from the diaphragm to the iliac crests. 10 mm maximum intensity projection (MIP) coronal and sagittal reformats were then performed. For radiation dose reduction, the following was used: automated exposure control. COMPARISON: [facility], CT, CT ABDOMEN PELVIS W CON, 01/15/2023, 17:44. FINDINGS: Image quality: Diagnostic. Abdominal aorta: No aortic aneurysm or evidence of acute aortic syndrome. Mesenteric arteries: Patent without hemodynamically significant stenosis. Renal arteries: Patent without hemodynamically significant stenosis. Lower chest: Unremarkable. ABDOMEN: Liver: No solid mass. Nodular contour to the liver, most consistent with cirrhosis. Gallbladder: Surgically absent. Biliary ducts: No biliary dilation. Pancreas: No ductal dilation. Spleen: Size is within normal limits. Splenic calcifications are noted Adrenal Glands: Stable left adrenal nodule measuring up to 4 cm. . Kidneys and Ureters: No hydronephrosis. No solid mass. No complex renal cystic lesion which requires follow up. Stomach and Bowel: Para soft ill varices are noted. Normal colonic caliber, without significant wall thickening. Diverticulosis without evidence of acute diverticulitis. Normal appendix. Peritoneum: Small volume ascites. No free air. Ventral Wall: No hernia. Abdominal Nodes: No retroperitoneal or mesenteric adenopathy by size criteria. Vessels: Aorta, as above. Normal IVC. PELVIS: Pelvic Organs: Unremarkable. Bladder: Unremarkable. Pelvic Nodes: No enlarged lymph nodes. Miscellaneous: No inguinal hernias are seen. Bones: No aggressive osseous abnormality. Decreased osseous mineralization. Mild retrolisthesis of L3 on L4. Mild degenerative changes of the spine. IMPRESSION: 1. No active contrast extravasation is seen within the bowel. 2. Nodular contour to the liver, concerning for cirrhosis. Small ascites, may be secondary to portal hypertension. 3. Paraesophageal varices are noted. 4. Stable left adrenal nodule. 5. Diverticulosis without evidence of acute diverticulitis. Dictated by: Jerome Gonzales M.D. on 08/15/2023 at 21:57 Approved by: Jerome Gonzales M.D. on 08/15/2023 at 22:03 Chest x-ray: Radiologist's Impression: PROCEDURE: XR CHEST 1V INDICATIONS: hematesis TECHNIQUE: One view of the chest was acquired. COMPARISON: [facility], [place], XR CHEST 1V, 03/02/2021, 21:02. [facility], [place], CHEST 1 VIEW, 03/10/2008, 16:41. FINDINGS: Surgical changes and devices: Partially visualized ACDF. Right central venous catheter with tip projecting over the superior vena cava. Lungs and pleura: Lungs are clear. Low lung volumes. No pleural effusions or pneumothorax. Mediastinum: Mediastinal contours appear normal. Heart size is enlarged, stable. Bones and chest wall: No suspicious bony lesions. Overlying soft tissues appear unremarkable. IMPRESSION: No acute cardiopulmonary abnormality is seen. Dictated by: Jerome Gonzales M.D. on 08/15/2023 at 21:11 Approved by: Jerome Gonzales M.D. on 08/15/2023 at 21:12 [facility] Narrative Medical decision making narrative: Hematemesis and black stools in patient with alcohol use disorder. Gross blood on rectal exam. Suspect upper GI bleed based on patient's presentation and history. She was taken stat to resuscitation [facility] where large-bore IVs were placed bilaterally, thiamine folic acid ordered, Rocephin, Protonix, octreotide. Patient does not have a history of endoscopy but I suspect varices may be contributing to her presentation. Patient's blood pressure dropped to 90s over 50s shortly after arrival to ER bed. Due to anticipation of need for pressors as well as secure IV access a central line was placed in the right IJ with the patient's verbal consent. Lab significant for WBC count 10.5, hemoglobin 6.3, hematocrit 20.6, platelets 374. 2 units of uncross matched blood ordered for transfusion stat. Patient did consent for transfusion. Other laboratory work significant for sodium 138, potassium 4.6, CO2 21, creatinine 0.62, lactic acid 6.8, calcium 8.2, T bili 1.3, AST 131, ALT 39, alk phos 148, troponin undetectable. Chest x-ray confirms placement of central line. CT angio of the abdomen and pelvis shows no active extravasation of contrast, esophageal varices noted with cirrhosis and minimal ascites. She has remained hemodynamically stable with no further episodes of melena or hematemesis. Just prior to transport arriving to the emergency department to transfer patient her blood pressure dropped to 80s over 50s with map hovering around 64-66. This was consistent over several blood pressure readings. Patient states that her abdomen hurts but does not feel like she will have another bowel movement any time soon. Repeat H&H 7.9. Small dose of Levophed ordered for blood pressure support during transport. Critical Care Time Critical Care Time Critical Care Time: Yes Total Critical Care Time: 53 Attestation: Upper GI bleed requiring stat transfusion, hypotension requiring central line placement and pressors support, frequent hemodynamic reassessments Discharge Plan Departure Patient Disposition: [facility] Clinical Impression: Acute upper GI bleed, Alcohol abuse, Cirrhosis, Anemia requiring transfusions Prescriptions: No Action carvedilol phosphate 10 mg capsule, ER multiphase 24 hr 20 mg PO BID aspirin 81 mg Capsule 81 mg PO DAILY Referrals: Pastor Naranjo MD [Primary Care Provider] - Stand Alone Forms: Patient Portal/API
[2023-08-15] MEDS: SODIUM CHLORIDE 0.9% 1,000 ML 1000 ML IV (20:00)
[2023-08-15] MEDS: METOCLOPRAMIDE 10 MG/2 ML INJ IV (20:01)
[2023-08-15 20:03] LABS: Add Manual Diff / Slide Review NO; Basophils Absolute Auto 100 /uL (0-100); Basophils Percent Auto 0.8 % (0-2); Eosinophils Absolute Auto 100 /uL (0-450); Eosinophils Percent Auto 1.3 % (2-4); Lymphocytes Absolute Auto 2800 /uL (1100-4500); Lymphocytes Percent Auto 26.2 % (25-40); Mean Corpuscular HGB Conc 30.8 % (30-36); Mean Corpuscular Hemoglobin 23.8 PG (26-34); Mean Corpuscular Volume 77.5 fL (80-100); Monocytes Absolute Auto 900 /uL (0-900); Monocytes Percent Auto 8.7 % (3-14); Neutrophils Absolute Auto 6600 /uL (1500-7000); Platelet Count 374 X10^3/uL (150-400); Red Blood Cell Count 2.66 X10^6/uL (4.0-5.2); Red Cell Distribution Width 19.6 % (11.6-14.8); White Blood Cell Count 10.5 X10^3/uL (4.5-11.0)
[2023-08-15] MEDS: cefTRIAXone 2,000 MG in SODIUM CHLORIDE 0.9% 100 ML 200 MG IV (20:04)
[2023-08-15 20:06] LABS: Hematocrit 20.6 % (36-46); Hemoglobin 6.3 g/dL (12.0-16.0)
[2023-08-15] MEDS: THIAMINE 200 MG in SODIUM CHLORIDE 0.9% 100 ML 408 MG IV (20:09)
[2023-08-15 20:12] LABS: INR 1.4 (0.9-1.3); Prothrombin Time 15.7 SECONDS (9.4-12.5)
[2023-08-15] MEDS: LORazepam 2 MG/ML INJ IV (20:16)
[2023-08-15] MEDS: fentaNYL 100 MCG/2 ML INJ 75 MCG IV (20:19)
[2023-08-15 20:22] LABS: Alanine Aminotransferase 39 IU/L (<35); Albumin 2.8 g/dL (3.5-5.0); Alkaline Phosphatase 148 U/L (38-126); Aspartate Aminotransferase 131 IU/L (14-36); BUN Creatinine Ratio 30.6 (6-22); Bilirubin Total 1.3 mg/dL (0.2-1.3); Blood Urea Nitrogen 19 mg/dL (7-17); Calcium 8.2 mg/dL (8.4-10.2); Carbon Dioxide 21 mmol/L (22-32); Chloride 109 mmol/L (98-107); Creatine Kinase 46 U/L (30-135); Estimated Glomerular Filt Rate > 60 mL/min (>60); Ethanol (ETOH) < 10 mg/dL; Globulin 2.7 g/dL (1.7-4.1); Glucose 111 mg/dL (70-100); HEMOLYSIS < 15 (0-50); Lipase 146 U/L (23-300); Magnesium 1.9 mg/dL (1.6-2.3); Potassium 4.6 mmol/L (3.4-5.1); Sodium 138 mmol/L (137-145); Total Protein 5.5 g/dL (6.3-8.2)
[2023-08-15 20:23] LABS: Lactate (Lactic Acid) 6.8 mmol/L (0.7-2.1)
[2023-08-15 20:33] LABS: Troponin I < 0.012 ng/mL (0.01-0.034)
[2023-08-15] MEDS: PANTOPRAZOLE 40 MG VIAL 80 MG IV (20:38)
[2023-08-15] MEDS: OCTREOTIDE 100 MCG/ML VIAL 50 MCG IV (20:44)
--- NOTE | 2023-08-15 21:00 | PC.NURSE ---
Blood infusion rate increased to 150mL/hr after 15 min monitoring period w/o reaction on bag last 4: 1046
--- NOTE | 2023-08-15 21:15 | PC.NURSE ---
Pts to bedside. updated on pts status. Questions answered.
--- NOTE | 2023-08-15 21:15 | PC.NURSE ---
Pt noted to desat on the monitor to high 60s, low 70s. Pt observed with snoring respirations but is arousable, though she would quickly return to sleep. Rt called to bedside urgently. NPA placed by this RN in L nostril size 7. Pt tolerated placement and opened her eyes briefly during insertion. Pt placed on 15 L non rebreather, stats return to high 90s. RT at bedside to evaluate the pt. LESLI toscano notifed. Pts BP also appeared to drop from 160 systolic to 113 systolic per the monitor at this time.
--- NOTE | 2023-08-15 21:30 | PC.NURSE ---
Both bags of RBCs increased to 600ml/hr by EMD order. Bag 2045 finishing.
[2023-08-15 21:31] LABS: Reflexed Lactate in 2 Hours Y
[2023-08-15 21:43] LABS: COVID19 -Nasal RAPID Negative (Negative)
[2023-08-15 22:10] LABS: Appearance Urine UA CLEAR; Bilirubin Urine UA NEGATIVE (NEGATIVE); Color Urine UA YELLOW; Glucose Urine UA NEGATIVE (Negative); Ketones Urine UA NEGATIVE (NEGATIVE); Leukocyte Esterase Urine UA NEGATIVE (NEGATIVE); Nitrite Urine UA NEGATIVE (Negative); Occult Blood Urine UA 1+ (Negative); Protein Urine UA NEGATIVE (Negative); Urobilinogen Urine UA 0.2 E.U./dL (0.2)
--- NOTE | 2023-08-15 22:10 | PC.NURSE ---
Report given to Destiny QUINTANA. All Questions answered.
[2023-08-15 22:13] LABS: UR Morphine/Opiate cutoff 300 Negative (Negative); Ur Creatinine Normal (Normal); Ur Specific Gravity Normal (Normal); Urine Amphetamines Positive (Negative); Urine Barbiturates Negative (Negative); Urine Benzodiazepines Positive (Negative); Urine Cocaine Negative (Negative); Urine MDMA Negative (Negative); Urine Methadone Negative (Negative); Urine Methamphetamines Positive (Negative); Urine Oxycodone Negative (Negative); Urine Phencyclidine Negative (Negative); Urine Tetrahydrocannabinol Negative (Negative); Urine Tricyclic Antidepressant Negative (Negative); Urine pH Normal (Normal)
[2023-08-15 22:18] LABS: Bacteria Urine None Seen; Hyaline Casts Urine 1-5/LPF; RBC Urine 1-5/HPF (0-5/HPF); Squamous Epithelial Cell Urine 1-5 /HPF (0-5/HPF); Transitional Epi Cells Urine 0-1/HPF (0-5/HPF); Urine Volume 10mL (spun); WBC Urine None Seen (0-5/HPF); pH Urine UA 5.5 (4.5-8.0)
[2023-08-15 22:19] LABS: Culture Indicated Urine Cult Not Indicated
[2023-08-15] MEDS: OCTREOTIDE 500 MCG in SODIUM CHLORIDE 0.9% 100 ML 10.1 MCG IV (22:26)
[2023-08-15 22:30] LABS: Hematocrit 25.8 % (36-46); Hemoglobin 8.2 g/dL (12.0-16.0)
[2023-08-15 22:30] LABS: Ammonia (NH3) 18 umol/L (9-30)
[2023-08-15 22:43] LABS: Lactate 2HR (Lactic Acid Rflx) 4.7 mmol/L (0.7-2.1)
--- NOTE | 2023-08-15 23:34 | PC.NURSE ---
NPA removed at provider Delbert direction. Clear liquids OK per provider as well.
--- NOTE | 2023-08-15 23:53 | PC.NURSE ---
Pt has expiratory rhonchi throughout bilateral upper airway and upper lobes anteriorly. Changes noticed in patient potline monitor. Repeat EKG in progress. Provider is aware and RT at bedside.
[2023-08-16] VITALS (52 sets, daily range): BP systolic 86–142; BP diastolic 49–68; PULSE 89–186; RESP 17–34; O2SAT 96–99
[2023-08-16 00:40] LABS: Allen Test for ABG Passed? Yes, Passed; Blood Gas Collection Site Right Radial; Fractionated Inspired Oxygen 21; HCO3 ABG 16 mmol/L (23-27); Oxygen Saturation ABG 95 % (95-100); PCO2 ABG 25.9 mmHg (35-45); PO2 ABG 75 mmHg (80-100); TCO2 ABG 17 mmol/L (23-27)
[2023-08-16 02:04] LABS: Hematocrit 25.1 % (36-46); Hemoglobin 7.9 g/dL (12.0-16.0)
--- NOTE | 2023-08-16 02:47 | PC.NURSE ---
Patient's BP 87/49. Patient asleep, easily woken up. Dr. Mandujano called to bedside immediately, awaiting orders for levophed.
[2023-08-16] MEDS: NOREPINEPHRINE BITARTRATE/D5W 4 MG/250 ML PLAST..BAG 17.86 MG IV (02:56)
--- NOTE | 2023-08-16 03:11 | PC.NURSE ---
This rn gave report given to Renae QUINTANA [facility] transport. Noah Blum Rn gave report to Anna Dickey at [phone] to LILIAN Ventura @[facility]
--- NOTE | 2023-08-16 03:25 | PC.NURSE ---
Patient being transferred to [facility] with [facility]. Octreotide running at 10.1mls/hr. Levophed running at 17.86mls/hr, 0.05mcg/kg/min
== END 2023-08-16 03:30 | disposition short-term general hospital (02) ==
PROVIDERS: Emergency Provider Emergency Medicine; Family Provider Preventive Medicine Occupational Medicine; PCP Family Medicine
DX: K92.2 Gastrointestinal hemorrhage, unspecified (principal); K70.30 Alcoholic cirrhosis of liver without ascites; D64.9 Anemia, unspecified; F10.10 Alcohol abuse, uncomplicated; Z20.822 Contact with and (suspected) exposure to COVID-19
CPT/HCPCS: 36415; 36430; 36569; 36600; 71045; 74174; 80053; 80305; 80320; 81001; 82140; 82550; 82805; 83605; 83690; 83735; 84484; 85014; 85018; 85025; 85610; 86850; 86900; 86901; 87635; 93005; 96365; 96366; 96367; 96368; 96375; 99285; 99291; P9016; C9113; J0696; J2060; J2354; J2765; J3010; Q9967

== ENCOUNTER → 2023-09-01 16:21 | Outpatient (CLI) | payer OTHER, MEDICARE, SELFPAY ==
[2021-03-02 22:57] VITALS: BMI 112.0
--- NOTE | 2023-09-01 | DI.US.S_ITS ---
PROCEDURE: US ABDOMEN LIMITED INDICATIONS: ASCITES TECHNIQUE: Real-time focused scanning was performed of the abdomen, with image documentation. COMPARISON: [facility], US, US ABDOMEN COMPLETE, 01/15/2023, 17:01. FINDINGS: Limited ultrasound examination of abdomen shows moderate amount of ascites fluid in all 4 quadrants of abdomen. IMPRESSION: Moderate amount of ascites fluid in all 4 quadrants of abdomen. Dictated by: Saw Joshi M.D. on 09/01/2023 at 17:39 Approved by: Saw Joshi M.D. on 09/01/2023 at 17:40
--- NOTE | 2023-09-01 | DI.US.S_ITS ---
PROCEDURE: US PERIPH VENOUS UP EXTREM RT INDICATIONS: RIGHT LOWER EXTREMITY SWELLING AND PAIN TECHNIQUE: Real-time imaging, as well as color and pulse Doppler interrogation, was performed of the upper extremity deep veins from the inferior neck to the antecubital fossa. COMPARISON: None. FINDINGS: The internal jugular vein, visualized portions of the subclavian vein, axillary, and brachial veins are free of intraluminal thrombus. Where physically possible, the veins are normally compressible. Color and pulse Doppler demonstrate normal intraluminal flow, with expected phasicity and pulsatility. Additional scanning of the cephalic and basilic veins of the superficial system demonstrates normal compressibility, without thrombus. IMPRESSION: No evidence of DVT in visualized right lower extremity veins. Dictated by: Saw Joshi M.D. on 09/01/2023 at 17:34 Approved by: Saw Joshi M.D. on 09/01/2023 at 17:34
== END ==
PROVIDERS: Family Provider Preventive Medicine Occupational Medicine; PCP Family Medicine; Referring Provider Family Medicine; Visit Provider Family Medicine
DX: M79.661 Pain in right lower leg (principal); M79.89 Other specified soft tissue disorders; M79.606 Pain in leg, unspecified; R20.9 Unspecified disturbances of skin sensation
CPT/HCPCS: 76705; 93971

== ENCOUNTER → 2023-09-06 11:54 | Outpatient (ROUT) | payer OTHER, MEDICARE, SELFPAY ==
[2021-03-02 22:57] VITALS: BMI 112.0
[2023-09-06 12:23] LABS: INR 1.3 (0.9-1.3); Prothrombin Time 14.5 SECONDS (9.4-12.5)
== END ==
PROVIDERS: Family Provider Preventive Medicine Occupational Medicine; PCP Family Medicine; Visit Provider Family Medicine
DX: R18.8 Other ascites (principal)
CPT/HCPCS: 85610

== ENCOUNTER → 2023-09-15 08:27 | Outpatient (CLI) | payer OTHER, MEDICARE, SELFPAY ==
[2021-03-02 22:57] VITALS: BMI 112.0
--- NOTE | 2023-09-15 | PATH_ITS ---
Note [facility] Accession Number: [id number] TESTS RESULT FLAG UNITS REF RANGE LAB Clinician Provided Cytology Information No. of containers..01 Other (Miscellaneous) Source: ASCITES DIAGNOSIS: ASCITES FLUID, PARACENTESIS. NEGATIVE FOR MALIGNANT CELLS. MESOTHELIAL CELLS WITH REACTIVE CHANGES ARE PRESENT. THIS INTERPRETATION INCLUDES EVALUATION OF A CELL BLOCK. Pathologist ICD10: R18.8 Signed out by: Mac Ontiveros MD, Pathologist NPI- [id number] Performed by: Ignacio Ibanez, Oil Spraying Machine Operator ([facility]) Gross description: 50 CC, YELLOW, CLOUDY RECEIVED: FRESH IN BLUE CAP CONTAINER.VO /VDU 09/19/2023 0723 Local FLAG LEGEND: L-Low Normal,H-High Normal,LL-Alert Low,HH-Alert High <-Panic Low,>-Panic High,A-Abnormal,AA-Critical Abnormal Performed at: 01 =Z [facility] [address], [place] [address] Tung Geronimo MD, Performed at: 01 [facility] [address], [place], [place] [id number] MD Tung Geronimo MD Phone: [phone]
--- NOTE | 2023-09-15 08:29 | DI.US.S_ITS ---
PROCEDURE: US PARACENTESIS INDICATIONS: Acites TECHNIQUE: The indications, alternatives, benefits, risks, and complications of the procedure were explained to the patient. Written informed consent was obtained and placed in the chart. The abdomen and pelvis were examined sonographically, and an appropriate site was chosen for paracentesis. The skin was prepared and draped in the usual sterile fashion, and 1% lidocaine was infiltrated from the skin down through the peritoneal surface. A 19-gauge catheter-covered needle was then introduced into the peritoneal space, the catheter was advanced and the needle was withdrawn, and thereafter peritoneal fluid was withdrawn. The catheter was then removed and a dressing was applied. The fluid was discarded if the clinician did not order diagnostic testing of the fluid. COMPARISON: [facility], , US ABDOMEN COMPLETE, 01/15/2023, 17:01. [facility], , US ABDOMEN LIMITED, 09/01/2023, 17:05. FINDINGS: Access site: Right lower quadrant Needle: One-Step centesis catheter with introducer needle. Fluid volume and description: 5200 mL; clear. Fluid sent for diagnostic testing: Yes; per ordering physician Medications: 1% lidocaine for local anaesthesia. Complications: None. IMPRESSION: Successful ultrasound-guided paracentesis. Dictated by: Jackelyn Emerson M.D. on 09/15/2023 at 11:23 Approved by: Jackelyn Emerson M.D. on 09/15/2023 at 11:38
== END ==
LOC: US 08:29
PROVIDERS: Family Provider Preventive Medicine Occupational Medicine; PCP Family Medicine; Referring Provider Family Medicine; Visit Provider Family Medicine
DX: R18.8 Other ascites (principal); K74.60 Unspecified cirrhosis of liver
CPT/HCPCS: 49083

== ENCOUNTER → 2023-09-29 08:45 | Outpatient (CLI) | payer OTHER, MEDICARE, SELFPAY ==
[2021-03-02 22:57] VITALS: BMI 112.0
--- NOTE | 2023-09-29 08:48 | DI.US.S_ITS ---
PROCEDURE: US PARACENTESIS INDICATIONS: ALCOHOLIC CIRRHOSIS OF THE LIVER WITH ASCITES TECHNIQUE: The indications, alternatives, benefits, risks, and complications of the procedure were explained to the patient. Written informed consent was obtained and placed in the chart. The abdomen and pelvis were examined sonographically, and an appropriate site was chosen for paracentesis. The skin was prepared and draped in the usual sterile fashion, and 1% lidocaine was infiltrated from the skin down through the peritoneal surface. A 19-gauge catheter-covered needle was then introduced into the peritoneal space, the catheter was advanced and the needle was withdrawn, and thereafter peritoneal fluid was withdrawn. The catheter was then removed and a dressing was applied. The fluid was discarded if the clinician did not order diagnostic testing of the fluid. COMPARISON: [facility], , PARACENTESIS, 09/15/2023, 8:52. FINDINGS: Access site: Right lower quadrant Needle: One-Step centesis catheter with introducer needle. Fluid volume and description: 4560 mL of clear, straw-colored ascites Fluid sent for diagnostic testing: A specimen was sent for cell count Medications: 1% lidocaine for local anaesthesia. Complications: None. IMPRESSION: Successful ultrasound-guided paracentesis. Dictated by: Brannon Johnston M.D. on 09/29/2023 at 10:55 Approved by: Brannon Johnston M.D. on 09/29/2023 at 10:56
--- NOTE | 2023-10-04 | PATH_ITS ---
Note [facility] Accession Number: [id number] TESTS RESULT FLAG UNITS REF RANGE LAB Clinician Provided Cytology Information No. of containers..01 Other (Miscellaneous) Source: ASCITES DIAGNOSIS: ASCITIC FLUID, PARACENTESIS. NEGATIVE FOR MALIGNANT CELLS. REACTIVE MESOTHELIAL CELLS ARE PRESENT. THIS INTERPRETATION INCLUDES EVALUATION OF A CELL BLOCK. Pathologist ICD10: R18.8 Signed out by: Mac Ontiveros MD, Pathologist NPI- [id number] Performed by: Ignacio Ibanez, Color Mixer ([facility]) Gross description: 60 CC, YELLOW, CLOUDY RECEIVED: FRESH IN 60 ML SYRINGE.VO /VDU 10/06/2023 0910 Local FLAG LEGEND: L-Low Normal,H-High Normal,LL-Alert Low,HH-Alert High <-Panic Low,>-Panic High,A-Abnormal,AA-Critical Abnormal Performed at: 01 =Z [employer] [address] [facility], [place] [address] Tung Geronimo MD, Performed at: 01 [employer] [address] [address], [place], [place] [id number] MD Tung Greonimo MD Phone: [phone]
== END ==
LOC: US 08:47
PROVIDERS: Family Provider Preventive Medicine Occupational Medicine; PCP Family Medicine; Referring Provider Family Medicine; Visit Provider Family Medicine
DX: R18.8 Other ascites (principal)
CPT/HCPCS: 49083

== ENCOUNTER → 2023-10-13 14:54 | Outpatient (CLI) | payer OTHER, MEDICARE, SELFPAY ==
[2021-03-02 22:57] VITALS: BMI 112.0
--- NOTE | 2023-10-13 14:57 | DI.US.S_ITS ---
PROCEDURE: US PARACENTESIS INDICATIONS: Other ascites TECHNIQUE: The indications, alternatives, benefits, risks, and complications of the procedure were explained to the patient. Written informed consent was obtained and placed in the chart. The abdomen and pelvis were examined sonographically, and an appropriate site was chosen for paracentesis. The skin was prepared and draped in the usual sterile fashion, and 1% lidocaine was infiltrated from the skin down through the peritoneal surface. A 19-gauge catheter-covered needle was then introduced into the peritoneal space, the catheter was advanced and the needle was withdrawn, and thereafter peritoneal fluid was withdrawn. The catheter was then removed and a dressing was applied. The fluid was discarded if the clinician did not order diagnostic testing of the fluid. COMPARISON: [facility], PARACENTESIS, 09/29/2023, 9:00. FINDINGS: Access site: Right lower quadrant Needle: One-Step centesis catheter with introducer needle. Fluid volume and description: 4700mL of clear straw-colored ascites. Fluid sent for diagnostic testing: not requested Medications: 1% lidocaine for local anaesthesia. Complications: None. IMPRESSION: Successful ultrasound-guided paracentesis. Dictated by: Brannon Johnston M.D. on 10/13/2023 at 16:12 Approved by: Brannon Johnston M.D. on 10/13/2023 at 16:13
== END ==
LOC: US 14:56
PROVIDERS: Family Provider Preventive Medicine Occupational Medicine; PCP Family Medicine; Referring Provider Family Medicine; Visit Provider Family Medicine
DX: R18.8 Other ascites (principal)
CPT/HCPCS: 49083

== ENCOUNTER → 2023-10-31 13:34 | Outpatient (CLI) | payer OTHER, MEDICARE, SELFPAY ==
[2021-03-02 22:57] VITALS: BMI 112.0
--- NOTE | 2023-10-31 13:37 | DI.US.S_ITS ---
PROCEDURE: US PARACENTESIS INDICATIONS: ALCOHOLIC CIRRHOSIS OF LIVER WITH ASCITES TECHNIQUE: The indications, alternatives, benefits, risks, and complications of the procedure were explained to the patient. Written informed consent was obtained and placed in the chart. The abdomen and pelvis were examined sonographically, and an appropriate site was chosen for paracentesis. The skin was prepared and draped in the usual sterile fashion, and 1% lidocaine was infiltrated from the skin down through the peritoneal surface. A 19-gauge catheter-covered needle was then introduced into the peritoneal space, the catheter was advanced and the needle was withdrawn, and thereafter peritoneal fluid was withdrawn. The catheter was then removed and a dressing was applied. The fluid was discarded if the clinician did not order diagnostic testing of the fluid. COMPARISON: [facility], , PARACENTESIS, 10/13/2023, 15:27. FINDINGS: Access site: Right lower quadrant Needle: One-Step centesis catheter with introducer needle. Fluid volume and description: 5000 cc clear curly Fluid sent for diagnostic testing: Yes. Culture. Medications: 1% lidocaine for local anaesthesia. Complications: None. IMPRESSION: Successful ultrasound-guided paracentesis. 5 L removed. Dictated by: Canelo Anglin M.D. on 10/31/2023 at 17:36 Approved by: Canelo Anglin M.D. on 10/31/2023 at 17:37
[2023-10-31 14:04] LABS: INR 1.2 (0.9-1.3); Prothrombin Time 14.1 SECONDS (9.4-12.5)
== END ==
PROVIDERS: Radiology Diagnostic Radiology; Family Provider Preventive Medicine Occupational Medicine; PCP Family Medicine; Referring Provider Family Medicine; Visit Provider Family Medicine
DX: K70.31 Alcoholic cirrhosis of liver with ascites (principal)
CPT/HCPCS: 36415; 49083; 85610; 87070; 87075; 87205

== ENCOUNTER 2023-11-10 15:24 | Emergency (ER) | payer OTHER, MEDICARE, SELFPAY ==
[2021-03-02 22:57] VITALS: BMI 112.0
[2023-11-10] VITALS (24 sets, daily range): BP systolic 147–200; BP diastolic 93–114; PULSE 91–100; RESP 18–29; TEMP 36.6; O2SAT 95–98; BMI 34.9
--- NOTE | 2023-11-10 16:55 | PC.NURSE ---
This EDRn called Dr. Naranjo who reports that patient has an order through Dr. Briones at [facility] for weekly paracentesis. I then called [facility] who report that this is an external ordeR and that I need to speak with Dr. Briones's office to determine what is delaying it. After this I spoke with Dr. Briones's office and they informed me that the order is in for the patient to have weekly paracentesis at [facility] but that they need to know if the patient wants it done weekly or biweekly. I spoke with the patient and then informed Dr. Briones's office that she would like it done weekly. I then spoke with our DI department who reports the patient will not be able to have it done outpatient until next week. I informed Dr. Richardson of all of this and that patient will need to have paracentesis done in ER today and can schedule the next one for next week.
--- NOTE | 2023-11-10 17:03 | DI.RAD.S_ITS ---
PROCEDURE: XR CHEST 1V INDICATIONS: Shortness of breath TECHNIQUE: One view of the chest was acquired. COMPARISON: [facility], [place], XR CHEST 1V, 08/15/2023, 20:38. [facility], CR, XR CHEST 1V, 03/02/2021, 21:02. FINDINGS: Surgical changes and devices: Partially visualized cervical spine hardware Lungs and pleura: Small left pleural effusion with adjacent atelectasis versus consolidation. The right lung is clear. Mediastinum: Mediastinal contours appear normal. Heart size is normal. Bones and chest wall: No suspicious bony lesions. Overlying soft tissues appear unremarkable. IMPRESSION: Small left pleural effusion with adjacent atelectasis versus consolidation. Dictated by: Jerome Gonzales M.D. on 11/10/2023 at 18:32 Approved by: Jerome Gonzales M.D. on 11/10/2023 at 18:33
--- NOTE | 2023-11-10 17:08 | PC.NURSE ---
iv placed by another nurse
[2023-11-10 17:17] LABS: Add Manual Diff / Slide Review NO; Basophils Absolute Auto 100 /uL (0-100); Basophils Percent Auto 0.8 % (0-2); Eosinophils Absolute Auto 300 /uL (0-450); Eosinophils Percent Auto 2.9 % (2-4); Hematocrit 31.8 % (36-46); Hemoglobin 10.3 g/dL (12.0-16.0); INR 1.2 (0.9-1.3); Lymphocytes Absolute Auto 1400 /uL (1100-4500); Lymphocytes Percent Auto 16.3 % (25-40); Mean Corpuscular HGB Conc 32.5 % (30-36); Mean Corpuscular Hemoglobin 24.8 PG (26-34); Mean Corpuscular Volume 76.4 fL (80-100); Monocytes Absolute Auto 1000 /uL (0-900); Monocytes Percent Auto 11.5 % (3-14); Neutrophils Absolute Auto 6000 /uL (1500-7000); Neutrophils Percent Auto 68.5 % (50-75); Platelet Count 360 X10^3/uL (150-400); Prothrombin Time 13.8 SECONDS (9.4-12.5); Red Blood Cell Count 4.17 X10^6/uL (4.0-5.2); Red Cell Distribution Width 20.4 % (11.6-14.8); White Blood Cell Count 8.8 X10^3/uL (4.5-11.0)
[2023-11-10 17:20] LABS: Alanine Aminotransferase 26 IU/L (<35); Albumin 3.1 g/dL (3.5-5.0); Albumin Globulin Ratio 0.8 (1.0-2.8); Alkaline Phosphatase 229 U/L (38-126); Aspartate Aminotransferase 60 IU/L (14-36); BUN Creatinine Ratio 9.9 (6-22); Bilirubin Total 1.8 mg/dL (0.2-1.3); Blood Urea Nitrogen 8 mg/dL (7-17); Calcium 8.5 mg/dL (8.4-10.2); Carbon Dioxide 26 mmol/L (22-32); Chloride 108 mmol/L (98-107); Estimated Glomerular Filt Rate > 60 mL/min (>60); Glucose 99 mg/dL (70-100); HEMOLYSIS < 15 (0-50); Potassium 3.5 mmol/L (3.4-5.1); Sodium 137 mmol/L (137-145); Total Protein 7.1 g/dL (6.3-8.2)
--- NOTE | 2023-11-10 17:20 | EKG_ITS ---
[facility] [address] [place] [address] Test Date: 2023-11-10 Pat Name: Stephanie Duran Department: Room: Gender: Female Recreational Director: : 1965 Requested By: Order Number: [id number] Reading MD: Daniel Salamanca MD Measurements Intervals [place] Rate: 95 P: 44 MA: 146 QRS: -8 QRSD: 82 T: 46 QT: 408 QTc: 512 Interpretive Statements Normal sinus rhythm Low voltage QRS Possible Anterolateral infarct , age undetermined Prolonged QT Electronically Signed On 11-11-2023 12:28:51 PDT by Daniel Salamanca MD
[2023-11-10 17:21] LABS: Lactate (Lactic Acid) 1.5 mmol/L (0.7-2.1)
[2023-11-10 17:33] LABS: NT-proBNP (BNP-Adult 18+) 292 pg/mL (<125); Troponin I < 0.012 ng/mL (0.01-0.034)
[2023-11-10 17:36] LABS: Anisocytosis 2+
[2023-11-10 17:37] LABS: Hypochromasia 1+
--- NOTE | 2023-11-10 18:14 | DI.US.S_ITS ---
PROCEDURE: US ABDOMEN LIMITED INDICATIONS: vianey for paracentesis TECHNIQUE: Real-time focused scanning was performed of the abdomen, with image documentation. COMPARISON: [facility], , US ABDOMEN LIMITED, 09/01/2023, 17:05. FINDINGS: Moderate ascites is seen. A spot for paracentesis is marked by the technologist for the performing physician. IMPRESSION: Abdominal wall marking performed for paracentesis. Dictated by: Mingo Nelson M.D. on 11/11/2023 at 10:22 Approved by: Mingo Nelson M.D. on 11/11/2023 at 10:23
--- NOTE | 2023-11-10 18:16 | ED.GENADULT ---
HPI - General Adult General Chief complaint: Abdominal Pain Stated complaint: states needs a procedure Time Seen by Provider: 11/10/23 18:06 Source: patient Mode of arrival: Ambulatory Limitations: no limitations History of Present Illness HPI narrative: 58-year-old female with history of alcohol use disorder, hypertension, cirrhosis, who presents with request for paracentesis. 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 She used her last 1 a couple weeks ago that was pre ordered. She states she was getting quite distended she feels short of breath, no fevers, she has occasionally had some nausea vomiting but denies any coffee-ground emesis or blood. She states normal bowel movements normal urination, no significant swelling of lower extremities. Patient's goal is for comfort. She states it is very tight in her abdomen but not painful otherwise. Patient has allergies to morphine, Percocet. Dr. Rivera is her primary care physician. She is following with Gastroenterology. Related Data Home Medications Medication Instructions Recorded Confirmed aspirin 81 mg capsule 81 mg PO DAILY 08/15/23 08/15/23 carvedilol phosphate 10 mg 20 mg PO BID 08/15/23 08/15/23 capsule,[id number] multiphase Allergies Allergy/AdvReac Type Severity Reaction Status Date / Time morphine [MORPHINE] Allergy Unknown Hives Verified 11/10/23 15:57 acetaminophen [From Percocet] Allergy Verified 11/10/23 15:57 oxycodone [From Percocet] Allergy Verified 11/10/23 15:57 Review of Systems Review of Systems ROS Unobtainable: All systems reviewed & are unremarkable except as noted in HPI and below Patient History Medical History COVID-19 Tobacco abuse Alcoholism Methamphetamine abuse Surgical History Status post lumbar surgery Status post cervical spinal fusion Status post gastric bypass for obesity Family History Mother Hypertension Father Family estrangement Social History household members: spouse Smoking Status: Current every day smoker Smoking Status: Current every day smoker alcohol intake frequency: 3 or more drinks per day Alcohol type: hard liquor Substance Use Type: marijuana Exam Narrative Exam Narrative: GENERAL: Alert and oriented x three, female in mild distress. HEENT: Head normocephalic, atraumatic, EOMI, pupils reactive, face symmetric, moist mucous membranes NECK: Supple, full range of motion CARDIOVASCULAR: Regular rate and rhythm without murmurs, rubs or gallops. RESPIRATORY: Breath sounds equal bilaterally, no wheezes rales or rhonchi. ABDOMEN: Soft, nontender. Distended with fluid wave. Normoactive bowel sounds all 4 quadrants. No guarding or rebound, rigidity, no mass : No CVA tenderness EXTREMITIES: Normal range of motion, no clubbing, trace bilateral lower extremity edema. Neurovascularly intact NEUROLOGICAL: Cranial nerves II through XII grossly intact. Moving all extremities SKIN: Warm, dry, no petechiae, no rashes or lesions. Initial Vital Signs Initial Vital Signs: Vital Signs Temperature 98 F 11/10/23 15:53 Pulse Rate 91 H 11/10/23 15:53 Respiratory Rate 18 11/10/23 15:53 Blood Pressure 170/105 H 11/10/23 15:53 Pulse Oximetry 95 11/10/23 15:53 Oxygen Delivery Method Room Air 11/10/23 15:53 Procedures Paracentesis Time Out Performed: Yes Indication: Ascites Procedure: therapeutic paracentesis Local Anesthetic: lidocaine 2% Amount of anesthesia used (mL): 5 Preparation: sterile prep and drape and Blade used to make rg in skin Fluid: clear Post Procedure Exam: awake, alert, normal BP, normal HR and normal SpO2 Patient Tolerated Procedure: Well and No complications Complications: none Course Orders Ordered: ED Orders 11/10/23 17:00 Complete Blood Count AUTO DIFF Stat Comprehensive Metabolic Panel Stat Lactate (Lactic Acid) Stat NT-proBNP (BNP-Adult 18+) Stat Prothrombin Time INR Stat Troponin I Stat 11/10/23 17:03 XR chest 1V Stat EKG-12 Lead Stat Measure peak expiratory flow ONCE RT Consult Eval and Treat NOW 11/10/23 18:14 US paracentesis Stat Vital Signs Vital signs: Vital Signs - 8 hr 11/10/23 20:10 11/10/23 20:10 11/10/23 20:15 Pulse Rate 92 H Respiratory Rate 25 H Blood Pressure 187/101 H 167/93 H Pulse Oximetry 96 Oxygen Delivery Method 11/10/23 20:15 11/10/23 20:20 11/10/23 20:20 Pulse Rate 96 H 94 H Respiratory Rate 24 21 Blood Pressure 180/93 H Pulse Oximetry 96 96 Oxygen Delivery Method 11/10/23 20:25 11/10/23 20:25 11/10/23 20:40 Pulse Rate 97 H 94 H Respiratory Rate 25 H 20 Blood Pressure 177/98 H 162/99 H Pulse Oximetry 97 97 Oxygen Delivery Method Room Air Medical Decision Making Lab Data 11/10/23 17:00 11/10/23 17:00 Labs: Lab Results 11/10/23 Range/Units 17:00 WBC 8.8 (4.5-11.0) X10^3/uL RBC 4.17 (4.0-5.2) X10^6/uL Hgb 10.3 L (12.0-16.0) g/dL Hct 31.8 L (36-46) % MCV 76.4 L (80-100) fL MCH 24.8 L (26-34) PG MCHC 32.5 (30-36) % RDW 20.4 H (11.6-14.8) % Plt Count 360 (150-400) X10^3/uL Neut % (Auto) 68.5 (50-75) % Lymph % (Auto) 16.3 L (25-40) % [place] % (Auto) 11.5 (3-14) % Eos % (Auto) 2.9 (2-4) % Baso % (Auto) 0.8 (0-2) % Neut # (Auto) 6000 (6621-1234) /uL Lymph # (Auto) 1400 (9779-5472) /uL [place] # (Auto) 1000 H (0-900) /uL Eos # (Auto) 300 (0-450) /uL Baso # (Auto) 100 (0-100) /uL RBC Morphology See below Hypochromasia 1+ H Anisocytosis 2+ H PT 13.8 H (9.4-12.5) SECONDS INR 1.2 (0.9-1.3) Sodium 137 (137-145) mmol/L Potassium 3.5 (3.4-5.1) mmol/L Chloride 108 H (98-107) mmol/L Carbon Dioxide 26 (22-32) mmol/L BUN 8 (7-17) mg/dL Creatinine 0.81 (0.52-1.04) mg/dL Estimated GFR > 60 (>60) mL/min BUN/Creatinine Ratio 9.9 (6-22) Glucose 99 (70-100) mg/dL Lactate 1.5 (0.7-2.1) mmol/L Calcium 8.5 (8.4-10.2) mg/dL Total Bilirubin 1.8 H (0.2-1.3) mg/dL AST 60 H (14-36) IU/L ALT 26 (<35) IU/L Alkaline Phosphatase 229 H (38-126) U/L Troponin I < 0.012 (0.01-0.034) ng/mL NT-Pro-B Natriuret Pep 292 H (<125) pg/mL Total Protein 7.1 (6.3-8.2) g/dL Albumin 3.1 L (3.5-5.0) g/dL Globulin 4.0 (1.7-4.1) g/dL Albumin/Globulin Ratio 0.8 L (1.0-2.8) ECG Data Attestation: I personally reviewed and interpreted this ECG as follows: Interpretation: Sinus rhythm rate of 95 AR 146 QRS 82 QTC of 512. No acute ST elevation. T-waves inverted in V1 2 and 3. MDM Narrative Medical decision making narrative: White count 8.8 hemoglobin is 10.3 improved from July, patient has platelets of 360. INR is 1.2 today. Sodium is 137 potassium 3.5 chloride 108 CO2 is 26 with a BUN 8 and creatinine 0.81, lactate 1.5, bilirubin is 1.8 with a AST is 60, AST of 26 and alk-phos of 229. Troponins less than 0.012 and BNP is 292. Chest x-ray shows small left pleural effusion with adjacent atelectasis versus consolidation. Patient has not had any cough cold congestion symptoms suspect more atelectasis. Patient request paracentesis she is quite distended I think she would benefit from therapeutic. She states it has been several weeks she was getting them weekly. She does not have any red flag symptoms requiring diagnostic paracentesis. Verbal and written consent were obtained. Patient was marked by ultrasound. Patient states they typically take 5 L. patient tolerated procedure well. Discharge Plan Departure Patient Disposition: Home Clinical Impression: Ascites Instructions: DI for Abdominal Paracentesis Activity Restrictions/Additional Instructions: Follow up with your physician as needed. Return for fevers, new abdominal pain, redness, swelling, any vomiting, difficulty with drainage or leakage from the site or other new or concerning changes. Prescriptions: No Action carvedilol phosphate 10 mg capsule, ER multiphase 24 hr 20 mg PO BID aspirin 81 mg Capsule 81 mg PO DAILY Referrals: Pastor Naranjo MD [Primary Care Provider] - Stand Alone Forms: Patient Portal/API
--- NOTE | 2023-11-11 10:59 | PC.NURSE ---
late entry: patient had 5 liters removed by paracentesis and her abd felt soft after the procedure. She reported feeling like she could breathe much better and relax more. She was monitored for BP changes before, during, and after the procedure and a had no significant changes. Provider was informed that there were no significant changes.
== END 2023-11-10 20:42 | disposition home or self-care (01) ==
PROVIDERS: Emergency Medicine; Emergency Provider Emergency Medicine; Family Provider Preventive Medicine Occupational Medicine; PCP Family Medicine
DX: R18.8 Other ascites (principal); R06.02 Shortness of breath
CPT/HCPCS: 36415; 49083; 71045; 80053; 83605; 83880; 84484; 85025; 85610; 93005; 99283; 99284

== ENCOUNTER → 2023-11-18 08:57 | Outpatient (CLI) | payer OTHER, MEDICARE, SELFPAY ==
[2021-03-02 22:57] VITALS: BMI 112.0
--- NOTE | 2023-11-18 08:58 | DI.US.S_ITS ---
PROCEDURE: US PARACENTESIS INDICATIONS: Alcoholic cirrhosis of liver with ascites TECHNIQUE: The indications, alternatives, benefits, risks, and complications of the procedure were explained to the patient. Written informed consent was obtained and placed in the chart. The abdomen and pelvis were examined sonographically, and an appropriate site was chosen for paracentesis. The skin was prepared and draped in the usual sterile fashion, and 1% lidocaine was infiltrated from the skin down through the peritoneal surface. A 19-gauge catheter-covered needle was then introduced into the peritoneal space, the catheter was advanced and the needle was withdrawn, and thereafter peritoneal fluid was withdrawn. The catheter was then removed and a dressing was applied. The fluid was discarded if the clinician did not order diagnostic testing of the fluid. COMPARISON: [facility], , PARACENTESIS, 10/31/2023, 13:57. FINDINGS: Access site: Right lower quadrant abdomen Needle: One-Step centesis catheter with introducer needle. Fluid volume and description: 5 L of clear fluid. Fluid sent for diagnostic testing: None Medications: 1% lidocaine for local anaesthesia. Complications: None. IMPRESSION: Successful ultrasound-guided paracentesis. Dictated by: Saw Joshi M.D. on 11/18/2023 at 13:04 Approved by: Saw Joshi M.D. on 11/18/2023 at 13:04
== END ==
PROVIDERS: Family Provider Preventive Medicine Occupational Medicine; PCP Family Medicine; Referring Provider Internal Medicine; Visit Provider Internal Medicine
DX: K70.31 Alcoholic cirrhosis of liver with ascites (principal)
CPT/HCPCS: 49083

== ENCOUNTER → 2023-11-25 10:19 | Outpatient (ROUT) | payer OTHER, MEDICARE, SELFPAY ==
[2021-03-02 22:57] VITALS: BMI 112.0
[2023-11-25 10:39] LABS: INR 1.2 (0.9-1.3); Prothrombin Time 13.4 SECONDS (9.4-12.5)
== END ==
PROVIDERS: Family Provider Preventive Medicine Occupational Medicine; PCP Family Medicine; Visit Provider Internal Medicine
DX: K70.31 Alcoholic cirrhosis of liver with ascites (principal)
CPT/HCPCS: 85610

== ENCOUNTER → 2023-11-25 | Outpatient (CLI) | payer OTHER, MEDICARE, SELFPAY ==
[2021-03-02 22:57] VITALS: BMI 112.0
--- NOTE | 2023-11-25 | DI.US.S_ITS ---
PROCEDURE: US PARACENTESIS INDICATIONS: Alcoholic cirrhosis of liver with ascites TECHNIQUE: The indications, alternatives, benefits, risks, and complications of the procedure were explained to the patient. Written informed consent was obtained and placed in the chart. The abdomen and pelvis were examined sonographically, and an appropriate site was chosen for paracentesis. The skin was prepared and draped in the usual sterile fashion, and 1% lidocaine was infiltrated from the skin down through the peritoneal surface. A 19-gauge catheter-covered needle was then introduced into the peritoneal space, the catheter was advanced and the needle was withdrawn, and thereafter peritoneal fluid was withdrawn. The catheter was then removed and a dressing was applied. The fluid was discarded if the clinician did not order diagnostic testing of the fluid. COMPARISON: [facility], , PARACENTESIS, 11/18/2023, 11:20. FINDINGS: Access site: Right lower quadrant abdomen. Needle: One-Step centesis catheter with introducer needle. Fluid volume and description: 5 L of clear straw-colored ascites fluid. Fluid sent for diagnostic testing: None Medications: 1% lidocaine for local anaesthesia. Complications: None. IMPRESSION: Successful ultrasound-guided paracentesis. Dictated by: Lucio Isaac M.D. on 12/08/2023 at 10:05 Approved by: Lucio Isaac M.D. on 12/08/2023 at 10:07
== END ==
PROVIDERS: Family Provider Preventive Medicine Occupational Medicine; PCP Family Medicine; Referring Provider Internal Medicine; Visit Provider Internal Medicine
DX: K70.31 Alcoholic cirrhosis of liver with ascites (principal)
CPT/HCPCS: 49083; 85610

== ENCOUNTER → 2023-12-02 08:47 | Outpatient (CLI) | payer OTHER, MEDICARE, SELFPAY ==
[2021-03-02 22:57] VITALS: BMI 112.0
--- NOTE | 2023-12-02 08:50 | DI.US.S_ITS ---
PROCEDURE: US PARACENTESIS INDICATIONS: Kimmie Briones TECHNIQUE: The indications, alternatives, benefits, risks, and complications of the procedure were explained to the patient. Written informed consent was obtained and placed in the chart. The abdomen and pelvis were examined sonographically, and an appropriate site was chosen for paracentesis. The skin was prepared and draped in the usual sterile fashion, and 1% lidocaine was infiltrated from the skin down through the peritoneal surface. A 19-gauge catheter-covered needle was then introduced into the peritoneal space, the catheter was advanced and the needle was withdrawn, and thereafter peritoneal fluid was withdrawn. The catheter was then removed and a dressing was applied. The fluid was discarded if the clinician did not order diagnostic testing of the fluid. COMPARISON: [facility], , PARACENTESIS, 11/25/2023, 9:03. FINDINGS: Access site: Right lower quadrant Needle: One-Step centesis catheter with introducer needle. Fluid volume and description: 5000 cc of clear fluid. Fluid sent for diagnostic testing: No Medications: 1% lidocaine for local anaesthesia. Complications: None. IMPRESSION: Successful ultrasound-guided paracentesis. Dictated by: Giorgio Gilmore M.D. on 12/02/2023 at 14:32 Approved by: Giorgio Gilmore M.D. on 12/02/2023 at 14:33
== END ==
PROVIDERS: Family Provider Preventive Medicine Occupational Medicine; PCP Family Medicine; Referring Provider Internal Medicine; Visit Provider Internal Medicine
DX: K70.31 Alcoholic cirrhosis of liver with ascites (principal)
CPT/HCPCS: 49083

== ENCOUNTER 2023-12-08 12:59 | Emergency (ER) | payer OTHER, MEDICARE, SELFPAY ==
[2021-03-02 22:57] VITALS: BMI 112.0
[2023-12-08] VITALS (9 sets, daily range): BP systolic 138–164; BP diastolic 75–93; PULSE 90–97; RESP 19–24; TEMP 36.8; O2SAT 91–97
--- NOTE | 2023-12-08 13:45 | DI.RAD.S_ITS ---
PROCEDURE: XR CHEST 2V INDICATIONS: Eval for pleural effusion TECHNIQUE: 2 views of the chest were acquired. COMPARISON: [facility], , XR CHEST 1V, 11/10/2023, 17:39. FINDINGS: Surgical changes and devices: Surgical hardware in the cervical spine from prior fusion. Lungs and pleura: Right lung is clear. There is small to moderate pleural effusion on the left. This has shown significant progression when compared to the study of 11/10/2023. Mediastinum: Mediastinal contours are normal. Heart size is normal. Bones and chest wall: No suspicious bony abnormalities. Soft tissues appear unremarkable. IMPRESSION: Left pleural effusion, progressed since 11/10/2023. Dictated by: Lucio Isaac M.D. on 12/08/2023 at 14:38 Approved by: Lucio Isaac M.D. on 12/08/2023 at 15:00
--- NOTE | 2023-12-08 13:56 | EKG_ITS ---
[address] [address] Test Date: 2023-12-08 Pat Name: Stephanie Duran Department: [facility] Room: Gender: Female Hyster Driver: GEOVANNI : 1965 Requested By: Order Number: [id number] Reading MD: Daniel Salamanca MD Measurements Intervals [place] Rate: 91 P: 44 RI: 164 QRS: -4 QRSD: 84 T: 30 QT: 408 QTc: 501 Interpretive Statements Normal sinus rhythm Possible Anterior infarct , age undetermined Prolonged QT Electronically Signed On 12-08-2023 15:00:07 PDT by Daniel Salamanca MD
[2023-12-08 14:11] LABS: Add Manual Diff / Slide Review NO; Basophils Absolute Auto 100 /uL (0-100); Basophils Percent Auto 1.2 % (0-2); Eosinophils Absolute Auto 200 /uL (0-450); Hematocrit 27.4 % (36-46); Lymphocytes Absolute Auto 1400 /uL (1100-4500); Lymphocytes Percent Auto 23.5 % (25-40); Mean Corpuscular HGB Conc 32.9 % (30-36); Mean Corpuscular Hemoglobin 25.4 PG (26-34); Mean Corpuscular Volume 77.3 fL (80-100); Monocytes Absolute Auto 600 /uL (0-900); Monocytes Percent Auto 9.3 % (3-14); Neutrophils Absolute Auto 3800 /uL (1500-7000); Platelet Count 278 X10^3/uL (150-400); Red Blood Cell Count 3.55 X10^6/uL (4.0-5.2); Red Cell Distribution Width 21.2 % (11.6-14.8); White Blood Cell Count 6.1 X10^3/uL (4.5-11.0)
[2023-12-08 14:15] LABS: INR 1.2 (0.9-1.3); Prothrombin Time 13.8 SECONDS (9.4-12.5)
[2023-12-08 14:18] LABS: Alanine Aminotransferase 24 IU/L (<35); Albumin 3.3 g/dL (3.5-5.0); Alkaline Phosphatase 139 U/L (38-126); Aspartate Aminotransferase 50 IU/L (14-36); BUN Creatinine Ratio 14.9 (6-22); Bilirubin Total 1.6 mg/dL (0.2-1.3); Blood Urea Nitrogen 11 mg/dL (7-17); Calcium 8.7 mg/dL (8.4-10.2); Carbon Dioxide 18 mmol/L (22-32); Chloride 110 mmol/L (98-107); Creatine Kinase 41 U/L (30-135); Estimated Glomerular Filt Rate > 60 mL/min (>60); Globulin 3.3 g/dL (1.7-4.1); Glucose 130 mg/dL (70-100); HEMOLYSIS < 15 (0-50); Lipase 128 U/L (23-300); PTT Partial Thromboplastin Tim 32 SECONDS (25.1-36.5); Potassium 3.6 mmol/L (3.4-5.1); Sodium 137 mmol/L (137-145); Total Protein 6.6 g/dL (6.3-8.2)
--- NOTE | 2023-12-08 14:26 | ED_ITS ---
HPI - General Adult General Chief complaint: Shortness of Breath/Dyspnea Stated complaint: l pleural effusion found in ultrasound per pt Time Seen by Provider: 12/08/23 13:26 Source: patient Mode of arrival: Wheelchair History of Present Illness HPI narrative: Patient is a 58-year-old female with a history of cirrhosis. Over the past month has been receiving weekly paracentesis. Also states for the past month she has been short of breath. She thinks it is because her abdomen starts to feel with fluid and then she gets the paracentesis in her breathing goes back to her baseline. Today she discuss the breathing issues with the provider who did the paracentesis. Apparently an ultrasound was done noticed that she had a pleural effusion was sent to the ER. She states her breathing is now better after having the paracentesis. Proximally 7 L was removed from her abdomen. She did receive albumin. She was having a cough and wheezing. No fevers. Has a history of asthma but has not had to use her inhaler in several weeks. Related Data Home Medications Medication Instructions Recorded Confirmed aspirin 81 mg capsule 81 mg PO DAILY 08/15/23 08/15/23 carvedilol phosphate 10 mg 20 mg PO BID 08/15/23 08/15/23 capsule,[id number] multiphase Allergies Allergy/AdvReac Type Severity Reaction Status Date / Time morphine [MORPHINE] Allergy Unknown Hives Verified 11/10/23 15:57 acetaminophen [From Percocet] Allergy Verified 11/10/23 15:57 oxycodone [From Percocet] Allergy Verified 11/10/23 15:57 Review of Systems Review of Systems ROS Unobtainable: All systems reviewed & are unremarkable except as noted in HPI and below Patient History Medical History COVID-19 Tobacco abuse Alcoholism Methamphetamine abuse Surgical History Status post lumbar surgery Status post cervical spinal fusion Status post gastric bypass for obesity Family History Mother Hypertension Father Family estrangement Social History household members: spouse Smoking Status: Current every day smoker Smoking Status: Current every day smoker tobacco type: cigarettes alcohol intake frequency: 3 or more drinks per day Alcohol type: hard liquor Substance Use Type: marijuana Exam Initial Vital Signs Initial Vital Signs: Vital Signs Temperature 98.3 F 12/08/23 13:01 Pulse Rate 94 H 12/08/23 13:01 Respiratory Rate 24 12/08/23 13:01 Blood Pressure 162/75 H 12/08/23 13:01 Pulse Oximetry 94 12/08/23 13:01 Oxygen Delivery Method Room Air 12/08/23 13:01 Const General: cooperative, comfortable and No ill appearing HENMT Head: normal to inspection and normocephalic Resp Effort & Inspection: normal respiratory effort Auscultation: rhonchi and wheezes Cardio Rate: regular rate Rhythm: regular rhythm GI Inspection: non-distended Palpation: soft and No tender Skin General: no rashes or lesions noted Neuro General: patient alert and patient awake Course Orders Ordered: ED Orders 12/08/23 13:45 XR chest 2V Stat EKG-12 Lead Stat 12/08/23 13:55 Complete Blood Count AUTO DIFF Stat Comprehensive Metabolic Panel Stat Lipase Stat PTT Partial Thromboplastin Rodrigo Stat Prothrombin Time INR Stat Troponin & CK Cardiac Panel Stat Vital Signs Vital signs: Vital Signs - 8 hr 12/08/23 13:01 12/08/23 13:24 12/08/23 13:30 Temperature 98.3 F Pulse Rate 94 H 97 H Respiratory Rate 24 Blood Pressure 162/75 H 146/82 H Pulse Oximetry 94 92 Oxygen Delivery Method Room Air 12/08/23 13:30 12/08/23 14:00 12/08/23 14:01 Temperature Pulse Rate 95 H 90 Respiratory Rate 19 20 Blood Pressure 138/79 Pulse Oximetry 92 91 Oxygen Delivery Method 12/08/23 14:01 12/08/23 14:40 12/08/23 14:42 Temperature Pulse Rate 90 97 H 94 H Respiratory Rate 20 Blood Pressure Pulse Oximetry 91 94 97 Oxygen Delivery Method 12/08/23 14:42 Temperature Pulse Rate Respiratory Rate Blood Pressure 150/93 H Pulse Oximetry Oxygen Delivery Method Medical Decision Making Lab Data Lab results reviewed: Yes I reviewed the patient's lab results. 12/08/23 13:55 12/08/23 13:55 Labs: Lab Results 12/08/23 Range/Units 13:55 WBC 6.1 (4.5-11.0) X10^3/uL RBC 3.55 L (4.0-5.2) X10^6/uL Hgb 9.0 L (12.0-16.0) g/dL Hct 27.4 L (36-46) % MCV 77.3 L (80-100) fL MCH 25.4 L (26-34) PG MCHC 32.9 (30-36) % RDW 21.2 H (11.6-14.8) % Plt Count 278 (150-400) X10^3/uL Neut % (Auto) 63.0 (50-75) % Lymph % (Auto) 23.5 L (25-40) % [place] % (Auto) 9.3 (3-14) % Eos % (Auto) 3.0 (2-4) % Baso % (Auto) 1.2 (0-2) % Neut # (Auto) 3800 (4846-3456) /uL Lymph # (Auto) 1400 (9683-9356) /uL [place] # (Auto) 600 (0-900) /uL Eos # (Auto) 200 (0-450) /uL Baso # (Auto) 100 (0-100) /uL RBC Morphology See below Anisocytosis 2+ H Microcytosis 1+ H PT 13.8 H (9.4-12.5) SECONDS INR 1.2 (0.9-1.3) APTT 32 (25.1-36.5) SECONDS Sodium 137 (137-145) mmol/L Potassium 3.6 (3.4-5.1) mmol/L Chloride 110 H (98-107) mmol/L Carbon Dioxide 18 L (22-32) mmol/L BUN 11 (7-17) mg/dL Creatinine 0.74 (0.52-1.04) mg/dL Estimated GFR > 60 (>60) mL/min BUN/Creatinine Ratio 14.9 (6-22) Glucose 130 H (70-100) mg/dL Calcium 8.7 (8.4-10.2) mg/dL Total Bilirubin 1.6 H (0.2-1.3) mg/dL AST 50 H (14-36) IU/L ALT 24 (<35) IU/L Alkaline Phosphatase 139 H (38-126) U/L Total Creatine Kinase 41 (30-135) U/L Troponin I < 0.012 (0.01-0.034) ng/mL Total Protein 6.6 (6.3-8.2) g/dL Albumin 3.3 L (3.5-5.0) g/dL Globulin 3.3 (1.7-4.1) g/dL Albumin/Globulin Ratio 1.0 (1.0-2.8) Lipase 128 (23-300) U/L Imaging Data Chest x-ray: Radiologist's Impression: PROCEDURE: XR CHEST 2V INDICATIONS: Eval for pleural effusion TECHNIQUE: 2 views of the chest were acquired. COMPARISON: [facility], , XR CHEST 1V, 11/10/2023, 17:39. FINDINGS: Surgical changes and devices: Surgical hardware in the cervical spine from prior fusion. Lungs and pleura: Right lung is clear. There is small to moderate pleural effusion on the left. This has shown significant progression when compared to the study of 11/10/2023. Mediastinum: Mediastinal contours are normal. Heart size is normal. Bones and chest wall: No suspicious bony abnormalities. Soft tissues appear unremarkable. IMPRESSION: Left pleural effusion, progressed since 11/10/2023. ECG Data Attestation: I personally reviewed and interpreted this ECG as follows: Interpretation: Sinus rhythm Ventricular rate 91 Normal axis Normal QRS QTC [address] T wave changes MDM Narrative Medical decision making narrative: Patient does have shortness of breath however she does feel better after having the paracentesis earlier today. She does have a pleural effusion however is not tachypneic and not hypoxic. No indication for an emergent thoracentesis. She was afebrile. She states that her respiratory status is now back to baseline which has been worsening over the past month or so. He was able to contact her primary doctor and was able to schedule her follow-up appointment on Tuesday12/12/2023 0945 hours. She was given this information. She was given return precautions and follow-up instructions. She expressed understanding and agreement. Discharge Plan Departure Patient Disposition: Home Clinical Impression: Pleural effusion Instructions: DI for Pleural Effusion Activity Restrictions/Additional Instructions: We were able to schedule you a follow-up appointment with Dr. Naranjo on Tuesday12/12/2023 at 0945 hours. You can discuss any potential follow-up that maybe needed with regard to the pleural effusion. Return to the emergency department for new or worsening symptoms. Prescriptions: No Action carvedilol phosphate 10 mg capsule, ER multiphase 24 hr 20 mg PO BID aspirin 81 mg Capsule 81 mg PO DAILY Referrals: Pastor Naranjo MD [Primary Care Provider] - Stand Alone Forms: Patient Portal/API
[2023-12-08 14:28] LABS: Anisocytosis 2+
[2023-12-08 14:29] LABS: Microcytosis 1+; Troponin I < 0.012 ng/mL (0.01-0.034)
== END 2023-12-08 15:58 | disposition home or self-care (01) ==
PROVIDERS: Emergency Provider Emergency Medicine; Family Provider Preventive Medicine Occupational Medicine; PCP Family Medicine
DX: J90 Pleural effusion, not elsewhere classified (principal); R79.89 Other specified abnormal findings of blood chemistry; K70.31 Alcoholic cirrhosis of liver with ascites
CPT/HCPCS: 36415; 49083; 71046; 80053; 82550; 83690; 84484; 85025; 85610; 85730; 93005; 93010; 96365; 96366; 99284; P9041

== ENCOUNTER → 2023-12-08 | Outpatient (CLI) | payer OTHER, MEDICARE, SELFPAY ==
[2021-03-02 22:57] VITALS: BMI 112.0
--- NOTE | 2023-12-08 08:39 | DI.US.S_ITS ---
PROCEDURE: US PARACENTESIS INDICATIONS: Alcoholic cirrhosis of liver with ascites TECHNIQUE: The indications, alternatives, benefits, risks, and complications of the procedure were explained to the patient. Written informed consent was obtained and placed in the chart. The abdomen and pelvis were examined sonographically, and an appropriate site was chosen for paracentesis. The skin was prepared and draped in the usual sterile fashion, and 1% lidocaine was infiltrated from the skin down through the peritoneal surface. A 19-gauge catheter-covered needle was then introduced into the peritoneal space, the catheter was advanced and the needle was withdrawn, and thereafter peritoneal fluid was withdrawn. The catheter was then removed and a dressing was applied. The fluid was discarded if the clinician did not order diagnostic testing of the fluid. COMPARISON: [facility], CR, XR CHEST 1V, 12/15/2023, 15:55. [facility], US, US PARACENTESIS, 12/02/2023, 9:09. FINDINGS: Access site: Right of midline Needle: One-Step centesis catheter with introducer needle. Fluid volume and description: 6300 cc, clear straw-colored Fluid sent for diagnostic testing: None Medications: 1% lidocaine for local anaesthesia. Complications: None. Left pleural effusion noted. IMPRESSION: Successful ultrasound-guided therapeutic paracentesis. Procedure was performed by Dr. Isaac. Left pleural effusion noted. Dictated by: Canelo Anglin M.D. on 12/23/2023 at 15:57 Approved by: Canelo Anglin M.D. on 12/23/2023 at 15:59
== END ==
LOC: US 08:39
PROVIDERS: Family Provider Preventive Medicine Occupational Medicine; PCP Family Medicine; Referring Provider Internal Medicine; Visit Provider Internal Medicine
DX: K70.31 Alcoholic cirrhosis of liver with ascites (principal)
CPT/HCPCS: 49083

== ENCOUNTER 2023-12-14 16:05 | Inpatient (IN) | payer OTHER, MEDICARE, SELFPAY ==
[2021-03-02 22:57] VITALS: BMI 112.0
[2023-12-14] VITALS (12 sets, daily range): BP systolic 138–157; BP diastolic 77–81; PULSE 66–72; RESP 16–30; TEMP 36.4–36.6; O2SAT 94–98; BMI 32.1
--- NOTE | 2023-12-14 16:11 | EKG_ITS ---
[address] [address] Test Date: 2023-12-14 Pat Name: Stephanie Duran Department: [facility] Room: Gender: Female Locate Technician: ABHI : 1965 Requested By: Order Number: [id number] Reading MD: Daniel Salamanca MD Measurements Intervals [place] Rate: 69 P: 92 DC: 140 QRS: 0 QRSD: 84 T: 20 QT: 494 QTc: 529 Interpretive Statements Normal sinus rhythm Possible Lateral infarct , age undetermined Prolonged QT NO SIGNIFICANT CHANGE FROM PRIOR TRACING Electronically Signed On 12-15-2023 7:38:30 PDT by Daniel Salamanca MD
--- NOTE | 2023-12-14 16:11 | DI.CT.S_ITS ---
PROCEDURE: CT STROKE INDICATIONS: Right facial droop slurred speech right-sided weakness TECHNIQUE: Noncontrast 4.5 mm thick angled axial sections acquired from the foramen magnum to the vertex, with coronal reformats. For radiation dose reduction, the following was used: automated exposure control, adjustment of mA and/or kV according to patient size. COMPARISON: [facility], CT, CT STROKE, 11/08/2020, 16:08. FINDINGS: Image quality: Diagnostic. CSF spaces: Basal cisterns are patent. No extra-axial fluid collections. The ventricles are symmetric in size and shape. Brain: No intracranial bleeds or masses. There is cerebral volume loss for age, with resultant ventricular and sulcal prominence. There are periventricular and deep white matter chronic small vessel ischemic changes. Skull and face: Calvarium and visualized facial bones appear intact, without suspicious lesions. Sinuses: Visualized sinuses and mastoids are clear. IMPRESSION: No acute intracranial pathology. Findings were discussed with Dr. Ryan on 12.14.23 at 16:36 hours This study fulfills neurological imaging criteria for inclusion or exclusion of acute stroke therapies based on available published neurological guidelines. Dictated by: Vinod Jj M.D. on 12/14/2023 at 16:38 Approved by: Vinod Jj M.D. on 12/14/2023 at 16:39
--- NOTE | 2023-12-14 16:11 | DI.CT.S_ITS ---
PROCEDURE: CT ANGIO HEAD AND NECK INDICATIONS: Right facial droop slurred speech right-sided weakness TECHNIQUE: After the administration of intravenous contrast, 1 mm thick sections acquired from the aortic arch through the [place] of [place]. 3-dimensional gkpfhhd-ddyqkfjno-buviofrwve (MIP) and/or volume rendering reformats were acquired of the central intracranial vasculature and neck separately. For radiation dose reduction, the following was used: automated exposure control, adjustment of mA and/or kV according to patient size. COMPARISON: [facility], CR, XR CHEST 2V, 12/08/2023, 14:28. [facility], CT, CT STROKE, 12/14/2023, 16:21. [facility], CT, CT ANGIO HEAD AND NECK, 11/08/2020, 16:11. FINDINGS: Image quality: Limited by bolus timing, with venous contamination. There is streak artifact seen through the level of the shoulders. BRAIN: CSF spaces: Ventricles are normal in size and shape. Basal cisterns are patent. No extra-axial fluid collections. Brain: No significant abnormality of the brain can be seen. Skull and face: Calvarium and facial bones appear intact, without suspicious lesions. Orbits appear normal. Sinuses: Sinuses and mastoids are clear. HEAD CT ANGIOGRAPHY: Anterior circulation: Intracranial internal carotid arteries are normal in size and flow. The flow within the paired anterior cerebral arteries is normal and symmetric. The flow within the middle cerebral arteries is normal and symmetric. The anterior communicating artery is seen. No aneurysms are seen. Posterior circulation: Visualized portions of the vertebral arteries demonstrate normal caliber, and join to form a normal appearing basilar artery. There is a prominent right posterior communicating artery seen, with an accompanying diminutive right P1 segment. This is attributed to a type origin of the right posterior cerebral artery, which is considered to be a normal developmental variant of typically no clinical consequence. The flow within the posterior cerebral arteries is normal and symmetric. No aneurysms are seen. NECK CT ANGIOGRAPHY: Carotid system: The great vessels demonstrate a conventional anatomy as they arise from the aortic arch. The origins of the common carotid arteries appear patent. The common carotid arteries demonstrate normal caliber and courses. The bifurcation regions are both widely patent. The internal carotid arteries demonstrate normal calibers and courses. Posterior circulation: The origins of the vertebral arteries both appear widely patent. The more superior extracranial portions of both vertebral arteries also demonstrate normal courses and calibers. The left vertebral artery is dominant to the right. Soft tissues: Visualized neck soft tissues demonstrate no suspicious abnormalities. There is a moderate to large left-sided pleural effusion partially seen. Bones: No suspicious bony lesions. Visualized cervical spine appears normally aligned. Cervical spine postoperative and degenerative change can be seen. IMPRESSION: No significant intracranial arterial abnormality is seen. No significant abnormality is seen within the arteries of the neck. Moderate to large left-sided pleural effusion partially seen, which is worse than on the 12/08/2023 plain film. If there is strong clinical suspicion for an acute stroke, please consider a brain MRI for further evaluation, as it is more sensitive (assuming that there is no contraindication to MRI). Additional findings: Yytovm-lr-Yxdvbo developmental anomalies Cervical spine postoperative and degenerative change Any quantitative measurements of stenosis were performed using NASCET criteria. Dictated by: Mingo Nelson M.D. on 12/14/2023 at 15:52 Approved by: Mingo Nelson M.D. on 12/14/2023 at 15:55
[2023-12-14] MEDS: ALBUTEROL/IPRATROPIUM 3 ML AMPUL INH (16:14)
--- NOTE | 2023-12-14 16:14 | ED.NEUROSD ---
HPI - Neuro Symptoms/Deficit General Chief Complaint: Neuro Symptoms/Deficit Stated Complaint: CVA Time Seen by Provider: 12/14/23 16:11 History of Present Illness HPI Narrative: Patient brought a male who is for complaints of right facial droop weakness of the arm and leg on the right side with tingling to the right side as well. Patient had stroke a few years ago. Seen here. Patient followed by primary care doctor Jose A, patient is on cholesterol medication and aspirin only. Symptoms started at 3:00 p.m. yesterday, 24 hours ago. Patient did recover from previous stroke on the right side with no residual deficits. Patient has history of alcohol cirrhosis with ascites. This is not new. Blood sugar 106 by EMS. Vital signs otherwise reassuring. Patient is awake alert oriented x4. Does have right facial droop with slurred speech Related Data Home Medications Medication Instructions Recorded Confirmed albuterol sulfate 90 mcg/actuation 90 mcg inhalation 1-2XD PRN 12/14/23 12/15/23 aerosol inhaler Shortness Of Breath Or Wheezing azithromycin 250 mg tablet 250 mg PO DAILY 12/14/23 12/14/23 lactulose 10 gram/15 mL oral 7.5 ml PO DAILY 12/14/23 12/14/23 solution methylprednisolone 4 mg tablets in 4 mg PO DAILY 12/14/23 12/14/23 a dose pack montelukast 10 mg tablet 10 mg PO BEDTIME 12/14/23 12/14/23 nadolol 40 mg tablet 40 mg PO DAILY 12/14/23 12/14/23 spironolactone 25 mg tablet 25 mg PO DAILY 12/14/23 12/14/23 Allergies Allergy/AdvReac Type Severity Reaction Status Date / Time morphine [MORPHINE] Allergy Unknown Hives Verified 11/10/23 15:57 acetaminophen [From Percocet] Allergy Verified 11/10/23 15:57 oxycodone [From Percocet] Allergy Verified 11/10/23 15:57 Review of Systems Review of Systems Narrative: GENERAL: negative chills, fatigue, malaise, fever, sweats. HEENT: negative sinus pain, ear pain, sore throat RESPIRATORY: negative dyspnea, cough CARDIOVASCULAR: negative chest pain, palpitations GASTROINTESTINAL: negative nausea, vomiting, abdominal pain : negative dysuria, frequency, hematuria MUSCULOSKELETAL: negative muscle or bony pain SKIN: negative rash, skin lesions NEUROLOGIC: Positive slurred speech, facial droop weakness, numbness Patient History Medical History COVID-19 Tobacco abuse Alcoholism Methamphetamine abuse Surgical History Status post lumbar surgery Status post cervical spinal fusion Status post gastric bypass for obesity Family History Mother Hypertension Father Family estrangement Social History household members: spouse Smoking Status: Current every day smoker Smoking Status: Current every day smoker tobacco type: cigarettes alcohol intake frequency: 3 or more drinks per day Alcohol type: hard liquor Substance Use Type: marijuana Exam Narrative Exam Narrative: GENERAL: in no distress, not toxic not dyspneic HEAD: Normocephalic. EYES: Pupils equal round ENT: Mucous membranes moist. NECK: Trachea midline. CARDIOVASCULAR: Regular rate and rhythm RESPIRATORY: Clear to auscultation. Breath sounds equal bilaterally. No wheezes, rales, or rhonchi. GASTROINTESTINAL: Abdomen soft, non-tender EXTREMITIES: No gross deformities. BACK: No flank tenderness. NEURO: AOx4. 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 Right arm drift and right leg drift SKIN: Warm and dry PSYCH: Not anxious, is cooperative Initial Vital Signs Initial Vital Signs: Vital Signs Pulse Rate 70 12/14/23 16:09 Pulse Oximetry 98 12/14/23 16:09 Scores NIH Stroke Scale Level of Conciousness: Alert, keenly responsive Ask month/age: Answers both questions correctly. Open/close eyes, close hand: Performs both tasks correctly Best gaze horizontal: Normal Visual werner: No visual loss Facial palsy: Minor paralysis, flattened nasolabial fold, asymmetry on smiling Left arm drift: No drift for full 10 sec Right arm drift: Drifts down, not to bed Left leg drift: No drift for full 5 sec Right leg drift: Drifts down, not to bed Limb ataxia: Absent Sensory on face/arms/legs: Mild to moderate sensory loss, can tell touch Best language: Mild to moderate, slurs some words Dysarthria: Mild to mod,some slurring Extinction or inattention: No abnormality Total NIH Stroke scale score: 6 Course Orders Ordered: Albuterol (Albuterol 2.5 Mg/3 Ml Neb (Adult)) 2.5 mg INH [id number] PRN PRN Reason: Shortness Of Breath Aspirin (Aspirin Ec 81 Mg Tablet) 81 mg PO DAILY [facility] Last Admin: 12/15/23 08:55 Dose: 81 mg Documented By: MARGARET Atorvastatin Calcium (Atorvastatin 20 Mg Tablet) 20 mg PO BEDTIME [facility] Last Admin: 12/14/23 22:14 Dose: 20 mg Documented By: AGUILAR Calcium Carbonate (Calcium Carbonate 500 Mg Tab) 1,000 mg PO Q4HR PRN PRN Reason: Dyspepsia Clopidogrel Bisulfate (Clopidogrel 75 Mg Tablet) 75 mg PO DAILY [facility] Last Admin: 12/15/23 08:55 Dose: 75 mg Documented By: MARGARET Enoxaparin Sodium (Enoxaparin 40 Mg/0.4 Ml Syringe) 40 mg SUBCUT DAILY [facility] Last Admin: 12/15/23 08:55 Dose: 40 mg Documented By: MARGARET Magnesium Hydroxide (Magnesium Hydroxide 30 Ml Udc) 30 ml PO DAILY PRN PRN Reason: Constipation Naloxone HCl (Naloxone 0.4 Mg/Ml Vial) 0.2 mg IV Q2MIN PRN PRN Reason: Opiate Reversal Ondansetron HCl (Ondansetron 4 Mg/2 Ml Inj) 4 mg IV Q8HR PRN PRN Reason: Nausea And Vomiting Discontinued Medications Albuterol/Ipratropium (Albuterol/Ipratropium 3 Ml Ampul) 3 ml INH NOW ONE Stop: 12/14/23 16:13 Last Admin: 12/14/23 16:14 Dose: 3 ml Documented By: YORDY Clopidogrel Bisulfate (Clopidogrel 75 Mg Tablet) 75 mg PO NOW ONE Stop: 12/14/23 17:51 Last Admin: 12/14/23 18:05 Dose: 75 mg Documented By: MARGARET(2) Sodium Chloride (Normal Saline 0.9%) 500 mls @ 1,000 mls/hr IV BOLUS ONE Stop: 12/14/23 16:40 Last Infusion: 12/14/23 17:19 Dose: Infused Documented By: Admin: 12/14/23 16:34 Dose: 1,000 mls/hr Documented By: NIEVES Lorazepam (Lorazepam 2 Mg/Ml Inj) 0.5 mg IV NOW ONE Stop: 12/15/23 08:39 Last Admin: 12/15/23 10:17 Dose: 0.5 mg Documented By: MARGARET Non-Formulary Medication (Carvedilol Phosphate) 20 mg PO BID MARIA ELENA Vital Signs Vital signs: Vital Signs - 8 hr 12/14/23 16:09 12/14/23 16:13 12/14/23 16:15 Temperature 97.6 F Pulse Rate 70 70 70 Respiratory Rate 20 30 H Blood Pressure 157/77 H Pulse Oximetry 98 98 95 Oxygen Delivery Method Room Air 12/14/23 16:17 12/14/23 16:31 12/14/23 16:45 Temperature Pulse Rate 72 69 Respiratory Rate 25 H Blood Pressure Pulse Oximetry 98 98 98 Oxygen Delivery Method Room Air 12/14/23 17:00 12/14/23 17:16 12/14/23 17:16 Temperature Pulse Rate 68 72 Respiratory Rate 25 H 24 Blood Pressure 145/81 H Pulse Oximetry 97 94 Oxygen Delivery Method Room Air 12/14/23 17:30 12/14/23 17:45 Temperature Pulse Rate 68 69 Respiratory Rate 24 23 Blood Pressure Pulse Oximetry 97 96 Oxygen Delivery Method MDM - Neuro Symptoms/Deficit Lab Data 12/15/23 05:26 12/15/23 05:26 Labs: Lab Results 12/14/23 12/14/23 Range/Units 16:08 17:28 WBC 11.9 H (4.5-11.0) X10^3/uL RBC 3.66 L (4.0-5.2) X10^6/uL Hgb 9.3 L (12.0-16.0) g/dL Hct 28.8 L (36-46) % MCV 78.7 L (80-100) fL MCH 25.3 L (26-34) PG MCHC 32.2 (30-36) % RDW 22.2 H (11.6-14.8) % Plt Count 301 (150-400) X10^3/uL Neut % (Auto) 74.4 (50-75) % Lymph % (Auto) 14.5 L (25-40) % [place] % (Auto) 9.7 (3-14) % Eos % (Auto) 0.3 L (2-4) % Baso % (Auto) 1.1 (0-2) % Neut # (Auto) 8800 H (7902-5086) /uL Lymph # (Auto) 1700 (9075-3002) /uL [place] # (Auto) 1100 H (0-900) /uL Eos # (Auto) 0 (0-450) /uL Baso # (Auto) 100 (0-100) /uL RBC Morphology See below Anisocytosis 3+ H Sodium 137 (137-145) mmol/L Potassium 4.2 (3.4-5.1) mmol/L Chloride 111 H (98-107) mmol/L Carbon Dioxide 22 (22-32) mmol/L BUN 12 (7-17) mg/dL Creatinine 0.79 (0.52-1.04) mg/dL Estimated GFR > 60 (>60) mL/min BUN/Creatinine Ratio 15.2 (6-22) Glucose 111 H (70-100) mg/dL Calcium 8.8 (8.4-10.2) mg/dL Total Bilirubin 1.3 (0.2-1.3) mg/dL AST 49 H (14-36) IU/L ALT 26 (<35) IU/L Alkaline Phosphatase 224 H D (38-126) U/L Ammonia < 9 L (9-30) umol/L Total Creatine Kinase 47 (30-135) U/L Troponin I < 0.012 (0.01-0.034) ng/mL NT-Pro-B Natriuret Pep 513 H (<125) pg/mL Total Protein 6.5 (6.3-8.2) g/dL Albumin 3.0 L (3.5-5.0) g/dL Globulin 3.5 (1.7-4.1) g/dL Albumin/Globulin Ratio 0.9 L (1.0-2.8) Ethyl Alcohol < 10 ( - 10) mg/dL Point of Care Testing Glucose POC [address] scan - head: Radiologist's Impression: [address] [address] [address] Scan Report Signed Patient: Stephanie Duran MR#: [id number] : 1965 Acct:[id number] Age/Sex: 58 / F Date of Service: 12/14/23 Loc: ED Accession Number: [id number] Procedure: CT Stroke Ordering Provider: Alonso Ryan MD PROCEDURE: CT STROKE INDICATIONS: Right facial droop slurred speech right-sided weakness TECHNIQUE: Noncontrast 4.5 mm thick angled axial sections acquired from the foramen magnum to the vertex, with coronal reformats. For radiation dose reduction, the following was used: automated exposure control, adjustment of mA and/or kV according to patient size. COMPARISON: [facility]ed [facility], CT, CT STROKE, 11/08/2020, 16:08. FINDINGS: Image quality: Diagnostic. CSF spaces: Basal cisterns are patent. No extra-axial fluid collections. The ventricles are symmetric in size and shape. Brain: No intracranial bleeds or masses. There is cerebral volume loss for age, with resultant ventricular and sulcal prominence. There are periventricular and deep white matter chronic small vessel ischemic changes. Skull and face: Calvarium and visualized facial bones appear intact, without suspicious lesions. Sinuses: Visualized sinuses and mastoids are clear. IMPRESSION: No acute intracranial pathology. Findings were discussed with Dr. Ryan on 12.14.23 at 16:36 hours This study fulfills neurological imaging criteria for inclusion or exclusion of acute stroke therapies based on available published neurological guidelines. Dictated by: Vinod Jj M.D. on 12/14/2023 at 16:38 Approved by: Vinod Jj M.D. on 12/14/2023 at 16:39 CTA - brain/neck: Radiologist's Impression: [place] [address] CT Scan Report Signed Patient: Stephanie Duran MR#: [id number] : 1965 Acct:[id number] Age/Sex: 58 / F Date of Service: 12/14/23 Loc: ED Accession Number: [id number] Procedure: CT angio head and neck Ordering Provider: Alonso Ryan MD PROCEDURE: CT ANGIO HEAD AND NECK INDICATIONS: Right facial droop slurred speech right-sided weakness TECHNIQUE: After the administration of intravenous contrast, 1 mm thick sections acquired from the aortic arch through the [place] of [place]. 3-dimensional jzkcuvf-uuoknbokr-glbrilpmng (MIP) and/or volume rendering reformats were acquired of the central intracranial vasculature and neck separately. For radiation dose reduction, the following was used: automated exposure control, adjustment of mA and/or kV according to patient size. COMPARISON: Merged With [facility], CR, XR CHEST 2V, 12/08/2023, 14:28. [facility] With [facility], CT, CT STROKE, 12/14/2023, 16:21. [facility]ed With [facility], CT, CT ANGIO HEAD AND NECK, 11/08/2020, 16:11. FINDINGS: Image quality: Limited by bolus timing, with venous contamination. There is streak artifact seen through the level of the shoulders. BRAIN: CSF spaces: Ventricles are normal in size and shape. Basal cisterns are patent. No extra-axial fluid collections. Brain: No significant abnormality of the brain can be seen. Skull and face: Calvarium and facial bones appear intact, without suspicious lesions. Orbits appear normal. Sinuses: Sinuses and mastoids are clear. HEAD CT ANGIOGRAPHY: Anterior circulation: Intracranial internal carotid arteries are normal in size and flow. The flow within the paired anterior cerebral arteries is normal and symmetric. The flow within the middle cerebral arteries is normal and symmetric. The anterior communicating artery is seen. No aneurysms are seen. Posterior circulation: Visualized portions of the vertebral arteries demonstrate normal caliber, and join to form a normal appearing basilar artery. There is a prominent right posterior communicating artery seen, with an accompanying diminutive right P1 segment. This is attributed to a type origin of the right posterior cerebral artery, which is considered to be a normal developmental variant of typically no clinical consequence. The flow within the posterior cerebral arteries is normal and symmetric. No aneurysms are seen. NECK CT ANGIOGRAPHY: Carotid system: The great vessels demonstrate a conventional anatomy as they arise from the aortic arch. The origins of the common carotid arteries appear patent. The common carotid arteries demonstrate normal caliber and courses. The bifurcation regions are both widely patent. The internal carotid arteries demonstrate normal calibers and courses. Posterior circulation: The origins of the vertebral arteries both appear widely patent. The more superior extracranial portions of both vertebral arteries also demonstrate normal courses and calibers. The left vertebral artery is dominant to the right. Soft tissues: Visualized neck soft tissues demonstrate no suspicious abnormalities. There is a moderate to large left-sided pleural effusion partially seen. Bones: No suspicious bony lesions. Visualized cervical spine appears normally aligned. Cervical spine postoperative and degenerative change can be seen. IMPRESSION: No significant intracranial arterial abnormality is seen. No significant abnormality is seen within the arteries of the neck. Moderate to large left-sided pleural effusion partially seen, which is worse than on the 12/08/2023 plain film. If there is strong clinical suspicion for an acute stroke, please consider a brain MRI for further evaluation, as it is more sensitive (assuming that there is no contraindication to MRI). Additional findings: Vnhomo-oa-Pubzrx developmental anomalies Cervical spine postoperative and degenerative change Any quantitative measurements of stenosis were performed using NASCET criteria. Dictated by: Mingo Nelson M.D. on 12/14/2023 at 15:52 Approved by: Mingo Nelson M.D. on 12/14/2023 at 15:55 [facility] Narrative Medical decision making narrative: Patient brought a male who is for complaints of right facial droop weakness of the arm and leg on the right side with tingling to the right side as well. Patient had stroke a few years ago. Seen here. Patient followed by primary care doctor Jose A, patient is on cholesterol medication and aspirin only. Symptoms started at 3:00 p.m. yesterday, 24 hours ago. Patient did recover from previous stroke on the right side with no residual deficits. Patient has history of alcohol cirrhosis with ascites. This is not new. Blood sugar 106 by EMS. Vital signs otherwise reassuring. Patient is awake alert oriented x4. Does have right facial droop with slurred speech After history and exam CBC CMP CT head CT angiogram head and neck EKG/admit [facility] Medical records reviewed: 2020 admission for stroke Differential considered: Includes but not limited to stroke TIA Mac's palsy Lab Test results independently reviewed as above. Pertinent findings: WBC 11.9 hemoglobin 9.3 sodium 137 potassium 4.2 glucose 111 AST 49 ALT 26 ammonia less than 9 troponin less than 0.012 albumin 3.0 alcohol negative Independently reviewed EKG normal sinus rhythm rate [address] elevation depression. Prolonged QT present Imaging studies independently reviewed: CT head CT angiogram head and neck no acute finding Consultations: 5:[address] Johny Fields, on-call for Dr. Naranjo, who will admit patient. Reviewed with him pleural effusion as well as ascites and this will need to be worked up as well during course of stay. He would like a dose of Plavix here. Who will put admission orders and Treatments: Plavix normal saline DuoNeb Re-evaluations: 6:00 p.m.. Updated patient results. She does agree for admission for multiple reasons including stroke and possible pleurocentesis and possible paracentesis Discussion: Appropriate for admission for balance of workup for stroke. No TNK/t-PA at this time, onset 25 hours ago, patient outside window for endovascular studies, no large vessel disease seen on CT angiogram Diagnosis: Acute stroke Stroke Core Measures Exclusion Criteria TPA in CVA: Symptom Onset >3 or 4.5 Hours Discharge Plan Departure Patient Disposition: Admitted As Inpatient Clinical Impression: Cerebrovascular accident Qualifiers: CVA mechanism: unspecified Qualified Code(s): I63.9 - Cerebral infarction, unspecified Admit Date/Time: 12/14/23 18:14 Admit Provider: Johny Fields
[2023-12-14 16:25] LABS: Add Manual Diff / Slide Review NO; Basophils Absolute Auto 100 /uL (0-100); Basophils Percent Auto 1.1 % (0-2); Eosinophils Absolute Auto 0 /uL (0-450); Eosinophils Percent Auto 0.3 % (2-4); Hematocrit 28.8 % (36-46); Hemoglobin 9.3 g/dL (12.0-16.0); Lymphocytes Absolute Auto 1700 /uL (1100-4500); Lymphocytes Percent Auto 14.5 % (25-40); Mean Corpuscular HGB Conc 32.2 % (30-36); Mean Corpuscular Hemoglobin 25.3 PG (26-34); Mean Corpuscular Volume 78.7 fL (80-100); Monocytes Absolute Auto 1100 /uL (0-900); Monocytes Percent Auto 9.7 % (3-14); Neutrophils Absolute Auto 8800 /uL (1500-7000); Neutrophils Percent Auto 74.4 % (50-75); Platelet Count 301 X10^3/uL (150-400); Red Blood Cell Count 3.66 X10^6/uL (4.0-5.2); Red Cell Distribution Width 22.2 % (11.6-14.8); White Blood Cell Count 11.9 X10^3/uL (4.5-11.0)
[2023-12-14 16:34] LABS: Alanine Aminotransferase 26 IU/L (<35); Albumin Globulin Ratio 0.9 (1.0-2.8); Alkaline Phosphatase 224 U/L (38-126); Aspartate Aminotransferase 49 IU/L (14-36); BUN Creatinine Ratio 15.2 (6-22); Bilirubin Total 1.3 mg/dL (0.2-1.3); Blood Urea Nitrogen 12 mg/dL (7-17); Calcium 8.8 mg/dL (8.4-10.2); Carbon Dioxide 22 mmol/L (22-32); Chloride 111 mmol/L (98-107); Creatine Kinase 47 U/L (30-135); Estimated Glomerular Filt Rate > 60 mL/min (>60); Globulin 3.5 g/dL (1.7-4.1); Glucose 111 mg/dL (70-100); HEMOLYSIS < 15 (0-50); Potassium 4.2 mmol/L (3.4-5.1); Sodium 137 mmol/L (137-145); Total Protein 6.5 g/dL (6.3-8.2)
[2023-12-14] MEDS: SODIUM CHLORIDE 0.9% 500 ML 1000 ML IV (16:34)
[2023-12-14 16:42] LABS: Anisocytosis 3+
[2023-12-14 16:46] LABS: Troponin I < 0.012 ng/mL (0.01-0.034)
[2023-12-14 17:47] LABS: Ethanol (ETOH) < 10 mg/dL
[2023-12-14 17:48] LABS: Ammonia (NH3) < 9 umol/L (9-30)
[2023-12-14 17:57] LABS: NT-proBNP (BNP-Adult 18+) 513 pg/mL (<125)
[2023-12-14] MEDS: CLOPIDOGREL 75 MG TABLET PO (18:05)
--- NOTE | 2023-12-14 21:03 | DI.ECHO.S_ITS ---
[facility] : : [address] : : [place] : : [id number] : : Phone: [phone] Echocardiogram Report + + :Name: MIKAL TORRES Study Date: 12/15/2023 Height: 65 in : :[facility] ReadingLocation: Weight: 189 lb : : Gender: Female BSA: 1.9 m2 : :: 1965 Age: 58 yrs BP: 138/80 mmHg: :Reason For Study: CVA : :Ordering Physician: EVANGELIST : :JIM Performed By: Gregorio Valles : :Referring: JIM BLANCA : + + Interpretation Summary This is a technically difficult and limited study. 1. The left ventricular contractility appears to be normal. Estimate ejection fraction is greater than 60% with no obvious segmental wall motion abnormalities. No obvious left ventricular hypertrophy. Unable to comment on diastolic function. 2. The right ventricle was not well-visualized. 3. No intracardiac shunts noted on agitated saline contrast study. 4. No obvious intracardiac masses nor thrombi noted in the left ventricular cavity. 5. There is a large left pleural effusion present. No hemodynamically significant pericardial effusion identified. Conclusion: Normal left ventricular systolic function without intracardiac shunts. Large left pleural effusion present. Procedure: A two-dimensional transthoracic echocardiogram with color flow Doppler was performed. A saline contrast injection was performed to assess for cardiac shunting. The study quality was technically difficult. Comparison is made with the echocardiogram of 11/22/23. The patient was in sinus rhythm with heart rates between 68-72 bpm during the exam. Left Ventricle: The left ventricle is normal in size. Left ventricular wall thickness is mildly increased. The ejection fraction is estimated to be 65- 70%. Atria: NEGATIVE BUBBLE STUDY. Pericardium/ Pleura There is a large left-sided pleural effusion. MMode/2D Measurements & Calculations LVIDd: 4.1 cm LVIDs: 2.5 cm FS: 39.8 % IVSd: 1.2 cm LVPWd: 1.2 cm LV mendez. diameter/BSA (cm/m^2): 2.1 LV sys. diameter/BSA (cm/m^2): 1.3 Reading Physician:
[2023-12-14] MEDS: ATORVASTATIN 20 MG TABLET PO (22:14)
--- NOTE | 2023-12-15 | DI.MRI.S_ITS ---
PROCEDURE: MR HEAD/BRAIN WO CON INDICATIONS: cva TECHNIQUE: Noncontrast axial T1 spin echo, axial T2 fast spin echo, sagittal and axial FLAIR, coronal T2 fast spin echo, axial gradient echo, axial diffusion and ADC through the brain. COMPARISON: [facility], CT, CT ANGIO HEAD AND NECK, 12/14/2023, 16:21. [facility], CT, CT STROKE, 12/14/2023, 16:21. FINDINGS: Image quality: This examination is limited by involuntary motion artifact. CSF Spaces: Basal cisterns are patent. No extra-axial fluid collections. Ventricles are normal in size and shape. Brain: Focal abnormal diffusion-weighted signal can be seen involving the deep white matter of the left frontal lobe, containing slightly into the basal ganglia, as on series 5, images 65 and 66. Associated dark signal can be seen on the ADC map. There is developing T2 weighted signal seen at this site. No intracranial masses or hemorrhage. Barrera/white matter interface is normal. Brainstem appears normal. No chronic ischemic insults. Normal intravascular flow voids are present. Skull and face: Calvarium has normal marrow signal. Orbits appear normal. Sinuses: Sinuses and mastoids are clear. IMPRESSION: There is a subacute infarction seen involving the left deep white matter, continuing slightly into the left basal ganglia. Dictated by: Mingo Nelson M.D. on 12/15/2023 at 10:32 Approved by: Mingo Nelson M.D. on 12/15/2023 at 10:34
[2023-12-15 05:36] LABS: Add Manual Diff / Slide Review NO; Basophils Absolute Auto 100 /uL (0-100); Basophils Percent Auto 0.6 % (0-2); Eosinophils Absolute Auto 0 /uL (0-450); Eosinophils Percent Auto 0.1 % (2-4); Hematocrit 26.7 % (36-46); Hemoglobin 8.8 g/dL (12.0-16.0); Lymphocytes Absolute Auto 1200 /uL (1100-4500); Lymphocytes Percent Auto 11.8 % (25-40); Mean Corpuscular HGB Conc 32.9 % (30-36); Mean Corpuscular Hemoglobin 25.8 PG (26-34); Mean Corpuscular Volume 78.5 fL (80-100); Monocytes Absolute Auto 800 /uL (0-900); Monocytes Percent Auto 8.2 % (3-14); Neutrophils Absolute Auto 7800 /uL (1500-7000); Neutrophils Percent Auto 79.3 % (50-75); Platelet Count 291 X10^3/uL (150-400); Red Cell Distribution Width 21.5 % (11.6-14.8); White Blood Cell Count 9.8 X10^3/uL (4.5-11.0)
[2023-12-15 05:46] LABS: Alanine Aminotransferase 24 IU/L (<35); Albumin 2.7 g/dL (3.5-5.0); Albumin Globulin Ratio 0.8 (1.0-2.8); Alkaline Phosphatase 206 U/L (38-126); Aspartate Aminotransferase 47 IU/L (14-36); BUN Creatinine Ratio 19.2 (6-22); Blood Urea Nitrogen 14 mg/dL (7-17); Calcium 8.5 mg/dL (8.4-10.2); Carbon Dioxide 22 mmol/L (22-32); Chloride 113 mmol/L (98-107); Estimated Glomerular Filt Rate > 60 mL/min (>60); Globulin 3.3 g/dL (1.7-4.1); Glucose 118 mg/dL (70-100); HEMOLYSIS < 15 (0-50); Potassium 4.2 mmol/L (3.4-5.1); Sodium 138 mmol/L (137-145)
[2023-12-15 05:59] LABS: Anisocytosis 2+; Microcytosis 1+; Target Cells 1+
[2023-12-15 07:00] VITALS: O2SAT 95; O2SAT 96
[2023-12-15 08:00] VITALS: BP 114/56; PULSE 61; RESP 14; TEMP 36.3; O2SAT 95
[2023-12-15] MEDS: CLOPIDOGREL 75 MG TABLET PO (08:55)
[2023-12-15] MEDS: ASPIRIN EC 81 MG TABLET PO (08:55)
[2023-12-15] MEDS: ENOXAPARIN 40 MG/0.4 ML SYRINGE SUBCUT (08:55)
[2023-12-15] MEDS: LORazepam 2 MG/ML INJ 0.5 MG IV ×2 (10:17→21:54)
--- NOTE | 2023-12-15 10:34 | PT.IIE ---
Surgical History (Last Reviewed 12/14/23 @ 16:17 by Alonso Ryan MD) Status post cervical spinal fusion Status post gastric bypass for obesity Status post lumbar surgery Medical History (Last Reviewed 12/14/23 @ 16:17 by Alonso Ryan MD) Alcoholism COVID-19 Methamphetamine abuse Tobacco abuse Physical Therapy Inpatient Evaluation/Re-Eval M1 PT/OT-IP Prior Functional Status Start: 12/15/23 09:24 Freq: NEEDED Status: Active Protocol: Document 12/15/23 09:15 MB (Rec: 12/15/23 10:32 MB [id number]) Medical Review Prior Functional Status Medical History Reviewed Yes Communication Unsure baseline diet Mobility and Gait Pt reports I without AD and no falls Activities of Daily Living and IADL's Pt reports I and she states that she does not get out and drive anymore. Per nsg, pt has fluid drained each week d/t alcoholic cirrhosis and this is the day she typically has draining and so trouble breathing as a result today Social History Household Members spouse Living Arrangements House Number of Floors (Floors) One Floor Number of Stairs To Enter/Railing? 2 steps with wall on right to enter home Home Environment Standard Height Toilet,Tub/ Shower Home Equipment Hand Held Shower Additional Social History Comment Pt is not working M2 PT-IP Current Condition Start: 12/15/23 09:24 Freq: NEEDED Status: Active Protocol: Document 12/15/23 09:15 MB (Rec: 12/15/23 10:32 MB [id number]) Physical Therapy Current Condition Current Condition Evaluation Date 12/15/23 Treatment Diagnosis Right facial droop, vision changes, right sided weakness M3 PT-IP Subjective Start: 12/15/23 09:24 Freq: NEEDED Status: Active Protocol: Document 12/15/23 09:15 MB (Rec: 12/15/23 10:32 MB [id number]) Subjective Physical Therapy Visit Type Type Initial Evaluation Visit Start Time 09:15 Visit Stop Time 09:35 Number of PATIENT SERVICES REP Visits 0 Physical Therapy Visit Comments Patient Comments Pt states she is concerned about her trouble breathing and her breathing sounds wet to PT. Pt denies trouble swallowing as she is eating maldivian toast. SOB improves with sitting upright EOB and O2 sats are 97%. Therapy Pain Assessment Pain When Pain Assessed At Rest Pain Present Pain Present Denied Pain M4 PT-IP Mobility and Gait Start: 12/15/23 09:24 Freq: NEEDED Status: Active Protocol: Document 12/15/23 09:15 MB (Rec: 12/15/23 10:32 MB [id number]) PT-Bed Mobility Assessment Rolling Type of Rolling Roll to Left Level of Assist Standby Assistance Supine to Sit Supine to Sit Standby Assistance,1 Person Assistance,Bedrails Scooting Scooting to Edge of Bed Standby Assistance Scooting Up and Down in Bed Standby Assistance PT-Transfer Assessment Sit to and From Stand Sit to and from Stand Contact Guard Assistance,1 Person Assistance,Use of Upper Extremities Equipment Transfer Assistive Device Gait Belt Orthotic/Prosthetic Devices or Brace: No Transfers Transfer Destination Bed Transfer Technique Ambulation Transfer Ability Level of Assist Contact Guard Assistance,1 Person Assistance,Use of Upper Extremities Gait Assessment Gait Gait Assistance Required: Contact Guard Assist Distance (Feet) 60 Able to Maintain Weight Bearing Status Yes During Gait Assistive Devices Assistive Device Gait Belt Orthotic/Prosthetic Devices or Brace: Yes Gait Deviations General Gait Pattern Decreased Stride Length, Decreased Feet Clearance, Flexed Trunk,Wide Based Gait Factors Limiting Gait Function Factors Limiting Gait Function Decreased Activity Tolerance, Poor Balance,Poor Safety Awareness Comments Gait Comments Pt is tearful with mobility and she gait trains 65'x2 from room to steps and back with CGA. No real SEARS with gait and breathing sounds wet with chewing and semi recumbent position and sounds better with sitting upright EOB and so left there with nsg clearance before pt leaves for MRI Stair Climbing Assessment Evaluation Level of Assist On Stairs Contact Guard Assistance,1 Person Assistance Devices Stair Climbing Assistive Devices Left Railing,Right Railing Technique/Endurance Stair Climbing Direction Ascend and Descend Stair Climbing Technique Step Over Step Number of Steps Climbed 3 Query Text: Stair Climbing Set # Repetitions (reps) 1 Comments Stair Climbing Comments Pt tends to reach for both rails and she has some tearfulness during gait and steps PT-Balance Assessment Sitting Balance and Reactions Static Sitting Balance Ability Good Dynamic Sitting Balance Ability Good Standing Balance and Reactions Static Standing Balance Ability Fair Dynamic Standing Balance Ability Fair Device Used Gait belt only M5 PT-IP Objective Assessments Start: 12/15/23 09:24 Freq: NEEDED Status: Active Protocol: Document 12/15/23 09:15 MB (Rec: 12/15/23 10:32 MB [id number]) Orientation Orientation/Cognition Level of Alertness Alert Orientation Name,Age,Birthday,Month,Date, Year,Day of Week,Place, Situation Language Function Ability No Deficits Noted Safety Awareness Decreased Safety Awareness Memory Description No Deficits Noted Comments Speech changes with drooping right side of mouth Gross Range of Motion Upper Extremity ROM Impairments Defer to OT Lower Extremity ROM Assessment Within Functional Limits Strength Lower Extremity Strength Assessment Within Functional Limits Comments Strength Comments Both LE MMT is grossly equal and functional all joints with strength at least 4/5 hip flexors, 5/5 B knee extensors, ankle DFs and great toe extensors Coordination Assessment Gross Coordination Gross Coordination Impaired Assessment Foot Tapping Test Minimal Impairment Heel on Bergman Test Minimal Impairment Sensation Assessment Comments Sensation Comments Pt denies paresthesias to touch RLE is edematous compared to LLE Muscle Tone Muscle Tone WNL Yes M6 PT-IP Treatment Start: 12/15/23 09:24 Freq: NEEDED Status: Active Protocol: Document 12/15/23 09:15 MB (Rec: 12/15/23 10:32 MB [id number]) Physical Therapy Treatment Education Education Provided Safety Other Treatments Other Treatment Performed Right eye does not fully close . Pt reports vision is off when both eyes are open and better when either eye is closed M7 PT-IP Assessment and Plan Start: 12/15/23 09:24 Freq: NEEDED Status: Active Protocol: Document 12/15/23 09:15 MB (Rec: 12/15/23 10:32 MB [id number]) PT Summary Assessment and Plan Potential Rehabilitation Potential Good Status of Condition at Evaluation Unstable Summary Impairments Strength,Balance,Coordination, Bed Mobility,Transfers,Gait, Activity Tolerance Progress Towards Goals Progressing Toward Goals Assessment Summary Pt is a lady presenting with grossly equal B LE strength, mild dysmetria with LE coordination testing, right mouth droop and trouble fully closing right eye and right LE edema. She requires CGA for gait. She has wet sounding breathing when lying recumbent and eating maldivian toast upon PT arrival. Breathing is better when sitting upright and not eating and sats are 97 %. Nsg reports that pt using has fluid drained each week and today is the day she typically has this done. Pt's abdomen is very distended. Pt is tearful during gait and steps. Recommend 24 hour assistance at d/c and PT consult. Goals Bed Mobility Goal Independent Transfer Goal Independent Gait Goal Independent Gait Distance 100 Other Goals Pt will ascend and descend 2 steps with right rail ascend and no more than superv assistance to allow safe home entrance. Frequency of Treatment Frequency Of Treatment Once a Day Other frequency 3 Treatment Plan Physical Therapy Treatment Plan Bed Mobility Training,Transfer Training,Gait Training, Therapeutic Exercise,Balance Retraining,Discharge Planning, Hot or Cold Pack,Neuromuscular Re-ed,Coordination Retraining Weight Bearing Status Weight Bearing Status Weight Bear as Tolerated Recommendations To Nursing Amount of Assist Needed 1 Person Assist Discharge Recommendations PT Discharge Recommendations Home with 24/ Assist Available Other Discharge Recommendations HH vs OPPT Transportation Needs at Discharge Private Vehicle
[2023-12-15 12:00] VITALS: BP 133/73; PULSE 67; RESP 26; TEMP 36.2; O2SAT 94
--- NOTE | 2023-12-15 12:21 | P.HP_ITS ---
History of Present Illness History of Present Illness Date Patient Seen: 12/15/23 Time Patient Seen: 09:00 Chief complaint: CVA Narrative: chief complaint: will this get better? Presented to ED with R sided facial droop Working with PT today able to move around well but facial droop remains MRI shows subacute infarct OT/ST eval pending Due for paracentesis today as outpatient will get that as inpatient today She has a new large left pleural effusion also which is making is painful to lie down so we will try to get that drained too PFSH Medical History COVID-19 Tobacco abuse Alcoholism Methamphetamine abuse Surgical History Status post lumbar surgery Status post cervical spinal fusion Status post gastric bypass for obesity Family History Mother Hypertension Father Family estrangement Social History household members: spouse Smoking Status: Current every day smoker Meds Home Medications and Allergies Home Medications Medication Instructions Recorded Confirmed Type albuterol sulfate 90 mcg/actuation 90 mcg inhalation 1-2XD PRN 12/14/23 12/15/23 History aerosol inhaler Shortness Of Breath Or Wheezing azithromycin 250 mg tablet 250 mg PO DAILY 12/14/23 12/14/23 History lactulose 10 gram/15 mL oral 7.5 ml PO DAILY 12/14/23 12/14/23 History solution methylprednisolone 4 mg tablets in 4 mg PO DAILY 12/14/23 12/14/23 History a dose pack montelukast 10 mg tablet 10 mg PO BEDTIME 12/14/23 12/14/23 History nadolol 40 mg tablet 40 mg PO DAILY 12/14/23 12/14/23 History spironolactone 25 mg tablet 25 mg PO DAILY 12/14/23 12/14/23 History Allergies Allergy/AdvReac Type Severity Reaction Status Date / Time morphine [MORPHINE] Allergy Unknown Hives Verified 11/10/23 15:57 acetaminophen [From Percocet] Allergy Verified 11/10/23 15:57 oxycodone [From Percocet] Allergy Verified 11/10/23 15:57 Review of Systems Review of Systems Narrative: all systems reviewed and negative except as otherwise documented in HPI Exam Vital Signs (past 8 hours): - 12/15/23 07:00 Pulse Oximetry 95 Oxygen Delivery Method Room Air Oxygen Delivery Method Room Air Oxygen Flow Rate 1.5 Narrative Exam Narrative: laying in bed recumbent on L side hurts to lay flat Const Other: well developed well nourished Resp Other: moving air well, satting ok on room air, decreased breath sounds on L side Cardio Other: regular rhythm, s1/s2 GI Other: distended prominent ascites Neuro Other: R sided facial droop with slurred speech, swallow seems grossly ok today at bedside, extraocular movements are intact, vision grossly intact Extrem Other: moving all extremities equally no drift Objective Labs 12/15/23 05:26 12/15/23 05:26 Labs: Laboratory Results - last 24 hr 12/14/23 12/14/23 12/15/23 16:08 17:28 05:26 WBC 11.9 H 9.8 RBC 3.66 L 3.40 L Hgb 9.3 L 8.8 L Hct 28.8 L 26.7 L MCV 78.7 L 78.5 L MCH 25.3 L 25.8 L MCHC 32.2 32.9 RDW 22.2 H 21.5 H Plt Count 301 291 Neut % (Auto) 74.4 79.3 H Lymph % (Auto) 14.5 L 11.8 L [place] % (Auto) 9.7 8.2 Eos % (Auto) 0.3 L 0.1 L Baso % (Auto) 1.1 0.6 Neut # (Auto) 8800 H 7800 H Lymph # (Auto) 1700 1200 [place] # (Auto) 1100 H 800 Eos # (Auto) 0 0 Baso # (Auto) 100 100 RBC Morphology See below See below Anisocytosis 3+ H 2+ H Microcytosis 1+ H Target Cells 1+ H Sodium 137 138 Potassium 4.2 4.2 Chloride 111 H 113 H Carbon Dioxide 22 22 BUN 12 14 Creatinine 0.79 0.73 Estimated GFR > 60 > 60 BUN/Creatinine Ratio 15.2 19.2 Glucose 111 H 118 H Calcium 8.8 8.5 Total Bilirubin 1.3 1.0 AST 49 H 47 H ALT 26 24 Alkaline Phosphatase 224 H D 206 H Ammonia < 9 L Total Creatine Kinase 47 Troponin I < 0.012 NT-Pro-B Natriuret Pep 513 H Total Protein 6.5 6.0 L Albumin 3.0 L 2.7 L Globulin 3.5 3.3 Albumin/Globulin Ratio 0.9 L 0.8 L Ethyl Alcohol < 10 Assessment & Plan Assessment & Plan narrative: #new subacute cerebral infarct pending therapy evals may need therapy R-sided facial droop adding statin and ASA prn benzo for MRI today worked well #cirrhosis with ascites needing weekly drainage pending US guided paracentesis with fluid culture and albumin infusion chaser trying for TIPS in outpt referral setting #L pleural effusion pending thoracentesis with fluid eval #hypertension stable BP resume home meds - permissive htn for systolic over 120 Dispo: inpatient working with therapists for evaluations PCP: Jose A MDM: Code: DNR Time-Based Coding :: [TOTAL MINUTES] spent with patient and on the chart (including review of chart, obtaining history, exam, reviewing outside data, placing orders, documenting exam and treatment plan, and counseling patient) on [DATE]. Quality VTE Deep Vein Thrombosis/Pulmonary Embolism Present on Admission: No
--- NOTE | 2023-12-15 12:29 | DI.US.S_ITS ---
PROCEDURE: US THORACENTESIS INDICATIONS: ascites short of breath TECHNIQUE: The indications, alternatives, benefits, risks, and complications of the procedure were explained to the patient. Written informed consent was obtained and placed in the chart. The chest was examined sonographically, and an appropriate site was chosen for thoracentesis. The skin was prepared and draped in the usual sterile fashion, and 1% lidocaine was infiltrated from the skin down through the pleural surface. A 19-gauge catheter-covered needle was then introduced into the pleural space, the catheter was advanced and the needle was withdrawn, and thereafter pleural fluid was aspirated. The catheter was then removed and a dressing was applied. COMPARISON: None. FINDINGS: Access site: Left hemithorax. Needle: One-Step centesis catheter with introducer needle. Fluid volume and description: 1100 cc Fluid sent for diagnostic testing: Yes Medications: 1% lidocaine for local anaesthesia. Complications: None; post-procedural chest radiograph is pending to assess for pneumothorax. IMPRESSION: Successful ultrasound-guided thoracentesis. Dictated by: Giorgio Gilmore M.D. on 12/15/2023 at 17:17 Approved by: Giorgio Gilmore M.D. on 12/15/2023 at 17:18
--- NOTE | 2023-12-15 12:30 | DI.US.S_ITS ---
PROCEDURE: US PARACENTESIS INDICATIONS: ascites TECHNIQUE: The indications, alternatives, benefits, risks, and complications of the procedure were explained to the patient. Written informed consent was obtained and placed in the chart. The abdomen and pelvis were examined sonographically, and an appropriate site was chosen for paracentesis. The skin was prepared and draped in the usual sterile fashion, and 1% lidocaine was infiltrated from the skin down through the peritoneal surface. A 19-gauge catheter-covered needle was then introduced into the peritoneal space, the catheter was advanced and the needle was withdrawn, and thereafter peritoneal fluid was withdrawn. The catheter was then removed and a dressing was applied. The fluid was discarded if the clinician did not order diagnostic testing of the fluid. COMPARISON: [facility], PARACENTESIS, 12/08/2023, 8:46. FINDINGS: Access site: Left lower quadrant Needle: One-Step centesis catheter with introducer needle. Fluid volume and description: 3200 cc clear fluid Fluid sent for diagnostic testing: Yes Medications: 1% lidocaine for local anaesthesia. Complications: None. IMPRESSION: Successful ultrasound-guided paracentesis. Dictated by: Giorgio Gilmore M.D. on 12/15/2023 at 17:19 Approved by: Giorgio Gilmore M.D. on 12/15/2023 at 17:19
--- NOTE | 2023-12-15 12:30 | DI.RAD.S_ITS ---
PROCEDURE: XR CHEST 1V INDICATIONS: post-thoracentesis TECHNIQUE: One view of the chest was acquired. COMPARISON: [facility], CR, XR CHEST 2V, 12/08/2023, 14:28. FINDINGS: Surgical changes and devices: None. Lungs and pleura: Right lung is clear. Moderate sized left pleural effusion, improved. Compressive atelectasis at the left lung base. Mediastinum: Mediastinal contours appear normal. Heart size is normal. Bones and chest wall: No suspicious bony lesions. Overlying soft tissues appear unremarkable. IMPRESSION: 1. No pneumothorax. 2. Moderate size left pleural effusion, improved. Dictated by: Giorgio Gilmore M.D. on 12/15/2023 at 16:27 Approved by: Giorgio Gilmore M.D. on 12/15/2023 at 16:31
[2023-12-15] MEDS: SPIRONOLACTONE 25 MG TABLET PO (13:39)
[2023-12-15] MEDS: AZITHROMYCIN 250 MG TABLET PO (13:39)
[2023-12-15] MEDS: LACTULOSE 20 GM/30 ML SOLUTION 5 GM PO (13:40)
--- NOTE | 2023-12-15 14:19 | CM.DANOTE ---
Patient is a 58 yo female who was admitted INPT Status on 12/14/23 for Subacute Infarct. Pt has [facility] and [facility] for insurance and her PCP is Dr. giovanny Naranjo. EMR was reviewed. Per MD, pt with hx of stroke that mostly resolved and chronic once a week paracentesis for fluid collection and remote hx of alcoholism and polysubstance abuse. MRI positive for subacute infarct. Per PT, pt ambulated fairly well and seemed to have strength in her legs and could likely d/c home with assist pending OT/ST. Per ST, currently recommending minced/moist diet at this time and if pt continues to choke/have difficulties then would recommend MBS. OT, pt very tearful and not really able to participate yet and will attempt eval again later but might benefit from Acute rehab. SW attempted to meet bedside with spouse and pt during OT eval and pt very tearful and frustrated with her difficulty with speech and with eating. Spouse attentive and supportive and both state their preference would be to discharge home this evening if stable but aware that pt may need to remain overnight. Pt too upset for further assessment and discharge planning and difficulty breathing as she is awaiting paracentesis today. Plan: SW to follow closely for further OT/ST to determine safe d/c home vs possible Acute Rehab pending progress and any further identified discharge planning needs. FAUZIA Mathew Discharge Planning/Care Management CM Discharge Assessment Start: 12/15/23 14:14 Freq: Status: Active Protocol: Document 12/15/23 14:14 BF (Rec: 12/15/23 14:19 BF [id number]) Discharge Planning Assessment Assigned Package Reinspector FAUZIA Barnett DPOA/Assigned Designee Name Spouse Romaine Contact Information [phone] Advance Directives? No Advance Directives on File No History Provided By Patient,Significant Other, Medical Record Has Patient been admitted in last 30 No days? Prior Living Arrangements House Household Members spouse Type of transporation used prior to Drives own vehicle admit Independent with ADL's Yes Is patient alert and oriented? Yes Caregiver for Another No Comment Has once a week paracentesis at baseline for fluid collection Comment Possible Acute vs home?? Barriers to Discharge No Discharge Plan Home Community Services Occupational Therapy,Speech Language Pathology Transportation Arrangement spouse bedside Referrals Initiated Other Additional Comment Further PT/OT/ST pending progress and needs Whiteboard Updated in Patient Room with Yes name and ext. # of Package Reinspector Review Status In Process Please Provide Date Initial DC 12/15/23 Assessment Was Performed Next Review Type Continued Stay Review
[2023-12-15 16:00] VITALS: BP 132/72; PULSE 77; RESP 24; TEMP 36.3; O2SAT 96
--- NOTE | 2023-12-15 16:21 | PC.NURSE ---
Addendum entered by Darlene Hammer R.N. 12/15/23 18:08: Returned from DI at 1710 A/O States she feels better at this time. Call light w/in reach, pt calls appropriately for needs Continue w/plan of care. Original Note: Pt A/O, tearful at times. Right sided facial droop, and arm weakness NIH of 2 x two during day. New IV placed into the left wrist area Pt had MRI,Med w/[facility] prior to MRi has been sleepy earlier in day. and paracentisis done Will continue to assess. Call light w/in reach. bed alarm on while sleeping. Continue w/plan of care.
--- NOTE | 2023-12-15 17:02 | ST.IPIE ---
Visit Care Team Role Provider Type Pastor Naranjo MD Primary Care Provider Physician Specialty: Family Practice Address: [address] [place] [address], [id number] Email: [email or web address] Hunter MD Family Provider Non-Staff Specialty: Medical Address: [address] [place] [address], [id number] Fax: Email: Alonso Ryan MD Emergency Provider Physician Referring Provider Specialty: Emergency Medicine Address: [address] [place] [address], [id number] Email: [email or web address] [email or web address] Fields MD Admit Provider Physician Attending Provider Specialty: [facility] Address: [address] [place] [address], [id number] Email: [email or web address] Past Medical History (Last Reviewed 12/14/23 @ 16:17 by Alonso Ryan MD) Alcoholism (Medical) COVID-19 (Medical) Mar 2021 Methamphetamine abuse (Medical) Tobacco abuse (Medical) ST IP Initial Evaluation Report SPEEDBOAT OPERATOR Clinical Swallow Evaluation Start: 12/15/23 13:42 Freq: Status: Active Protocol: Document 12/15/23 15:28 SS (Rec: 12/15/23 15:48 SS [id number]) Clinical Swallow Evaluation Session Time Visit Start Time 10:40 Visit Stop Time 11:05 Total Visit Minutes 25 Visit Information Visit Number Initial Evaluation Referral Referring Provider Dr. Alonso Ryan Reason for Referral CVA Setting Assessment Location Acute Care Visit Type Note Type Initial evaluation Next Note Type Next Note Type Treatment Note Patient Information Identification Type Name History Pt was referred to SPEEDBOAT OPERATOR for evaluation/treatment of speech /language/cognition and swallowing function following CVA after she presented to ED with R sided facial droop, numbness, and slurred speech on 12/14/23. Per H&P, MRI showed subacute infarct. Pt is due for paracentesis and has pleural effusion. Medical history is significant for COVID-19, tobacco abuse, alcoholism, methamphetamine abuse, alcohol cirrhosis with ascites, and CVA several years ago (timeline unspecified in medical records. Pt with surgical history of lumbar surgery, cervical spinal fusion, and gastric bypass for obesity. Subjective Observations Pt heard coughing on large slice of orange as SPEEDBOAT OPERATOR was passing room. She was able to produce several strong coughs and expectorate it. Pt was sitting upright on edge of bed at the time. She was emotionally labile and tearful initially, though agreeable to assessment. However, decreased alertness noted, with pt falling asleep intermittantly throughout session. Reported by Patient/Caregiver Pain/Discomfort No Other Symptoms Choking,Coughing,Difficulty swallowing solids,Drooling Current Diet Regular (IDDSI 7) Baseline Feeding Method Needs some assistance The IDDSI Framework Protocol: IDDSI.1 Objective Assessment Mental Status Cooperative,Lethargic, Impulsive Oral Integrity Oral residue,Thrush Dentition Within normal limits Lip Function Mild impairment Observation of Lips at Rest Right sided weakness/Drooping Pucker Right sided weakness/drooping Lip Retraction Right sided weakness/Drooping Alternating Pucker/Lip Retraction Reduced range of motion, Incoordination Tongue Function Mild impairment Observations of Tongue at Rest Within normal limits Tongue Protrusion Deviates to the left Tongue Lateralization Deviates to the left,Reduced range of motion Jaw Function Mild impairment Observation of Jaw at Rest Deviates to the left Jaw Opening Reduced range of motion, Reduced strength Jaw Closing Reduced range of motion, Reduced strength Jaw Lateralization Deviates to the left,Reduced range of motion,Reduced strength,Incoordination Jaw Protrusion Reduced range of motion, Reduced strength Jaw Retraction Reduced range of motion, Reduced strength Hard/Soft Palate Function Within normal limits Observations of Hard/Soft Palate Within normal limits Nasality Within normal limits Respiratory Sufficiency Moderate impairment Comment Breathing sounds wet and raspy at baseline and will PO intake. RN reports pt is due for routine paracentesis, which she gets every week. Food and Liquid Trials Position During Assessment Upright (90 degrees) Liquids Trialed Thin (IDDSI 0) Solid Trials Purred (IDDSI 4),Minced & Moist (IDDSI 5),Regular (IDDSI 7) Administration Type Cup single sip,Cup consecutive sips,Straw Oral Impairment Moderately impaired Oral Phase Comments Oral phase is characterized by slow bolus manipulation and appeared disorganized. Delayed oral transit and incomplete oral clearance. Given mild- moderate amount of oral residue, pt benefited from use of liquid wash and tongue sweep. Additionally, labial mild labial escape noted with both liquids and solids. Pt momentarily fell asleep with bolus in mouth, though was able to complete oral are once woken up with set-up assist to clear bolus from oral cavity. Impulsivity may have been a factor as pt would speak prior to swallowing bolus, leading to food particles escaping, with poor insight/awareness by pt. Pharyngeal Impairment Moderately impaired Pharyngeal Phase Comments Pharyngeal phase cannot be objectively assessed at bedside though subjectively appeared effortful. Pt demonstrated consistent s/sx of possible penetration with all solids PO re: throat clearing. Pharyngeal swallow appears prompt. No overt s/sx of penetration/aspiration with thin liquids. Pt completed single and consecutive sips of thin liquids via cup and straw without any concerns. Pt passed the 3 ounce water test . Aspiration risk appears moderate given waxing and waning alertness, fatigue, poor insight to deficits, and well as impulsivity with intake (e.g., speaking with bolus in mouth, reduced monitoring of sip/bite size). Fatigue/Endurance Severe fatigue Umu Swallow Protocol Yes Results Passed 3 oz water test. Throat clearing noted with cracker. The IDDSI Framework Protocol: IDDSI.1 Findings Swallowing Function Oropharyngeal phase dysphagia Severity of Swallow Impairment Moderately impaired Contributing Factors to Swallow Reduced alertness or attention Impairment ,Reduced oral strength/ coordination/sensation, Mastication inefficiency, Impaired oral-pharyngeal transport,Delayed swallow initiation,Impaired airway protection Prognosis Fair Based on Cognitive status,Family support Impact on Safety and Functioning Risk for aspiration Recommendations Instrumental Assessment No Swallowing Treatment Yes Frequency Once daily Duration Until discharged from this level of care Recommended Solids Minced & Moist (IDDSI 5) Recommended Liquids Thin (IDDSI 0) Other Recommendations Recommend medications in puree carrier. Please hold all PO intake if reduced alertness or fatigue noted and provide supervision with all intake. Recommend oral care after meals given tendency to pocket and reduced awareness to oral residue. If no clinical improvements are made, strongly recommend MBSS in house to visualize and assess swallow function and anatomy, determine aspiration risk, make appropriate and updated diet and treatment recommendations, as well as to identify need for additional referrals. Notified MD and RN of recommendations. They expressed understanding. Informally, mild dysarthria as well as at least mild cognitive impairment noted, though unable to assess further given pt fatigue and reduced alertness. Plan to further assess if able in following sessions to further determine POC and discharge setting recommendations, although suspect pt would benefit from SNF or inaptient rehab prior to returning home. Safety Precautions/Swallowing Supervision needed for all Recommendations meals,1 to 1 close supervision ,Feed only when alert,Reduce distractions,Remain upright ( 90 degrees) during all oral intake,Upright position at least 30 minutes after meals, Small bites and sips when eating,Slow rate; swallow between bites,No straw,Set-up assistance,Strict oral care after intake,Check for pocketing Medication Recommendations Whole in Carrier,One at a Time Discharge Recommendations half-way facility, Inpatient rehab facility Education Patient/Caregiver Education Described results of evaluation,Patient expressed understanding of evaluation, Patient expressed agreement with goals & treatment plans Goals Short-term Goals 1. Patient will demonstrate 90 % accuracy in re-teach and implementation of compensatory swallow strategies to decrease risk of aspiration and discomfort with intake of solids and liquids. 2. Patient will increase ability to safely swallow Minced and Moist (MM5) consistencies without overt s/ sx of aspiration in 100% of opportunities in order to meet primary nutrition and hydration needs. 3. Patient will tolerate thin liquids with no overt s/sx of aspiration in 100% of opportunities in orer to decrease risk of aspiration- related complications. 4. Patient will complete further assessment of speech, language, and cognition in order to determine discharge setting and further inform POC . Long-term Goals 1. Patient will safely tolerate least restrictive diet consistency to allow for safe consumption of daily meals without s/sx of aspiration.
--- NOTE | 2023-12-15 17:50 | OT.IP.EVAL ---
Past Medical History (Last Reviewed 12/14/23 @ 16:17 by Alonso Ryan MD) Alcoholism COVID-19 Methamphetamine abuse Tobacco abuse Surgical History (Last Reviewed 12/14/23 @ 16:17 by Alonso Ryan MD) Status post cervical spinal fusion Status post gastric bypass for obesity Status post lumbar surgery Occupational Therapy Inpatient Evaluation/Re-Eval M1 PT/OT-IP Prior Functional Status Start: 12/15/23 09:24 Freq: NEEDED Status: Active Protocol: Document 12/15/23 16:53 [facility]3] (Rec: 12/15/23 17:08 [facility]3] [id number]) Medical Review Prior Functional Status Medical History Reviewed Yes Communication Unsure baseline diet Mobility and Gait Pt reports I without AD and no falls Activities of Daily Living and IADL's Pt reports I and she states that she does not get out and drive anymore. Per nsg, pt has fluid drained each week d/t alcoholic cirrhosis and this is the day she typically has draining and so trouble breathing as a result today. Per pt's , pt able to drive 3 days ago. Social History Household Members spouse Living Arrangements House Number of Floors (Floors) One Floor Number of Stairs To Enter/Railing? 2 steps with wall on right to enter home Home Environment Standard Height Toilet,Tub/ Shower Home Equipment Front Wheel Walker,Hand Held Shower Additional Social History Comment Pt is not working. Pt states pt has a walker at home . 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 Occupational Therapy Visit Comments Patient Comments Pt agreed to get up. Patient/Caregiver Goals TO go home. OT Pain Assessment Pain When Pain Assessed At Rest Pain Present Pain Present Denied Pain M4 OT- IP ADL's Start: 12/15/23 16:52 Freq: Status: Active Protocol: Document 12/15/23 16:53 [facility]3] (Rec: 12/15/23 17:08 [facility]3] [id number]) OT [id number] Comments OT Self-Feeding Comments When going to see pt earlier was asleep and food falling out of her mouth and when speaking having food come out as well. Per pt's had Ativan prior to MRI and feels that her swallowing was affected by the medication versus by the CVA. Able to see pt later n the afternoon and able to drink water but having a delayed cough. Able to watch pt eat again for dinner and pocketing noted and delayed cough. Pt cues to clear her mouth, take small sips and bites, and to slow down. OT ADL-Grooming Comments OT Grooming Comments Pt needing increased time to use her hands to put her hair up in the hair tie. OT ADL-Oral Care Comments Oral Care Comments Not performed. OT ADL-Dressing Comments OT Dressing Comments Pt able to put her socks on with increased time and seemingly using her left hand more than right on observation . OT ADL-Toileting Comments OT Toileting Comments Pt states used the toilet just prior. OT ADL-Bathing Comments OT Bathing Comments It is strongly recommended that pt use a shower chair and has assist to get into and out of the shower due to being a little unsteady on her feet . M5 OT- IP IADL's Start: 12/15/23 16:52 Freq: Status: Active Protocol: Document 12/15/23 16:53 [facility]3] (Rec: 12/15/23 17:08 [facility]3] [id number]) OT-Instrumental Activities of Daily Living Home Safety Awareness Awareness of Need for Assistance at Home Decreased Awareness Home Safety Comments Pt is insistent besides her speech that she is independent for all needs. Pt's states later while pt taken to paracentesis that pt is very independent and will not listen to him and will be insistent to go home. At this time best for pt to have 24/7 supervision and assist as needed. Medication Management Medication Management Comments Best to have assist at this time. Money Management Money Management Comments Pt will benefit form assist. Driving Driving Concerns Identified Regarding Safety M6 OT- IP Functional Cognition Start: 12/15/23 16:52 Freq: Status: Active Protocol: Document 12/15/23 16:53 [facility]3] (Rec: 12/15/23 17:08 [facility]3] [id number]) Cognitive Factors Limiting Selfcare Function Cognitive Ability Level of Alertness Alert Patient Orientation Name,Age,Birthday,Month,Date, Year,Day of Week,Place, Situation Attention Span Ability Capable of Focused Attention, Capable of Sustained Attention Ability to Follow Commands Able to Follow One Step Commands Memory Description Short Term Impaired Safety Awareness Underestimates Need for Assistance Executive Function Ability Unable to Switch Focus,Unable to Filter Distractions,Unable to Make Plans Cognitive Tests SLUMS Initiated SLUMS and pt got distracted at the end of the session and to reassess as taken away for procedure. Pt scored 22/30 which implies mild cognitive deficits. Pt able to recall 3/5 objects after time passed, not able to draw the hour hands correctly , able to answer 2/4 questions write after paragraph read. Cognitive Comments Cognitive Assessment Comments Pt scored 300 seconds on [place] Making Part B which implies severe deficits for visual attention, speed of processing , executive functioning, mental flexibility, and task switching. Strongly suggested pt not drive at this time. Pt is very adamant of going home. OT- Vision and Hearing OT- Vision Assessment Visual Acuity Glasses All The Time Visual Attentiveness WFL Occular Pursuits WFL Visual Convergence WFL Visual Mejia WFL Vision Assessment Comments Pt able to read the clock accurately. M7 OT- IP Mobility and Balance Start: 12/15/23 16:52 Freq: Status: Active Protocol: Document 12/15/23 16:53 [facility]3] (Rec: 12/15/23 17:08 [facility]3] [id number]) OT- Bed Mobility Assessment Supine to Sit Supine to Sit Assist Standby Assistance OT-Transfer Assessment Sit to and From Stand Sit to and from Stand Contact Guard Assistance Transfers Transfer Ability Contact Guard Assistance Technique Transfer Destination Bed,Wheelchair Comments Mobility Comments Pt initially a little unsteady while standing and loss of balance but able to regain while holding onto the bed. Suggested pt get a FWW, however pt insists that she is okay and does not want a device. OT- Balance Assessment Sitting Balance and Reactions Static Sitting Balance Ability Good Dynamic Sitting Balance Ability Fair Standing Balance and Reactions Static Standing Balance Ability Fair Dynamic Standing Balance Ability Fair M8 OT- IP Objective Assessments Start: 12/15/23 16:52 Freq: Status: Active Protocol: Document 12/15/23 16:53 [facility]3] (Rec: 12/15/23 17:08 [facility]3] [id number]) OT Gross Range of Motion Upper Extremity Range of Motion Assessment Within Functional Limits OT Strength Upper Extremity Strength Assessment Within Functional Limits Hand Orthopedic Surgeon Strength Hand Dominance Right OT- Coordination Assessment Upper Extremity Finger to Nose Test Right UE Impaired Finger Tapping Test Right UE Impaired Comments Coordination Comments Rhand 38 seconds 9 hole peg well below 10% for her age, Lhand 28second around 10%. OT Sensation Assessment Comments Summary Comments INtact for light touch. Edema Edema Absent M9 OT- IP Assessment and Plan Start: 12/15/23 16:52 Freq: Status: Active Protocol: Document 12/15/23 16:53 [facility]3] (Rec: 12/15/23 17:08 [facility]3] [id number]) OT Summary Assessment and Plan Potential Rehabilitation Potential Good Analytic Complexity at Evaluation Moderate Summary OT Impairments Balance,Functional Mobility, Dressing,Toileting,Bathing, Toilet Transfers,Shower Transfers Progress Towards Goals Slow Progress due to Medical Issues Assessment Summary Pt MOD complexity and main barriers are decreased dynamic balance, coughing on food- however just had Ativan earlier which may have affected her swallowing needs, pt still having some slurred speech. Pt insistent on going home. It would be beneficial for pt to stay and to continue to be assessed for her needs -especially to see how pt functions when the Ativan wears off versus what symptoms she may still have from just having a CVA. If pt insistent to go home best to have a FWW and have 24/7 assist. Pt would possibly benefit from acute rehab but has high medical needs of having weekly paracentesis and therefore may be more appropriate to go home with 24/7 assist and have outpt therapies. Goals Self-Feeding Goal Independent Grooming Goal Independent Dressing Goal Independent Toileting Goal Independent Bathing Goal Independent Toilet Transfer Goal Independent Shower Transfer Goal Independent Days to Meet Goals 10 Frequency of Treatment Other frequency 5x/week Treatment Plan OT Treatment Plan ADL Training,Functional Cognition Training,Functional Mobility,Patient/Family Education,Discharge Planning Discharge Recommendations OT Discharge Recommendations Home with 24/7 Assist Available,Outpatient PT Home Equipment Needs shower chair Transportation Needs at Discharge Private Vehicle
[2023-12-15] MEDS: ALBUMIN HUMAN 25 GM/100 ML VIAL IV (17:53)
[2023-12-15 18:28] LABS: Body Fluid Red Blood Cells 1436 /uL; Body Fluid Tot Nucleated Cells 615 /uL
[2023-12-15 18:58] LABS: Body Fluid Appearance HAZY; Body Fluid Clotted? NO CLOTS PRESENT; Body Fluid Color YELLOW
[2023-12-15 19:00] VITALS: O2SAT 95
[2023-12-15 19:08] LABS: Lymphocytes Body Fluid 36 %; MESO/MACRO/MONO Body Fluid 53 %; Neutrophils Body Fluid 11 %
[2023-12-15 20:00] VITALS: BP 148/93; PULSE 76; RESP 19; TEMP 36.3; O2SAT 95
[2023-12-15] MEDS: ATORVASTATIN 20 MG TABLET 40 MG PO (21:31)
[2023-12-15] MEDS: PROPRANOLOL 10 MG TABLET 20 MG PO (21:31)
[2023-12-16 07:00] VITALS: BP 133/73; PULSE 68; RESP 22; TEMP 36.1; O2SAT 94
[2023-12-16 07:14] LABS: Add Manual Diff / Slide Review NO; Basophils Absolute Auto 100 /uL (0-100); Basophils Percent Auto 0.9 % (0-2); Eosinophils Absolute Auto 200 /uL (0-450); Eosinophils Percent Auto 2.3 % (2-4); Hematocrit 26.8 % (36-46); Hemoglobin 8.7 g/dL (12.0-16.0); Lymphocytes Absolute Auto 2000 /uL (1100-4500); Mean Corpuscular HGB Conc 32.4 % (30-36); Mean Corpuscular Hemoglobin 25.7 PG (26-34); Mean Corpuscular Volume 79.1 fL (80-100); Monocytes Absolute Auto 900 /uL (0-900); Monocytes Percent Auto 11.3 % (3-14); Neutrophils Absolute Auto 5000 /uL (1500-7000); Neutrophils Percent Auto 61.5 % (50-75); Platelet Count 254 X10^3/uL (150-400); Red Blood Cell Count 3.39 X10^6/uL (4.0-5.2); Red Cell Distribution Width 21.6 % (11.6-14.8); White Blood Cell Count 8.2 X10^3/uL (4.5-11.0)
[2023-12-16 07:24] LABS: Alanine Aminotransferase 24 IU/L (<35); Albumin 2.6 g/dL (3.5-5.0); Albumin Globulin Ratio 0.8 (1.0-2.8); Alkaline Phosphatase 174 U/L (38-126); Aspartate Aminotransferase 49 IU/L (14-36); BUN Creatinine Ratio 18.9 (6-22); Blood Urea Nitrogen 14 mg/dL (7-17); Calcium 8.1 mg/dL (8.4-10.2); Carbon Dioxide 20 mmol/L (22-32); Chloride 113 mmol/L (98-107); Estimated Glomerular Filt Rate > 60 mL/min (>60); Globulin 3.2 g/dL (1.7-4.1); Glucose 92 mg/dL (70-100); HEMOLYSIS < 15 (0-50); Sodium 137 mmol/L (137-145); Total Protein 5.8 g/dL (6.3-8.2)
[2023-12-16 07:26] LABS: Anisocytosis 1+; Poikilocytosis 1+
--- NOTE | 2023-12-16 09:22 | OT.IP.TRT ---
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 Patient/Caregiver Goals Pt is adamant to go home. OT Pain Assessment Pain When Pain Assessed At Rest Pain Present Pain Present Denied Pain M4 OT- IP ADL's Start: 12/15/23 16:52 Freq: Status: Active Protocol: Document 12/16/23 09:18 [facility] (Rec: 12/16/23 09:34 [facility] [id number]) OT [id number] Comments OT Self-Feeding Comments Occasional cough noted but not seemingly from swallowing issues. Pt has good awareness to clear her mouth due to left sided pocketing today. Pt able to alternate between solids and liquids. OT ADL-Grooming General Evaluation Grooming Ability Independent Comments OT Grooming Comments Pt able to put up her hair a little faster than yesterday. OT ADL-Oral Care General Eval Oral Care Ability Independent Comments Oral Care Comments Able to do while standing at the sink. OT ADL-Dressing General Eval Lower Body Dressing Ability Independent Comments OT Dressing Comments Able to use her hands more symmetrically to juju her socks. OT ADL-Toileting General Evaluation Toileting Ability Independent Comments OT Toileting Comments Pt able to independently use the toilet on her own. OT ADL-Bathing Comments OT Bathing Comments Suggested pt get a shower chair and have her provide supervision. M6 OT- IP Functional Cognition Start: 12/15/23 16:52 Freq: Status: Active Protocol: Document 12/16/23 09:18 [facility] (Rec: 12/16/23 09:34 [facility] [id number]) Cognitive Factors Limiting Selfcare Function Cognitive Comments Cognitive Assessment Comments Pt scored 163 seconds on Jensen Making Part B and need less vc form 90% to 25% on the time today. Pt's scored still implies impairments with visual attention, speed of processing, mental flexibility , executive functioning, and task switching. Pt able to answer home safety questions accurately. M7 OT- IP Mobility and Balance Start: 12/15/23 16:52 Freq: Status: Active Protocol: Document 12/16/23 09:18 [facility] (Rec: 12/16/23 09:34 [facility] [id number]) OT-Transfer Assessment Sit to and From Stand Sit to and from Stand Independent Transfers Transfer Ability Standby Assistance Comments Mobility Comments Distant SBA while in the room. Pt is aware to use a FWW at home if needed. OT- Balance Assessment Sitting Balance and Reactions Static Sitting Balance Ability Normal Dynamic Sitting Balance Ability Good Standing Balance and Reactions Static Standing Balance Ability Good Dynamic Standing Balance Ability Fair M8 OT- IP Objective Assessments Start: 12/15/23 16:52 Freq: Status: Active Protocol: Document 12/16/23 09:18 [facility] (Rec: 12/16/23 09:34 [facility] [id number]) OT- Coordination Assessment Comments Coordination Comments Right hand 33 sec and left hand 23 sec, much improved and able to give pt theraputty and ideas to improve her speed and coordination via activities. M9 OT- IP Assessment and Plan Start: 12/15/23 16:52 Freq: Status: Active Protocol: Document 12/16/23 09:18 [facility] (Rec: 12/16/23 09:34 [facility] [id number]) OT Summary Assessment and Plan Potential Rehabilitation Potential Good Analytic Complexity at Evaluation Moderate Summary OT Impairments Balance,Coordination, Functional Mobility,Bathing, Shower Transfers Progress Towards Goals Progressing Toward Goals Assessment Summary Pt doing much better today , still having slurred speech and batter awareness of her pocketing for food and to be able to clear her mouth. Pt improved for coordination today and able to get around in the room on her own to use the toilet. Pt given theraputty and ideas of activities to help increase her right hand functioning needs. Pt is insistent to go home and will benefit from outpt RECRUITING SPECIALIST and OT for coordination needs. If pt able to qualify would benefit from home health. Goals Self-Feeding Goal Independent Bathing Goal Independent Shower Transfer Goal Independent Days to Meet Goals 5 Frequency of Treatment Other frequency 5x/week Treatment Plan OT Treatment Plan ADL Training,Functional Cognition Training,Functional Mobility,Patient/Family Education,Discharge Planning Discharge Recommendations OT Discharge Recommendations Home with 22/11 Assist Available,Home Health, Outpatient PT Home Equipment Needs shower chair Transportation Needs at Discharge Private Vehicle
[2023-12-16] MEDS: ASPIRIN EC 81 MG TABLET PO (09:47)
[2023-12-16] MEDS: SPIRONOLACTONE 25 MG TABLET PO (09:47)
[2023-12-16] MEDS: PROPRANOLOL 10 MG TABLET 20 MG PO (09:47)
[2023-12-16] MEDS: LACTULOSE 20 GM/30 ML SOLUTION 5 GM PO (09:47)
[2023-12-16] MEDS: AZITHROMYCIN 250 MG TABLET PO (09:47)
[2023-12-16] MEDS: CLOPIDOGREL 75 MG TABLET PO (09:47)
[2023-12-16] MEDS: ENOXAPARIN 40 MG/0.4 ML SYRINGE SUBCUT (09:48)
--- NOTE | 2023-12-16 11:00 | PT.IPTN ---
Current Diagnoses Cerebral infarction, unspecified (12/14/23) Physical Therapy Treatment Note M2 PT-IP Current Condition Start: 12/15/23 09:24 Freq: NEEDED Status: Active Protocol: Document 12/15/23 09:15 [facility] (Rec: 12/15/23 10:32 [facility] [id number]) Physical Therapy Current Condition Current Condition Evaluation Date 12/15/23 Treatment Diagnosis Right facial droop, vision changes, right sided weakness M3 PT-IP Subjective Start: 12/15/23 09:24 Freq: NEEDED Status: Active Protocol: Document 12/16/23 11:23 TS (Rec: 12/16/23 11:38 TS [id number]) Subjective Physical Therapy Visit Type Type Treatment Note Visit Start Time 11:00 Visit Stop Time 11:15 Number of CHOIR LEADER Visits 1 Physical Therapy Visit Comments Patient Comments Pt found resting in bed, requires motivation to participate with PT. She has a wet cough and some facial drooping. M4 PT-IP Mobility and Gait Start: 12/15/23 09:24 Freq: NEEDED Status: Active Protocol: Document 12/16/23 11:23 TS (Rec: 12/16/23 11:38 TS [id number]) PT-Bed Mobility Assessment Rolling Type of Rolling Roll to Left Level of Assist Standby Assistance Supine to Sit Supine to Sit Standby Assistance,1 Person Assistance,Bedrails Sit to Supine Sit to Supine Standby Assistance Scooting Scooting to Edge of Bed Standby Assistance Scooting Up and Down in Bed Standby Assistance PT-Transfer Assessment Sit to and From Stand Sit to and from Stand Standby Assistance Equipment Transfer Assistive Device Gait Belt Orthotic/Prosthetic Devices or Brace: Yes Comments Mobility Comments Pt performed supine to sit SBA with BUE support from flat bed. STS from bed x1 SBA with no AD and uses momentum to stand. She ambulated ~250'CGA/ SBA with no AD, she has some unsteadiness. She performed stairs x3 with B rails step over step. Pt ambulated back to room, was left in bed, all needs met. Gait Assessment Gait Gait Assistance Required: Standby Assistance,Contact Guard Assist Distance (Feet) 250 Able to Maintain Weight Bearing Status Yes During Gait Assistive Devices Assistive Device Gait Belt Orthotic/Prosthetic Devices or Brace: Yes Gait Deviations General Gait Pattern Decreased Stride Length, Decreased Feet Clearance, Flexed Trunk,Wide Based Gait Factors Limiting Gait Function Factors Limiting Gait Function Decreased Activity Tolerance, Poor Balance,Poor Safety Awareness Stair Climbing Assessment Evaluation Level of Assist On Stairs Standby Assistance Devices Stair Climbing Assistive Devices Left Railing,Right Railing Technique/Endurance Stair Climbing Direction Ascend and Descend Stair Climbing Technique Step Over Step Number of Steps Climbed 3 Stair Climbing Set # Repetitions (reps) 1 PT-Balance Assessment Sitting Balance and Reactions Static Sitting Balance Ability Normal Dynamic Sitting Balance Ability Good Standing Balance and Reactions Static Standing Balance Ability Good Dynamic Standing Balance Ability Fair Device Used Gait belt only M5 PT-IP Objective Assessments Start: 12/15/23 09:24 Freq: NEEDED Status: Active Protocol: Document 12/15/23 09:15 [facility] (Rec: 12/15/23 10:32 [facility] [id number]) Orientation Orientation/Cognition Level of Alertness Alert Orientation Name,Age,Birthday,Month,Date, Year,Day of Week,Place, Situation Language Function Ability No Deficits Noted Safety Awareness Decreased Safety Awareness Memory Description No Deficits Noted Comments Speech changes with drooping right side of mouth Gross Range of Motion Upper Extremity ROM Impairments Defer to OT Lower Extremity ROM Assessment Within Functional Limits Strength Lower Extremity Strength Assessment Within Functional Limits Comments Strength Comments Both LE MMT is grossly equal and functional all joints with strength at least 4/5 hip flexors, 5/5 B knee extensors, ankle DFs and great toe extensors Coordination Assessment Gross Coordination Gross Coordination Impaired Assessment Foot Tapping Test Minimal Impairment Heel on Bergman Test Minimal Impairment Sensation Assessment Comments Sensation Comments Pt denies paresthesias to touch RLE is edematous compared to LLE Muscle Tone Muscle Tone WNL Yes M6 PT-IP Treatment Start: 12/15/23 09:24 Freq: NEEDED Status: Active Protocol: Document 12/16/23 11:23 TS (Rec: 12/16/23 11:38 [id number]) Physical Therapy Treatment Education Education Provided Safety M7 PT-IP Assessment and Plan Start: 12/15/23 09:24 Freq: NEEDED Status: Active Protocol: Document 12/16/23 11:23 TS (Rec: 12/16/23 11:38 TS [id number]) PT Summary Assessment and Plan Potential Rehabilitation Potential Good Summary Impairments Strength,Balance,Coordination, Bed Mobility,Transfers,Gait, Activity Tolerance Progress Towards Goals Progressing Toward Goals Assessment Summary Pt is doing well with her mobility this session. She is SBA for all bed mobility. She progressed her gait to ~250' SBA/CGA, she has some unsteadiness, no LOB or buckling. She continues to perform stairs x3 with B handrails. PT recommends home with assist. Goals Bed Mobility Goal Independent Transfer Goal Independent Gait Goal Independent Gait Distance 100 Other Goals Pt will ascend and descend 2 steps with right rail ascend and no more than superv assistance to allow safe home entrance. Days to Meet Goals 3 Frequency of Treatment Frequency Of Treatment Once a Day Treatment Plan Physical Therapy Treatment Plan Bed Mobility Training,Transfer Training,Gait Training, Therapeutic Exercise,Balance Retraining,Discharge Planning, Hot or Cold Pack,Neuromuscular Re-ed,Coordination Retraining Weight Bearing Status Weight Bearing Status Weight Bear as Tolerated Recommendations To Nursing Amount of Assist Needed 1 Person Assist Discharge Recommendations PT Discharge Recommendations Home with Assistance Other Discharge Recommendations HH vs OPPT Transportation Needs at Discharge Private Vehicle
--- NOTE | 2023-12-16 11:29 | CM.DPC ---
Addendum entered by FAUZIA Penny 12/16/23 13:46: Per [facility], pt might not be eligible for services due to polysubstance use indicated in chart. Will attempt to obtain a utox screening and send to [facility] for further acceptance review. Original Note: DCP Continued: Reviewed EMR and team rounds for pt?s medical status. Per Provider and therapies, pt preference to discharge home, declining recommendations for acute rehab. DCP entered room, introduced self and role. Patient was found in bed, able to verbalize preferences. Patient seemed deflective with discussion of discharge needs vs. referral to acute rehab. DCP discussed what home health referral included, pt agreed to referral with hopes of discharging with these services. Pt denied preference for agency. DCP to send referral to [facility] due to no pt preference, pending acceptance. DCP notified pt's RN and Provider of HH referral. Plan: Anticipating pt to discharge home with spouse when medically cleared, to follow up with for continued PT/OT/ST (with RN and Aide), pending acceptance. CM Team will continue to follow for coordination of discharge plans. YING Whitt
[2023-12-16 12:00] VITALS: BP 136/78; PULSE 69; RESP 24; TEMP 36.7; O2SAT 95
--- NOTE | 2023-12-16 14:00 | ST.IPDYTX ---
Visit Care Team Role Provider Type Pastor Naranjo MD Primary Care Provider Physician Specialty: Family Practice Address: [address] [place], [address] Email: [email or web address] Family Provider Non-Staff Specialty: Medical Address: [address] [place] [address], [phone] Fax: Email: Alonso Ryan MD Emergency Provider Physician Referring Provider Specialty: Emergency Medicine Address: [address] [place] [address], [id number] Email: [email or web address] Admit Provider Physician Attending Provider Specialty: [facility] Address: [address] [place] [address], [id number] Email: [email or web address] INSTALLER SUPERVISOR Dysphagia Treatment STEEL POST INSTALLER SUPERVISOR Dysphagia Treatment Start: 12/16/23 13:17 Freq: Status: Active Protocol: Document 12/16/23 13:21 SS (Rec: 12/16/23 13:52 SS [id number]) Dysphagia Treatment Session Time Visit Start Time 10:25 Visit Stop Time 10:43 Total Visit Minutes 18 Visit Information Visit Number 1 Setting Assessment Location Acute Care Visit Type Note Type Treatment Note Next Note Type Next Note Type Treatment Note Patient Information Identification Type Name Subjective Observations Per chart, x-ray completed and no pneumothorax observed. Discussed swallowing function with RN, who noted no difficulty with medications with puree carrier as well as with intake during meals. OT reported L pocketing and pt holding solids in mouth without intention to clear, as well as speaking while attempting to swallow, likely due to reduced insight to deficits. Pt laying down in bed upon STEEL POST INSTALLER SUPERVISOR arrival. She was tearful when STEEL POST INSTALLER SUPERVISOR attempted to initiate conversation, though did not wish to discuss further. She benefitted from encourgement throughout to participate in session. Pt expressed no concerns with her swallowing function at this time. Treatment Liquids Trialed Thin (IDDSI 0) Solids Trialed Purred (IDDSI 4),Minced & Moist (IDDSI 5),Regular (IDDSI 7) Administration Type Cup Single Sip,Cup Consecutive Sips,Straw,Self-Feeding Oral Strategies Upright at 90 degrees, Alternate Liquids/Solids Pharyngeal Strategies Sitting Upright (90 deg),Small Bites and Sips,Alternate Liquids/Solids Treatment Activities STEEL POST INSTALLER SUPERVISOR facilitated discussion re: pt's observations in regards to swallowing function. Pt denied concerns, stating I just want to go home. Pt presented with the following PO trials: thin liquids, minced and moist, and regular. She demonstrated functional mastication with timely oral transit. Mild-moderate oral residue noted, though pt utilized lingual sweep and liquid wash to achieve complete oral clearance. Pharyngeal swallow appears prompt. No overt s/sx of aspiration with provided consistencies. Pt completed consecutive sips of thin liquids via cup and straw without any concerns. Decreased impulsivity noted on this date with consistent use of slow rate, small bites and sips, and upright intake position. Aspiration risk ranges from low to moderate given fluctuating alertness and inconsistent ability to clear oral residue prior to taking another bite/speaking given decreased insight and safety awareness. Overall, increased swallowing function noted on this date as pt able to clear oral residue independently. with decreased pocketing noted. Recommend diet advancement to soft and bite-sized texture, thin liquids, and meds whole in puree carrier as tolerated. Recommend ongoing STEEL POST INSTALLER SUPERVISOR services at current level of care for continued diet advancement as appropriate and adherence to aspiration precautions. Given mild-moderate dysarthria and cognitive concerns, attempted to implement assessment, though pt declined , stating she was feeling tired, and became tearful. Will attemp in next session if pt agreeable. Provided education re: benefit of participation in outpatient or home health setting if concerns continue. Pt expressed understanding and stated she will consider participation in services. The IDDSI Framework Protocol: IDDSI.1 Assessment Patient Response to Treatment Good Rehab Potential Good Recommendations Recommendations Upgrade Diet Order Liquids Order Thin (IDDSI 0) Diet Order Soft & Bite-sized (IDDSI 6) Medication Recommendations Whole in Carrier,One at a Time Additional Dietary Needs 1:1 Assistance,Reminders to Use Strategies Aspiration Precautions Recommended Precautions Upright at 90 Degrees,Small Bites/Sips,Lingual Sweep,Check for Pocketing Additional Precautions Hold PO intake if pt not fully alert/awake. Treatment Plan Placement Recommendation after Discharge Home with Home Health, Outpatient Therapy Appropriate for Continued Therapy Yes: If pt agreeable Therapy Recommendations Recommend ongoing skilled services targeting dysphagia in order to continue to monitor aspiration risk, implement safe swallowing strtegies, and make appropriate and updated diet recommendations. Dysphagia Goals STG 1: Patient will demonstrate 90% accuracy in re -teach and implementation of compensatory swallow strategies to decrease risk of aspiration and discomfort with intake of solids and liquids. STG 2: Patient will increase ability to safely swallow Soft and Bite-Sized (SB6) consistencies without overt s/ sx of aspiration in 100% of opportunities in order to meet primary nutrition and hydration needs. 3. Patient will tolerate thin liquids with no overt s/sx of aspiration in 100% of opportunities in orer to decrease risk of aspiration- related complications. 4. Patient will complete further assessment of speech, language, and cognition in order to determine discharge setting and further inform POC . LTG: Patient will safely tolerate least restrictive diet consistency to allow for safe consumption of daily meals without s/sx of aspiration.
--- NOTE | 2023-12-16 15:03 | P.DS_ITS ---
History of Present Illness History of Present Illness Date Patient Seen: 12/16/23 Time Patient Seen: 09:00 Chief complaint: CVA Narrative: chief complaint: will this get better? Feeling better after para and thoracentesis working with therapy swallowing is doing better still some R facial droop fully oriented and conversant we discussed cirhosis complications with her and today Discharge Providers Provider Date of admission: 12/14/23 18:14 Discharge Date: 12/16/23 Primary care physician: Pastor Naranjo MD Consults: 12/14/23 18:25 Consult to Discharge Planning Routine Comment: Consult to Occupational Therapy Evaluate & Treat Comment: Physician Instructions: Evaluate and treat Consult to Physical Therapy Evaluate & Treat Comment: Physician Instructions: Evaluate and Treat Consult to Speech Therapy Evaluate & Treat Comment: Physician Instructions: Evaluate and treat 12/16/23 11:56 Consult to Home Health Routine Comment: RN/PT/OT/ST/HH Aide Reason For Exam: CVA, Dysphasia, Hypoxia Discharge provider: Pastor Naranjo MD Summary Hospital Course Discharge Diagnosis: #new subacute cerebral infarct - deep white matter of L frontal lobe with some basal ganglia involvement #dysarthria #dysphagia #RUE coordination dysfunction #cirrhosis with ascites #L pleural effusion #hypertension Hospital Course: Mr.s Duran is well known to our service 58y F with cirrhotic ascites requiring weekly paracentesis. Presented to our hospital with new R sided neuro symptoms outside time window for active management - MRI revealed a subacute stroke, she also had significant ascites and a L sided pelural effusion which were both tapped with her able to feel better after that. She worked with the various therapists who identified some minor impairments but generally cleared her to go home and f/up as outpatient with statin and ASA 81 - main issue is the dysarthria and facial droop. I remain concerned at progression of these cirrhotic complications and am pursuing hepatology referral for TIPS. Status at Discharge Cognitive/behavioral status at discharge: at baseline, oriented Functional status at discharge: uses cane/walker Overall status at discharge: patient is progressing back to baseline Time Spent with Patient Time spent: Greater than 30 minutes Exam Vital Signs (past 8 hours): - 12/16/23 09:30 12/16/23 12:00 Temperature 98.0 F Pulse Rate 69 Respiratory Rate 24 Blood Pressure 136/78 Pulse Oximetry 95 Oxygen Delivery Method Room Air Oxygen Flow Rate 0 Oxygen Delivery Method Room Air Oxygen Flow Rate 0 Narrative Exam Narrative: laying in bed with at bedside Resp Other: moving air ok, grossly clear to auscultation bialterally, thoracotomy site under dry dressing GI Other: distended ascites nontender paracentesis cite under clean dry dressing Skin Other: sallow/mildly icteric Neuro Other: alert conversant fully oriented - R facial droop with some slurred words - RUE hand can do alternating fingers but it is clumsy compared to L she is able to walk ok - feed herself ok with either hand - grossly normal sensation and strength Psych Other: depressed with intact thought process Objective Labs 12/16/23 06:30 12/16/23 06:30 Labs: Laboratory Results - last 24 hr 12/15/23 12/16/23 16:00 06:30 WBC 8.2 RBC 3.39 L Hgb 8.7 L Hct 26.8 L MCV 79.1 L MCH 25.7 L MCHC 32.4 RDW 21.6 H Plt Count 254 Neut % (Auto) 61.5 Lymph % (Auto) 24.0 L [place] % (Auto) 11.3 Eos % (Auto) 2.3 Baso % (Auto) 0.9 Neut # (Auto) 5000 Lymph # (Auto) 2000 [place] # (Auto) 900 Eos # (Auto) 200 Baso # (Auto) 100 RBC Morphology Not Reportable Poikilocytosis 1+ H Anisocytosis 1+ H Sodium 137 Potassium 4.0 Chloride 113 H Carbon Dioxide 20 L BUN 14 Creatinine 0.74 Estimated GFR > 60 BUN/Creatinine Ratio 18.9 Glucose 92 Calcium 8.1 L Total Bilirubin 1.0 AST 49 H ALT 24 Alkaline Phosphatase 174 H Total Protein 5.8 L Albumin 2.6 L Globulin 3.2 Albumin/Globulin Ratio 0.8 L Fluid Color Yellow Fluid Appearance Hazy Fluid RBC 1436 Fld Tot Nucleated Cell 615 Fluid Neutrophils % 11 Fluid Lymphocytes % 36 Fluid Meso/Macro/[place] % 53 Body Fluid Clot No clots present PFSH Medical History COVID-19 Tobacco abuse Alcoholism Methamphetamine abuse Surgical History Status post lumbar surgery Status post cervical spinal fusion Status post gastric bypass for obesity Family History Mother Hypertension Father Family estrangement Social History household members: spouse Smoking Status: Current every day smoker Discharge Assessment & Plan Assessment and Plan Assessment: #new subacute cerebral infarct #dysarthria #dysphagia #RUE coordination dysfunction deep white matter of L frontal lobe with some basal ganglia involvement per MRI appreciate therapy input there is some degree of impairment which is evolving R-sided facial droop, some R upper extremity clumsiness, some swallowing issues but no concern for aspiration if she is careful. adding statin and ASA - adamant she wants to go home - swallowing precautions discussed - soft and bite-sized recs from will refer for outpt IH therapy svcs #cirrhosis with ascites needing weekly drainage at this point s/p paracentesis she is feeling better trying for TIPS in outpt referral setting - I spoke with [facility] doc they say [facility] is who she needs to talk to - will begin referral process in outside setting. #L pleural effusion s/p thoracentesis with fluid eval #hypertension stable BP resume home meds - permissive htn for systolic over 120 doing ok with function returning somewhat Dispo: home with PCP: Jose A MDM: Code: DNR Discharge Plan Discharge Plan Patient Disposition: Home Health Service Transfer to: [facility] Provider Discharge Comment: with PT/OT/ST Discharge orders & Medications Prescriptions: New aspirin 81 mg Tablet,Delayed Release (Dr/Ec) 81 mg PO DAILY Qty: 30 0RF atorvastatin 40 mg tablet 40 mg PO BEDTIME Qty: 30 0RF Continued azithromycin 250 mg Tablet 250 mg PO DAILY Rx Instructions: start on day 2 of therapy spironolactone 25 mg Tablet 25 mg PO DAILY nadolol 40 mg Tablet 40 mg PO DAILY montelukast 10 mg Tablet 10 mg PO BEDTIME methylprednisolone 4 mg Tablets,Dose Pack 4 mg PO DAILY albuterol sulfate 90 mcg/actuation HFA aerosol inhaler 90 mcg inhalation 1-2XD PRN (Reason: Shortness Of Breath Or Wheezing) lactulose 10 gram/15 mL solution 7.5 ml PO DAILY Patient Comments: patient doesnt like it, has not been taking Follow up/Referrals: Pastor Naranjo MD [Primary Care Provider] - Diet/Activity/Treatments Diet comment: per speech therapy Visit Report/Discharge Packet Stand Alone Forms: Patient Portal/API, Stroke Signs & Symptoms Discharge Data Primary Care Provider: Pastor Naranjo VTE Deep Vein Thrombosis/Pulmonary Embolism Present on Admission: No
--- NOTE | 2023-12-16 15:21 | CM.DPC ---
Addendum entered by FAUZIA Markham 12/17/23 13:30: ADD: According to Wendy at [place], they cannot accept patient's primary [employer] coverage. Patient will not have services through [facility]. This CLINICAL TRIALS NURSE unable to send referral to [facility] agency due to current acute care caseload demands. Original Note: DCP Cont: Dr. Naranjo came by the office and indicated that he is discharging patient today. Will need all disciplines except CLINICAL TRIALS NURSE. Called [facility], for referral was sent, spoke to Wendy. She did want copy of tox screen, faxed this to her. The barrier is that she has to verify insurance. Confirmed that Therese Nicole is primary, Medicare secondary. She indicated that she has to get this verified with her health manager. Will call the CLINICAL TRIALS NURSE desk either later this pm, or in the am. Faxed over DC summary, and face to face, ordes, and tox information. Giovana Gibson RN/Broadcast Technician
--- NOTE | 2023-12-16 15:54 | PC.NURSE ---
Pt discharged home with HH at 1555, escorted off floor in wheelchair accompanied by spouse and hospital staff. IV removed earlier today, discharge teaching completed including new medications, stroke education and follow up appointments. Questions answered and concerns addressed. Patient left the floor with all belongings.
[2023-12-17 05:19] LABS: Labcorp Amylase, Body Fluid 25 U/L (.); Labcorp Glucose, Body Fluid 126 mg/dL (.); Labcorp LDH, Body Fluid 80 IU/L (.); Labcorp Total Prot, Body Fluid 1.8 g/dL (.)
== END 2023-12-16 15:57 | disposition home health service (06) | DRG 65 ==
LOC: ED 18:06 → AC 18:15
PROVIDERS: Admitting Provider Family Medicine; Emergency Provider Emergency Medicine; Family Provider Preventive Medicine Occupational Medicine; PCP Family Medicine; Referring Provider Emergency Medicine; Visit Provider Family Medicine
DX: I63.9 Cerebral infarction, unspecified (principal); J90 Pleural effusion, not elsewhere classified; R29.810 Facial weakness; F17.200 Nicotine dependence, unspecified, uncomplicated; I10 Essential (primary) hypertension; K70.31 Alcoholic cirrhosis of liver with ascites; R29.706 NIHSS score 6; R29.705 NIHSS score 5; R47.1 Dysarthria and anarthria; R13.10 Dysphagia, unspecified
CPT/HCPCS: 32555; 36415; 49083; 70450; 70496; 70498; 70551; 71045; 80053; 80320; 82040; 82140; 82150; 82550; 82945; 82962; 83615; 83880; 84157; 84484; 85025; 87070; 87075; 87205; 89051; 92526; 92610; 93005; 93010; 93307; 94640; 97116; 97129; 97161; 97166; 97530; 97535; 99285; J1650; J2060; P9041

== ENCOUNTER → 2023-12-22 08:31 | Outpatient (CLI) | payer OTHER, MEDICARE, SELFPAY ==
[2021-03-02 22:57] VITALS: BMI 112.0
[2023-12-14 18:18] VITALS: BMI 32.1
--- NOTE | 2023-12-22 08:34 | DI.US.S_ITS ---
PROCEDURE: US PARACENTESIS INDICATIONS: Alcoholic cirrhosis of liver with ascites TECHNIQUE: The indications, alternatives, benefits, risks, and complications of the procedure were explained to the patient. Written informed consent was obtained and placed in the chart. The abdomen and pelvis were examined sonographically, and an appropriate site was chosen for paracentesis. The skin was prepared and draped in the usual sterile fashion, and 1% lidocaine was infiltrated from the skin down through the peritoneal surface. A 19-gauge catheter-covered needle was then introduced into the peritoneal space, the catheter was advanced and the needle was withdrawn, and thereafter peritoneal fluid was withdrawn. The catheter was then removed and a dressing was applied. The fluid was discarded if the clinician did not order diagnostic testing of the fluid. COMPARISON: [facility], , PARACENTESIS, 12/15/2023, 16:14. FINDINGS: Access site: Right lower quadrant. Patient was positioned in the right side down decubitus position to aid in access of fluid. Needle: One-Step centesis catheter with introducer needle. Fluid volume and description: 2300 cc clear straw-colored Fluid sent for diagnostic testing: None. Medications: 1% lidocaine for local anaesthesia. Complications: None. IMPRESSION: Successful ultrasound-guided paracentesis. 2.3 L removed. Dictated by: Canelo Anglin M.D. on 12/23/2023 at 9:26 Approved by: Canelo Anglin M.D. on 12/23/2023 at 9:29
== END ==
PROVIDERS: Family Provider Preventive Medicine Occupational Medicine; PCP Family Medicine; Referring Provider Internal Medicine; Visit Provider Internal Medicine
DX: K70.31 Alcoholic cirrhosis of liver with ascites (principal)
CPT/HCPCS: 49083

== ENCOUNTER → 2023-12-29 08:26 | Outpatient (CLI) | payer OTHER, MEDICARE, SELFPAY ==
[2021-03-02 22:57] VITALS: BMI 112.0
[2023-12-14 18:18] VITALS: BMI 32.1
--- NOTE | 2023-12-29 08:29 | DI.US.S_ITS ---
PROCEDURE: US PARACENTESIS INDICATIONS: Alcoholic cirrhosis of liver with ascites TECHNIQUE: The indications, alternatives, benefits, risks, and complications of the procedure were explained to the patient. Written informed consent was obtained and placed in the chart. The abdomen and pelvis were examined sonographically, and an appropriate site was chosen for paracentesis. The skin was prepared and draped in the usual sterile fashion, and 1% lidocaine was infiltrated from the skin down through the peritoneal surface. A 19-gauge catheter-covered needle was then introduced into the peritoneal space, the catheter was advanced and the needle was withdrawn, and thereafter peritoneal fluid was withdrawn. The catheter was then removed and a dressing was applied. The fluid was discarded if the clinician did not order diagnostic testing of the fluid. COMPARISON: [facility], , PARACENTESIS, 12/22/2023, 8:45. FINDINGS: Access site: Right lower quadrant Needle: One-Step centesis catheter with introducer needle. Fluid volume and description: Clear straw-colored. 3.7 liters. Fluid sent for diagnostic testing: No Medications: 1% lidocaine for local anaesthesia. Complications: None. IMPRESSION: Successful ultrasound-guided paracentesis. Dictated by: Steven Rodas M.D. on 12/29/2023 at 9:48 Approved by: Steven Rodas M.D. on 12/29/2023 at 9:50
== END ==
PROVIDERS: Family Provider Preventive Medicine Occupational Medicine; PCP Family Medicine; Referring Provider Internal Medicine; Visit Provider Internal Medicine
DX: K70.31 Alcoholic cirrhosis of liver with ascites (principal)
CPT/HCPCS: 49083

== ENCOUNTER → 2024-01-04 10:54 | Outpatient (CLI) | payer OTHER, MEDICARE, SELFPAY ==
[2023-12-14 18:18] VITALS: BMI 32.1
--- NOTE | 2024-01-04 10:57 | DI.US.S_ITS ---
PROCEDURE: US PARACENTESIS INDICATIONS: ASCITES DUE TO ALCOHOLIC CIRRHOSIS TECHNIQUE: The indications, alternatives, benefits, risks, and complications of the procedure were explained to the patient. Written informed consent was obtained and placed in the chart. The abdomen and pelvis were examined sonographically, and an appropriate site was chosen for paracentesis. The skin was prepared and draped in the usual sterile fashion, and 1% lidocaine was infiltrated from the skin down through the peritoneal surface. A 19-gauge catheter-covered needle was then introduced into the peritoneal space, the catheter was advanced and the needle was withdrawn, and thereafter peritoneal fluid was withdrawn. The catheter was then removed and a dressing was applied. The fluid was discarded if the clinician did not order diagnostic testing of the fluid. COMPARISON: [facility], PARACENTESIS, 12/29/2023, 8:47. FINDINGS: Access site: Right lower quadrant Needle: One-Step centesis catheter with introducer needle. Fluid volume and description: 3.6 L Fluid sent for diagnostic testing: No Medications: 1% lidocaine for local anaesthesia. Complications: None. IMPRESSION: Successful ultrasound-guided paracentesis. Dictated by: Smooth Mckinnon M.D. on 01/04/2024 at 17:17 Approved by: Smooth Mckinnon M.D. on 01/04/2024 at 17:18
== END ==
LOC: US 10:56
PROVIDERS: Family Provider Preventive Medicine Occupational Medicine; PCP Family Medicine; Referring Provider Internal Medicine; Visit Provider Internal Medicine
DX: K70.31 Alcoholic cirrhosis of liver with ascites (principal)
CPT/HCPCS: 49083

== ENCOUNTER → 2024-01-11 | Outpatient (CLI) | payer OTHER, MEDICARE, SELFPAY ==
[2023-12-14 18:18] VITALS: BMI 32.1
--- NOTE | 2024-01-11 08:48 | DI.US.S_ITS ---
PROCEDURE: US PARACENTESIS INDICATIONS: ASCITES DUE TO ALCOHOLIC CIRRHOSIS TECHNIQUE: The indications, alternatives, benefits, risks, and complications of the procedure were explained to the patient. Written informed consent was obtained and placed in the chart. The abdomen and pelvis were examined sonographically, and an appropriate site was chosen for paracentesis. The skin was prepared and draped in the usual sterile fashion, and 1% lidocaine was infiltrated from the skin down through the peritoneal surface. A 19-gauge catheter-covered needle was then introduced into the peritoneal space, the catheter was advanced and the needle was withdrawn, and thereafter peritoneal fluid was withdrawn. The catheter was then removed and a dressing was applied. The fluid was discarded if the clinician did not order diagnostic testing of the fluid. COMPARISON: [facility], , PARACENTESIS, 01/04/2024, 11:05. FINDINGS: Access site: Right lower quadrant Needle: One-Step centesis catheter with introducer needle. Fluid volume and description: Yellow 4700 cc Fluid sent for diagnostic testing: No Medications: 1% lidocaine for local anaesthesia. Complications: None. IMPRESSION: Successful ultrasound-guided paracentesis. Dictated by: Rosana Donahue M.D. on 01/11/2024 at 17:00 Approved by: Rosana Donahue M.D. on 01/11/2024 at 17:00
== END ==
PROVIDERS: Family Provider Preventive Medicine Occupational Medicine; PCP Family Medicine; Referring Provider Internal Medicine; Visit Provider Internal Medicine
DX: K70.31 Alcoholic cirrhosis of liver with ascites (principal)
CPT/HCPCS: 49083

== ENCOUNTER 2024-01-16 15:57 | Outpatient (CLI) | payer OTHER, MEDICARE, SELFPAY ==
[2023-12-14 18:18] VITALS: BMI 32.1
[2024-01-16 17:30] LABS: Hematocrit 32.3 % (36-46); Hemoglobin 10.6 g/dL (12.0-16.0); Mean Corpuscular HGB Conc 32.8 % (30-36); Mean Corpuscular Hemoglobin 27.3 PG (26-34); Mean Corpuscular Volume 83.2 fL (80-100); Platelet Count 326 X10^3/uL (150-400); Red Blood Cell Count 3.89 X10^6/uL (4.0-5.2); Red Cell Distribution Width 21.3 % (11.6-14.8); White Blood Cell Count 7.1 X10^3/uL (4.5-11.0)
[2024-01-16 17:34] LABS: INR 1.2 (0.9-1.3); Prothrombin Time 13.4 SECONDS (9.4-12.5)
[2024-01-18 09:03] VITALS: BP 187/91; PULSE 82; RESP 22; TEMP 36.2; O2SAT 96
[2024-01-18 09:20] VITALS: BP 165/95; PULSE 75; RESP 20; O2SAT 99
[2024-01-18 09:30] VITALS: BP 145/80; PULSE 77; RESP 20; O2SAT 99
[2024-01-18 09:45] VITALS: BP 146/85; PULSE 75; RESP 20; O2SAT 97
[2024-01-18 10:00] VITALS: BP 173/84; PULSE 75; RESP 20; O2SAT 97
[2024-01-18 10:15] VITALS: BP 156/84; PULSE 76; RESP 20; O2SAT 98
--- NOTE | 2024-01-18 10:27 | PC.NURSE ---
5,000mL removed from Patient during paracentesis at 0945. Albumin 50G IV order placed per written orders form Dr. Kimmie Laird. Pharmacy called to inform them of the location of the patient for delivery of the Albumin. Pharmacy notified this nurse that the hospital currently does not have any Albumin in stock and that it will hopefully arrive in [address] Edwards called to notify of Albumin status and that the patient did not want to wait for the Albumin to arrive. Dr. Edwards ok'd patient to [place] home. Patient stable and discharged home.
== END 2024-01-18 10:17 | disposition home or self-care (01) ==
LOC: LAB 16:00
PROVIDERS: Family Provider Preventive Medicine Occupational Medicine; PCP Family Medicine; Referring Provider Internal Medicine; Visit Provider Internal Medicine
DX: R18.8 Other ascites (principal)
CPT/HCPCS: 36415; 85027; 85610

== ENCOUNTER → 2024-01-18 08:48 | Outpatient (CLI) | payer OTHER, MEDICARE, SELFPAY ==
[2023-12-14 18:18] VITALS: BMI 32.1
--- NOTE | 2024-01-18 08:49 | DI.US.S_ITS ---
PROCEDURE: US PARACENTESIS INDICATIONS: ASCITES DUE TO ALCOHOLIC CIRRHOSIS TECHNIQUE: The indications, alternatives, benefits, risks, and complications of the procedure were explained to the patient. Written informed consent was obtained and placed in the chart. The abdomen and pelvis were examined sonographically, and an appropriate site was chosen for paracentesis. The skin was prepared and draped in the usual sterile fashion, and 1% lidocaine was infiltrated from the skin down through the peritoneal surface. A 19-gauge catheter-covered needle was then introduced into the peritoneal space, the catheter was advanced and the needle was withdrawn, and thereafter peritoneal fluid was withdrawn. The catheter was then removed and a dressing was applied. The fluid was discarded if the clinician did not order diagnostic testing of the fluid. COMPARISON: [facility], PARACENTESIS, 01/11/2024, 9:02. FINDINGS: Access site: Right lower quadrant Needle: One-Step centesis catheter with introducer needle. Fluid volume and description: 5 L of clear fluid Fluid sent for diagnostic testing: Negative Medications: 1% lidocaine for local anaesthesia. Complications: None. IMPRESSION: Successful ultrasound-guided paracentesis. Dictated by: Nilesh Edwards M.D. on 01/20/2024 at 10:34 Approved by: Nilesh Edwards M.D. on 01/20/2024 at 10:35
== END ==
PROVIDERS: Family Provider Preventive Medicine Occupational Medicine; PCP Family Medicine; Referring Provider Internal Medicine; Visit Provider Internal Medicine
DX: K70.31 Alcoholic cirrhosis of liver with ascites (principal)
CPT/HCPCS: 49083; 96365; 96366; P9041

== ENCOUNTER 2024-01-25 09:32 | Outpatient (CLI) | payer OTHER, MEDICARE, SELFPAY ==
[2023-12-14 18:18] VITALS: BMI 32.1
[2024-01-25] VITALS (12 sets, daily range): BP systolic 139–160; BP diastolic 78–89; PULSE 61–72; RESP 18–20; TEMP 36.7; O2SAT 93–97
--- NOTE | 2024-01-25 09:35 | DI.US.S_ITS ---
PROCEDURE: US PARACENTESIS W/ALBUMIN INDICATIONS: ASCITES TECHNIQUE: The indications, alternatives, benefits, risks, and complications of the procedure were explained to the patient. Written informed consent was obtained and placed in the chart. The abdomen and pelvis were examined sonographically, and an appropriate site was chosen for paracentesis. The skin was prepared and draped in the usual sterile fashion, and 1% lidocaine was infiltrated from the skin down through the peritoneal surface. A 19-gauge catheter-covered needle was then introduced into the peritoneal space, the catheter was advanced and the needle was withdrawn, and thereafter peritoneal fluid was withdrawn. The catheter was then removed and a dressing was applied. The fluid was discarded if the clinician did not order diagnostic testing of the fluid. COMPARISON: None. FINDINGS: Access site: Right lower quadrant Needle: One-Step centesis catheter with introducer needle. Fluid volume and description: 5150 mL of straw-colored clear fluid. Fluid sent for diagnostic testing: None Medications: 1% lidocaine for local anaesthesia. Complications: None. IMPRESSION: Successful ultrasound-guided paracentesis. Dictated by: Saw Joshi M.D. on 01/25/2024 at 15:59 Approved by: Saw Joshi M.D. on 01/25/2024 at 16:00
[2024-01-25] MEDS: ALBUMIN HUMAN 50 GM/200 ML VIAL IV (11:05)
== END 2024-01-25 12:54 | disposition home or self-care (01) ==
PROVIDERS: Family Provider Preventive Medicine Occupational Medicine; PCP Family Medicine; Referring Provider Internal Medicine; Visit Provider Internal Medicine
DX: K70.31 Alcoholic cirrhosis of liver with ascites (principal)
CPT/HCPCS: 49083; 96365; 96366; P9041

== ENCOUNTER 2024-02-01 09:15 | Outpatient (CLI) | payer MEDICARE, OTHER, SELFPAY ==
[2023-12-14 18:18] VITALS: BMI 32.1
[2024-02-01] VITALS (11 sets, daily range): BP systolic 116–169; BP diastolic 64–88; PULSE 57–64; RESP 16; TEMP 36.6; O2SAT 95–100
--- NOTE | 2024-02-01 | DI.US.S_ITS ---
PROCEDURE: US PARACENTESIS W/ALBUMIN INDICATIONS: Alcoholic cirrhosis of liver with ascites TECHNIQUE: The indications, alternatives, benefits, risks, and complications of the procedure were explained to the patient. Written informed consent was obtained and placed in the chart. The abdomen and pelvis were examined sonographically, and an appropriate site was chosen for paracentesis. The skin was prepared and draped in the usual sterile fashion, and 1% lidocaine was infiltrated from the skin down through the peritoneal surface. A 19-gauge catheter-covered needle was then introduced into the peritoneal space, the catheter was advanced and the needle was withdrawn, and thereafter peritoneal fluid was withdrawn. The catheter was then removed and a dressing was applied. The fluid was discarded if the clinician did not order diagnostic testing of the fluid. COMPARISON: [facility], , US PARACENTESIS W/ALBUMIN, 01/25/2024, 10:01. FINDINGS: Access site: Right lower quadrant Needle: One-Step centesis catheter with introducer needle. Fluid volume and description: 5.2 L clear yellow fluid Fluid sent for diagnostic testing: Not requested Medications: 1% lidocaine for local anaesthesia. Complications: None. IMPRESSION: Successful ultrasound-guided paracentesis. Approved by: Meng Pettit M.D. on 02/01/2024 at 15:43
[2024-02-01] MEDS: ALBUMIN HUMAN 50 GM/200 ML VIAL IV (10:23)
== END 2024-02-01 12:14 | disposition home or self-care (01) ==
LOC: US 09:17
PROVIDERS: Family Provider Preventive Medicine Occupational Medicine; PCP Family Medicine; Referring Provider Internal Medicine; Visit Provider Internal Medicine
DX: K70.31 Alcoholic cirrhosis of liver with ascites (principal)
CPT/HCPCS: 49083; 96365; 96366; P9041

== ENCOUNTER 2024-02-08 07:50 | Outpatient (CLI) | payer OTHER, MEDICARE, SELFPAY ==
[2023-12-14 18:18] VITALS: BMI 32.1
--- NOTE | 2024-02-08 | DI.US.S_ITS ---
PROCEDURE: US ABDOMEN LIMITED INDICATIONS: ASCITIES; POSSIBLE PARACENTESIS TECHNIQUE: Real-time focused scanning was performed of the abdomen, with image documentation. COMPARISON: [facility], , US ABDOMEN LIMITED, 11/10/2023, 18:28. FINDINGS: There is small to moderate amount of ascites fluid inadequate for safe ultrasound-guided paracentesis. IMPRESSION: Small to moderate amount of ascites fluid inadequate for safe ultrasound-guided paracentesis. Patient opt for returning in the near future for paracentesis. Dictated by: Saw Joshi M.D. on 02/08/2024 at 9:58 Approved by: Saw Joshi M.D. on 02/08/2024 at 10:05
[2024-02-08 08:05] VITALS: BP 135/73; PULSE 71; RESP 20; TEMP 36.2; O2SAT 96
--- NOTE | 2024-02-08 09:50 | PC.NURSE ---
Paracentesis not performed due to not enough fluid in abdomen per Radiologist via [facility]. Patient discharged home.
== END 2024-02-08 08:55 | disposition home or self-care (01) ==
LOC: US 07:51
PROVIDERS: Family Provider Preventive Medicine Occupational Medicine; PCP Family Medicine; Referring Provider Internal Medicine; Visit Provider Internal Medicine
DX: K70.31 Alcoholic cirrhosis of liver with ascites (principal)
CPT/HCPCS: 76705

== ENCOUNTER → 2024-02-15 11:14 | Outpatient (CLI) | payer MEDICARE, OTHER, SELFPAY ==
[2023-12-14 18:18] VITALS: BMI 32.1
--- NOTE | 2024-02-15 11:16 | DI.US.S_ITS ---
PROCEDURE: US PARACENTESIS INDICATIONS: ASCITES TECHNIQUE: The indications, alternatives, benefits, risks, and complications of the procedure were explained to the patient. Written informed consent was obtained and placed in the chart. The abdomen and pelvis were examined sonographically, and an appropriate site was chosen for paracentesis. The skin was prepared and draped in the usual sterile fashion, and 1% lidocaine was infiltrated from the skin down through the peritoneal surface. A 19-gauge catheter-covered needle was then introduced into the peritoneal space, the catheter was advanced and the needle was withdrawn, and thereafter peritoneal fluid was withdrawn. The catheter was then removed and a dressing was applied. The fluid was discarded if the clinician did not order diagnostic testing of the fluid. COMPARISON: [facility], PARACENTESIS, 01/18/2024, 9:00. FINDINGS: Access site: Left lower quadrant Needle: One-Step centesis catheter with introducer needle. Fluid volume and description: 3550 cc of yellow ascites fluid Fluid sent for diagnostic testing: As requested by ordering team Medications: 1% lidocaine for local anaesthesia. Complications: None. IMPRESSION: Successful ultrasound-guided paracentesis. Dictated by: Parviz Valdez M.D. on 02/15/2024 at 12:58 Approved by: Parviz Valdez M.D. on 02/15/2024 at 12:59
[2024-02-15 12:43] LABS: Hematocrit 29.2 % (36-46); Mean Corpuscular HGB Conc 34.1 % (30-36); Mean Corpuscular Hemoglobin 28.3 PG (26-34); Mean Corpuscular Volume 83.1 fL (80-100); Platelet Count 335 X10^3/uL (150-400); Red Blood Cell Count 3.51 X10^6/uL (4.0-5.2); Red Cell Distribution Width 19.1 % (11.6-14.8); White Blood Cell Count 6.3 X10^3/uL (4.5-11.0)
[2024-02-15 12:54] LABS: INR 1.2 (0.9-1.3); Prothrombin Time 14.3 SECONDS (9.4-12.5)
[2024-02-15 13:02] LABS: BUN Creatinine Ratio 14.5 (6-22); Blood Urea Nitrogen 12 mg/dL (7-17); Calcium 8.8 mg/dL (8.4-10.2); Carbon Dioxide 25 mmol/L (22-32); Chloride 106 mmol/L (98-107); Estimated Glomerular Filt Rate > 60 mL/min (>60); Glucose 103 mg/dL (70-100); HEMOLYSIS 32 (0-50); Potassium 4.3 mmol/L (3.4-5.1); Sodium 137 mmol/L (137-145)
== END ==
PROVIDERS: Internal Medicine Gastroenterology; Family Provider Preventive Medicine Occupational Medicine; PCP Family Medicine; Referring Provider Internal Medicine; Visit Provider Internal Medicine
DX: F10.20 Alcohol dependence, uncomplicated (principal); K70.31 Alcoholic cirrhosis of liver with ascites
CPT/HCPCS: 36415; 49083; 80048; 85027; 85610

== ENCOUNTER → 2024-02-22 09:19 | Outpatient (CLI) | payer MEDICARE, OTHER, SELFPAY ==
[2023-12-14 18:18] VITALS: BMI 32.1
--- NOTE | 2024-02-22 09:22 | DI.US.S_ITS ---
PROCEDURE: US ABDOMEN LIMITED INDICATIONS: ASCITES TECHNIQUE: Real-time focused scanning was performed of the abdomen, with image documentation. COMPARISON: [facility], US ABDOMEN LIMITED, 02/08/2024, 8:24. [facility], US ABDOMEN LIMITED, 11/10/2023, 18:28. [facility], US ABDOMEN LIMITED, 09/01/2023, 17:05. FINDINGS: Preprocedural scanning prior to and ultrasound-guided paracentesis was performed. Small volume ascites was present in the left upper and left lower quadrants. The decision was made to delay paracentesis, given the small volume. IMPRESSION: Small volume ascites, that was not amenable to paracentesis today. A repeat check will be performed in 1 week. Dictated by: Sincere Thao M.D. on 02/22/2024 at 10:02 Approved by: Sincere Thao M.D. on 02/22/2024 at 10:04
== END ==
LOC: US 09:22
PROVIDERS: Family Provider Preventive Medicine Occupational Medicine; PCP Family Medicine; Referring Provider Internal Medicine; Visit Provider Internal Medicine
DX: K70.31 Alcoholic cirrhosis of liver with ascites (principal)
CPT/HCPCS: 76705

== ENCOUNTER → 2024-02-29 09:26 | Outpatient (CLI) | payer OTHER, MEDICARE, SELFPAY ==
[2023-12-14 18:18] VITALS: BMI 32.1
[2024-02-22 09:41] VITALS: BP 140/69; PULSE 63; RESP 16; TEMP 35.9; O2SAT 98
--- NOTE | 2024-02-29 09:30 | DI.US.S_ITS ---
PROCEDURE: US PARACENTESIS INDICATIONS: ASCITES TECHNIQUE: The indications, alternatives, benefits, risks, and complications of the procedure were explained to the patient. Written informed consent was obtained and placed in the chart. The abdomen and pelvis were examined sonographically, and an appropriate site was chosen for paracentesis. The skin was prepared and draped in the usual sterile fashion, and 1% lidocaine was infiltrated from the skin down through the peritoneal surface. A 19-gauge catheter-covered needle was then introduced into the peritoneal space, the catheter was advanced and the needle was withdrawn, and thereafter peritoneal fluid was withdrawn. The catheter was then removed and a dressing was applied. The fluid was discarded if the clinician did not order diagnostic testing of the fluid. COMPARISON: [facility], PARACENTESIS, 02/15/2024, 11:27. FINDINGS: Access site: Left lower quadrant Needle: One-Step centesis catheter with introducer needle. Fluid volume and description: 3750 clear fluid Fluid sent for diagnostic testing: No Medications: 1% lidocaine for local anaesthesia. Complications: None. IMPRESSION: Successful ultrasound-guided paracentesis. Dictated by: Nilesh Edwards M.D. on 02/29/2024 at 11:30 Approved by: Nilesh Edwards M.D. on 02/29/2024 at 11:30
== END ==
PROVIDERS: Family Provider Preventive Medicine Occupational Medicine; PCP Family Medicine; Referring Provider Internal Medicine; Visit Provider Internal Medicine
DX: K70.31 Alcoholic cirrhosis of liver with ascites (principal)
CPT/HCPCS: 49083

== ENCOUNTER → 2024-03-07 10:32 | Outpatient (CLI) | payer OTHER, MEDICARE, SELFPAY ==
[2023-12-14 18:18] VITALS: BMI 32.1
--- NOTE | 2024-03-07 10:33 | DI.US.S_ITS ---
PROCEDURE: US PARACENTESIS INDICATIONS: ASCITES TECHNIQUE: The indications, alternatives, benefits, risks, and complications of the procedure were explained to the patient. Written informed consent was obtained and placed in the chart. The abdomen and pelvis were examined sonographically, and an appropriate site was chosen for paracentesis. The skin was prepared and draped in the usual sterile fashion, and 1% lidocaine was infiltrated from the skin down through the peritoneal surface. A 19-gauge catheter-covered needle was then introduced into the peritoneal space, the catheter was advanced and the needle was withdrawn, and thereafter peritoneal fluid was withdrawn. The catheter was then removed and a dressing was applied. The fluid was discarded if the clinician did not order diagnostic testing of the fluid. COMPARISON: [facility], PARACENTESIS, 02/29/2024, 9:43. FINDINGS: Access site: Left lower abdominal quadrant Needle: One-Step centesis catheter with introducer needle. Fluid volume and description: 3750 Fluid sent for diagnostic testing: Therapeutic only. Medications: 1% lidocaine for local anaesthesia. Complications: None. IMPRESSION: Ultrasound-guided therapeutic paracentesis. Dictated by: Tung Lewis M.D. on 03/07/2024 at 15:13 Approved by: Tung Lewis M.D. on 03/07/2024 at 15:14
== END ==
PROVIDERS: Family Provider Preventive Medicine Occupational Medicine; PCP Family Medicine; Referring Provider Internal Medicine; Visit Provider Internal Medicine
DX: K70.31 Alcoholic cirrhosis of liver with ascites (principal)
CPT/HCPCS: 49083

== ENCOUNTER → 2024-03-14 09:31 | Outpatient (CLI) | payer MEDICARE, OTHER, SELFPAY ==
[2023-12-14 18:18] VITALS: BMI 32.1
--- NOTE | 2024-03-14 09:34 | DI.US.S_ITS ---
PROCEDURE: US PARACENTESIS INDICATIONS: ASCITES TECHNIQUE: The indications, alternatives, benefits, risks, and complications of the procedure were explained to the patient. Written informed consent was obtained and placed in the chart. The abdomen and pelvis were examined sonographically, and an appropriate site was chosen for paracentesis. The skin was prepared and draped in the usual sterile fashion, and 1% lidocaine was infiltrated from the skin down through the peritoneal surface. A 19-gauge catheter-covered needle was then introduced into the peritoneal space, the catheter was advanced and the needle was withdrawn, and thereafter peritoneal fluid was withdrawn. The catheter was then removed and a dressing was applied. The fluid was discarded if the clinician did not order diagnostic testing of the fluid. COMPARISON: [facility], PARACENTESIS, 03/07/2024, 10:35. [facility], PARACENTESIS, 02/29/2024, 9:43. [facility], PARACENTESIS, 02/15/2024, 11:27. [facility], PARACENTESIS, 01/18/2024, 9:00. FINDINGS: Access site: Left lower quadrant Needle: One-Step centesis catheter with introducer needle. Fluid volume and description: 2000 cc of clear, yellow fluid Fluid sent for diagnostic testing: No Medications: 1% lidocaine for local anaesthesia. Complications: None. IMPRESSION: Successful ultrasound-guided paracentesis. Dictated by: Sincere Thao M.D. on 03/14/2024 at 17:12 Approved by: Sincere Thao M.D. on 03/14/2024 at 17:12
[2024-03-14 09:45] VITALS: BP 151/71; PULSE 71; RESP 20; TEMP 36.1; O2SAT 97
[2024-03-14 10:00] VITALS: BP 139/77; PULSE 68; RESP 20; O2SAT 97
[2024-03-14 10:15] VITALS: BP 121/68; PULSE 65; RESP 18; O2SAT 98
[2024-03-14 10:30] VITALS: BP 124/74; PULSE 64; RESP 18; O2SAT 97
[2024-03-14 11:14] LABS: Hemoglobin 9.5 g/dL (12.0-16.0); Mean Corpuscular HGB Conc 32.9 % (30-36); Mean Corpuscular Hemoglobin 27.7 PG (26-34); Mean Corpuscular Volume 84.1 fL (80-100); Platelet Count 351 X10^3/uL (150-400); Red Blood Cell Count 3.44 X10^6/uL (4.0-5.2); Red Cell Distribution Width 17.2 % (11.6-14.8); White Blood Cell Count 6.3 X10^3/uL (4.5-11.0)
[2024-03-14 11:22] LABS: INR 1.2 (0.9-1.3); Prothrombin Time 13.6 SECONDS (9.4-12.5)
[2024-03-14 11:26] LABS: BUN Creatinine Ratio 15.4 (6-22); Blood Urea Nitrogen 14 mg/dL (7-17); Calcium 8.6 mg/dL (8.4-10.2); Carbon Dioxide 25 mmol/L (22-32); Chloride 107 mmol/L (98-107); Estimated Glomerular Filt Rate > 60 mL/min (>60); Glucose 96 mg/dL (70-100); HEMOLYSIS < 15 (0-50); Potassium 3.8 mmol/L (3.4-5.1); Sodium 135 mmol/L (137-145)
== END ==
LOC: US 09:33
PROVIDERS: Internal Medicine Gastroenterology; Family Provider Preventive Medicine Occupational Medicine; PCP Family Medicine; Referring Provider Internal Medicine; Visit Provider Internal Medicine
DX: K70.31 Alcoholic cirrhosis of liver with ascites (principal)
CPT/HCPCS: 49083; 80048; 85027; 85610

== ENCOUNTER 2024-03-28 13:15 | Outpatient (CLI) | payer OTHER, MEDICARE, SELFPAY ==
[2023-12-14 18:18] VITALS: BMI 32.1
--- NOTE | 2024-03-28 13:17 | DI.US.S_ITS ---
PROCEDURE: ULTRASOUND PARA THERAPUTIC INDICATIONS: ASCITES TECHNIQUE: The indications, alternatives, benefits, risks, and complications of the procedure were explained to the patient. Written informed consent was obtained and placed in the chart. The abdomen and pelvis were examined sonographically, and an appropriate site was chosen for paracentesis. The skin was prepared and draped in the usual sterile fashion, and 1% lidocaine was infiltrated from the skin down through the peritoneal surface. A 19-gauge catheter-covered needle was then introduced into the peritoneal space, the catheter was advanced and the needle was withdrawn, and thereafter peritoneal fluid was withdrawn. The catheter was then removed and a dressing was applied. The fluid was discarded if the clinician did not order diagnostic testing of the fluid. COMPARISON: None. FINDINGS: Access site: Left lower quad Needle: One-Step centesis catheter with introducer needle. Fluid volume and description: 4.2 L of yellowish clear fluid. Fluid sent for diagnostic testing: None. Medications: 1% lidocaine for local anaesthesia. Complications: None. IMPRESSION: Successful ultrasound-guided paracentesis. Dictated by: Saw Joshi M.D. on 03/28/2024 at 16:00 Approved by: Saw Joshi M.D. on 03/28/2024 at 16:00
[2024-03-28 13:25] VITALS: BP 163/90; PULSE 84; RESP 18; TEMP 36.4; O2SAT 98
[2024-03-28 14:05] VITALS: BP 129/76; PULSE 78; RESP 20; O2SAT 96
[2024-03-28 14:30] VITALS: BP 123/75; PULSE 80; RESP 18; O2SAT 96
[2024-03-28 14:40] VITALS: BP 139/72; PULSE 81; RESP 18; O2SAT 96
[2024-03-28 14:51] VITALS: BP 115/65; PULSE 80; RESP 20; O2SAT 96
[2024-03-28 14:53] VITALS: BP 156/82; PULSE 81; RESP 18; O2SAT 97
== END 2024-03-28 14:45 | disposition home or self-care (01) ==
LOC: US 13:16
PROVIDERS: Family Provider Preventive Medicine Occupational Medicine; PCP Family Medicine; Referring Provider Internal Medicine; Visit Provider Internal Medicine
DX: K70.31 Alcoholic cirrhosis of liver with ascites (principal)
CPT/HCPCS: 49083

== ENCOUNTER 2024-04-11 09:27 | Outpatient (CLI) | payer OTHER, MEDICARE, SELFPAY ==
[2023-12-14 18:18] VITALS: BMI 32.1
--- NOTE | 2024-04-11 09:29 | DI.US.S_ITS ---
PROCEDURE: ULTRASOUND PARA THERAPUTIC INDICATIONS: ASCITES TECHNIQUE: The indications, alternatives, benefits, risks, and complications of the procedure were explained to the patient. Written informed consent was obtained and placed in the chart. The abdomen and pelvis were examined sonographically, and an appropriate site was chosen for paracentesis. The skin was prepared and draped in the usual sterile fashion, and 1% lidocaine was infiltrated from the skin down through the peritoneal surface. A 19-gauge catheter-covered needle was then introduced into the peritoneal space, the catheter was advanced and the needle was withdrawn, and thereafter peritoneal fluid was withdrawn. The catheter was then removed and a dressing was applied. The fluid was discarded if the clinician did not order diagnostic testing of the fluid. COMPARISON: [facility], , ULTRASOUND PARA THERAPUTIC, 03/28/2024, 13:51. FINDINGS: Access site: Left lower quadrant Needle: One-Step centesis catheter with introducer needle. Fluid volume and description: Clear/yellow, 2.75 L Fluid sent for diagnostic testing: No Medications: 1% lidocaine for local anaesthesia. Complications: None. IMPRESSION: Successful ultrasound-guided paracentesis. Dictated by: Jerome Gonzales M.D. on 04/11/2024 at 14:45 Approved by: Jerome Gonzales M.D. on 04/11/2024 at 14:46
[2024-04-11 09:45] VITALS: BP 139/78; PULSE 68; RESP 16; TEMP 36.8; O2SAT 96
[2024-04-11 10:09] LABS: Hemoglobin 10.5 g/dL (12.0-16.0); Mean Corpuscular HGB Conc 32.6 % (30-36); Mean Corpuscular Hemoglobin 27.6 PG (26-34); Mean Corpuscular Volume 84.7 fL (80-100); Platelet Count 331 X10^3/uL (150-400); Red Blood Cell Count 3.78 X10^6/uL (4.0-5.2); Red Cell Distribution Width 18.8 % (11.6-14.8); White Blood Cell Count 6.6 X10^3/uL (4.5-11.0)
[2024-04-11 10:16] LABS: INR 1.1 (0.9-1.3)
[2024-04-11 10:37] VITALS: BP 137/76; PULSE 66; RESP 14; O2SAT 96
[2024-04-11 11:00] VITALS: BP 133/71; PULSE 67; RESP 16; O2SAT 96
== END 2024-04-11 11:08 | disposition home or self-care (01) ==
PROVIDERS: Family Provider Preventive Medicine Occupational Medicine; PCP Family Medicine; Referring Provider Internal Medicine; Visit Provider Internal Medicine
DX: K70.31 Alcoholic cirrhosis of liver with ascites (principal)
CPT/HCPCS: 49083; 85027; 85610

== ENCOUNTER 2024-04-27 08:48 | Outpatient (CLI) | payer OTHER, MEDICARE, SELFPAY ==
[2023-12-14 18:18] VITALS: BMI 32.1
--- NOTE | 2024-04-27 | DI.US.S_ITS ---
PROCEDURE: US ABDOMEN LIMITED INDICATIONS: Alcoholic cirrhosis of liver with ascites TECHNIQUE: Real-time scanning was performed of the abdominal for paracentesis, with image documentation. COMPARISON: [facility], , US ABDOMEN LIMITED, 02/22/2024, 9:43. FINDINGS: There is a small amount of ascites in the right lower and left lower quadrants. Insufficient for paracentesis. Brief exam was performed of the lower pleural spaces. Small bilateral pleural effusions. IMPRESSION: Paracentesis was not performed due to insufficient volume. Trace ascites. Small bilateral pleural effusions. Dictated by: Canelo Anglin M.D. on 04/27/2024 at 11:49 Approved by: Canelo Anglin M.D. on 04/27/2024 at 11:51
[2024-04-27 09:00] VITALS: BP 150/87; PULSE 75; RESP 19; TEMP 36.6; O2SAT 100
--- NOTE | 2024-04-27 09:52 | PC.NURSE ---
Pt assessed by US tech and Dr. Anglin, paracentesis deemed not appropriate at this time. Pt advised to reschedule appointment and go to ED if s/s worsen before next appointment. Pt given scheduling number and message left with scheduling department. PIV d/c intact. Pt A&Ox4, in pleasant spirit, ambulates slow with steady gait. NAD.
== END 2024-04-27 09:55 | disposition home or self-care (01) ==
LOC: US 08:51
PROVIDERS: Family Provider Preventive Medicine Occupational Medicine; PCP Family Medicine; Referring Provider Internal Medicine; Visit Provider Internal Medicine
DX: K70.31 Alcoholic cirrhosis of liver with ascites (principal); J90 Pleural effusion, not elsewhere classified
CPT/HCPCS: 76705

== ENCOUNTER 2024-05-04 12:06 | Outpatient (CLI) | payer OTHER, MEDICARE, SELFPAY ==
[2023-12-14 18:18] VITALS: BMI 32.1
--- NOTE | 2024-05-04 12:08 | DI.US.S_ITS ---
PROCEDURE: US ABDOMEN LIMITED INDICATIONS: ASCITES TECHNIQUE: Real-time focused scanning was performed of the abdomen, with image documentation. COMPARISON: [facility], , US ABDOMEN LIMITED, 04/27/2024, 9:21. FINDINGS: There is small amount of ascites fluid further decreased compared to 04/27/2024 study. IMPRESSION: Small amount of ascites fluid inadequate for safe ultrasound-guided paracentesis. Dictated by: Saw Joshi M.D. on 05/04/2024 at 14:55 Approved by: Saw Joshi M.D. on 05/04/2024 at 14:55
[2024-05-04 12:49] VITALS: BP 170/97; PULSE 88; RESP 19; TEMP 36.6; O2SAT 99
--- NOTE | 2024-05-04 13:11 | PC.NURSE ---
Pt examined and assessed by tech Alok and Dr. Joshi, both agree not appropriate to proceed with scheduled therapeutic paracentesis at this time. Pt advised by Dr. Joshi to reschedule in two weeks. Pt advised to notify PCP of POC. Pt agrees with POC. NAD. Pt A&Ox4 walks with steady gait.
== END 2024-05-04 13:15 | disposition home or self-care (01) ==
LOC: US 12:07
PROVIDERS: Family Provider Preventive Medicine Occupational Medicine; PCP Family Medicine; Referring Provider Radiology Diagnostic Radiology; Visit Provider Radiology Diagnostic Radiology
DX: K70.31 Alcoholic cirrhosis of liver with ascites (principal)
CPT/HCPCS: 76705

== ENCOUNTER 2024-06-13 12:50 | Outpatient (CLI) | payer OTHER, MEDICARE, SELFPAY ==
[2023-12-14 18:18] VITALS: BMI 32.1
--- NOTE | 2024-06-13 12:57 | DI.US.S_ITS ---
PROCEDURE: US ABDOMEN LIMITED INDICATIONS: Ascites TECHNIQUE: Real-time focused scanning was performed of the abdominal ascites, with image documentation. COMPARISON: [facility], , US ABDOMEN LIMITED, 05/04/2024, 13:01. FINDINGS: No ascites in the lower abdomen appreciated. IMPRESSION: No ascites appreciated. Paracentesis not performed. Dictated by: Canelo Anglin M.D. on 06/13/2024 at 16:27 Approved by: Canelo Anglin M.D. on 06/13/2024 at 16:29
--- NOTE | 2024-06-13 13:18 | PC.NURSE ---
Per Dr. Thao, new labs (PT/INR and CBC) not needed, verbal order with readback to not draw labs. When patient arrived, she ambulated with steady gait to procedure room. US tech and Dr. Thao examined patient with US machine and determined paracentesis not appropriate at this time. Pt agreed and new appointment made for 07/11/24 and advised to go to ED if needed to be seen sooner. Pt A&Ox4, ambulates with steady gait, agrees to POC, NAD.
== END 2024-06-13 13:22 | disposition home or self-care (01) ==
LOC: US 12:55
PROVIDERS: Family Provider Preventive Medicine Occupational Medicine; PCP Family Medicine; Referring Provider Family Medicine; Visit Provider Family Medicine
DX: K70.31 Alcoholic cirrhosis of liver with ascites (principal)
CPT/HCPCS: 76705

== ENCOUNTER 2024-07-20 10:36 | Inpatient (IN) | payer OTHER, MEDICARE, SELFPAY ==
[2023-12-14 18:18] VITALS: BMI 32.1
[2024-07-20] VITALS (20 sets, daily range): BP systolic 132–154; BP diastolic 65–85; PULSE 69–96; RESP 12–24; TEMP 36.6–36.9; O2SAT 96–99; BMI 32.4; BMI 32.6
--- NOTE | 2024-07-20 10:25 | DI.CT.S_ITS ---
PROCEDURE: CT STROKE INDICATIONS: hemiparesis TECHNIQUE: Noncontrast 4.5 mm thick angled axial sections acquired from the foramen magnum to the vertex, with coronal reformats. For radiation dose reduction, the following was used: automated exposure control, adjustment of mA and/or kV according to patient size. COMPARISON: [facility], CT, CT STROKE, 12/14/2023, 16:21. FINDINGS: Image quality: Diagnostic. CSF spaces: Basal cisterns are patent. No extra-axial fluid collections. The ventricles are symmetric in size and shape. Brain: No intracranial bleeds or masses. There is cerebral volume loss for age, with resultant ventricular and sulcal prominence. There are periventricular and deep white matter chronic small vessel ischemic changes. There is intracranial internal carotid artery atherosclerosis. Skull and face: Calvarium and visualized facial bones appear intact, without suspicious lesions. Sinuses: Visualized sinuses and mastoids are clear. IMPRESSION: No acute intracranial pathology. Comment: Findings were discussed with Dr. Hernandez on 07/20/2024 at 1109 hours This study fulfills neurological imaging criteria for inclusion or exclusion of acute stroke therapies based on available published neurological guidelines. Dictated by: Vinod Jj M.D. on 07/20/2024 at 11:08 Approved by: Vinod Jj M.D. on 07/20/2024 at 11:11
--- NOTE | 2024-07-20 10:25 | DI.CT.S_ITS ---
PROCEDURE: CT ANGIO HEAD AND NECK INDICATIONS: hemiparesis TECHNIQUE: After the administration of intravenous contrast, 1 mm thick sections acquired from the aortic arch through the [place]. 3-dimensional kgliicz-cajlycwtc-zuegsozmwe (MIP) and/or volume rendering reformats were acquired of the central intracranial vasculature and neck separately. For radiation dose reduction, the following was used: automated exposure control, adjustment of mA and/or kV according to patient size. COMPARISON: [facility], CT, CT ANGIO HEAD AND NECK, 12/14/2023, 16:21. FINDINGS: Image quality: Diagnostic. BRAIN: CSF spaces: Ventricles are normal in size and shape. Basal cisterns are patent. No extra-axial fluid collections. Brain: No significant abnormality of the brain can be seen. Skull and face: Calvarium and facial bones appear intact, without suspicious lesions. Orbits appear normal. Sinuses: Sinuses and mastoids are clear. HEAD CT ANGIOGRAPHY: Anterior circulation: Intracranial internal carotid arteries are normal in size and flow. The flow within the paired anterior cerebral arteries is normal and symmetric. The flow within the middle cerebral arteries is normal and symmetric. The anterior communicating artery is seen. No aneurysms are seen. Posterior circulation: Visualized portions of the vertebral arteries demonstrate normal caliber, and join to form a normal appearing basilar artery. Flow within the posterior cerebral arteries is normal and symmetric. No aneurysms are seen. NECK CT ANGIOGRAPHY: Carotid system: The great vessels demonstrate a conventional anatomy as they arise from the aortic arch. The origins of the common carotid arteries appear patent. The common carotid arteries demonstrate normal caliber and courses. The bifurcation regions are both widely patent. The internal carotid arteries demonstrate normal calibers and courses. Posterior circulation: The origins of the vertebral arteries both appear widely patent. The more superior extracranial portions of both vertebral arteries also demonstrate normal courses and calibers. They join to form a normal appearing basilar artery. Soft tissues: Visualized neck soft tissues demonstrate no suspicious abnormalities. Bones: No suspicious bony lesions. Postsurgical changes are again seen in cervical spine. No gross hardware loosening or failure. No acute cervical spine fracture or dislocation. IMPRESSION: 1. No hemodynamically significant stenosis or aneurysm is seen in the intracranial circulation. 2. No hemodynamically significant stenosis is seen in bilateral neck arteries. No significant changes from previous study. Any quantitative measurements of stenosis were performed using NASCET criteria. Dictated by: Saw Joshi M.D. on 07/20/2024 at 11:19 Approved by: Saw Joshi M.D. on 07/20/2024 at 11:26
--- NOTE | 2024-07-20 10:46 | EKG_ITS ---
[address] [address] Test Date: 2024-07-20 Pat Name: Stephanie Duran Department: [facility] Room: Gender: Female [employer] Technician: RUI : 1965 Requested By: Order Number: [id number] Reading MD: Daniel Salamanca MD Measurements Intervals [place] Rate: 86 P: 53 RI: 150 QRS: -4 QRSD: 88 T: 42 QT: 396 QTc: 473 Interpretive Statements Normal sinus rhythm Electronically Signed On 07-20-2024 13:45:21 PDT by Daniel Salamanca MD
--- NOTE | 2024-07-20 10:52 | ED_ITS ---
HPI - Neuro Symptoms/Deficit General Chief Complaint: Neuro Symptoms/Deficit Stated Complaint: Poss. Stroke Time Seen by Provider: 07/20/24 10:41 History of Present Illness HPI Narrative: 59-year-old female with history of prior CVA 2022 and 2023, both events with right-sided weakness that had partial improvement, chart history of alcoholism and methamphetamine abuse, history of prior JAYRO, last known well she believes 10:00 p.m. when she ?felt funny? and had difficulty speaking, called her at work, then woke up this morning, unclear if decided not to call 911 overnight, apparently sleeps in another room, this morning patient woke up feeling same difficulty with speaking, inability to express herself, severe weakness to the right arm and leg. EMS called, they reported she was unable to initially move her right arm in her right leg, right-sided facial droop noted, inability to speak initially, glucose 129, during transport was then able to speak, then able to have some movement to her right arm, and right leg. Related Data Home Medications Medication Instructions Recorded Confirmed lactulose 10 gram/15 mL oral 7.5 ml PO DAILY 12/14/23 07/20/24 solution nadolol 40 mg tablet 40 mg PO DAILY 12/14/23 07/20/24 spironolactone 25 mg tablet 25 mg PO DAILY 12/14/23 07/20/24 Previous Rx's Medication Instructions Recorded aspirin 81 mg tablet,delayed 81 mg PO DAILY #30 tabs 12/16/23 release atorvastatin 40 mg tablet 40 mg PO BEDTIME #30 tabs 12/16/23 Allergies Allergy/AdvReac Type Severity Reaction Status Date / Time morphine [MORPHINE] Allergy Unknown Hives Verified 07/20/24 10:52 Patient History Medical History COVID-19 Tobacco abuse Alcoholism Methamphetamine abuse Surgical History Status post lumbar surgery Status post cervical spinal fusion Status post gastric bypass for obesity Family History Mother Hypertension Father Family estrangement Social History household members: spouse Smoking Status: Current every day smoker alcohol intake: former Smoking Status: Current every day smoker tobacco type: cigarettes alcohol intake frequency: 3 or more drinks per day Alcohol type: hard liquor Exam Narrative Exam Narrative: GENERAL: Well-developed patient, in mild distress. HEAD: Atraumatic. Normocephalic. EYES: Pupils equal round and reactive. Extraocular motions intact. No scleral icterus. No injection or drainage. ENT: Nose without bleeding, purulent drainage. Throat without erythema, tonsillar hypertrophy or exudate. Airway patent. NECK: Trachea midline. Non tender CARDIOVASCULAR: Regular rate and rhythm without murmurs, gallops, or rubs. RESPIRATORY: Clear to auscultation. Breath sounds equal bilaterally. No wheezes, rales, or rhonchi. GASTROINTESTINAL: Abdomen soft, non-tender, nondistended. EXTREMITIES: No edema or joint tenderness. BACK: Nontender without deformity or crepitance. No flank tenderness. NEURO: AOx3. Motor 5/5 left upper and lower extremity. Motor 4/5 right upper extremity with some weakness but able to move it up against gravity purposefully. Motor 3/5 right lower extremity, unable to lift leg off bed but can move toes. Some slurred speech, slight right facial droop unclear if this is baseline. not at bedside no family available. Patient has some dysarthria, struggles getting words out but intelligible Frisian words. SKIN: No rash or erythema of visible areas Initial Vital Signs Initial Vital Signs: Vital Signs Temperature 97.8 F 07/20/24 10:20 Pulse Rate 89 07/20/24 10:20 Respiratory Rate 18 07/20/24 10:20 Blood Pressure 132/71 07/20/24 10:20 Pulse Oximetry 97 07/20/24 10:20 Oxygen Delivery Method Room Air 07/20/24 10:20 Course Orders Ordered: ED Orders 07/20/24 14:35 Urine Drug Screen, Rapid Stat 07/20/24 14:38 Urinalysis and Microscopic Stat Urine Culture Stat Albuterol (Albuterol 2.5 Mg/3 Ml Neb (Adult)) 2.5 mg INH BID PRN PRN Reason: Shortness Of Breath Or Wheezing Aspirin (Aspirin Ec 81 Mg Tablet) 81 mg PO DAILY MARIA ELENA Sodium Chloride (Normal Saline 0.9%) 1,000 mls @ 150 mls/hr IV BOLUS ONE Stop: 07/20/24 20:51 Last Admin: 07/20/24 14:14 Dose: 150 mls/hr Documented By: MERCEDEZ Lactulose (Lactulose 20 Gm/30 Ml Solution) 20 gm PO TID [facility] Last Admin: 07/20/24 17:19 Dose: Not Given Documented By: CADEN Naloxone HCl (Naloxone 0.4 Mg/Ml Vial) 0.2 mg IV Q2MIN PRN PRN Reason: Opiate Reversal Ondansetron HCl (Ondansetron 4 Mg Odt) 4 mg PO Q8HR PRN PRN Reason: Nausea And Vomiting Propranolol HCl (Propranolol 10 Mg Tablet) 20 mg PO BID [facility] Discontinued Medications Lactulose (Lactulose 20 Gm/30 Ml Solution) 20 gm PO NOW ONE Stop: 07/20/24 12:20 Last Admin: 07/20/24 12:42 Dose: 20 gm Documented By: MERCEDEZ Lorazepam (Lorazepam 2 Mg/Ml Inj) 1 mg IV NOW ONE Stop: 07/20/24 12:23 Last Admin: 07/20/24 13:14 Dose: 1 mg Documented By: MERCEDEZ Vital Signs Vital signs: Vital Signs - 8 hr 07/20/24 12:30 07/20/24 13:00 07/20/24 13:17 Pulse Rate 88 86 84 Respiratory Rate 24 18 19 Blood Pressure Pulse Oximetry 96 98 07/20/24 13:17 07/20/24 13:30 07/20/24 13:30 Pulse Rate 89 89 Respiratory Rate 20 20 Blood Pressure 134/65 Pulse Oximetry 98 98 07/20/24 13:30 07/20/24 13:30 07/20/24 14:15 Pulse Rate 92 H Respiratory Rate Blood Pressure 148/81 H 148/81 H Pulse Oximetry 07/20/24 14:16 07/20/24 14:16 07/20/24 14:31 Pulse Rate 91 H 84 Respiratory Rate 21 18 Blood Pressure 146/80 H Pulse Oximetry 99 97 07/20/24 14:31 Pulse Rate Respiratory Rate Blood Pressure 148/85 H Pulse Oximetry MDM - Neuro Symptoms/Deficit Lab Data Attestation: I reviewed the patient's lab results. Lab results narrative: White blood cell count 6300. Hemoglobin 9.0, platelets 263,000. Glucose 147. BUN 17 with creatinine 0.96 normal renal function. Serum CO2 19 sodium 144, potassium 3.6, serum chloride 113. T bili normal, saw elevation transaminases, slight elevation alkaline phosphatase. Ammonia level 52 elevated. 07/20/24 11:15 07/20/24 11:15 Labs: Lab Results 07/20/24 07/20/24 07/20/24 Range/Units 11:15 14:35 14:38 WBC 6.3 (4.5-11.0) X10^3/uL RBC 3.37 L (4.0-5.2) X10^6/uL Hgb 9.0 L (12.0-16.0) g/dL Hct 27.5 L (36-46) % MCV 81.6 (80-100) fL MCH 26.6 (26-34) PG MCHC 32.6 (30-36) % RDW 16.6 H (11.6-14.8) % Plt Count 263 (150-400) X10^3/uL Neut % (Auto) 52.0 (50-75) % Lymph % (Auto) 34.1 (25-40) % [place] % (Auto) 9.3 (3-14) % Eos % (Auto) 3.7 (2-4) % Baso % (Auto) 0.9 (0-2) % Neut # (Auto) 3300 (9984-3545) /uL Lymph # (Auto) 2100 (6045-0602) /uL [place] # (Auto) 600 (0-900) /uL Eos # (Auto) 200 (0-450) /uL Baso # (Auto) 100 (0-100) /uL PT 12.1 (9.4-12.5) SECONDS INR 1.1 (0.9-1.3) APTT 35 (25.1-36.5) SECONDS Sodium 144 (137-145) mmol/L Potassium 3.6 (3.4-5.1) mmol/L Chloride 113 H (98-107) mmol/L Carbon Dioxide 19 L (22-32) mmol/L BUN 17 (7-17) mg/dL Creatinine 0.96 (0.52-1.04) mg/dL Estimated GFR > 60 (>60) mL/min BUN/Creatinine Ratio 17.7 (6-22) Glucose 147 H (70-100) mg/dL Calcium 9.7 (8.4-10.2) mg/dL Total Bilirubin 0.7 (0.2-1.3) mg/dL AST 60 H (14-36) IU/L ALT 40 H (<35) IU/L Alkaline Phosphatase 215 H (38-126) U/L Ammonia 52 H (9-30) umol/L Total Creatine Kinase 43 (30-135) U/L Troponin I < 0.012 (0.01-0.034) ng/mL Total Protein 6.7 (6.3-8.2) g/dL Albumin 3.2 L (3.5-5.0) g/dL Globulin 3.5 (1.7-4.1) g/dL Albumin/Globulin Ratio 0.9 L (1.0-2.8) Urine Color Yellow Urine Appearance Sl cloudy Ur Specific [place] 1.020 (1.000-1.035) Urine Protein Negative (Negative) Urine Glucose (UA) Negative (Negative) g/dL Urine Ketones Negative (NEGATIVE) Urine Occult Blood Negative (Negative) Urine Nitrate Positive H (Negative) Urine Bilirubin Negative (NEGATIVE) Urine Urobilinogen 1.0 (0.2) E.U./dL Ur Leukocyte Esterase Negative (NEGATIVE) Urine RBC None seen (0-5/HPF) Urine WBC None seen (0-5/HPF) Ur Squamous Epith Cells None seen (0-5/HPF) Urine Bacteria Many (>30) H (None) Ur Culture Indicated? Specimen cultured Vol Urine Centrifuged 10ml (spun) U Opiates 300ng/mL cut Negative (Negative) Ur Oxycodone Screen Negative (Negative) Urine Methadone Screen Negative (Negative) Ur Barbiturates Screen Negative (Negative) U Tricyclic Antidepress Negative (Negative) Ur Phencyclidine Scrn Negative (Negative) Ur Amphetamines Screen Negative (Negative) U Methamphetamines Scrn Negative (Negative) Ur MDMA Scrn (Ecstasy) Negative (Negative) U Benzodiazepines Scrn Negative (Negative) Urine Cocaine Screen Negative (Negative) U Marijuana (THC) Screen Negative (Negative) Urine pH Normal 5.5 (Normal) Urine Specific [place] Normal (Normal) Ethyl Alcohol 201 H ( - 10) mg/dL Ur Creatinine Normal (Normal) Point of Care Testing Glucose POC 149 ECG Data Attestation: I personally reviewed and interpreted this ECG as follows: Interpretation: Normal sinus rhythm with rate of 86, no obvious ST segment elevation or depression changes. VA 150, QRS 88, QTC 473. MDM Narrative Medical decision making narrative: 59-year-old female with history of prior stroke and right-sided hemiparesis, chart history of alcohol and methamphetamine abuse, apparently having difficulty with speech last night 10:00 p.m., was at work and at some point came home though he sleeps in a different room, patient awoke this morning with right-sided weakness arm and leg more severe and difficulty speaking. Unclear last drink of alcohol or last drug use. EMS transport with glucose 129, noted patient having severe dysarthria and in apparent inability to move right arm or leg, that seemed to have some improvement in speech and right-sided movement on arrival. No known seizure activity or incontinence of urine or stool. Stroke alert, CT head noncontrast study, CT angiogram head and neck vessels, labs pending, keep NPO, EKG, IV access. CT head noncontrast study no acute changes. See radiology report. CT angiogram head and neck vessels without significant narrowing, no thrombosis. See radiology report. White blood cell count not elevated, hemoglobin 9 noted, mild transaminitis on LFTs. Serum ammonia 52 elevated. Blood alcohol level 201 elevated. We will give dose oral lactulose, patient apparently tolerated her swallow screen. MRI brain noncontrast study ordered, can be performed at 1:30 p.m. MRI brain showed old infarct changes, no acute infarct changes. See radiology report. Right-sided weakness with old stroke, exacerbation of right-sided weakness in context of alcohol intoxication and hepatic encephalopathy. Consider admission, we will contact hospitalist. [phone], case discussed with hospitalist Dr. Barfield who accepts patient for admission to inpatient service Critical Care Time Critical Care Time Critical Care Time: Yes Total Critical Care Time: 35 Attestation: The high probability of a clinically significant, sudden or life threatening deterioration of the [metabolic, gastrointestinal, hepatic, cerebrovascular, neurologic] system(s) required my full and direct attention, intervention and personal management. The aggregate critical care time was [35] minutes. This time is in addition to time spent performing reported procedures but includes the following: [x] Data Review and interpretation [x] Patient assessment and monitoring of vital signs [x] Documentation [x] Medication orders and management Discharge Plan Departure Patient Disposition: Admitted As Inpatient Clinical Impression: Hepatic encephalopathy, Alcohol intoxication, Right sided weakness, History of stroke Admit Date/Time: 07/20/24 14:38 Admit Provider: Hill Barfield
--- NOTE | 2024-07-20 11:13 | PC.NURSE ---
[employer] Note: Purewick placed.
--- NOTE | 2024-07-20 11:16 | DI.MRI.S_ITS ---
PROCEDURE: MR HEAD/BRAIN WO CON INDICATIONS: ?stroke, hx strokes, worse right leg weak/speech TECHNIQUE: Noncontrast axial T1 spin echo, axial T2 fast spin echo, sagittal and axial FLAIR, coronal T2 fast spin echo, axial gradient echo, axial diffusion and ADC through the brain. COMPARISON: [facility], CT, CT STROKE, 07/20/2024, 10:52. [facility], MR, MR HEAD/BRAIN WO CON, 12/15/2023, 10:16. FINDINGS: Image quality: Excellent. CSF Spaces: Basal cisterns are patent. No extra-axial fluid collections. Ventricles are normal in size and shape. Brain: No intracranial masses or hemorrhage. Old lacunar infarct is seen in left frontal lobe periventricular white matter. Barrera/white matter interface is normal. Brainstem appears normal. Diffusion-weighted images demonstrate no acute infarct. No chronic ischemic insults. Normal intravascular flow voids are present. Skull and face: Calvarium has normal marrow signal. Orbits appear normal. Sinuses: Sinuses and mastoids are clear. IMPRESSION: 1. No acute infarction. No intracranial bleed, midline shift or mass effect. 2. Old lacunar infarct in left frontal lobe periventricular white matter/basal ganglia. Dictated by: Saw Joshi M.D. on 07/20/2024 at 14:23 Approved by: Saw Joshi M.D. on 07/20/2024 at 14:25
--- NOTE | 2024-07-20 11:23 | PC.NURSE ---
Patient was asked to cough and swallow and she was able to cough but reported feeling like she wasn't able to swallow normally. Her Larnyx was palpated and was found to have minimal movement when asked to swallow. swallow screen completed. patient NPO. Will continue to monitor.
[2024-07-20 11:30] LABS: Add Manual Diff / Slide Review NO; Basophils Absolute Auto 100 /uL (0-100); Basophils Percent Auto 0.9 % (0-2); Eosinophils Absolute Auto 200 /uL (0-450); Eosinophils Percent Auto 3.7 % (2-4); Hematocrit 27.5 % (36-46); Lymphocytes Absolute Auto 2100 /uL (1100-4500); Lymphocytes Percent Auto 34.1 % (25-40); Mean Corpuscular HGB Conc 32.6 % (30-36); Mean Corpuscular Hemoglobin 26.6 PG (26-34); Mean Corpuscular Volume 81.6 fL (80-100); Monocytes Absolute Auto 600 /uL (0-900); Monocytes Percent Auto 9.3 % (3-14); Neutrophils Absolute Auto 3300 /uL (1500-7000); Platelet Count 263 X10^3/uL (150-400); Red Blood Cell Count 3.37 X10^6/uL (4.0-5.2); Red Cell Distribution Width 16.6 % (11.6-14.8); White Blood Cell Count 6.3 X10^3/uL (4.5-11.0)
--- NOTE | 2024-07-20 11:30 | PC.NURSE ---
patient states that she is having a difficult time to speak. She can think of what she wants to say without cognitive interference it's just that she struggles to get her body to actually say the words. She was asking for water. She was given a sponge pop and told to be careful swallowing. Her throat was palpated again while swallowing saliva and she was found, this time, to have more mobility in her thyroid cartilage. She reported being able to swallow better and the last test it was hard due to a dry mouth. Swallow screen repeated.
[2024-07-20 11:45] LABS: HEMOLYSIS < 15 (0-50)
[2024-07-20 11:51] LABS: Ammonia (NH3) 52 umol/L (9-30)
[2024-07-20 11:56] LABS: INR 1.1 (0.9-1.3); Prothrombin Time 12.1 SECONDS (9.4-12.5)
[2024-07-20 11:59] LABS: PTT Partial Thromboplastin Tim 35 SECONDS (25.1-36.5)
[2024-07-20 12:01] LABS: Alanine Aminotransferase 40 IU/L (<35); Albumin 3.2 g/dL (3.5-5.0); Albumin Globulin Ratio 0.9 (1.0-2.8); Alkaline Phosphatase 215 U/L (38-126); Aspartate Aminotransferase 60 IU/L (14-36); BUN Creatinine Ratio 17.7 (6-22); Bilirubin Total 0.7 mg/dL (0.2-1.3); Blood Urea Nitrogen 17 mg/dL (7-17); Calcium 9.7 mg/dL (8.4-10.2); Carbon Dioxide 19 mmol/L (22-32); Chloride 113 mmol/L (98-107); Creatine Kinase 43 U/L (30-135); Estimated Glomerular Filt Rate > 60 mL/min (>60); Ethanol (ETOH) 201 mg/dL; Globulin 3.5 g/dL (1.7-4.1); Glucose 147 mg/dL (70-100); Potassium 3.6 mmol/L (3.4-5.1); Sodium 144 mmol/L (137-145); Total Protein 6.7 g/dL (6.3-8.2)
[2024-07-20 12:02] LABS: Troponin I < 0.012 ng/mL (0.01-0.034)
[2024-07-20] MEDS: LACTULOSE 20 GM/30 ML SOLUTION PO ×2 (12:42→20:34)
[2024-07-20] MEDS: LORazepam 2 MG/ML INJ 1 MG IV (13:14)
[2024-07-20] MEDS: SODIUM CHLORIDE 0.9% 1,000 ML 150 ML IV (14:14)
[2024-07-20 14:45] LABS: Appearance Urine UA SL CLOUDY; Bilirubin Urine UA NEGATIVE (NEGATIVE); Color Urine UA YELLOW; Glucose Urine UA NEGATIVE (Negative); Ketones Urine UA NEGATIVE (NEGATIVE); Leukocyte Esterase Urine UA NEGATIVE (NEGATIVE); Nitrite Urine UA POSITIVE (Negative); Occult Blood Urine UA NEGATIVE (Negative); Protein Urine UA NEGATIVE (Negative)
[2024-07-20 14:46] LABS: Urine Volume 10mL (spun); pH Urine UA 5.5 (4.5-8.0)
[2024-07-20 14:48] LABS: Bacteria Urine Many (>30); Culture Indicated Urine Specimen Cultured; RBC Urine None Seen (0-5/HPF); Squamous Epithelial Cell Urine None Seen (0-5/HPF); WBC Urine None Seen (0-5/HPF)
--- NOTE | 2024-07-20 15:06 | PM.HP.1 ---
History of Present Illness History of Present Illness Date Patient Seen: 07/20/24 Time Patient Seen: 15:06 Date of Onset of Symptoms: 07/19/24 Chief complaint: Hepatic encephalopathy Narrative: Chief complaint: Confusion and weakness in setting of acute alcohol intoxication and hepatic encephalopathy in a patient with chronic alcohol use disorder in Laennec's cirrhosis History of present illness: This is a 59-year-old female with longstanding history of alcoholism multiple episodes of admissions for alcohol and alcohol withdrawal chronic Laennec's cirrhosis requiring frequent paracentesis who called her confused weak. Patient was brought to the emergency department for evaluation. Patient originally thought to be possibly having a stroke as she has had a previous stroke December of 2023 of the left frontal lobe and basal ganglia, however repeat MRI today demonstrates no acute stroke. Patient was referred to the hospitalist service for admission for alcohol intoxication and hepatic encephalopathy with decompensation Findings in the emergency department significant for: Chronically ill patient encephalopathic and confused Serum alcohol 201 Serum ammonia 52 Hemogram and hepatic enzymes are out of reference range but not severely MRI brain IMPRESSION: 1. No acute infarction. No intracranial bleed, midline shift or mass effect. 2. Old lacunar infarct in left frontal lobe periventricular white matter/basal ganglia. CT angiography of the head IMPRESSION: 1. No hemodynamically significant stenosis or aneurysm is seen in the intracranial circulation. 2. No hemodynamically significant stenosis is seen in bilateral neck arteries. No significant changes from previous study. Review of systems: Patient is incapacitated and unable to participate in a review of systems Physical exam: Confused chronically ill-appearing elderly female HEENT slight facial droop left Neck no carotid bruits Heart sounds distant no murmurs appreciated Lungs sounds distant Abdomen distended not tense with shifting dullness bowel sounds present Lower extremities 3+ edema She is confused disoriented Moves all extremities but is dysmetric follows commands Laboratory studies and imaging at the bottom of the note Assessment and plan: Acute encephalopathy secondary to hepatic failure and alcohol intoxication: -admit for acute management -scheduled lactulose to reverse hepatic encephalopathy -monitor for alcohol withdrawal DVT prophylaxis SCDs only due to liver disease and coagulopathy and risk of bleeding as patient has varices Full code I spent 75 minutes of time evaluating this patient 50% of the time was [id number] also placing orders researching evaluation gathering data [facility] Medical History COVID-19 Tobacco abuse Alcoholism Methamphetamine abuse Surgical History Status post lumbar surgery Status post cervical spinal fusion Status post gastric bypass for obesity Family History Mother Hypertension Father Family estrangement Social History household members: spouse Smoking Status: Current every day smoker Meds Home Medications and Allergies Home Medications Medication Instructions Recorded Confirmed Type albuterol sulfate 90 mcg/actuation 90 mcg inhalation 1-2XD PRN 12/14/23 12/15/23 History aerosol inhaler Shortness Of Breath Or Wheezing azithromycin 250 mg tablet 250 mg PO DAILY 12/14/23 12/14/23 History lactulose 10 gram/15 mL oral 7.5 ml PO DAILY 12/14/23 12/14/23 History solution methylprednisolone 4 mg tablets in 4 mg PO DAILY 12/14/23 12/14/23 History a dose pack montelukast 10 mg tablet 10 mg PO BEDTIME 12/14/23 12/14/23 History nadolol 40 mg tablet 40 mg PO DAILY 12/14/23 12/14/23 History spironolactone 25 mg tablet 25 mg PO DAILY 12/14/23 12/14/23 History aspirin 81 mg tablet,delayed 81 mg PO DAILY #30 tabs 12/16/23 Rx release atorvastatin 40 mg tablet 40 mg PO BEDTIME #30 tabs 12/16/23 Rx Allergies Allergy/AdvReac Type Severity Reaction Status Date / Time morphine [MORPHINE] Allergy Unknown Hives Verified 07/20/24 10:52 Exam Vital Signs (past 8 hours): - 07/20/24 10:20 07/20/24 10:49 07/20/24 10:52 Temperature 97.8 F Pulse Rate 89 86 87 Respiratory Rate 18 18 Blood Pressure 132/71 Pulse Oximetry 97 98 99 Oxygen Delivery Method Room Air 07/20/24 10:52 07/20/24 11:05 07/20/24 11:08 Temperature Pulse Rate 88 Respiratory Rate Blood Pressure 132/71 143/78 H Pulse Oximetry 98 Oxygen Delivery Method 07/20/24 11:08 07/20/24 11:10 07/20/24 11:10 Temperature Pulse Rate 86 88 Respiratory Rate 12 15 Blood Pressure 135/78 Pulse Oximetry 99 99 Oxygen Delivery Method 07/20/24 11:30 07/20/24 11:30 07/20/24 12:00 Temperature Pulse Rate 84 88 Respiratory Rate 14 16 Blood Pressure 143/73 H Pulse Oximetry 99 97 Oxygen Delivery Method 07/20/24 12:00 07/20/24 12:30 Temperature Pulse Rate 88 Respiratory Rate 24 Blood Pressure 146/73 H Pulse Oximetry 96 Oxygen Delivery Method Oxygen Delivery Method Room Air Objective Labs 07/20/24 11:15 07/20/24 11:15 Labs: Laboratory Results - last 24 hr 07/20/24 07/20/24 11:15 14:38 WBC 6.3 RBC 3.37 L Hgb 9.0 L Hct 27.5 L MCV 81.6 MCH 26.6 MCHC 32.6 RDW 16.6 H Plt Count 263 Neut % (Auto) 52.0 Lymph % (Auto) 34.1 [place] % (Auto) 9.3 Eos % (Auto) 3.7 Baso % (Auto) 0.9 Neut # (Auto) 3300 Lymph # (Auto) 2100 Crisp # (Auto) 600 Eos # (Auto) 200 Baso # (Auto) 100 PT 12.1 INR 1.1 APTT 35 Sodium 144 Potassium 3.6 Chloride 113 H Carbon Dioxide 19 L BUN 17 Creatinine 0.96 Estimated GFR > 60 BUN/Creatinine Ratio 17.7 Glucose 147 H Calcium 9.7 Total Bilirubin 0.7 AST 60 H ALT 40 H Alkaline Phosphatase 215 H Ammonia 52 H Total Creatine Kinase 43 Troponin I < 0.012 Total Protein 6.7 Albumin 3.2 L Globulin 3.5 Albumin/Globulin Ratio 0.9 L Urine Color Yellow Urine Appearance Sl cloudy Urine pH 5.5 Ur Specific [place] 1.020 Urine Protein Negative Urine Glucose (UA) Negative Urine Ketones Negative Urine Occult Blood Negative Urine Nitrate Positive H Urine Bilirubin Negative Urine Urobilinogen 1.0 Ur Leukocyte Esterase Negative Urine RBC None seen Urine WBC None seen Ur Squamous Epith Cells None seen Urine Bacteria Many (>30) H Ur Culture Indicated? Specimen cultured Vol Urine Centrifuged 10ml (spun) Ethyl Alcohol 201 H Assessment & Plan Time-Based Coding :: [TOTAL MINUTES] spent with patient and on the chart (including review of chart, obtaining history, exam, reviewing outside data, placing orders, documenting exam and treatment plan, and counseling patient) on [DATE].
[2024-07-20 16:44] LABS: UR Morphine/Opiate cutoff 300 Negative (Negative); Ur Creatinine Normal (Normal); Ur Specific Gravity Normal (Normal); Urine Amphetamines Negative (Negative); Urine Barbiturates Negative (Negative); Urine Benzodiazepines Negative (Negative); Urine Cocaine Negative (Negative); Urine MDMA Negative (Negative); Urine Methadone Negative (Negative); Urine Methamphetamines Negative (Negative); Urine Oxycodone Negative (Negative); Urine Phencyclidine Negative (Negative); Urine Tetrahydrocannabinol Negative (Negative); Urine Tricyclic Antidepressant Negative (Negative); Urine pH Normal (Normal)
[2024-07-20] MEDS: PROPRANOLOL 10 MG TABLET 20 MG PO (20:35)
--- NOTE | 2024-07-20 22:13 | PC.NURSE ---
Patient was admitted by Rao QUINTANA. [id number] shift. She C/O pulled muscle on her rt. side, states it happened when I was coughing warm blanket applied to her back, Will monitor & continue plan of care.
[2024-07-21 01:36] VITALS: BP 122/66; PULSE 72; RESP 22; TEMP 36.5; O2SAT 96
[2024-07-21 08:00] VITALS: BP 129/64; PULSE 68; RESP 18; TEMP 36.5; O2SAT 96
[2024-07-21] MEDS: ASPIRIN EC 81 MG TABLET PO (08:32)
[2024-07-21] MEDS: PROPRANOLOL 10 MG TABLET 20 MG PO (08:32)
[2024-07-21] MEDS: LACTULOSE 20 GM/30 ML SOLUTION PO (08:33)
[2024-07-21] MEDS: SODIUM CHLORIDE 0.9% FLUSH 10 ML IV (08:33)
--- NOTE | 2024-07-21 11:17 | PM.DS.1 ---
History of Present Illness History of Present Illness Date Patient Seen: 07/21/24 Time Patient Seen: 11:17 Chief complaint: Hepatic encephalopathy Narrative: This is a 59-year-old female with longstanding history of alcoholism multiple episodes of admissions for alcohol and alcohol withdrawal chronic Laennec's cirrhosis requiring frequent paracentesis who called her confused weak. Patient was brought to the emergency department for evaluation. Patient originally thought to be possibly having a stroke as she has had a previous stroke December of 2023 of the left frontal lobe and basal ganglia, however repeat MRI today demonstrates no acute stroke. Patient was referred to the hospitalist service for admission for alcohol intoxication and hepatic encephalopathy with decompensation Findings in the emergency department significant for: Chronically ill patient encephalopathic and confused Serum alcohol 201 Serum ammonia 52 Hemogram and hepatic enzymes are out of reference range but not severely Discharge Providers Provider Date of admission: 07/20/24 14:38 Discharge Date: 07/21/24 Primary care physician: Pastor Naranjo MD Discharge provider: Johny Fields MD Summary Hospital Course Discharge Diagnosis: acute alcohol intoxication acute encephalopathy secondary to hepatic failure alcohol use Right arm right leg right facial droop right rib pain Hospital Course: acute alcohol intoxication. Patient presented with blood alcohol level 200. patient was supported. And no evidence of withdrawal. Was discharged home in stable condition acute encephalopathy secondary to hepatic failure. Patient initially was somewhat confused. But has normalized over the last 12 hours. Feels like she is back to her normal self. Certainly alert and oriented. With no other changes. Combination of her liver failure which mild elevation in her LFTs and alcohol intoxication. Certainly her alcohol intoxication is not making her liver function better. We discussed that she understands. It is not the 1st time she has been told this. Would like her to quit drinking discussed this follow from there. Will follow-up with Dr. Jean mid week. Right-sided facial droop weakness of arm and leg. CT scan was negative, CTA was negative, MRI was negative. Patient resolved all symptoms by the time she presented to the emergency room. Otherwise no change. With negative workup and previous stroke with similar symptoms it was felt to be a worsening of previous stroke symptoms with alcohol intoxication. Certainly patient completely normal today. We will watch. Follow-up with Dr. mascorro continue aspirin right rib pain. Patient had pulled a muscle she thinks. She did not have a fall. She is got tenderness in the Muscular to her right side. There was no step-off crepitus. There was no bruising that I can see. Patient will use ice and see Dr. Naranjo do not want to add anti-inflammatory or Tylenol. Status at Discharge Cognitive/behavioral status at discharge: oriented Functional status at discharge: independent ambulation Overall status at discharge: patient is back to baseline Exam Vital Signs (past 8 hours): - 07/21/24 08:00 07/21/24 08:00 Temperature 97.7 F Pulse Rate 68 Respiratory Rate 18 Blood Pressure 129/64 Pulse Oximetry 96 96 Oxygen Delivery Method Room Air Oxygen Flow Rate 0 Oxygen Delivery Method Room Air Oxygen Flow Rate 0 Narrative Exam Narrative: alert middle-aged female in no acute distress interactive appropriate HEENT exam mucous membranes moist no facial droop. Neck supple without adenopathy JVD or bruits lungs are clear heart is regular rate and rhythm abdomen is mildly distended nontender no masses positive bowel sounds. Neurologic exam is cranial nerves 2-12 are intact motor is 5/5. Sensation appears intact did not ambulate Objective Labs 07/20/24 11:15 07/20/24 11:15 Labs: Laboratory Results - last 24 hr 07/20/24 07/20/24 07/20/24 11:15 14:35 14:38 WBC 6.3 RBC 3.37 L Hgb 9.0 L Hct 27.5 L MCV 81.6 MCH 26.6 MCHC 32.6 RDW 16.6 H Plt Count 263 Neut % (Auto) 52.0 Lymph % (Auto) 34.1 [place] % (Auto) 9.3 Eos % (Auto) 3.7 Baso % (Auto) 0.9 Neut # (Auto) 3300 Lymph # (Auto) 2100 [place] # (Auto) 600 Eos # (Auto) 200 Baso # (Auto) 100 PT 12.1 INR 1.1 APTT 35 Sodium 144 Potassium 3.6 Chloride 113 H Carbon Dioxide 19 L BUN 17 Creatinine 0.96 Estimated GFR > 60 BUN/Creatinine Ratio 17.7 Glucose 147 H Calcium 9.7 Total Bilirubin 0.7 AST 60 H ALT 40 H Alkaline Phosphatase 215 H Ammonia 52 H Total Creatine Kinase 43 Troponin I < 0.012 Total Protein 6.7 Albumin 3.2 L Globulin 3.5 Albumin/Globulin Ratio 0.9 L Urine Color Yellow Urine Appearance Sl cloudy Ur Specific [place] 1.020 Urine Protein Negative Urine Glucose (UA) Negative Urine Ketones Negative Urine Occult Blood Negative Urine Nitrate Positive H Urine Bilirubin Negative Urine Urobilinogen 1.0 Ur Leukocyte Esterase Negative Urine RBC None seen Urine WBC None seen Ur Squamous Epith Cells None seen Urine Bacteria Many (>30) H Ur Culture Indicated? Specimen cultured Vol Urine Centrifuged 10ml (spun) U Opiates 300ng/mL cut Negative Ur Oxycodone Screen Negative Urine Methadone Screen Negative Ur Barbiturates Screen Negative U Tricyclic Antidepress Negative Ur Phencyclidine Scrn Negative Ur Amphetamines Screen Negative U Methamphetamines Scrn Negative Ur MDMA Scrn (Ecstasy) Negative U Benzodiazepines Scrn Negative Urine Cocaine Screen Negative U Marijuana (THC) Screen Negative Urine pH Normal 5.5 Urine Specific Stanley Normal Ethyl Alcohol 201 H Ur Creatinine Normal PFSH Medical History COVID-19 Tobacco abuse Alcoholism Methamphetamine abuse Surgical History Status post lumbar surgery Status post cervical spinal fusion Status post gastric bypass for obesity Family History Mother Hypertension Father Family estrangement Social History household members: spouse Smoking Status: Current every day smoker alcohol intake: former Discharge Assessment & Plan Assessment and Plan Assessment: stable. High risk for recurrent secondary to her alcohol intoxication despite the fact that she has end-stage organ disease. But at this point she seems stable from her admission standpoint. Will follow up with her PCP next week Plan of Treatment: discharge Discharge Plan Discharge Plan Patient Disposition: Home Discharge orders & Medications Prescriptions: Continued spironolactone 25 mg Tablet 25 mg PO DAILY nadolol 40 mg Tablet 40 mg PO DAILY lactulose 10 gram/15 mL solution 7.5 ml PO DAILY Patient Comments: patient doesnt like it, has not been taking aspirin 81 mg Tablet,Delayed Release (Dr/Ec) 81 mg PO DAILY Qty: 30 0RF Discontinued atorvastatin 40 mg tablet 40 mg PO BEDTIME Qty: 30 0RF Follow up/Referrals: Pastor Naranjo MD [Primary Care Provider] - 3-5 Days (Patient to call Tuesday for an appointment) Discharge Health Status Multidrug resistant organism: No MDRO Diet/Activity/Treatments Diet: Low-protein/Renal Diet comment: attempt to not drink alcohol Activity: as tolerated Skin/Wound/Dressing Care Report to your healthcare provider any signs of infection, such as:: chills, fever, night sweats and increased pain Visit Report/Discharge Packet Stand Alone Forms: Patient Portal/API, Stroke Signs & Symptoms Discharge Data Primary Care Provider: Pastor Naranjo VTE Deep Vein Thrombosis/Pulmonary Embolism Present on Admission: No
--- NOTE | 2024-07-21 12:51 | CM.DANOTE ---
Patient is a 59 yo female who was admitted on 07/20/24 for ETOH intoxication and Hepatic Encephalopathy. Pt has [facility] and [facility] for insurance and her PCP is Dr. Pastor Naranjo. EMR was reviewed. Per MD, pt with hx of ETOH abuse and cirrhosis with frequent paracentesis and prior CVA with some residuals from 2023 and admitted with ETOH intoxication and hepatic enceph. Pt has improved and medically stable to d/c home today. SW met bedside with pt and explained role and pt with visual abdominal distension from her hx of paracentesis but able to answer questions appropriately but vaguely. Pt confirms she lives at home in [place] with her who works and pt is mostly independent with cane but does not really drive and pt does not appear to be in good physical shape/stamina. Pt confirms that MD discussed her drinking and medical impact to her system and denies any hx of formal ETOH tx or services. Pt states she is willing to consider ETOH supports and presents as pre-contemplative or possibly contemplative regarding ETOH tx. SW provided local ETOH tx resources including [facility] and discussed possible option of telehealth if needed since spouse drives. SW asked if pt would like spouse involved in discussion and pt declined involving spouse at this time. Pt confirms her preference is home today and states spouse was called an on his way in to transport her home. SW updated RN. Plan; Patient to d/c home today via spouse POV and provided with outpt ETOH tx resources and outpt follow up with PCP. FAUZIA Mathew Discharge Planning/Care Management CM Discharge Assessment Start: 07/21/24 12:49 Freq: Status: Active Protocol: Document 07/21/24 12:49 BF (Rec: 07/21/24 12:51 [id number]) Discharge Planning Assessment Assigned Creative Perfumer FAUZIA Barnett DPOA/Assigned Designee Name spouse Romaine Contact Information [phone] Advance Directives? No Advance Directives on File No History Provided By Patient,Family Member, Significant Other,Medical Record Has Patient been admitted in last 30 No days? Prior Living Arrangements House Household Members spouse Type of transporation used prior to Relies on Others admit Independent with ADL's Yes: somewhat Is patient alert and oriented? Yes: somewhat, ETOH and prior CVA Needs Assistance With Meal Prep,Managing Medications ,Home Chores / Shopping Caregiver for Another No DME Already Rented / Owned Cane Barriers to Discharge No Discharge Plan Home Transportation Arrangement spouse bedside Referrals Initiated Other Additional Comment provided ELLEN resources Whiteboard Updated in Patient Room with Yes name and ext. # of Creative Perfumer Review Status In Process Please Provide Date Initial DC 07/21/24 Assessment Was Performed Next Review Type Continued Stay Review
--- NOTE | 2024-07-21 13:33 | PC.NURSE ---
Discharged: Pt A&O x4, stable vitals, left floor via W/C to private vehicle and home with spouse. Pt left with all belongings, IV removed intact, pt educated and resource information given.
== END 2024-07-21 13:15 | disposition home or self-care (01) | DRG 897 ==
LOC: ED 11:19 → AC 14:38
PROVIDERS: Admitting Provider Internal Medicine; Emergency Provider Emergency Medicine; Family Provider Preventive Medicine Occupational Medicine; PCP Family Medicine; Referring Provider Emergency Medicine; Visit Provider Internal Medicine
DX: F10.129 Alcohol abuse with intoxication, unspecified (principal); K76.82 Hepatic encephalopathy; K70.30 Alcoholic cirrhosis of liver without ascites; K70.40 Alcoholic hepatic failure without coma; R29.810 Facial weakness; R53.1 Weakness; F17.200 Nicotine dependence, unspecified, uncomplicated; Y90.7 Blood alcohol level of 200-239 mg/100 ml; Z86.73 Personal history of transient ischemic attack (TIA), and cerebral infarction without residual deficits
CPT/HCPCS: 36415; 70450; 70496; 70498; 70551; 80053; 80305; 80320; 81001; 81003; 82140; 82550; 82962; 84484; 85025; 85610; 85730; 87077; 87086; 87186; 93005; 96374; 99285; 99291; J2060; Q9967

== ENCOUNTER 2024-08-21 13:45 | Outpatient (RCR) | payer OTHER, MEDICARE, SELFPAY ==
[2023-12-14 18:18] VITALS: BMI 32.1
[2024-07-20 16:47] VITALS: BMI 32.6
--- NOTE | 2024-08-09 15:52 | ST.OPIE ---
Visit Care Team Role Provider Type Pastor Naranjo MD Attending Provider Physician Family Provider Primary Care Provider Referring Provider Specialty: Family Practice Address: [address], [place], [address] Email: [email or web address] Speech-Language Pathology Initial Evaluation ENGINEERING TECHNICAL SPECIALIST Motor Speech Evaluation Start: 08/09/24 15:36 Freq: Status: Active Protocol: Document 08/09/24 15:36 MA (Rec: 08/09/24 15:52 MA Desktop) Motor Speech Evaluation Session Time Visit Start Time 15:00 Visit Stop Time 15:35 Total Visit Minutes 35 Visit Information Visit Number Initial Eval Plan of Care Dates 08/09/24-12/09/24 Insurance Information [facility] Setting Setting Outpatient Care Next Note Type Next Note Type Treatment Note Patient History Source: [employer] ([employer]). Patient History Pt is a 59 year old female seen this date for speech evaluation d/t dysarthria dx s /p CVA, which occurred in December 2023. She reports she had left sided facial droop and left sided weakness in her arm/leg, however has states it has pretty much resolved itself. She reports she continues to slur her speech and bite the inside of her cheek when eating, which frustrates her. She also states it is frustrating for her not to always understand what she is saying. She also reports she does not enjoy talking on the phone d/ t her slurred speech. She states PMHx: GI bleed. Referral Referring Physician Dr. Naranjo Reason for Referral CVA Mental Status Mental Status Alert,Responsive,Cooperative, Lethargic Subjective Observations Subjective Pt reports she drove to therapy herself. She lives with her and has two grown daughters, one of which lives close to her with a granddaughter. Oral Motor Lips Function Mild Impairment Observation at rest Slight left sided weakness Pucker WFL Retraction WFL Alternating pucker/retraction WFL Involuntary Movement WFL Tongue Function Mild Impairment Observations at rest WFL Protrusion weak Retraction WFL Lateralization WFL Involuntary Movement WFL Jaw Function WFL Respiration/Phonation Phonation Quality WNL Function WNL Loudness WNL Oral Reading Quality WNL Function WNL Loudness WNL Conversation Quality WNL Duration WNL Function WNL Loudness WNL Diadochokinetic Rates Speech Intelligibility Awareness/Strategy Use Description Type of awareness/use Uses consistently Findings Details Motor Speech Function Mild Impairment Assessment Details Assessment ST administered the Quick Aphasia Battery with Pt scoring a total score of: 9.4 indicating no aphasia Word comprehension 10.00 Sentence comprehension 6.67 Word finding 10.00 Grammatical construction 10.00 Speech motor programming 10.00 Repetition 10.00 Reading 10.00 QAB overall 9.40 Pt presents with mild dysarthria characterized by slurred speech and weak lingual/labial musculature. Pt is about 95-100% intelligible . Pt would benefited from skilled ST services in order to learn dysarthria speaking strategies to increase intelligibility. ST provided Pt with oral motor exercises targeting the lingual and labial oral muscles, as wella s tongue twisters with primarily /s/ and /sh/ words d /t Pt with lateralized lisp secondary to dysarthria. Prognosis Rehabilitation Potential Excellent Recommendations Treatment Recommended Yes Frequency 1x/week Duration 3 months Short Term Goals STG 1- Pt will participate in oral motor speech tasks to improve lingual and labial strength, ROM and motility for articulation with min cues. STG-2 Pt will utilize compensatory strategies of over articulation with min cues. STG-3 Pt will demonstrate speech intelligibility of at least 100% in conversational speech. [facility] Goals LTG1 Pt will improve intelligibility of speech for functional communication. Patient/Family Education Education Described results of evaluation,Patient Understanding,Patient Needs More Info
--- NOTE | 2024-08-09 15:52 | ST.OPPOC ---
Physical, Occupational & Speech Therapy At [facility] Visit Care Team Role Provider Type Pastor Naranjo MD Attending Provider Physician Family Provider Primary Care Provider Referring Provider Address: [address], [place], [address] Speech Pathology Plan of Care Plan of Care Dates 08/09/24-12/09/[address] Naranjo Patient History Pt is a 59 year old female seen this date for speech evaluation d/t dysarthria dx s/p CVA, which occurred in December 2023. She reports she had left sided facial droop and left sided weakness in her arm/leg, however has states it has pretty much resolved itself. She reports she continues to slur her speech and bite the inside of her cheek when eating, which frustrates her. She also states it is frustrating for her not to always understand what she is saying. She also reports she does not enjoy talking on the phone d/t her slurred speech. She states PMHx: GI bleed. Therapy Recommendations Recommend ongoing skilled services targeting dysphagia in order to continue to monitor aspiration risk, implement safe swallowing strtegies, and make appropriate and updated diet recommendations. Additional Precautions Hold PO intake if pt not fully alert/awake. Short Term Goals STG 1- Pt will participate in oral motor speech tasks to improve lingual and labial strength, ROM and motility for articulation with min cues. STG-2 Pt will utilize compensatory strategies of over articulation with min cues. STG-3 Pt will demonstrate speech intelligibility of at least 100% in conversational speech. Short-term Goals 1. Patient will demonstrate 90% accuracy in re- teach and implementation of compensatory swallow strategies to decrease risk of aspiration and discomfort with intake of solids and liquids. 2. Patient will increase ability to safely swallow Minced and Moist (MM5) consistencies without overt s/sx of aspiration in 100% of opportunities in order to meet primary nutrition and hydration needs. 3. Patient will tolerate thin liquids with no overt s/sx of aspiration in 100% of opportunities in orer to decrease risk of aspiration-related complications. 4. Patient will complete further assessment of speech, language, and cognition in order to determine discharge setting and further inform POC. Retirement Goals LTG1 Pt will improve intelligibility of speech for functional communication. Long-term Goals 1. Patient will safely tolerate least restrictive diet consistency to allow for safe consumption of daily meals without s/sx of aspiration. Comment: Electronically Signed by: RONALD Otto 08/09/24 2835 If you are in agreement with this Plan of Care, please return a signed and dated copy. I have reviewed this Plan of Care and certify that the skilled therapy services above are required to meet the patient?s needs. Physician Signature Date Printed Name and Credentials Clinical Instructor Signature Printed Name and Credentials
--- NOTE | 2024-08-21 15:10 | ST.OPDS ---
Visit Care Team Role Provider Type Pastor Naranjo MD Attending Provider Physician Family Provider Primary Care Provider Referring Provider Address: [address], [place], [address] CHAMFERING MACHINE OPERATOR Treatment Note CHAMFERING MACHINE OPERATOR Treatment Note Start: 08/21/24 14:09 Freq: Status: Active Protocol: Document 08/21/24 14:10 MA (Rec: 08/21/24 14:28 MA Desktop) Speech Pathology Treatment Note Session Time Visit Start Time 13:45 Visit Stop Time 14:15 Total Visit Minutes 30 Visit Information Visit Number 2 Plan of Care Dates 08/09/24-12/09/24 Next Note Type Next Note Type Treatment Note General Information Patient History Pt is a 59 year old female seen this date for speech evaluation d/t dysarthria dx s /p CVA, which occurred in December 2023. She reports she had left sided facial droop and left sided weakness in her arm/leg, however has states it has pretty much resolved itself. She reports she continues to slur her speech and bite the inside of her cheek when eating, which frustrates her. She also states it is frustrating for her not to always understand what she is saying. She also reports she does not enjoy talking on the phone d/ t her slurred speech. She states PMHx: GI bleed. Subjective Identification Type Name Observations/Patient Presentation Pt arrived on time to therapy independently. Objective Short Term Goals STG 1- Pt will participate in oral motor speech tasks to improve lingual and labial strength, ROM and motility for articulation with min cues. - MET STG-2 Pt will utilize compensatory strategies of over articulation with min cues.- MET STG-3 Pt will demonstrate speech intelligibility of at least 100% in conversational speech.- MET Assisted Goals LTG1 Pt will improve intelligibility of speech for functional communication. - MET Treatment Activities Education on dysarthria speaking strategies such as over-articulation, education on oral motor exercises specifically strength training and ROM exercises for tongue/ lips, practice with use of speaking strategies with functional phrases Assessment Patient Response to Treatment Excellent Rehab Potential Excellent Progress Towards Goals Appropriate for Discharge Assessment of Improvement Pt reports she continues to have difficulties communicating at times d/t slurred speech, however reports she notices it is worse when she speaks quickly or her mouth is dry. ST educated Pt on importance of staying hydrated and other speaking strategies such as over articulation and speaking slowly. Pt was 100% intelligible during session, with a slight slur. ST provided several handouts, including what dysarthria is, dysarthria speaking strategies , oral motor exercises and functional phrases to practice speaking strategies. ST provided a model for speaking strategies and exercises with Pt able to demonstrate back with 100% accuracy, including reading functional phrases with over articulation. ST recommended Pt complete exercises at home 2-3x/day 10x each and practice utilizing speaking strategies during conversation and over the phone. Pt verbalized understanding. ST recommends Pt discharge from at this time d/t independent with HEP. ST recommended Pt reach out with any questions. Reviewed with Patient Goals,Progress Being Made,Home Exercise Program Plan Frequency of Treatment No Further Therapy
== END 2024-08-22 09:53 | disposition home or self-care (01) ==
LOC: SP 13:45
PROVIDERS: Family Provider Family Medicine; PCP Family Medicine; Referring Provider Family Medicine; Visit Provider Family Medicine
DX: R47.1 Dysarthria and anarthria (principal)
CPT/HCPCS: 92507; 92523

== ENCOUNTER 2024-09-27 12:43 | Inpatient (IN) | payer OTHER, MEDICARE, SELFPAY ==
[2024-07-20 16:47] VITALS: BMI 32.6
[2024-09-27] VITALS (24 sets, daily range): BP systolic 103–154; BP diastolic 55–74; PULSE 54–60; RESP 14–45; TEMP 35.7–36.7; O2SAT 85–100; BMI 32.9
--- NOTE | 2024-09-27 13:04 | DI.RAD.S_ITS ---
PROCEDURE: XR CHEST 1V INDICATIONS: altered mental status TECHNIQUE: One view of the chest was acquired. COMPARISON: [facility], CR, XR CHEST 1V, 12/15/2023, 15:55. [facility], CR, XR CHEST 2V, 12/08/2023, 14:28. FINDINGS AND IMPRESSION: Low lung volumes. No dense airspace disease or pleural effusions on this single view study Heart size is within normal limits. Unchanged mediastinal contours. Degenerative osseous findings. Partially seen cervical hardware. Dictated by: Smooth Mckinnon M.D. on 09/27/2024 at 13:46 Approved by: Smooth Mckinnon M.D. on 09/27/2024 at 13:46
--- NOTE | 2024-09-27 13:04 | EKG_ITS ---
[place] [address] [place] [id number] Test Date: 2024-09-27 Pat Name: Stephanie Duran Department: [facility] Room: Gender: Female Commercial Credit Officer: FRANK : 1965 Requested By: Order Number: [id number] Reading MD: Edwin Green Measurements Intervals [place] Rate: 60 P: 19 MT: 158 QRS: -21 QRSD: 86 T: 57 QT: 478 QTc: 478 Interpretive Statements Normal sinus rhythm Minimal voltage criteria for LVH, may be normal variant ( R in aVL ) Cannot rule out Anterior infarct , age undetermined Electronically Signed On 09-29-2024 16:23:06 PDT by Edwin Green
--- NOTE | 2024-09-27 13:08 | DI.CT.S_ITS ---
PROCEDURE: CT ANGIO HEAD AND NECK INDICATIONS: new stroke, new right-sided weakness, 3 days ago TECHNIQUE: After the administration of intravenous contrast, 1 mm thick sections acquired from the aortic arch through the [place]. 3-dimensional fjsfdmc-mxrocoebk-xqeguwvded (MIP) and/or volume rendering reformats were acquired of the central intracranial vasculature and neck separately. For radiation dose reduction, the following was used: automated exposure control, adjustment of mA and/or kV according to patient size. COMPARISON: [facility], CT, CT ANGIO HEAD AND NECK, 07/20/2024, 10:52. FINDINGS: Image quality: Diagnostic. Cerebral CT Angiogram: Internal carotid arteries: No acute findings. Intracranial ICA are patent with no significant stenosis. No occlusion. No aneurysm. Anterior cerebral arteries: Unremarkable. No significant stenosis. No occlusion. No aneurysm. Middle cerebral arteries: Unremarkable. No significant stenosis. No occlusion. No aneurysm. Posterior cerebral arteries: Unremarkable. No significant stenosis. No occlusion. No aneurysm. Basilar artery: Unremarkable. No significant stenosis. No occlusion. No aneurysm. Vertebral arteries: Unremarkable as visualized. Dural venous sinuses: Unremarkable given phase of enhancement. Other: Arterial phase appearance of the brain parenchyma is unremarkable. Neck CT Angiogram: Internal carotid arteries: Unremarkable. No significant stenosis. No dissection or occlusion. Common carotid arteries: Unremarkable. No significant stenosis. No dissection or occlusion. External carotid arteries: Unremarkable. No occlusion. Vertebral arteries: Unremarkable. No significant stenosis. No dissection or occlusion. Aortic Arch and Mediastinum: Partially visualized aortic arch unremarkable without evidence of aneurysm. Origins of the great vessels unremarkable. Other: Arterial phase soft tissues of the neck and chest are unremarkable. Cervical corpectomy and ACDF. Orthopedic hardware intact. IMPRESSION: No significant intracranial arterial abnormality is seen. No significant abnormality is seen within the arteries of the neck. Any quantitative measurements of stenosis were performed using NASCET criteria. Dictated by: Vinod Jj M.D. on 09/27/2024 at 14:39 Approved by: Vinod Jj M.D. on 09/27/2024 at 14:40
--- NOTE | 2024-09-27 13:08 | DI.CT.S_ITS ---
PROCEDURE: CT HEAD/BRAIN WO CON INDICATIONS: stroke, onset 3 days ago TECHNIQUE: Noncontrast 4.5 mm thick angled axial sections acquired from the foramen magnum to the vertex, with coronal and sagittal reformats. For radiation dose reduction, the following was used: automated exposure control, adjustment of mA and/or kV according to patient size. COMPARISON: None. FINDINGS: Image quality: Diagnostic. CSF spaces: Basal cisterns are patent. No extra-axial fluid collections. Ventricles are normal in size and shape. Brain: No midline shift. No intracranial mass effect or hemorrhage. Subtle hypodensity present in the deep white matter of the posterior left frontal region. This is nonspecific. Subacute infarct is not excluded. Brain parenchyma is otherwise unremarkable. Skull and face: Calvarium and visualized facial bones are intact, without suspicious lesions. Sinuses: Visualized sinuses and mastoids are clear. IMPRESSION: Focal indeterminate low-density area in the left-sided deep white matter. Cannot exclude subacute infarct. Comment: Recommend brain MRI. Dictated by: Vinod Jj M.D. on 09/27/2024 at 14:37 Approved by: Vinod Jj M.D. on 09/27/2024 at 14:38
[2024-09-27 13:21] LABS: Add Manual Diff / Slide Review NO; Basophils Absolute Auto 100 /uL (0-100); Basophils Percent Auto 0.9 % (0-2); Eosinophils Absolute Auto 300 /uL (0-450); Eosinophils Percent Auto 3.9 % (2-4); Hematocrit 35.3 % (36-46); Lymphocytes Absolute Auto 1400 /uL (1100-4500); Lymphocytes Percent Auto 22.4 % (25-40); Mean Corpuscular HGB Conc 33.9 % (30-36); Mean Corpuscular Hemoglobin 29.1 PG (26-34); Mean Corpuscular Volume 85.9 fL (80-100); Monocytes Absolute Auto 600 /uL (0-900); Neutrophils Absolute Auto 4000 /uL (1500-7000); Neutrophils Percent Auto 62.8 % (50-75); Platelet Count 285 X10^3/uL (150-400); Red Blood Cell Count 4.11 X10^6/uL (4.0-5.2); Red Cell Distribution Width 23.2 % (11.6-14.8); White Blood Cell Count 6.4 X10^3/uL (4.5-11.0)
[2024-09-27 13:24] LABS: Alanine Aminotransferase 51 IU/L (<35); Albumin 3.9 g/dL (3.5-5.0); Alkaline Phosphatase 146 U/L (38-126); Aspartate Aminotransferase 63 IU/L (14-36); BUN Creatinine Ratio 27.7 (6-22); Bilirubin Total 1.6 mg/dL (0.2-1.3); Blood Urea Nitrogen 28 mg/dL (7-17); Calcium 10.6 mg/dL (8.4-10.2); Carbon Dioxide 17 mmol/L (22-32); Chloride 112 mmol/L (98-107); Creatine Kinase 55 U/L (30-135); Estimated Glomerular Filt Rate > 60 mL/min (>60); Ethanol (ETOH) < 10 mg/dL (<10); Globulin 3.8 g/dL (1.7-4.1); Glucose 134 mg/dL (70-99); HEMOLYSIS < 15 (0-50); Potassium 4.1 mmol/L (3.4-5.1); Sodium 138 mmol/L (137-145); Total Protein 7.7 g/dL (6.3-8.2)
[2024-09-27 13:25] LABS: Lactate (Lactic Acid) 1.3 mmol/L (0.7-2.1)
[2024-09-27 13:36] LABS: Troponin I < 0.012 ng/mL (0.01-0.034)
--- NOTE | 2024-09-27 13:37 | ED.NEUROSD ---
HPI - Neuro Symptoms/Deficit General Chief Complaint: Neuro Symptoms/Deficit Stated Complaint: stroke sym Time Seen by Provider: 09/27/24 13:00 Source: family Mode of arrival: Wheelchair History of Present Illness HPI Narrative: 59-year-old woman with a prior stroke with right-sided weakness and facial droop presents with 3 days of increasing weakness per her . her chronic right side weakness is reportedly worse than her baseline. Her speech is somewhat slowed, who has been describes her as a bit more confused. She has not had any falls, there was no fever, cough, chills or headache And she is feeling somewhat dizzy And her previous right-sided facial weakness is again noted unclear if it is worsen.. She notes she has been constipated, she is supposed to be taking lactulose for her alcohol-related cirrhosis. On Anticoagulants: No Related Data Home Medications Medication Instructions Recorded Confirmed lactulose 10 gram/15 mL oral 7.5 ml PO DAILY 12/14/23 07/20/24 solution nadolol 40 mg tablet 40 mg PO DAILY 12/14/23 07/20/24 spironolactone 25 mg tablet 25 mg PO DAILY 12/14/23 07/20/24 Previous Rx's Medication Instructions Recorded aspirin 81 mg tablet,delayed 81 mg PO DAILY #30 tabs 12/16/23 release Allergies Allergy/AdvReac Type Severity Reaction Status Date / Time morphine [MORPHINE] Allergy Unknown Hives Verified 09/27/24 13:03 Review of Systems Review of Systems Narrative: Pertinent positive and negative findings as per HPI Hematologic/Lymphatic On Anticoagulants: No Patient History Medical History COVID-19 Tobacco abuse Alcoholism Methamphetamine abuse Surgical History Status post lumbar surgery Status post cervical spinal fusion Status post gastric bypass for obesity Family History Mother Hypertension Father Family estrangement Social History household members: spouse alcohol intake: former tobacco type: cigarettes alcohol intake frequency: 3 or more drinks per day Alcohol type: hard liquor Exam Initial Vital Signs Initial Vital Signs: Vital Signs Temperature 98.0 F 09/27/24 13:00 Pulse Rate 58 L 09/27/24 13:00 Respiratory Rate 18 09/27/24 13:00 Blood Pressure 154/72 H 09/27/24 13:00 Pulse Oximetry 98 09/27/24 13:00 Oxygen Delivery Method Room Air 09/27/24 13:00 General: Chronically ill-appearing, slightly overall slowed, slight right facial droop that is apparently her baseline HEENT: Moist mucous membranes, normal sclera with reactive pupils, Respiratory: Lungs are clear to auscultation, no wheezing no rales no rhonchi. Full and symmetrical air movement Cardiac: Regular rate and rhythm no murmurs no bruits Abdomen: Soft, nontender, no rebound or guarding, no flank pain Skin: Warm and dry, no rashes Neurologic: globally weak. She is actually able to hold both upper and lower extremities up for counts to the 5 and 10 respectively but both sides are overall weak. Speech is somewhat slowed, comprehension seems overall slowed, mild dysarthria Extremities: No trauma, well perfused Psych: Cooperative, appropriate insight and affect NIH Stroke Scale/Score (NIHSS) f on 09/27/2024 RESULT SUMMARY: 3 points NIH Stroke Scale INPUTS: 1A: Level of consciousness ?> 0 = Alert; keenly responsive 1B: Ask month and age ?> 0 = Both questions right 1C: 'Blink eyes' & 'squeeze hands' ?> 0 = Performs both tasks 2: Horizontal extraocular movements ?> 0 = Normal 3: Visual werner ?> 0 = No visual loss 4: Facial palsy ?> 1 = Minor paralysis (flat nasolabial fold, smile asymmetry) 5A: Left arm motor drift ?> 0 = No drift for 10 seconds 5B: Right arm motor drift ?> 0 = No drift for 10 seconds 6A: Left leg motor drift ?> 0 = No drift for 5 seconds 6B: Right leg motor drift ?> 0 = No drift for 5 seconds 7: Limb Ataxia ?> 0 = No ataxia 8: Sensation ?> 0 = Normal; no sensory loss 9: Language/aphasia ?> 1 = Mild-moderate aphasia: some obvious changes, without significant limitation 10: Dysarthria ?> 1 = Mild-moderate dysarthria: slurring but can be understood 11: Extinction/inattention ?> 0 = No abnormality Course Orders Ordered: ED Orders 09/27/24 13:04 XR chest 1V Stat Blood Culture Stat Complete Blood Count AUTO DIFF Stat Comprehensive Metabolic Panel Stat Ethanol (ETOH) Stat Lactate (Lactic Acid) Stat Procalcitonin Stat Troponin & CK Cardiac Panel Stat EKG-12 Lead Stat 09/27/24 13:08 CT angio head and neck Stat CT head/brain wo con Stat 09/27/24 13:33 Urine Drug Screen, Rapid Stat Vital Signs Vital signs: Vital Signs - 8 hr 09/27/24 13:00 09/27/24 13:17 09/27/24 13:39 Temperature 98.0 F Pulse Rate 58 L 58 L 56 L Respiratory Rate 18 18 18 Blood Pressure 154/72 H Pulse Oximetry 98 98 99 Oxygen Delivery Method Room Air 09/27/24 13:40 09/27/24 13:40 09/27/24 14:00 Temperature Pulse Rate 54 L 56 L Respiratory Rate 16 14 Blood Pressure 132/64 Pulse Oximetry 99 97 Oxygen Delivery Method 09/27/24 14:00 09/27/24 14:30 09/27/24 14:30 Temperature Pulse Rate 57 L Respiratory Rate 15 Blood Pressure 117/68 117/65 Pulse Oximetry 99 Oxygen Delivery Method 09/27/24 15:00 09/27/24 15:00 09/27/24 15:30 Temperature Pulse Rate 59 L 55 L Respiratory Rate 21 16 Blood Pressure 122/74 Pulse Oximetry 100 98 Oxygen Delivery Method 09/27/24 15:30 09/27/24 16:00 09/27/24 16:01 Temperature Pulse Rate 55 L Respiratory Rate 21 Blood Pressure 106/64 130/64 Pulse Oximetry 99 Oxygen Delivery Method 09/27/24 16:01 09/27/24 16:31 09/27/24 16:31 Temperature Pulse Rate 56 L 60 Respiratory Rate 14 20 Blood Pressure 118/65 Pulse Oximetry 99 98 Oxygen Delivery Method 09/27/24 17:00 09/27/24 17:00 09/27/24 17:30 Temperature Pulse Rate 56 L 54 L Respiratory Rate 23 15 Blood Pressure 109/69 Pulse Oximetry 98 99 Oxygen Delivery Method 09/27/24 17:30 09/27/24 18:00 09/27/24 18:00 Temperature Pulse Rate 54 L Respiratory Rate 16 Blood Pressure 116/58 L 106/61 Pulse Oximetry Oxygen Delivery Method 09/27/24 18:30 09/27/24 18:30 09/27/24 19:00 Temperature Pulse Rate 55 L 60 Respiratory Rate 19 18 Blood Pressure 127/63 Pulse Oximetry 99 95 Oxygen Delivery Method 09/27/24 19:00 Temperature Pulse Rate Respiratory Rate Blood Pressure 131/63 Pulse Oximetry Oxygen Delivery Method MDM - Neuro Symptoms/Deficit Lab Data 09/27/24 13:04 09/27/24 13:04 Labs: Lab Results 09/27/24 09/27/24 Range/Units 13:04 13:33 WBC 6.4 (4.5-11.0) X10^3/uL RBC 4.11 (4.0-5.2) X10^6/uL Hgb 12.0 (12.0-16.0) g/dL Hct 35.3 L (36-46) % MCV 85.9 (80-100) fL MCH 29.1 (26-34) PG MCHC 33.9 (30-36) % RDW 23.2 H (11.6-14.8) % Plt Count 285 (150-400) X10^3/uL Neut % (Auto) 62.8 (50-75) % Lymph % (Auto) 22.4 L (25-40) % [place] % (Auto) 10.0 (3-14) % Eos % (Auto) 3.9 (2-4) % Baso % (Auto) 0.9 (0-2) % Neut # (Auto) 4000 (5143-5172) /uL Lymph # (Auto) 1400 (4536-0198) /uL [place] # (Auto) 600 (0-900) /uL Eos # (Auto) 300 (0-450) /uL Baso # (Auto) 100 (0-100) /uL Platelet Estimate Adequate on smear RBC Morphology See below Poikilocytosis 1+ H Anisocytosis 1+ H Sodium 138 (137-145) mmol/L Potassium 4.1 (3.4-5.1) mmol/L Chloride 112 H (98-107) mmol/L Carbon Dioxide 17 L (22-32) mmol/L BUN 28 H (7-17) mg/dL Creatinine 1.01 (0.52-1.04) mg/dL Estimated GFR > 60 (>60) mL/min BUN/Creatinine Ratio 27.7 H (6-22) Glucose 134 H (70-99) mg/dL Lactate 1.3 (0.7-2.1) mmol/L Calcium 10.6 H (8.4-10.2) mg/dL Total Bilirubin 1.6 H (0.2-1.3) mg/dL AST 63 H (14-36) IU/L ALT 51 H (<35) IU/L Alkaline Phosphatase 146 H (38-126) U/L Total Creatine Kinase 55 (30-135) U/L Troponin I < 0.012 (0.01-0.034) ng/mL Total Protein 7.7 (6.3-8.2) g/dL Albumin 3.9 (3.5-5.0) g/dL Globulin 3.8 (1.7-4.1) g/dL Albumin/Globulin Ratio 1.0 (1.0-2.8) Procalcitonin 0.217 (<0.5) ng/mL U Opiates 300ng/mL cut Negative (Negative) Ur Oxycodone Screen Negative (Negative) Urine Methadone Screen Negative (Negative) Ur Barbiturates Screen Negative (Negative) U Tricyclic Antidepress Negative (Negative) Ur Phencyclidine Scrn Negative (Negative) Ur Amphetamines Screen Negative (Negative) U Methamphetamines Scrn Negative (Negative) Ur MDMA Scrn (Ecstasy) Negative (Negative) U Benzodiazepines Scrn Negative (Negative) Urine Cocaine Screen Negative (Negative) U Marijuana (THC) Screen Negative (Negative) Urine pH Normal (Normal) Urine Specific [place] Normal (Normal) Ethyl Alcohol < 10 (<10) mg/dL Ur Creatinine Normal (Normal) Point of Care Testing Glucose POC 125 Urine Dip Bedside Urine Glucose Negative Bedside Urine Bilirubin - Negative Bedside Urine Ketone - Negative Urine Specific [place] 1.015 Bedside Urine Occult Blood - Negative Bedside Urine pH 6.0 Bedside Urine Protein - Negative Bedside Urine Urobilinogen - Negative Bedside Urine Nitrite - Negative Bedside Urine Leukocytes +/- [address] angiogram head and neck: Radiologist's Impression: PROCEDURE: CT ANGIO HEAD AND NECK INDICATIONS: new stroke, new right-sided weakness, 3 days ago TECHNIQUE: After the administration of intravenous contrast, 1 mm thick sections acquired from the aortic arch through the [place] of [place]. 3-dimensional nrunfoi-yefgcwtep-lbtfjujqoo (MIP) and/or volume rendering reformats were acquired of the central intracranial vasculature and neck separately. For radiation dose reduction, the following was used: automated exposure control, adjustment of mA and/or kV according to patient size. COMPARISON: [facility], CT, CT ANGIO HEAD AND NECK, 07/20/2024, 10:52. FINDINGS: Image quality: Diagnostic. Cerebral CT Angiogram: Internal carotid arteries: No acute findings. Intracranial ICA are patent with no significant stenosis. No occlusion. No aneurysm. Anterior cerebral arteries: Unremarkable. No significant stenosis. No occlusion. No aneurysm. Middle cerebral arteries: Unremarkable. No significant stenosis. No occlusion. No aneurysm. Posterior cerebral arteries: Unremarkable. No significant stenosis. No occlusion. No aneurysm. Basilar artery: Unremarkable. No significant stenosis. No occlusion. No aneurysm. Vertebral arteries: Unremarkable as visualized. Dural venous sinuses: Unremarkable given phase of enhancement. Other: Arterial phase appearance of the brain parenchyma is unremarkable. Neck CT Angiogram: Internal carotid arteries: Unremarkable. No significant stenosis. No dissection or occlusion. Common carotid arteries: Unremarkable. No significant stenosis. No dissection or occlusion. External carotid arteries: Unremarkable. No occlusion. Vertebral arteries: Unremarkable. No significant stenosis. No dissection or occlusion. Aortic Arch and Mediastinum: Partially visualized aortic arch unremarkable without evidence of aneurysm. Origins of the great vessels unremarkable. Other: Arterial phase soft tissues of the neck and chest are unremarkable. Cervical corpectomy and ACDF. Orthopedic hardware intact. IMPRESSION: No significant intracranial arterial abnormality is seen. No significant abnormality is seen within the arteries of the neck. Any quantitative measurements of stenosis were performed using NASCET criteria. Dictated by: Vinod Jj M.D. on 09/27/2024 at 14:39 CT scan - head: Radiologist's Impression: PROCEDURE: CT HEAD/BRAIN WO CON INDICATIONS: stroke, onset 3 days ago TECHNIQUE: Noncontrast 4.5 mm thick angled axial sections acquired from the foramen magnum to the vertex, with coronal and sagittal reformats. For radiation dose reduction, the following was used: automated exposure control, adjustment of mA and/or kV according to patient size. COMPARISON: None. FINDINGS: Image quality: Diagnostic. CSF spaces: Basal cisterns are patent. No extra-axial fluid collections. Ventricles are normal in size and shape. Brain: No midline shift. No intracranial mass effect or hemorrhage. Subtle hypodensity present in the deep white matter of the posterior left frontal region. This is nonspecific. Subacute infarct is not excluded. Brain parenchyma is otherwise unremarkable. Skull and face: Calvarium and visualized facial bones are intact, without suspicious lesions. Sinuses: Visualized sinuses and mastoids are clear. IMPRESSION: Focal indeterminate low-density area in the left-sided deep white matter. Cannot exclude subacute infarct. Comment: Recommend brain MRI. Dictated by: Vinod Jj M.D. on 09/27/2024 at 14:37 MDM Narrative Medical decision making narrative: CC:Increased left-sided weakness, dizziness Complicating co-morbidities: prior stroke, these symptoms are an exacerbation of previous site, alcohol use disorder with alcoholic cirrhosis Data collected from: patient, Medical records reviewed: discharge summary from December of 2023 after prior CVA is reviewed discharge summary June of 2021 with alcohol intoxication is reviewed Differential considered: stroke, intoxication, intracranial hemorrhage, elevated ammonia, sepsis Exam documented above, pertinent findings include: patient does have left-sided weakness however it is difficult to tell how much is new and how much is old. Speech is slightly slowed, some mild dysarthria, she does have a right-sided facial droop that is old. Heart and lungs are benign. No obvious ascites Lab Test results independently reviewed as above. Pertinent findings: CBC is unremarkable chemistries are notable for appropriate renal function, no significant electrolyte abnormalities, mildly elevated calcium at 10.6, bili at 1.6, AST ALT and alk-phos are similar to her previous baseline troponin is not detected procalcitonin is not elevated alcohol level is undetectable Independently reviewed EKG: sinus rhythm at a rate of 60 with no acute ischemic changes Imaging studies independently reviewed: CT angiogram of the head and neck is unremarkable CT scan of the head shows Focal indeterminate low-density area in the left-sided deep white matter. Cannot exclude subacute infarct. Treatments: patient's blood pressure is controlled, she is taking a baby aspirin daily. Discussion: 59-year-old woman with prior left-sided stroke and persistent right-sided deficits presents with exacerbation of symptoms and concern for secondary stroke in the same distribution. With her increasing weakness and dizziness she would prefer hospitalization. MRI to confirm findings we will be appropriate. Physical therapy will also be appropriate. At this point she does not seem to be having an acute alcohol or cirrhotic related issues. She does not have any acute ascites. I am not sure that she is taking her lactulose daily. She is taking statin and blood pressures are adequately controlled. We will discuss her care with whoever is covering her primary care physician, Dr. Naranjo for admission to the hospital for treatment of her presumed stroke 3 days ago similar distribution to prior CVA. Discharge Plan Departure Patient Disposition: Admitted As Inpatient Clinical Impression: Stroke Qualifiers: CVA mechanism: unspecified Qualified Code(s): I63.9 - Cerebral infarction, unspecified
[2024-09-27 13:41] LABS: Procalcitonin 0.217 ng/mL (<0.5)
[2024-09-27 13:48] LABS: Ur Creatinine Normal (Normal); Ur Specific Gravity Normal (Normal); Urine pH Normal (Normal)
[2024-09-27 13:49] LABS: Urine Amphetamines Negative (Negative); Urine Barbiturates Negative (Negative); Urine Benzodiazepines Negative (Negative); Urine Cocaine Negative (Negative); Urine MDMA Negative (Negative); Urine Methadone Negative (Negative); Urine Opiates Negative (Negative); Urine Oxycodone Negative (Negative); Urine Phencyclidine Negative (Negative); Urine THC Negative (Negative); Urine Tricyclic Antidepressant Negative (Negative)
[2024-09-27 13:49] LABS: Anisocytosis 1+; Platelet Estimate Adequate on smear; Poikilocytosis 1+
[2024-09-27 21:51] LABS: Alanine Aminotransferase 49 IU/L (<35); Albumin 3.6 g/dL (3.5-5.0); Albumin Globulin Ratio 0.9 (1.0-2.8); Alkaline Phosphatase 120 U/L (38-126); Aspartate Aminotransferase 60 IU/L (14-36); BUN Creatinine Ratio 21.3 (6-22); Bilirubin Total 1.2 mg/dL (0.2-1.3); Blood Urea Nitrogen 30 mg/dL (7-17); Calcium 10.3 mg/dL (8.4-10.2); Carbon Dioxide 24 mmol/L (22-32); Chloride 109 mmol/L (98-107); Estimated Glomerular Filt Rate 43 mL/min (>60); Globulin 3.8 g/dL (1.7-4.1); Glucose 114 mg/dL (70-99); HEMOLYSIS < 15 (0-50); Potassium 3.5 mmol/L (3.4-5.1); Sodium 141 mmol/L (137-145); Total Protein 7.4 g/dL (6.3-8.2)
[2024-09-28] VITALS (9 sets, daily range): BP systolic 107–136; BP diastolic 50–76; PULSE 61–86; RESP 16–20; TEMP 36.2–37; O2SAT 93–98
[2024-09-28] MEDS: CLOPIDOGREL 75 MG TABLET PO (08:58)
[2024-09-28] MEDS: ASPIRIN EC 81 MG TABLET PO (08:58)
[2024-09-28] MEDS: ALPRAZolam 0.25 MG TABLET 1 MG PO (08:58)
[2024-09-28] MEDS: PROPRANOLOL 10 MG TABLET 20 MG PO ×2 (08:58→23:43)
[2024-09-28] MEDS: SPIRONOLACTONE 25 MG TABLET PO (08:58)
[2024-09-28] MEDS: LACTULOSE 20 GM/30 ML SOLUTION 5 GM PO (08:59)
[2024-09-28 09:00] LABS: Hemoglobin A1C% w Est Avg Glu 5.7 % (4.0-6.0)
[2024-09-28 09:05] LABS: Cholesterol 114 mg/dL (140-199); HDL Cholesterol 45 mg/dL (40-60); LDL Cholesterol Calculated 47 mg/dL (<100); Triglycerides 109 mg/dL (35-150)
--- NOTE | 2024-09-28 10:31 | OT.IP.EVAL ---
Past Medical History (Last Reviewed 12/14/23 @ 16:17 by Alonso Ryan MD) Alcoholism COVID-19 Methamphetamine abuse Tobacco abuse Surgical History (Last Reviewed 12/14/23 @ 16:17 by Alonso Ryan MD) Status post cervical spinal fusion Status post gastric bypass for obesity Status post lumbar surgery Occupational Therapy Inpatient Evaluation/Re-Eval M1 PT/OT-IP Prior Functional Status Start: 09/28/24 08:36 Freq: NEEDED Status: Active Protocol: Document 09/28/24 09:23 UMA (Rec: 09/28/24 09:39 [facility] Desktop) Medical Review Prior Functional Status Medical History Reviewed Yes Communication Pt able to make needs known. Pt speaks at low volume with slight slur to her words. Pt requires increased time to respond. Pt reports that it is taking her longer to think of what she wants to say. Mobility and Gait Pt amb without AD at home. Activities of Daily Living and IADL's Pt reports being I with BADL, cooking, cleaning, crafting, medication mgmt, money mgmt, and driving prior to admission . Social History Household Members spouse Living Arrangements House Number of Floors (Floors) One Floor Number of Stairs To Enter/Railing? 1 step to enter no railing Home Environment High Toilet,Walk in Shower,Tub /Shower Doors Home Equipment Front Wheel Walker Additional Social History Comment Pt reports she has been disabled for 12 years. M2 OT-IP Current Condition Start: 09/28/24 08:36 Freq: Status: Active Protocol: Document 09/28/24 09:23 UMA ([facility]24 09[facility] Therapy Current Condition Current Condition Evaluation Date 09/28/24 Treatment Diagnosis suspected TIA/CVA Diagnosis Onset Date 09/27/24 Post Operative Precautions Other Precautions aspiration M3 OT- IP Subjective and Pain Start: 09/28/24 08:36 Freq: Status: Active Protocol: Document 09/28/24 09:23 UMA (Rec: 09/28/24 09:39 [facility] OT- Subjective Occupational Therapy Visit Type Type Initial Evaluation Visit Start Time 08:45 Visit Stop Time 09:20 Notes Pt reclined in bed with breakfast tray beside her and agreeable to OT evaluation. Occupational Therapy Visit Comments Patient Comments I feel weak and slow. It's harder to think Patient/Caregiver Goals to go home OT Pain Assessment Pain Present Pain Present Denied Pain M4 OT- IP ADL's Start: 09/28/24 08:36 Freq: Status: Active Protocol: Document 09/28/24 09:23 [email or web address] (Rec: 09/28/24 09:39 [facility]) OT [id number] General Evaluation Self-Feeding Ability Independent Comments OT Self-Feeding Comments pt opened packages and able to feed herself I OT ADL-Grooming General Evaluation Grooming Ability Independent Comments OT Grooming Comments pt performed sink side OT ADL-Oral Care General Eval Oral Care Ability Independent Comments Oral Care Comments pt performed sink side, pt performed all aspects of tooth brushing with I OT ADL-Dressing General Eval Lower Body Dressing Ability Standby Assistance Comments OT Dressing Comments Pt donned socks while sitting EOB with slight lean to R side . Pt able to self-correct and perform task safely. Pt adjusted her under clothes while standing I. OT ADL-Toileting General Evaluation Toileting Ability Independent Devices Toileting Assistive Devices Grab Bars Comments OT Toileting Comments Pt managed clothing and hygiene without assistance. OT ADL-Bathing Comments OT Bathing Comments not observed, pt performs showers at home M5 OT- IP IADL's Start: 09/28/24 08:36 Freq: Status: Active Protocol: Document 09/28/24 09:23 HEIDIMNEWAJAMIR (Rec: 09/28/24 09:39 [facility]) OT-Instrumental Activities of Daily Living Deficits IADL Deficits Identified Deficits Home Safety Awareness Awareness of Need for Assistance at Home Good Awareness Ability to Problem Solve Emergency Able to Problem Solve Situations Medication Management Medication Management No Deficits Identified Money Management Money Management No Deficits Identified Meal Preparation Meal Preparation Comments pts spouse can assist if need on d/c Learning Support Assistant Learning Support Assistant Comments pts spouse can assist if need on d/c Driving Driving Comments pts spouse can assist if need on d/c M6 OT- IP Functional Cognition Start: 09/28/24 08:36 Freq: Status: Active Protocol: Document 09/28/24 09:23 [facility] (Rec: 09/28/24 09:39 [facility]) Cognitive Factors Limiting Selfcare Function Cognitive Ability Level of Alertness Alert Patient Orientation Name,Age,Birthday,Month,Date, Year,Day of Week,Place, Situation Attention Span Ability Capable of Focused Attention Ability to Follow Commands Able to Follow One Step Commands,Able to Follow Multi- Step Commands Memory Description Short Term Impaired Safety Awareness No Deficits Noted Problem Solving Ability No deficits Noted Executive Function Ability Unable to Remember Details Abstract Thinking Ability No Deficits Noted Cognitive Tests SLUMS Pt scored 16/30. Pt was able to recall 3/5 short term memory items, 1/4 questions about short story, and had difficulty with all number tasks. Cognitive Comments Cognitive Assessment Comments Pt requires extra time to process and responds slowly OT- Vision and Hearing OT- Hearing Assessment OT- Hearing Assessment WFL OT- Vision Assessment Visual Acuity Glasses All The Time M7 OT- IP Mobility and Balance Start: 09/28/24 08:36 Freq: Status: Active Protocol: Document 09/28/24 09:23 [facility] (Rec: 09/28/24 09:39 [facility] Desktop) OT- Bed Mobility Assessment Rolling Level of Assistance Independent Supine to Sit Supine to Sit Assist Independent,Head of Bed Elevated,Bedrails Sit to Supine Sit to Supine Assist Independent,Head of Bed Elevated,Bedrails Scooting Scooting to Edge of Bed Independent OT-Transfer Assessment Sit to and From Stand Sit to and from Stand Standby Assistance,Use of Upper Extremities Transfers Transfer Ability Standby Assistance,Use of Upper Extremities Technique Transfer Destination Bed,Toilet Transfer Technique Stand Step Pivot Devices Transfer Assistive Devices Bed Rail,Gait Belt,Front Wheeled Walker Comments Mobility Comments pt amb throughout room from bed to bathroom, bathroom to sink, and sink to bed. Pt needs vcs for use of walker, pt does not use walker at home . Pt otherwise demonstrates good safety awareness with tasks. OT- Gait Assessment Gait Gait Assistance Required: Standby Assistance Assistive Devices Assistive Device Gait Belt,Front Wheeled Walker Comments Gait Ability Comments pt amb throughout room from bed to bathroom, bathroom to sink, and sink to bed. Pt needs vcs for use of walker, pt does not use walker at home . Pt otherwise demonstrates good safety awareness with tasks. No LOB noted. OT- Balance Assessment Sitting Balance and Reactions Static Sitting Balance Ability Normal Dynamic Sitting Balance Ability Good Standing Balance and Reactions Static Standing Balance Ability Good Dynamic Standing Balance Ability Good M8 OT- IP Objective Assessments Start: 09/28/24 08:36 Freq: Status: Active Protocol: Document 09/28/24 09:23 [facility] (Rec: 09/28/24 09:39 [facility]) OT Gross Range of Motion Upper Extremity Range of Motion Assessment Within Functional Limits OT Strength Upper Extremity Strength Assessment Bilaterally Impaired Shoulder L: flex 4-, abd/add/ext 4; R flex/abd/add/ext 4- Elbow L: flex/ext 5; R flex/ext 4- Hand WFL B Hand Systems Security Consultant Strength Hand Dominance Right OT- Coordination Assessment Upper Extremity Finger to Nose Test Within Functional Limits Finger Tapping Test Within Functional Limits Comments Coordination Comments dysdiadochokinesia noted. I with thumb to fingertips B. OT-Muscle Tone Assessment Muscle Tone WNL No OT Sensation Assessment Comments Summary Comments Pt intact for light touch and deep pressure B UEs. Edema Edema Absent M9 OT- IP Assessment and Plan Start: 09/28/24 08:36 Freq: Status: Active Protocol: Document 09/28/24 09:23 [facility] (Rec: 09/28/24 09:39 [facility]) OT Summary Assessment and Plan Potential Rehabilitation Potential Good Analytic Complexity at Evaluation Low Summary OT Impairments Strength,Coordination, Functional Cognition, Functional Mobility,Dressing, Bathing,Toilet Transfers, Shower Transfers Assessment Summary Pt is 59 yo F who presented at ED with spouse reports of increased R sided weakness, slowed speech, and confusion. Pt had previous CVA in December 2023. Pt reports feeling weak , slow, and having difficulty thinking. Pt demonstrates I with feeding, grooming, oral care, and toileting. Pt with S for functional t/fs. Pt demonstrates some B UE weakness, with R>L. Pt demonstrates deficits with STM recall. Pt reports PLOF included I with all BADL, IADL to include cooking, house chores, and driving, and I with crafting hobby. Skilled OT services are appropriate for 1-2 treatments to address deficits with regards shower, shower t/fs, toilet t/fs, weakness, activity intolerance , and cognition. Pt is a low- complexity evaluation. Goals Dressing Goal Independent Bathing Goal Independent Toilet Transfer Goal Independent Shower Transfer Goal Independent Days to Meet Goals 5 Frequency of Treatment Other frequency 5x Treatment Plan OT Treatment Plan ADL Training,Functional Cognition Training,Functional Mobility,Therapeutic Exercises ,Patient/Family Education Other Treatment Recommendations and Next Shower and shower t/f Treatment Focus Discharge Recommendations OT Discharge Recommendations Home with Assistance Home Equipment Needs shower chair/bench Transportation Needs at Discharge Private Vehicle
--- NOTE | 2024-09-28 11:25 | PT.IIE ---
Surgical History (Last Reviewed 12/14/23 @ 16:17 by Alonso Ryan MD) Status post cervical spinal fusion Status post gastric bypass for obesity Status post lumbar surgery Medical History (Last Reviewed 12/14/23 @ 16:17 by Alonso Ryan MD) Alcoholism COVID-19 Methamphetamine abuse Tobacco abuse Physical Therapy Inpatient Evaluation/Re-Eval M1 PT/OT-IP Prior Functional Status Start: 09/28/24 12:45 Freq: NEEDED Status: Active Protocol: Document 09/28/24 11:25 AB (Rec: 09/28/24 13:05 AB [id number]) Medical Review Prior Functional Status Medical History Reviewed Yes Communication Pt able to make needs known. presents with very slow speech and can be unclear needing repetitions of questions and instructions to respond Mobility and Gait Pt amb without AD at home. Activities of Daily Living and IADL's Pt reports being I with BADL, cooking, cleaning, crafting, medication mgmt, money mgmt, and driving prior to admission . Social History Household Members spouse Living Arrangements House Number of Floors (Floors) One Floor Number of Stairs To Enter/Railing? 1 step to enter no railing Home Environment High Toilet,Tub/Shower,Tub/ Shower Doors Home Equipment Front Wheel Walker,Shower Seat with Backrest,Hand Held Shower Additional Social History Comment pt stated that spouse works and is not available to provide assistance when at work M2 PT-IP Current Condition Start: 09/28/24 12:45 Freq: NEEDED Status: Active Protocol: Document 09/28/24 11:25 AB (Rec: 09/28/24 13:05 AB [id number]) Physical Therapy Current Condition Current Condition Evaluation Date 09/28/24 Treatment Diagnosis CVA; difficulty in walking Onset Date 09/27/24 M3 PT-IP Subjective Start: 09/28/24 12:45 Freq: NEEDED Status: Active Protocol: Document 09/28/24 11:25 AB (Rec: 09/28/24 13:05 AB [id number]) Subjective Physical Therapy Visit Type Type Initial Evaluation Visit Start Time 11:25 Visit Stop Time 11:50 Number of HAND MODEL Visits 0 Physical Therapy Visit Comments Patient Comments agreed to get up M4 PT-IP Mobility and Gait Start: 09/28/24 12:45 Freq: NEEDED Status: Active Protocol: Document 09/28/24 11:25 AB (Rec: 09/28/24 13:05 AB [id number]) PT-Bed Mobility Assessment Supine to Sit Supine to Sit Minimal Assistance PT-Transfer Assessment Sit to and From Stand Sit to and from Stand Moderate Assistance,1 Person Assistance,Use of Upper Extremities Equipment Transfer Assistive Device Gait Belt,Front Wheeled Walker Orthotic/Prosthetic Devices or Brace: No Transfers Transfer Destination Chair Transfer Technique ambulated Transfer Ability Level of Assist Moderate Assistance,1 Person Assistance,Use of Upper Extremities Comments Mobility Comments OT informed PT regarding pt's mobility earlier this morning and informed that pt was doing well with OT and no does not think pt will need OT. pt in bed and asleep. woke pt up and agreed to do PT. Attempted to do PT but pt keeps falling asleep. pt agreed to see PT later. checked back on pt and was still asleep. woke pt again and agreed to get up. obtained PLOF and home set up. Pt needed repetitions of questions to respond and has unclear speech. pt needing increase time to respond. supine to sit min A and cues. able to sit on EOB SBA. sit to stand mod A requiring 2 attempts to stand up. pt ambulated in room using FWW mod A and max cues. presents with very slow ataxic gait. pt sat on the chair. Assessed ambulation without AD requiring mod A and max cues. pt tends to reach for surfaces for support. pt sat back on chair. positioned pt on the chair. call light and table placed within reach. Noted (+) coughing when pt was drinking water. informed OT and nurse regarding pt's mobility and significant change of mobility during PT session. asked nurse if pt had any medications prior to account for the change. nurse stated that pt had lorazepam when pt was working with OT to get ready for MRI. Gait Assessment Gait Gait Assistance Required: Moderate Assistance,1 Person Assist Distance (Feet) 20 Able to Maintain Weight Bearing Status Yes During Gait Assistive Devices Assistive Device None,Gait Belt,Front Wheeled Walker Orthotic/Prosthetic Devices or Brace: No Gait Deviations General Gait Pattern Ataxic,Decreased Stride Length Factors Limiting Gait Function Factors Limiting Gait Function Decreased Activity Tolerance, Decreased Strength,Difficulty Following Directions,Limited Range of Motion,Poor Balance, Poor Safety Awareness PT-Balance Assessment Sitting Balance and Reactions Static Sitting Balance Ability Good Dynamic Sitting Balance Ability Good Standing Balance and Reactions Static Standing Balance Ability Fair Dynamic Standing Balance Ability Poor Device Used FWW M5 PT-IP Objective Assessments Start: 09/28/24 12:45 Freq: NEEDED Status: Active Protocol: Document 09/28/24 11:25 AB (Rec: 09/28/24 13:05 AB [id number]) Orientation Orientation/Cognition Level of Alertness Alert Orientation Name,Place,Situation Language Function Ability Hard of Hearing Safety Awareness Decreased Safety Awareness Memory Description Short Term Impaired Comments pt slightly drowsy/sleepy Gross Range of Motion Lower Extremity ROM Assessment Within Functional Limits Strength Lower Extremity Strength Assessment Within Functional Limits M6 PT-IP Treatment Start: 09/28/24 12:45 Freq: NEEDED Status: Active Protocol: Document 09/28/24 11:25 AB (Rec: 09/28/24 13:05 AB [id number]) Physical Therapy Treatment Education Education Provided Safety M7 PT-IP Assessment and Plan Start: 09/28/24 12:45 Freq: NEEDED Status: Active Protocol: Document 09/28/24 11:25 AB (Rec: 09/28/24 13:05 AB [id number]) PT Summary Assessment and Plan Potential Rehabilitation Potential Fair Status of Condition at Evaluation Evolving Summary Impairments Pain,ROM,Strength,Balance, Coordination,Sensation,Tone, Cognition,Bed Mobility, Transfers,Gait,Activity Tolerance Assessment Summary pt is a 59 y/o F who is admitted for possible CVA. pt requiring mod A for transfers and ambulation using fWW. pt presents with unsteady gait and max cues with all tasks. pt will require 24/7 assist at this time and may require SNF rehab. pt requiring more assist with PT compared to OT' s report. Nurse informed that pt had lorazepam for MRI which pt had not take prior to OT. will continue to assess progress and medication may have affected pt's mobility. Goals Bed Mobility Goal Independent Transfer Goal Independent,Front Wheeled Walker Gait Goal Independent,Front Wheel Walker Gait Distance 200 Other Goals improve transfers and ambulation without AD ~ 150 ft mod I up/down 1 step SBA Days to Meet Goals 10 Frequency of Treatment Frequency Of Treatment Once a Day Treatment Plan Physical Therapy Treatment Plan Bed Mobility Training,Transfer Training,Gait Training, Therapeutic Exercise,Balance Retraining,Discharge Planning, Hot or Cold Pack,Neuromuscular Re-ed,Coordination Retraining Precautions Other Precautions falls Recommendations To Nursing Amount of Assist Needed 1 Person Assist Discharge Recommendations PT Discharge Recommendations Home with 24/7 Assist Available,Home Health,SNF Rehab,Home vs SNF Transportation Needs at Discharge Wheelchair/Cabulance - PT assist 1
[2024-09-28] MEDS: POTASSIUM CHLORIDE 20 MEQ TAB 40 MEQ PO (12:18)
--- NOTE | 2024-09-28 14:37 | ST.IPCSEOM ---
Visit Care Team Role Provider Type Pastor Naranjo MD Family Provider Physician Primary Care Provider Specialty: [facility] Practice Address: [address] [place] [address], [id number] Email: [email or web address] [email or web address] Bustamante MD Emergency Provider Physician Referring Provider Specialty: Emergency Medicine Address: [address] [place] [address], [id number] Email: Johny Fields MD Admit Provider Physician Attending Provider Specialty: [facility] Address: [address] [place] [address], [address] Email: [email or web address] Past Medical History (Last Reviewed 12/14/23 @ 16:17 by Alonso Ryan MD) Alcoholism (Medical) COVID-19 (Medical) Mar 2021 Methamphetamine abuse (Medical) Tobacco abuse (Medical) Speech-Language Pathology Swallow Evaluation CUFF [employer]ITCHER Clinical Swallow Evaluation Start: 09/28/24 14:12 Freq: Status: Active Protocol: Document 09/28/24 14:14 MA (Rec: 09/28/24 14:37 MA Desktop) Clinical Swallow Evaluation Session Time Visit Start Time 12:05 Visit Stop Time 12:30 Total Visit Minutes 25 Visit Information Visit Number [address] Fields Reason for Referral Possible stroke Setting Assessment Location Acute Care Visit Type Note Type Initial evaluation Next Note Type Next Note Type Treatment Note Patient Information Identification Type Name,Wristband History Per ED documentation: 59- year-old woman with a prior stroke with right-sided weakness and facial droop presents with 3 days of increasing weakness per her . her chronic right side weakness is reportedly worse than her baseline. Her speech is somewhat slowed, who has been describes her as a bit more confused. She has not had any falls, there was no fever, cough, chills or headache And she is feeling somewhat dizzy And her previous right-sided facial weakness is again noted unclear if it is worsen.. She notes she has been constipated, she is supposed to be taking lactulose for her alcohol-related cirrhosis. Brain MRI: IMPRESSION: 1. No acute infarct. No acute intracranial process. 2. Moderate small vessel ischemic change, old left- sided lacunar infarctions. Pt referred for ST evaluation d/t possible stroke and to assess speech/cognition/ swallow. Subjective Observations Pt sitting upright in chair upon ST entering room with nurse present administering pills. Pt consumed pills whole with thin juice via cup, no overt s/s of aspiration. Nurse reports she has been coughing a lot. Pt with coughing prior to PO trials, which sounds like she has some chest congestion. Reported by Patient/Caregiver Pain/Discomfort No Other Symptoms Coughing Current Diet Regular (IDDSI 7) Baseline Feeding Method Independent in self-feeding The IDDSI Framework Protocol: IDDSI.1 Objective Assessment Mental Status Alert,Responsive,Cooperative, Lethargic Oral Integrity WFL Comment Pt appeared lethargic during evaluation with nursing reporting she had taken Ativan not long before ST entered room. Pt Ox3 and answering questions, however eyes appeared heavy. Pt with slight left sided facial weakness and overall lingual and labial weakness. Pt with slightly slurred speech. She reports dysarthria prior to this hospital admissions d/t previous CVA (This property underwriter is also familiar with Pt from outpatient speech therapy). Pt reports her speech is slightly more slurred compared to baseline. Food and Liquid Trials Position During Assessment Upright (90 degrees) Liquids Trialed Thin (IDDSI 0) Solid Trials Regular (IDDSI 7) Administration Type Cup single sip Oral Impairment Within functional limits Oral Phase Comments Pt consumed 1/4 of a turkey sandwich and about 4 oz of thin juice via cup. For thin juice via cup, Pt exhibited adequate sip size, good oral acceptance and containment. She declined drinking with a straw and reported That will make me cough. For sandwich, Pt took adequate bite size, slow and prolonged mastication , which may be d/t Pt lethargy , adequate bolus formation and control. ST educated Pt on importance of not eating if she is too tired in order to prevent risk of choking. Pharyngeal Impairment Within functional limits Pharyngeal Phase Comments Pt exhibited 1x throat clear with thin juice via cup. Intermittent coughing pre-post PO trials with ST unable to determine if d/t liquids/ solids or baseline cough. Fatigue/Endurance Mild fatigue The IDDSI Framework Protocol: IDDSI.1 Findings Swallowing Function Within functional limits Severity of Swallow Impairment Within functional limits Prognosis Good Impact on Safety and Functioning No limitations Recommendations Instrumental Assessment No Swallowing Treatment Yes Frequency 1x f/u for diet tolerance Recommended Solids Regular (IDDSI 7) Recommended Liquids Thin (IDDSI 0) Other Recommendations ST recommends regular solids and thin liquids with the below mentioned safe swallowing strategies in place . ST educated Pt on recommendation for no straws and importance of only eating when awake and alert. Pt verbalized understanding. ST recommends 1x f/u to assess diet tolerance and ensure Pt on safest and most efficient diet. Safety Precautions/Swallowing Remain upright (90 degrees) Recommendations during all oral intake,Upright position at least 30 minutes after meals,Small bites and sips when eating,No straw, Alternate liquids and solids Medication Recommendations As Tolerated Education Patient/Caregiver Education Described results of evaluation,Patient expressed understanding of evaluation, Patient expressed agreement with goals & treatment plans, Patient requires further education/training Goals Short-term Goals STG 1: Pt will tolerate prescribed diet with <5% overt s/s of aspiration/dysphagia with use of compensatory swallowing strategies and minimal cues. Long-term Goals LTG 1: Patient will consume safest and most efficient least restrictive diet with no clinical s/s of aspiration or dysphagia 100% of the time in order to meet primary nutrition/hydration needs.
--- NOTE | 2024-09-28 15:45 | CM.DANOTE ---
Initial DCP Assessment Note Pt is a 59 yo female, resident of [place], arrives with stroke like sx, MRI neg for stroke. PCP: Pastor Naranjo Payer: Evelin Reviewed chart, met w/patient and her , patient lethargic and unable to keep her food or coffee in her mouth, drooling. PT/OT recommending home w/22/11 assist and HH vs SNF. Spouse explains that patient has been indp at home, driving. Spouse considering taking time off work so that he can care for patient once home. Discussed outpatient vs HH; did not discuss SNF. Spouse would like to get patient to outpatient if this is possible, spouse would like to see how patient progresses before making a decision about HH. Plan: Discharge home w/spouse and HH is anticipated. CM team will plan to follow clinical course closely. If therapies recommend SNF- need to discuss with patient/sp. Patient has the following insurance coverage: Therese Nicole/DANA/Ni. FAUZIA Ceballos Discharge Planning/Care Management CM Discharge Assessment Start: 09/27/24 20:08 Freq: Status: Active Protocol: Document 09/28/24 15:43 OMAR (Rec: 09/28/24 15:45 OMAR [id number]) Discharge Planning Assessment Assigned Gold Assayer FAUZIA Mcghee DPOA/Assigned Designee Name Romaine Duran, spouse Contact Information [phone] Advance Directives? No Advance Directives on File No History Provided By Patient,Significant Other, Medical Record Has Patient been admitted in last 30 No days? Prior Living Arrangements House Household Members spouse Type of transporation used prior to Drives own vehicle admit Independent with ADL's Yes Is patient alert and oriented? Yes Barriers to Discharge No Comment Home w/spouse anticipated, with outpatient therapies vs HH Discharge Plan Home Transportation Arrangement spouse bedside
--- NOTE | 2024-09-28 16:40 | P.HP_ITS ---
History of Present Illness History of Present Illness Date Patient Seen: 09/28/24 Time Patient Seen: 10:00 Date of Onset of Symptoms: 09/27/24 Chief complaint: stroke sym Narrative: Chief complaint confusion and weakness like previous stroke Pleasant 59-year-old female well known to our service presented to ED with complaints of acute confusion and weakness similar to previous CVA symptoms. Admitted for evaluation with advanced imaging. [facility] Medical History COVID-19 Tobacco abuse Alcoholism Methamphetamine abuse Surgical History Status post lumbar surgery Status post cervical spinal fusion Status post gastric bypass for obesity Family History Mother Hypertension Father Family estrangement Social History household members: spouse Smoking Status: Current every day smoker alcohol intake: former Meds Home Medications and Allergies Home Medications Medication Instructions Recorded Confirmed Type lactulose 10 gram/15 mL oral 7.5 ml PO DAILY 12/14/23 09/27/24 History solution nadolol 40 mg tablet 40 mg PO DAILY 12/14/23 09/27/24 History spironolactone 25 mg tablet 25 mg PO DAILY 12/14/23 09/27/24 History aspirin 81 mg chewable tablet 1 tab PO DAILY 09/27/24 09/27/24 History furosemide 20 mg tablet 20 mg PO BID 09/27/24 09/27/24 History spironolactone 50 mg tablet 40 mg PO BID 09/27/24 09/27/24 History Allergies Allergy/AdvReac Type Severity Reaction Status Date / Time morphine [MORPHINE] Allergy Unknown Hives Verified 09/27/24 13:03 Review of Systems Review of Systems Narrative: All systems reviewed and negative except as otherwise documented in HPI Exam Vital Signs (past 8 hours): - 09/28/24 12:00 Temperature 97.9 F Pulse Rate 61 Respiratory Rate 20 Blood Pressure 136/68 Pulse Oximetry 93 Oxygen Flow Rate 0 Oxygen Delivery Method Room Air Oxygen Flow Rate 0 Narrative Exam Narrative: Alert in bed surrounded by family Eyes Other: Extraocular movements intact Resp Other: Moving air well clear to auscultation bilaterally on room air speaking full sentences Cardio Other: Regular rate S1-S2 minimal pedal edema Neuro Other: Slurred speech oriented to [facility] and situation Extrem Other: Moving all limbs equally Objective Labs 09/27/24 13:04 09/27/24 21:33 Labs: Laboratory Results - last 24 hr 09/27/24 09/27/24 13:04 21:33 Sodium 141 Potassium 3.5 Chloride 109 H Carbon Dioxide 24 BUN 30 H Creatinine 1.41 H Estimated GFR 43 L BUN/Creatinine Ratio 21.3 Glucose 114 H Hemoglobin A1c 5.7 Calcium 10.3 H Total Bilirubin 1.2 AST 60 H ALT 49 H Alkaline Phosphatase 120 Total Protein 7.4 Albumin 3.6 Globulin 3.8 Albumin/Globulin Ratio 0.9 L Triglycerides 109 Cholesterol 114 L LDL Cholesterol, Calc 47 HDL Cholesterol 45 Assessment & Plan Assessment & Plan narrative: # suspected acute on chronic CVA Admit for imaging and PT OT workup NIH scale 1. MRI pending she did get a dose of lorazepam this morning for claustrophobia during scan which is taking a while to get out of her system #acute kidney injury Creatinine bump well above baseline encourage oral hydration and recheck # history of alcoholic cirrhosis with ascites Not drinking ascites has been improved not requiring regular paracentesis at this time -avoid Tylenol # history of bleeding varices Avoid NSAIDs stable #Hx of diastolic CHF stable continue home meds MDM: Code: dispo: admit obsv, work with PT/OT get imaging results Time-Based Coding :: [TOTAL MINUTES] spent with patient and on the chart (including review of chart, obtaining history, exam, reviewing outside data, placing orders, documenting exam and treatment plan, and counseling patient) on [DATE]. Quality VTE Deep Vein Thrombosis/Pulmonary Embolism Present on Admission: No
--- NOTE | 2024-09-28 20:34 | DI.MRI.S_ITS ---
PROCEDURE: MR HEAD/BRAIN WO CON INDICATIONS: cva TECHNIQUE: Non-contrast axial T1 spin echo, axial T2 fast spin echo, sagittal and axial FLAIR, coronal T2 fast spin echo, axial gradient echo, axial diffusion and ADC through the brain. COMPARISON: [facility], CT, CT ANGIO HEAD AND NECK, 09/27/2024, 13:37. [facility], CT, CT HEAD/BRAIN WO CON, 09/27/2024, 13:37. [facility], MR, MR HEAD/BRAIN WO CON, 07/20/2024, 13:24. FINDINGS: Image quality: Excellent. CSF spaces: Ventricles appear symmetric in size and shape. Basal cisterns are patent. No extra-axial fluid collections. Brain: No intracranial bleeds or mass effects. There is cerebral volume loss for age. There are moderate periventricular and deep white matter chronic small vessel ischemic changes. Brainstem appears normal. Diffusion-weighted images show no acute infarct. Small chronic left frontal deep white matter lacunar infarctions. Normal intravascular flow voids are present. Skull and face: Calvarial bone marrow is normal in signal. Orbits are normal. Sinuses: Sinuses and mastoids are clear. IMPRESSION: 1. No acute infarct. No acute intracranial process. 2. Moderate small vessel ischemic change, old left-sided lacunar infarctions. Dictated by: Vinod Jj M.D. on 09/28/2024 at 10:43 Approved by: Vinod Jj M.D. on 09/28/2024 at 11:04
[2024-09-28] MEDS: MAGNESIUM HYDROXIDE 30 ML UDC PO (23:43)
[2024-09-29] VITALS (9 sets, daily range): BP systolic 100–130; BP diastolic 48–66; PULSE 60–86; RESP 15–19; TEMP 35.9–36.6; O2SAT 58–100
[2024-09-29 05:23] LABS: Alanine Aminotransferase 41 IU/L (<35); Albumin 3.1 g/dL (3.5-5.0); Alkaline Phosphatase 163 U/L (38-126); Aspartate Aminotransferase 51 IU/L (14-36); BUN Creatinine Ratio 35.4 (6-22); Bilirubin Total 0.8 mg/dL (0.2-1.3); Blood Urea Nitrogen 34 mg/dL (7-17); Calcium 9.5 mg/dL (8.4-10.2); Carbon Dioxide 21 mmol/L (22-32); Chloride 108 mmol/L (98-107); Estimated Glomerular Filt Rate > 60 mL/min (>60); Globulin 3.2 g/dL (1.7-4.1); Glucose 119 mg/dL (70-99); HEMOLYSIS < 15 (0-50); Potassium 4.2 mmol/L (3.4-5.1); Sodium 137 mmol/L (137-145); Total Protein 6.3 g/dL (6.3-8.2)
[2024-09-29 05:24] LABS: Magnesium 2.3 mg/dL (1.6-2.3)
[2024-09-29] MEDS: PROPRANOLOL 10 MG TABLET 20 MG PO ×2 (09:18→20:48)
[2024-09-29] MEDS: ASPIRIN EC 81 MG TABLET PO (09:18)
[2024-09-29] MEDS: LACTULOSE 20 GM/30 ML SOLUTION 5 GM PO (09:18)
[2024-09-29] MEDS: ENOXAPARIN 40 MG/0.4 ML SYRINGE SUBCUT (09:19)
[2024-09-29] MEDS: SPIRONOLACTONE 25 MG TABLET PO (09:19)
[2024-09-29] MEDS: CLOPIDOGREL 75 MG TABLET PO (09:19)
--- NOTE | 2024-09-29 12:02 | P.PN_ITS ---
Subjective Subjective Date Patient Seen: 09/29/24 Time Patient Seen: 12:02 Interval history: Patient seen in [facility] for Dr. Naranjo. Patient was admitted with concern for possible stroke and underwent head CT, CTA of head and neck and MRI all showing no evidence of acute neurologic event. Patient was given lorazepam yesterday 1 mg prior to the MRI for sedation and was very sedated yesterday and suggestion was that she would be able to go home today. Patient is continuing to be very groggy. She refused to do physical therapy. She is not oriented to person place or time she can minimally follow commands and is sitting up in chair but seems to be falling asleep having difficulty staying awake. She was alert and oriented yesterday. Reviewed her past medical history medications, ER workup and hospitalization this far Patient denies any chest pain or shortness of breath or headache 12 point review of systems otherwise negative Exam Vital Signs (past 8 hours): - 09/29/24 05:15 09/29/24 07:00 09/29/24 09:00 Temperature 97.8 F Pulse Rate 86 Respiratory Rate 19 18 Blood Pressure 130/66 100/50 L Pulse Oximetry 97 58 L 58 L Oxygen Flow Rate 0 0 Oxygen Delivery Method Room Air Oxygen Flow Rate 0 Narrative Exam Narrative: Patient appears sedated with a no focal findings on neurologic exam Afebrile, vital signs are stable HEENT: Mucous membranes moist and pink no mucosal lesions. No facial asymmetry. Cranial nerves 2-12 grossly intact as best I can get patient to follow commands Neck: Supple Chest: Clear to auscultation without wheezes rhonchi or crackles Cor: Regular rate and rhythm without murmur Abdomen: Positive bowel sounds x4, obese, no evidence of obvious ascites Extremities show trace edema, pulses intact Neurologic exam patient is able to follow commands minimally but there are no obvious focal deficits other than hypersomnolence and lethargy No skin rashes Objective Labs 09/27/24 13:04 09/29/24 04:17 Labs: Laboratory Results - last 24 hr 09/29/24 09/29/24 09/29/24 04:17 04:17 04:17 Sodium Cancelled 137 Potassium Cancelled 4.2 Chloride Cancelled Carbon Dioxide BUN Creatinine Estimated GFR BUN/Creatinine Ratio Glucose Calcium Magnesium Total Bilirubin AST ALT Alkaline Phosphatase Total Protein Albumin Globulin Albumin/Globulin Ratio 09/29/24 09/29/24 09/29/24 04:17 04:17 04:17 Sodium Potassium Chloride 108 H Carbon Dioxide Cancelled 21 L BUN Cancelled 34 H Creatinine Cancelled Estimated GFR BUN/Creatinine Ratio Glucose Calcium Magnesium Total Bilirubin AST ALT Alkaline Phosphatase Total Protein Albumin Globulin Albumin/Globulin Ratio 09/29/24 09/29/24 09/29/24 04:17 04:17 04:17 Sodium Potassium Chloride Carbon Dioxide BUN Creatinine 0.96 Estimated GFR Cancelled > 60 BUN/Creatinine Ratio Cancelled 35.4 H Glucose Cancelled Calcium Magnesium Total Bilirubin AST ALT Alkaline Phosphatase Total Protein Albumin Globulin Albumin/Globulin Ratio 09/29/24 09/29/24 04:17 04:17 Sodium Potassium Chloride Carbon Dioxide BUN Creatinine Estimated GFR BUN/Creatinine Ratio Glucose 119 H Calcium Cancelled 9.5 Magnesium 2.3 Total Bilirubin 0.8 AST 51 H ALT 41 H Alkaline Phosphatase 163 H Total Protein 6.3 Albumin 3.1 L Globulin 3.2 Albumin/Globulin Ratio 1.0 PFSH Medical History COVID-19 Tobacco abuse Alcoholism Methamphetamine abuse Surgical History Status post lumbar surgery Status post cervical spinal fusion Status post gastric bypass for obesity Family History Mother Hypertension Father Family estrangement Social History household members: spouse Smoking Status: Current every day smoker alcohol intake: former Assessment & Plan Assessment & Plan narrative: 59-year-old female who is admitted on 09/27/24 for possible CVA. Patient had extensive imaging which was all negative. Patient received lorazepam yesterday prior to MRI in his still hypersomnolent without any focal neurologic abnormalities. Reviewed history and patient has a long history of alcohol abuse with cirrhotic liver and ascites requiring multiple paracentesis and has had multiple admissions with hepatic encephalopathy. I suspect this is ongoing. Patient reportedly is no longer drinking alcohol. Tox screen was negative on admit as was alcohol level but ammonia was not checked. Attempted to call Romaine at [phone] and left a message in order to gain more information. Patient clearly is not able to be discharged today. Will workup for hepatic encephalopathy and check vitamin B12, CBC, folate, ammonia though possibly with her cirrhosis the dose of lorazepam could be still metabolizing and this could be the cause of her current sedation. Assessment & Plan narrative: # suspected acute on chronic CVA Admit for imaging and PT OT workup NIH scale 1. MRI pending she did get a dose of lorazepam this morning for claustrophobia during scan which is taking a while to get out of her system #acute kidney injury, resolved Will continue to monitor recheck labs tomorrow # history of alcoholic cirrhosis with ascites Not drinking currently. Ascites has been improved not requiring regular paracentesis at this time -avoid Tylenol Will rule hepatic encephalopathy will check ammonia. Will treat empirically with lactulose 20 mg p.o. t.i.d. patient has not had a bowel movement since admit # history of bleeding varices Avoid NSAIDs stable #Hx of diastolic CHF stable continue home meds, furosemide and spironolactone nadolol and continue to monitor MDM: Code: Full dispo: Continued hospitalization due to neurologic status. Patient is not safe for discharge. Patient may need SNF placement pending how she does 65 minute spent with patient reviewing chart discussing with nursing and pharmacy, formulating a plan and documentation Time-Based Coding :: [TOTAL MINUTES] spent with patient and on the chart (including review of chart, obtaining history, exam, reviewing outside data, placing orders, documenting exam and treatment plan, and counseling patient) on [DATE]. Quality VTE Deep Vein Thrombosis/Pulmonary Embolism Present on Admission: No
--- NOTE | 2024-09-29 12:14 | PT-IP ANOTE ---
checked on pt this morning but refused PT. No reasons given and stated that she just cannot do PT. informed pt that PT will check again later and agreed.
--- NOTE | 2024-09-29 12:19 | PC.NURSE ---
Addendum entered by Merary Zamudio R.N. 09/29/24 16:57: Pt ambulated with this RN in the hallway using GB and FWW. Pt tolerated well. Original Note: Day shift: pt was lethargic this morning. She started to cry this morning and stated I don't feel good but was unable to elaborate, though she denied pain. This RN assisted pt to the bathroom, but pt had already soiled herself. Pt needed more assistance today with personal hygiene, and required more time to complete tasks such as ambulating and brushing her teeth. She is currently sitting in the recliner with chair alarm on. Notified Dr. Flannery, who went to assess pt.
[2024-09-29] MEDS: LACTULOSE 20 GM/30 ML SOLUTION 30 GM PO ×4 (12:46→19:01)
--- NOTE | 2024-09-29 13:57 | CM.DPC ---
DCP Cont: Per PT, pt refused PT this morning and will attempt again later today. Per MD, anticipated possible d/c today but while bedside pt appeared below baseline with her mentation and very drowsy and lethargic. Pt not stable for discharge yet today and will r/o any further medical conditions or needs. Plan: SW to follow closely in the AM after further PT to determine SNF vs return home with spouse who works pending progress. FAUZIA Mathew
[2024-09-29 14:48] LABS: Ammonia (NH3) 117 umol/L (9-30)
[2024-09-29 15:05] LABS: Gamma Glutamyl Transpeptidase 83 U/L (12-43)
[2024-09-29 16:12] LABS: Folate 15.3 ng/mL (2.76-20.0); Vitamin B12 876 pg/mL (239-931)
--- NOTE | 2024-09-29 16:32 | PT-IP ANOTE ---
unable to check back on pt this afternoon due to schedule conflict.
[2024-09-29] MEDS: ONDANSETRON 4 MG/2 ML INJ IV (17:40)
[2024-09-30 04:14] VITALS: BP 121/60; PULSE 65; RESP 17; TEMP 36.2; O2SAT 99
[2024-09-30 04:42] LABS: Alanine Aminotransferase 46 IU/L (<35); Albumin 3.2 g/dL (3.5-5.0); Alkaline Phosphatase 144 U/L (38-126); Ammonia (NH3) 49 umol/L (9-30); Aspartate Aminotransferase 53 IU/L (14-36); Bilirubin Total 0.7 mg/dL (0.2-1.3); Blood Urea Nitrogen 25 mg/dL (7-17); Carbon Dioxide 19 mmol/L (22-32); Chloride 109 mmol/L (98-107); Estimated Glomerular Filt Rate > 60 mL/min (>60); Globulin 3.3 g/dL (1.7-4.1); Glucose 123 mg/dL (70-99); HEMOLYSIS < 15 (0-50); Sodium 136 mmol/L (137-145); Total Protein 6.5 g/dL (6.3-8.2)
[2024-09-30 06:14] LABS: Add Manual Diff / Slide Review NO; Basophils Absolute Auto 100 /uL (0-100); Basophils Percent Auto 1.1 % (0-2); Eosinophils Absolute Auto 400 /uL (0-450); Eosinophils Percent Auto 5.7 % (2-4); Hematocrit 28.5 % (36-46); Hemoglobin 9.8 g/dL (12.0-16.0); Lymphocytes Absolute Auto 2000 /uL (1100-4500); Lymphocytes Percent Auto 29.3 % (25-40); Mean Corpuscular HGB Conc 34.4 % (30-36); Mean Corpuscular Hemoglobin 29.6 PG (26-34); Monocytes Absolute Auto 1000 /uL (0-900); Monocytes Percent Auto 13.9 % (3-14); Neutrophils Absolute Auto 3400 /uL (1500-7000); Platelet Count 216 X10^3/uL (150-400); Red Blood Cell Count 3.31 X10^6/uL (4.0-5.2); Red Cell Distribution Width 22.4 % (11.6-14.8); White Blood Cell Count 6.9 X10^3/uL (4.5-11.0)
[2024-09-30 06:28] LABS: Anisocytosis 1+; Platelet Estimate Adequate on smear; Poikilocytosis 1+
[2024-09-30 07:00] VITALS: O2SAT 98
[2024-09-30 08:00] VITALS: BP 106/62; PULSE 63; RESP 15; TEMP 36.2; O2SAT 98
[2024-09-30] MEDS: ASPIRIN EC 81 MG TABLET PO (08:45)
[2024-09-30] MEDS: SPIRONOLACTONE 25 MG TABLET PO (08:45)
[2024-09-30] MEDS: PROPRANOLOL 10 MG TABLET 20 MG PO (08:45)
[2024-09-30] MEDS: CLOPIDOGREL 75 MG TABLET PO (08:45)
[2024-09-30] MEDS: ENOXAPARIN 40 MG/0.4 ML SYRINGE SUBCUT (08:46)
[2024-09-30 12:00] VITALS: BP 111/57; PULSE 62; RESP 18; TEMP 36.3; O2SAT 100
--- NOTE | 2024-09-30 12:19 | PT.IPTN ---
Current Diagnoses Cerebral infarction, unspecified (09/27/24) Physical Therapy Treatment Note M2 PT-IP Current Condition Start: 09/28/24 12:45 Freq: NEEDED Status: Active Protocol: Document 09/28/24 11:25 AB (Rec: 09/28/24 13:05 AB [id number]) Physical Therapy Current Condition Current Condition Evaluation Date 09/28/24 Treatment Diagnosis CVA; difficulty in walking Onset Date 09/27/24 M3 PT-IP Subjective Start: 09/28/24 12:45 Freq: NEEDED Status: Active Protocol: Document 09/30/24 12:14 MB (Rec: 09/30/24 12:19 MB Desktop) Subjective Physical Therapy Visit Type Type Treatment Note Visit Start Time 12:00 Visit Stop Time 12:10 Number of MEAT LOINER Visits 0 Physical Therapy Visit Comments Patient Comments Pt is agreeable to PT. Therapy Pain Assessment Pain When Pain Assessed At Rest Pain Present Pain Present Pain Reported Location Stomach Scale Used Not rated M4 PT-IP Mobility and Gait Start: 09/28/24 12:45 Freq: NEEDED Status: Active Protocol: Document 09/30/24 12:14 MB (Rec: 09/30/24 12:19 MB Desktop) PT-Bed Mobility Assessment Rolling Type of Rolling Roll to Left Level of Assist Standby Assistance Supine to Sit Supine to Sit Standby Assistance,Head of Bed Elevated,Bedrails Scooting Scooting to Edge of Bed Standby Assistance PT-Transfer Assessment Sit to and From Stand Sit to and from Stand Standby Assistance,1 Person Assistance,Use of Upper Extremities Equipment Transfer Assistive Device Gait Belt,Front Wheeled Walker Orthotic/Prosthetic Devices or Brace: No Transfers Transfer Destination Chair Transfer Technique ambulated Transfer Ability Level of Assist Standby Assistance,1 Person Assistance,Use of Upper Extremities Comments Mobility Comments Pt is somewhat impulsive and gets up to EOB and OOB before PT can obtain gait belt and RW Gait Assessment Gait Gait Assistance Required: Standby Assistance,1 Person Assist Distance (Feet) 100 Assistive Devices Assistive Device Gait Belt,Front Wheeled Walker Gait Deviations General Gait Pattern Flexed Trunk Factors Limiting Gait Function Factors Limiting Gait Function Poor Balance,Poor Safety Awareness Comments Gait Comments 100'x2 and her gait jose is variable and pt presents with decreased safety awareness and visual tracking, tends to stare off or not watch where she is going Stair Climbing Assessment Evaluation Level of Assist On Stairs Contact Guard Assistance,1 Person Assistance Devices Stair Climbing Assistive Devices Front Wheel Walker Technique/Endurance Stair Climbing Direction Ascend and Descend Stair Climbing Technique Step to Step Number of Steps Climbed 1 Stair Climbing Set # Repetitions (reps) 1 Comments Stair Climbing Comments Cues to step feet close to the step, then put walker up on step, step up, turn around and then lower walker and then step down PT-Balance Assessment Sitting Balance and Reactions Static Sitting Balance Ability Good Dynamic Sitting Balance Ability Good Standing Balance and Reactions Static Standing Balance Ability Fair Dynamic Standing Balance Ability Poor Device Used RW M5 PT-IP Objective Assessments Start: 09/28/24 12:45 Freq: NEEDED Status: Active Protocol: Document 09/28/24 11:25 AB (Rec: 09/28/24 13:05 AB [id number]) Orientation Orientation/Cognition Level of Alertness Alert Orientation Name,Place,Situation Language Function Ability Hard of Hearing Safety Awareness Decreased Safety Awareness Memory Description Short Term Impaired Comments pt slightly drowsy/sleepy Gross Range of Motion Lower Extremity ROM Assessment Within Functional Limits Strength Lower Extremity Strength Assessment Within Functional Limits M6 PT-IP Treatment Start: 09/28/24 12:45 Freq: NEEDED Status: Active Protocol: Document 09/30/24 12:14 MB (Rec: 09/30/24 12:19 MB Desktop) Physical Therapy Treatment Education Education Provided Safety M7 PT-IP Assessment and Plan Start: 09/28/24 12:45 Freq: NEEDED Status: Active Protocol: Document 09/30/24 12:14 MB (Rec: 09/30/24 12:19 MB Desktop) PT Summary Assessment and Plan Potential Rehabilitation Potential Fair Status of Condition at Evaluation Evolving Summary Impairments Pain,Balance,Coordination,Bed Mobility,Transfers,Gait, Activity Tolerance Progress Towards Goals Progressing Toward Goals Assessment Summary Stroke testing negative. Pt presents with decreased safety awareness, visual tracking and imbalance with gait. She is also impulsive with mobility. Increased gait distance and stair training today. Goals Bed Mobility Goal Independent Transfer Goal Independent,Front Wheeled Walker Gait Goal Independent,Front Wheel Walker Gait Distance 200 Other Goals improve transfers and ambulation without AD ~ 150 ft mod I up/down 1 step SBA Days to Meet Goals 2 Frequency of Treatment Frequency Of Treatment Once a Day Treatment Plan Physical Therapy Treatment Plan Bed Mobility Training,Transfer Training,Gait Training, Therapeutic Exercise,Balance Retraining,Discharge Planning, Hot or Cold Pack,Neuromuscular Re-ed,Coordination Retraining Precautions Other Precautions falls Recommendations To Nursing Amount of Assist Needed 1 Person Assist Discharge Recommendations PT Discharge Recommendations Home with 22/11 Assist Available,Outpatient PT Transportation Needs at Discharge Private Vehicle - PT assist 1
--- NOTE | 2024-09-30 14:13 | P.DS_ITS ---
History of Present Illness History of Present Illness Date Patient Seen: 09/30/24 Time Patient Seen: 14:13 Chief complaint: stroke sym Narrative: Patient with unremarkable night. Patient received lactulose and symptoms are markedly improved. She feels she is back to her baseline and wanting to go home. She denies any pain or difficulty breathing. She does smoke and does have inhalers at home. Discharge Providers Provider Date of admission: 09/27/24 19:42 Discharge Date: 09/30/24 Primary care physician: Pastor Naranjo MD Consults: 09/27/24 20:29 Consult to Discharge Planning Routine Comment: Consult to Occupational Therapy Evaluate & Treat Comment: Physician Instructions: Evaluate and treat Consult to Physical Therapy Evaluate & Treat Comment: Physician Instructions: Evaluate and Treat Consult to Speech Therapy Evaluate & Treat Comment: Physician Instructions: Evaluate and treat Discharge provider: Cecelia Flannery MD Summary Hospital Course Discharge Diagnosis: Hepatic encephalopathy improved with lactulose and etiology of her original symptoms Acute CVA ruled out Chronic anemia, iron deficiency, worsened. Continue outpatient iron treatment and follow up next week with CBC Heart failure plan continue outpatient medications Wheezes on exam with history of tobacco use Hospital Course: Patient was admitted to the hospital with possible CVA. Patient had CT of the head and CT angio of head and neck which were unrevealing for acute problems. Patient had MRI which showed chronic ischemic changes but no acute stroke or mass or concern. Patient had increasing lethargy and encephalopathic and was found to have elevated ammonia. Patient was treated with lactulose and as soon as she started stooling was back to her baseline per her and per the patient. Therefore patient was discharged home in improved in stable condition Follow up with Dr. Rosario next week with a BMP and a CBC prior Follow up with you hepatology as this was the etiology of her problem Continue outpatient medications Home health to assist with meds and PT Will go home with incentive spirometry and encouraged her to use her inhalers and call with worsening symptoms Status at Discharge Cognitive/behavioral status at discharge: at baseline, oriented and at baseline, confused Functional status at discharge: uses cane/walker Overall status at discharge: patient is progressing back to baseline Exam Vital Signs (past 8 hours): - 09/30/24 07:00 09/30/24 08:00 09/30/24 12:00 Temperature 97.1 F L 97.4 F L Pulse Rate 63 62 Respiratory Rate 15 18 Blood Pressure 106/62 111/57 L Pulse Oximetry 98 98 100 Oxygen Delivery Method Room Air Oxygen Delivery Method Room Air Oxygen Flow Rate 0 Narrative Exam Narrative: Afebrile vital signs are stable. Patient is alert HEENT: Unremarkable Neck: Supple without adenopathy Chest: Diffuse rhonchi without wheezes or crackles Core regular rate and rhythm with systolic murmur left upper sternal border Abdomen: Positive bowel sounds, soft, no evidence of obvious ascites Extremities no edema Patient was able to give a good history. She remembers me from yesterday. Objective Labs 09/30/24 06:06 09/30/24 04:15 Labs: Laboratory Results - last 24 hr 09/29/24 09/30/24 09/30/24 14:23 04:15 06:06 WBC 6.9 RBC 3.31 L Hgb 9.8 L Hct 28.5 L MCV 86.0 MCH 29.6 MCHC 34.4 RDW 22.4 H Plt Count 216 Neut % (Auto) 50.0 Lymph % (Auto) 29.3 [place] % (Auto) 13.9 Eos % (Auto) 5.7 H Baso % (Auto) 1.1 Neut # (Auto) 3400 Lymph # (Auto) 2000 [place] # (Auto) 1000 H Eos # (Auto) 400 Baso # (Auto) 100 Platelet Estimate Adequate on smear RBC Morphology See below Poikilocytosis 1+ H Anisocytosis 1+ H Sodium 136 L Potassium 4.0 Chloride 109 H Carbon Dioxide 19 L BUN 25 H Creatinine 0.96 Estimated GFR > 60 BUN/Creatinine Ratio 26.0 H Glucose 123 H Calcium 10.0 Total Bilirubin 0.7 GGT 83 H AST 53 H ALT 46 H Alkaline Phosphatase 144 H Ammonia 117 H 49 H Total Protein 6.5 Albumin 3.2 L Globulin 3.3 Albumin/Globulin Ratio 1.0 Vitamin B12 876 Folate 15.3 PFSH Medical History COVID-19 Tobacco abuse Alcoholism Methamphetamine abuse Surgical History Status post lumbar surgery Status post cervical spinal fusion Status post gastric bypass for obesity Family History Mother Hypertension Father Family estrangement Social History household members: spouse Smoking Status: Current every day smoker alcohol intake: former Discharge Assessment & Plan Assessment and Plan Plan of Treatment: Hepatic encephalopathy improved with lactulose and etiology of her original symptoms Acute CVA ruled out Chronic anemia, iron deficiency, worsened. Continue outpatient iron treatment and follow up next week with CBC Heart failure plan continue outpatient medications Patient will continue lactulose 20 mg twice daily. Discussed the importance of her having bowel movements and to intervene early if she starts showing symptoms of slowing or decreased cognition that we need to rule out elevated ammonia levels. Home health will be consulted to help with medications and PT Greater than 30 minutes was spent in discharge IS, use albuterol Discharge Plan Discharge Plan Patient Disposition: Home Health Service Discharge orders & Medications Prescriptions: New lactulose 10 gram/15 mL Solution 20 gm PO TID Qty: 120 4RF Continued spironolactone 25 mg Tablet 25 mg PO DAILY nadolol 40 mg Tablet 40 mg PO DAILY lactulose 10 gram/15 mL solution 7.5 ml PO DAILY Patient Comments: patient doesnt like it, has not been taking aspirin 81 mg tablet,chewable 1 tab PO DAILY furosemide 20 mg tablet 20 mg PO BID spironolactone 50 mg tablet 40 mg PO BID Follow up/Referrals: Pastor Naranjo MD [Primary Care Provider] - Diet/Activity/Treatments Diet: Diet as Tolerated Visit Report/Discharge Packet Stand Alone Forms: Patient Portal/API, Stroke Signs & Symptoms Discharge Data Primary Care Provider: Pastor Naranjo Quality VTE Deep Vein Thrombosis/Pulmonary Embolism Present on Admission: No
--- NOTE | 2024-09-30 14:50 | PC.NURSE ---
D/c instructions reviewed with pt and spouse. Discussed reporting s/sx of stroke as soon as possible. Educated pt on use of incentive spirometer. Discussed following up with PCP next week. IV and tele removed. Pt exited via w/c with spouse to private vehicle.
== END 2024-09-30 14:56 | disposition home health service (06) | DRG 442 ==
LOC: ED 19:18 → AC 19:43
PROVIDERS: Family Medicine; Pharmacist Pharmacist Clinician (PhC)/ Clinical Pharmacy Specialist; Admitting Provider Family Medicine; Emergency Provider Emergency Medicine; Family Provider Family Medicine; PCP Family Medicine; Referring Provider Emergency Medicine; Visit Provider Family Medicine
DX: K76.82 Hepatic encephalopathy (principal); I50.30 Unspecified diastolic (congestive) heart failure; N17.9 Acute kidney failure, unspecified; I69.351 Hemiplegia and hemiparesis following cerebral infarction affecting right dominant side; F17.200 Nicotine dependence, unspecified, uncomplicated; D50.9 Iron deficiency anemia, unspecified; I69.392 Facial weakness following cerebral infarction; Z87.19 Personal history of other diseases of the digestive system
CPT/HCPCS: 36415; 70450; 70496; 70498; 70551; 71045; 80053; 80061; 80305; 80320; 81003; 82140; 82550; 82607; 82746; 82962; 82977; 83036; 83605; 83735; 84145; 84484; 85025; 87040; 92610; 93005; 96374; 96375; 97116; 97162; 97165; 97530; 97535; 99284; 99285; J1650; J2405; Q9967